=== PATIENT | male | born 1955 | race Caucasian/White ===

== ENCOUNTER 2024-06-28 04:32 | Observation (INO) | payer OTHER, SELFPAY ==
[2024-06-28] VITALS (23 sets, daily range): BP systolic 123–167; BP diastolic 67–91; PULSE 65–100; RESP 14–26; TEMP 36.6–37; O2SAT 94–99; BMI 34.0
--- NOTE | 2024-06-28 | ECHO_ITS ---
Patient Info Name: Aristides Pichardo Age: 68 years : 1955 Gender: Male Ht: 73 in Wt: 253 lbs BSA: 2.47 m2 HR: 84 bpm BP: 154 / 84 mmHg Heart Rhythm: Sinus Rhythm Technical Quality: Fair Exam Date: 06/28/2024 12:31 PM Exam Location: Echo Lab Patient Status: Inpatient Admit Date: 06/28/2024 Staff Ordering Physician: Brunilda Godinez MD Cement Rubber: Patti Carlos RDCS Attending Provider: Sixto Donnelly MD Referring Physician: Gretchen VIZCARRA; Exam Type: CA echo doppler color flow Study Info Indications - Heart Score 4 Complete two-dimensional, color flow and Doppler transthoracic echocardiogram is performed with contrast to opacify the left ventricle and to improve the deliniation of the left ventricle endocardial borders. Contrast/Agitated Saline Contrast/Ag. Saline: Definity Amount: 2.00 ml Administered By: Patti Carlos RDCS Existing IV Access: Yes IV Access Condition: patent with no signs of infiltration Summary 1. Concentric LVH with normal systolic function and grade 1 diastolic noncompliance. 2. Abnormal septal motion consistent with IVCD/bundle branch block. 3. Dilated left atrium. 4. Trivial MR. Left Ventricle Left ventricular chamber dimension is normal. Left ventricular systolic function is normal, estimated at 55-60%. There is mild concentric increased left ventricular wall thickness. Left ventricular septal wall motion is abnormal with septal motion related to bundle branch block. The left ventricular diastolic function is grade I diastolic dysfunction. Right Ventricle Right ventricular chamber dimension is normal. Left Atria Left atrial chamber dimension is moderately enlarged. Right Atria Right atrial chamber dimension is normal. Aortic Valve The aortic valve is normal. Pulmonic Valve The pulmonic valve is normal. Mitral Valve The mitral valve has normal leaflets. There is trace mitral valve regurgitation. Tricuspid Valve The tricuspid valve leaflets are normal. Pericardium/Pleural The pericardium appears normal. Aorta The aortic root size at the sinus of Valsalva is normal. Left Ventricular Outflow Tract Name Value Normal LVOT 2D LVOT Diameter 2.4 cm LVOT Doppler LVOT Peak Gradient 3 mmHg LVOT Mean Gradient 1 mmHg LVOT VTI 16 cm LVOT VTI/AV VTI Ratio 0.7 LVOT Stroke Volume 70 ml LVOT CO 5.3 l/min LVOT CI 2.2 l/min/m2 Pulmonic Valve Name Value Normal RVOT Doppler RVOT Peak Gradient 2 mmHg PV Doppler PV Peak Gradient 4 mmHg Mitral Valve Name Value Normal MV Doppler MV Decel Hale 398 cm/s2 MV PHT 45 ms MV Area (PHT) 4.9 cm2 4.0-5.0 MV Diastolic Function MV E Peak Velocity 62 cm/s MV A Peak Velocity 79 cm/s MV E/A 0.8 MV Decel Time 156 ms MV Annular TDI MV E/e' (Septal) 9.0 <=8.0 MV E/e' (Lateral) 7.1 <=8.0 MV E/e' (Average) 8.1 Tricuspid Valve Name Value Normal TV Regurgitation Doppler TR Peak Velocity 243 cm/s TR Peak Gradient 24 mmHg Estimated PAP/RSVP RA Pressure 10 mmHg <=5 PA Systolic Pressure 34 mmHg <36 RV Systolic Pressure 34 mmHg <36 Aorta Name Value Normal Ascending Aorta Ao Root Diameter (MM) 3.5 cm Ao Root Diam Index (MM) 1.4 cm/m2 Aortic Valve Name Value Normal AV Doppler AV Peak Velocity 133 cm/s AV Peak Gradient 7 mmHg AV Mean Gradient 3 mmHg AV VTI 23 cm AV Area (Cont Eq VTI) 3.1 cm2 >=3.0 AV Area (Cont Eq Bishop) 2.9 cm2 AV Regurgitation 2D LVOT Area 4.5 cm2 Ventricles Name Value Normal LV Dimensions 2D/MM IVS Diastolic Thickness (2D) 1.1 cm 0.6-1.0 LVID Diastole (2D) 5.1 cm 4.2-5.8 LVIW Diastolic Thickness (2D) 1.0 cm 0.6-1.0 LVID Systole (2D) 2.7 cm 2.5-4.0 LVOT Diameter 2.4 cm LV Mass (2D Cubed) 203.01 g 88.00-224.00 LV Mass Index (2D Cubed) 82 g/m2 49-115 Relative Wall Thickness (2D) 0.41 LV Fractional Shortening/Ejection Fraction 2D/MM LV Fractional Shortening (2D) 47 % 25-43 LV EF (2D Teicholz) 78 % 52-72 LV Diastolic Volume (4C MOD) 108 ml LV EF (4C MOD) 63 % LV Diastolic Volume (2C MOD) 129 ml LV EF (2C MOD) 65 % LV Diastolic Volume (BP MOD) 119 ml 62-150 LV Diastolic Volume Index (BP MOD) 48 ml/m2 34-74 LV Systolic Volume (BP MOD) 44 ml 21-61 LV Systolic Volume Index (BP MOD) 18 ml/m2 11-31 LV EF (BP MOD) 63 % 52-72 LV Diastolic Length (4C) 9.3 cm LV Systolic Length (4C) 8.4 cm LV Stroke Volume (4C MOD) 68 ml Atria Name Value Normal LA Dimensions LA Dimension (MM) 5.5 cm 3.0-4.1 LA Volume (4C A-L) 63 ml LA Volume (BP A-L) 74 ml RA Dimensions RA Area (4C) 18.4 cm2 <=18.0 Report Signatures
--- NOTE | ~2024-06-28 | XR_ITS ---
Clinical Indication: Chest pain PA and lateral views of the chest: Comparison: 06/07/2018 Findings: The lungs are clear, without evidence of focal consolidation or pleural effusion. Cardiome diastinal silhouette is within normal limits. Bones and soft tissues are unremarkable. Impression: Normal chest. Reviewed, dictated and finalized at location . Impression: Normal chest.
--- NOTE | ~2024-06-28 | US_ITS ---
EXAM: RENAL ULTRASOUND HISTORY: Acute renal failure COMPARISON: Reference is made to a CTA examination of the chest dated 06/28/2024 at 7:25 AM. Reference is also made to a CT examination of the abdomen and pelvis dated 04/07/2019 FINDINGS: RIGHT KIDNEY: 10.1 x 4.9 x 4.1 cm. The parenchyma of the right kidney is increased in echogenicity. No hydronephrosis or bulky renal calculi. LEFT KIDNEY: 12.1 x 6.0 x 4 point cm No hydronephrosis or renal calculi. The parenchyma of the left kidney is increased in echogenicity. BLADDER: Only minimally distended. Despite prolonged interrogation, neither ureteral jet was visualized IMPRESSION: No hydronephrosis or renal calculi. Findings suggesting medical renal disease. Reviewed, dictated and finalized at location A.
--- NOTE | ~2024-06-28 | NM_ITS ---
EXAMINATION: NM regine stress w perfusion DATE: 06/29/2024 13:00 INDICATION: Chest pain TECHNIQUE: Rest images were obtained following intravenous administration of 10 mCi Tc99m tetrofosmin (Myoview). The patient was infused intravenously with Lexiscan (Regadenoson). Then, 32.4 mCi Tc99m t etrofosmin (Myoview) was administered intravenously, and stress images were obtained. Data was recons tructed into short axis and horizontal and vertical long axis SPECT images. Gated SPECT images were a lso obtained. COMPARISON: None. FINDINGS: There is no definite reversible or fixed perfusion abnormality to suggest ischemia or infar ction. There is normal left ventricular chamber size, wall motion and ejection fraction. Left ventr icular ejection fraction measures 55%. IMPRESSION: 1. Normal myocardial perfusion at rest and during stress. 2. Left ventricular ejection fraction measuring 55%. Reviewed, dictated and finalized at location A.
--- NOTE | ~2024-06-28 | CT_ITS ---
Clinical Indication: Chest pain CT Scan of the Chest with Contrast: Technique: Contiguous sections were acquired throughout the chest after intravenous administration of 100 cc of Omnipaque 350. Dose reduction technique was used on this scan by utilizing automated expos ure control and iterative reconstruction technique. The dose-length product (DLP) was 679.84 mGy-cm. COMPARISON: 06/07/2018 Findings: There is no evidence of any significant mediastinal, hilar or axillary lymphadenopathy. There is no f illing defect in the pulmonary arterial tree to suggest pulmonary embolus. There is no evidence of ao rtic dissection or aneurysm. There is no evidence of pleural or pericardial effusion. The lungs are clear, aside from stable areas of minimal scarring at the lingula. Images through the upper abdomen reveal no abnormalities. Small sclerotic lesion in the sternal manub rium is stable since 2019. Impression: No evidence of pulmonary embolus, aortic dissection, or aortic aneurysm. No acute pulmonary abnormality. Reviewed, dictated and finalized at [facility]. Impression: No evidence of pulmonary embolus, aortic dissection, or aortic aneurysm. No acute pulmonary abnormality.
--- NOTE | 2024-06-28 04:34 | ECG_ITS ---
Test Date: 2024-06-28 04:41:13 Measurements Intervals [place] Rate: 97 P: 3 WA: 206 QRS: -45 QRSD: 97 T: 84 QT: 333 QTc: 424 Interpretive Statements SINUS RHYTHM POSSIBLE LEFT ATRIAL ENLARGEMENT [-0.1mV P WAVE IN V1/V2] MARKED LEFT AXIS DEVIATION [QRS AXIS < -30] S1-S2-S3 PATTERN, CONSISTENT WITH PULMONARY DISEASE, RVH, OR NORMAL VARIANT LEFT VENTRICULAR HYPERTROPHY AND ST-T CHANGE [VOLTAGE CRITERIA PLUS ST/T ABNORMALITY] POOR R WAVE PROGRESSION No previous ECG available for comparison Electronically Signed On 06-28-2024 16:51:57 CDT by Ancelmo Avila M.D.
--- OUTSIDE RECORDS SUMMARY | 2024-06-28 04:35 | XMS_ITS | Encounter Summary ---
Author Organization [facility] Healthcare Address [address] [place] [address] Care Team Providers Care Plate Driller Name Role Phone Rosa Russell GAS COLLECTION SYSTEM OPERATOR Unavailable [phone] Franky Sylvester MD Primary Care Provider [phone] Montrell Wolfe MD PhD Unavailable [phone] Pablo Mcmillan MD Unavailable Encounter Details Date Type Department Care Team (Late st Contact Info) Description 06/14/2024 Orders Only [facility] [place] [address] [place] [address] [address] [place] [address] Franky Sylvester MD [address] [address] Social History Tobacco Use Types Packs/Day Years Used Date Smoking Tobacco: Former Cigarettes 0.3 15 1 975 - 1989 Smokeless Tobacco: Never Alcohol Use Standard Drinks/Week Comments No 0 (1 standard drink = 0.6 oz pur e alcohol) [facility] Utilities Answer Date Recorded In the past 12 months has [employer] electric, gas, oil, or water company threatened to shut off services in your home? No 06/26/2023 Social Connection and Isolat ion Panel [NHANES] Answer Date Recorded In a typical week, how many times do you talk on the phone with family, friends, or neighbors? More than three times a week 06/26/2023 How often do you get togethe r with friends or relatives? More than three times a week 06/26/2023 How often do you attend chur ch or episcopal services? Never 06/26/2023 Do you belong to any clubs o r organizations such as methodist groups, unions, fraternal or athletic groups, or school groups? No 06/26/2023 How often do you attend meet ings of the clubs or organizations you belong to? Never 06/26/2023 Are you , , di vorced, , never , or living with a partner? 06/26/2023 AUDIT-C Answer Date Recorded Q1: How often do you have a drink containing alc ohol? 2-3 times a week 05/19/2024 Q2: How many drinks containi ng alcohol do you have on a typical day when you are drinking? 1 or 2 05/19/2024 Q3: How often do you have si x or more drinks on one occasion? Monthly 05/19/2024 Overall Financial Resource Strain (CARDIA) Answe r Date Recorded How hard is it for you to pa y for the very basics like food, housing, medical care, and heating? Not hard at all 06/26/2023 PHQ-2 Answer Date Recorded PHQ-2 Total Score (If total score is 3 or more points, staff should administer the PHQ-9) 3 02/14/2024 Hunger Vital Sign Answer Date Recorded Within the past 12 months, y ou worried that your food would run out before you got the money to buy more. Never true 06/26/19 24 Within the past 12 months, t he food you bought just didn't last and you didn't have money to get more. Never true 06/26/2023 PRAPARE - Transportation Answer Date Re corded In the past 12 months, has l ack of transportation kept you from medical appointments or from getting medications? No 06/11 In the past 12 months, has l ack of transportation kept you from meetings, work, or from getting things needed for daily living? No 06/26/2023 Housing Stability Vital Sign Answer Abhijit e Recorded In the last 12 months, was t here a time when you were not able to pay the mortgage or rent on time? No 06/26/2023 In the last 12 months, how many places have you lived? 1 06/26/2023 In the last 12 months, was t here a time when you did not have a steady place to sleep or slept in a longterm (including now)? No 06/26/2023 PHQ-9 Answer Date Recorded PHQ-9 Total Score 10 02/14/2024 Personal Safety Answer Date Recorded Have you ever been in or are you currently in a harmful physical or emotional relationship or is someone making you feel afraid or unsafe? Denies 05/19/2024 Sex and Gender Information Value Date Recorded Sex Assigned at Not on file Legal Sex Male 10:07 AM HEATING ENGINEER Gender Identity Not on file Sexual Orientation Not on file documented as of this encounter Plan of Treatment Not on file documented as of this encounter Goals Goal Patient Goal Type Associated Problems Recent Progress Patient-Stated? Author CCM Chronic Pain Care Plan Chronic Care Management No change(06/04 7:38 AM HEATING ENGINEER) No Seema Dutton, RN Note: Problem: Chronic Pain Goals: 1. Minimize further functional decline 2. Maximize quality of life 3. Control pain Strategies: - Activity/exercise program recommendation - Conservative stepwise pain medicine strategy with multi-disciplinary approach - Recommend healthy lifestyle strategies and compensatory methods as needed documented as of this encounter Visit Diagnoses Not on filedocumented in this encounter Care Teams Plate Driller Relationship Specialty Start Date End Date Franky Sylvester MD PCP - General Family Medicine 12/03/21 Rosa Russell NP Nurse Practitioner Medical Oncology 06/13/20 Montrell Wolfe MD PhD Medical Oncologist/Executive Officer Special Warfare Team Medical Oncology 12/03/21 Pablo Mcmillan MD [address] [place] [address] Worldwide Chief Creative Officer Nephrology 03/21/24 documented as of this encounter
--- OUTSIDE RECORDS SUMMARY | 2024-06-28 04:36 | XMS_ITS | Encounter Summary ---
Author Organization [facility] Healthcare Address [address] [place] [address] Care Team Providers Care Supply Chain Tech Name Role Phone Emily Tovar MD Primary Care Provider Rosa Russell OPERATOR TECHNICIAN Unavailable [phone] Franky Sylvester MD Primary Care Provider [phone] Montrell Wolfe MD PhD Unavailable [phone] Luba Corona RN Unavailable [phone] Pablo Mcmillan MD Unavailable [phone] Reason for Visit * Reason Onset Date Comments Med Refill 08/17/2020 Encounter Details Date Type Department Care Team (Late st Contact Info) Description 08/17/2020 Telephone [facility] [place] [facility] [address] [facility] [address] [place], [place] [id number] Heriberto Salgado MD [address] [facility] [address] [place], [place] [id number] Med Refill Social History Tobacco Use Types Packs/Day Years Used Date Smoking Tobacco: Former Cigarettes 0.3 10 1 - 1989 Smokeless Tobacco: Never Alcohol Use Standard Drinks/Week Comments No 0 (1 standard drink = 0.6 oz pur e alcohol) AUDIT-C Answer Date Recorded Q1: How often do you have a drink containing alc ohol? Monthly or less 07/02/2020 Q2: How many drinks containi ng alcohol do you have on a typical day when you are drinking? 1 or 2 07/02/2020 Q3: How often do you have si x or more drinks on one occasion? Never 07/02/2020 PHQ-2 Answer Date Recorded PHQ-2 Total Score (If total score is 3 or more points, staff should administer the PHQ-9) 0 09/09/2019 Sex and Gender Information Value Date Recorded Sex Assigned at Not on file Legal Sex Male 10:07 AM ROTARY SHEAR OPERATOR Gender Identity Not on file Sexual Orientation Not on file documented as of this encounter Plan of Treatment Not on file documented as of this encounter Goals Goal Patient Goal Type Associated Problems Recent Progress Patient-Stated? Author CCM Chronic Pain Care Plan Chronic Care Management No change(06/04 7:38 AM ROTARY SHEAR OPERATOR) No Seema Dutton, PANCHO Note: Problem: Chronic Pain Goals: 1. Minimize further functional decline 2. Maximize quality of life 3. Control pain Strategies: - Activity/exercise program recommendation - Conservative stepwise pain medicine strategy with multi-disciplinary approach - Recommend healthy lifestyle strategies and compensatory methods as needed documented as of this encounter Visit Diagnoses Not on filedocumented in this encounter Additional Health Concerns Infection Onset Date Last Indicated Resolved Time C. difficile Comment:Backloaded January 30, 2011 03/05/2008 03/05/200810/11 8:23 AM CDT VRE Comment:Backloaded January 30, 2011 04/25/11 & 06/24/12 rectal VRE= negative 12/25/2010 12/25/2010 10/24/2020 8:23 AM C DT COVID: Suspected 02/03/2021 02/03/2021 02/03/2021 4:21 PM CDT COVID: Suspected 02/11/2021 02/11/2021 02/11/2021 12:31 PM CDT COVID: Suspected 09/10/2021 09/10/2021 09/10/2021 4:50 PM CDT COVID: Suspected 09/25/2021 09/30/2021 09/26/2021 3:05 AM CDT COVID: Suspected 09/26/2021 09/26/2021 09/26/2021 2:32 PM CDT Parainfluenza, droplet 09/26/2021 09/26/202110/03 3:05 AM CDT COVID: Suspected 07/05/2022 07/05/2022 07/05/2022 8:00 PM CDT COVID: Suspected 01/09/2023 01/09/2023 01/09/2023 7:52 PM CDT COVID: Suspected 02/04/2023 02/04/2023 02/04/2023 10:27 AM CDT COVID: Suspected 09/16/2023 09/16/2023 09/16/2023 8:19 AM CDT COVID: Suspected 11/24/2023 11/24/2023 11/24/2023 5:44 PM CDT COVID19 11/24/2023 11/24/2023 12/04/2023 3:07 AM CDT COVID: Recovered Comment:Added based on recent COVID infection. 12/04/2023 12/15/2023 03/03/2024 3:[address] documented as of this encounter Care Teams Supply Chain Tech Relationship Specialty Start Date End Date Emily Tovar MD PCP - General Internal Medicine 09/22/16 10/09/21 Franky Sylvester MD PCP - General Family Medicine 12/03/21 Rosa Russell NP Nurse Practitioner Medical Oncology 06/13/20 Montrell Wolfe MD PhD Medical Oncologist/Take Up Operator Medical Oncology 12/03/21 Luba Corona, PANCHO [address] [place] [address] [place] [address] Stiff Leg Operator 05/19/23 02/07/24 Pablo Mcmillan MD [address] [facility] [address] [place] [address] Electrocardiograph Technician Nephrology 03/21/24 documented as of this encounter
--- OUTSIDE RECORDS SUMMARY | 2024-06-28 04:36 | XMS_ITS | Encounter Summary ---
Author Organization [facility] Address [address] [place] [address] Phone Care Team Providers Care Computer Programmer Analyst Name Role Phone Rosa Russell Placido LATHE OPERATOR Unavailable [phone] Franky Sylvester MD Primary Care Provider [phone] Montrell Wolfe MD PhD Unavailable [phone] Luba Corona RN Unavailable [phone] Pablo Mcmillan MD Unavailable [phone] Encounter Details Date Type Department Care Team (Late st Contact Info) Description 12/03/2021 Telephone [facility] 7th Floor, [place] [address] Lisette Rucker V. Social History Tobacco Use Types Packs/Day Years Used Date Smoking Tobacco: Former Cigarettes 0.3 15 1 975 - 1989 Smokeless Tobacco: Never Alcohol Use Standard Drinks/Week Comments No 0 (1 standard drink = 0.6 oz pur e alcohol) AUDIT-C Answer Date Recorded Q1: How often do you have a drink containing alc ohol? 2-4 times a month 06/04/2021 Average Number of Drinks Not on file 022 Frequency of Binge Drinking Not on file 05/15 PHQ-2 Answer Date Recorded PHQ-2 Total Score (If total score is 3 or more points, staff should administer the PHQ-9) 0 10/10/2021 Sex and Gender Information Value Date Recorded Sex Assigned at Not on file Legal Sex Male 10:07 AM LEGAL RECOVERY SPECIALIST Gender Identity Not on file Sexual Orientation Not on file documented as of this encounter Plan of Treatment Not on file documented as of this encounter Goals Goal Patient Goal Type Associated Problems Recent Progress Patient-Stated? Author CCM Chronic Pain Care Plan Chronic Care Management No change(06/04 7:38 AM LEGAL RECOVERY SPECIALIST) No Seema Dutton RN Note: Problem: Chronic Pain Goals: 1. [...] Infection Onset Date Last Indicated Resolved Time COVID: Suspected 07/05/2022 07/05/2022 07/05/2022 8:00 PM [...] documented as of this encounter Care Teams Computer Programmer Analyst Relationship Specialty Start Date End Date Franky Sylvester MD PCP - General Family Medicine 12/03/21 Rosa Russell NP Nurse Practitioner Medical Oncology 06/13/20 Montrell Wolfe MD PhD Medical Oncologist/Specialty Sales Representative Medical Oncology 12/03/21 Luba Corona RN [address] [place] [address] [address] [place] [address] Spinning Machine Operator 05/19/23 02/07/24 [place] [address] [place] [address] [address] [place] [address] Rheostat Assembler Nephrology 03/21/24 documented as of this encounter
--- OUTSIDE RECORDS SUMMARY | 2024-06-28 04:36 | XMS_ITS | Clinical Summary ---
Author Organization [facility] Address [address] [place] [address] Care Team Providers Care Plant Wire Chief Name Role Phone Rosa Russell BI SOLUTIONS ARCHITECT Unavailable [phone] Franky Sylvester MD Primary Care Provider [phone] Montrell Wolfe MD PhD Unavailable [phone] Pablo Mcmillan MD Unavailable [phone] Allergies Active Allergy Reactions Criticality Noted Date Comments Gabapentin Other (See comments) Low Reaction: Other Lisinopril Cough Low 11/13/2021 Vancomycin Itching Low Medications prochlorperazin e (COMPAZINE) 10 mg tabletIndicatio ns:Acute myeloid leukemia in remission (HCC) Take 1 tablet (10 mg total) by mouth every 6 (six) hours as needed for nausea 120 tablet 5 04/12/20 19 Active pravastatin (PRAVACHOL) 10 mg tablet TAKE 1 TABLET BY MOUTH EVERY DAY 90 tablet 3 12/08/19 24 Active dilTIAZem XR 240 mg 24 hr capsuleIndicati ons:Atrial fibrillation, unspecified type (HCC) Take 1 capsule (240 mg total) by mouth daily 90 capsule 2 12/08/19 24 Active magnesium gluconate 200 mg tabletIndicatio ns:hypomagnesem ia Take 2 tablets (400 mg total) by mouth 2 (two) times a day Active needle, disp, 18 G (BD Regular [place]) 18 gauge x 1 needle To draw up injection 12 each 11 04/01/20 24 Active syringe, disposable, (BD Luer-Emilia Syringe) 1 mL syringe To use for injection 12 each 11 04/01/20 24 Active needle, disp, 23 gauge (BD Regular [place]) 23 gauge x 3/4 needle To use to inject 12 each 04/01/20 24 Active apixaban (ELIQUIS) 5 mg tablet Take 1 tablet (5 mg total) by mouth 2 (two) times a day 180 tablet 1 04/14/19 25 Active empagliflozin (JARDIANCE) 10 mg tablet Take 1 tablet (10 mg total) by mouth daily 90 tablet 3 04/19/19 25 Active tirzepatide (Mounjaro) 10 mg/0.5 mL pen injector injection Inject 0.5 mL (10 mg total) under the skin once a week 0.5 mL 5 06/16/19 25 Active Jakafi 10 mg tabletIndicatio ns: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 TAKE WITH OR WITHOUT FOOD. 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 Take with or without food. 60 tablet 3 02/22/20 24 025 Discontinued testosterone cypionate (DEPO-TESTOTERO NE) 200 mg/mL injection Inject 0.5 mL (100 mg total) into the muscle as instructed every 7 days 2 mL 3 04/01/20 24 025 Discontinued(R eorder) tirzepatide (Mounjaro) 7.5 mg/0.5 mL pen injector 7.5 weekly subq 2 mL 3 04/19/19 25 03/05/2 025 Discontinued(A lternate therapy) benzonatate (TESSALON) 200 mg capsuleIndicati ons:Acute non-recurrent pansinusitis Take 1 capsule (200 mg total) by mouth 3 (three) times a day as needed for cough 30 capsule 05/10/19 25 025 Discontinued(T herapy completed) testosterone cypionate (DEPO-TESTOTERO NE) 200 mg/mL injectionIndica tions:Hypogonad ism in male Inject 0.5 mL (100 mg total) into the muscle as instructed every 7 days 2 mL 06/09/19 25 025 Discontinued(R eorder) Active Problems Problem Noted Date Diagnosed Date Controlled type 2 diabetes m cherelle with stage 3 chronic kidney disease, without long-term current use of insulin 06/15/2024 History of colon polyps 03/23/2024 Medicare annual wellness visit, subsequent 02/14 Assessment & Plan (02/15/2024 10:43 AM ADVERTISING DESIGNER): Discussed with patient current recommendations for routine screenings. Recommend colon cancer screening with colonoscopy or DNA stool testing such as Cologuard starting at age 45. Prostate cancer screening is recommended from 55 to 69yo. Discussed diet, exercise, and importance of maintaining a healthy weight. For smokers or previous smokers that have quit in the past 15 years, annual lung cancer screening is recommended via a low dose CT scan. This is recommended from 50-80yo. For men age 65 to 75 who have ever smoked it is recommended to undergo abdominal aortic aneurysm screening via ultrasound once. 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 EKG in [facility] 07/05 showed narrow complex tachycardia with HR >150. Given adenosine x2 (6 mg, 12 mg) in [facility]. EKG strip after adenosine noted flutter waves. Given Amio bolus 150 mg, IV metop x2 5 mg after adenosine with poor clinical response. -S/p IV dilt 10 mg x3 07/06/22. Better rate control was noted with IV dilt compared to metop/amio. -Cards consulted.He sees Dr Elizondo as outpatient,-PO metop & amio stopped per cards recs S/p LUISA and successful cardioversion 07/07/22 with mormon of sinus rhythm. PO diltiazem 60 mg q 6 hrs consolidated to Cardizem CD 240mg qday this morning -lovenox for AC being switched to NOAC at discharge:eliquis, dosing appropriate for creatinine clearance -Formal TTE :Normal LV size with basal septal hypertrophy, low normal LV systolic function, mildly impaired LV strain, and normal diastolic function with normal est. LV filling pressure. Normal RV size and systolic function. Normal LA, RA, aorta, and IVC. Mild MR. Trace TR. Unable to assess PA pressure. No pericardial effusion. Compared with TTE 12/20/21, no significant change.. TSH normal. Infectious work-up: blood cultures 07/05 NGTD, UA bland, CXR clear -Cardiology is planning follow up in clinic in 2 to 4 weeks Primary osteoarthritis involving multiple joints 01/02/2022 Morbid (severe) obesity due to excess calories 0 01/02/2022 Obstructive sleep apnea with dependence on continuous positive airway pressure (CPAP) 01/02/2022 Assessment & Plan (03/01/2024 9:39 AM ADVERTISING DESIGNER): Stable Uses CPAP with relief of symptoms Encourage to bring in compliance report Essential hypertension 10/10/2021 Assessment & Plan (07/08/2022 1:20 PM CDT): Held arb at admit with JUANITO on CKD. Now on cardizem CD240 mg po qday Daytime somnolence 02/12/2021 History of antineoplastic chemotherapy Polycythemia, secondary 02/06/2020 Assessment & Plan (07/05/2022 6:58 PM CDT): Treated with phlebotomy every 3 months. Baseline hgb ~15-16 post transplant Hx of peripheral stem cell transplant 02/06/2020 Personal history of nicotine dependence 09/20/19 20 Hypogonadism in male 05/17/2019 Long-term current use of testosterone replacemen t therapy 05/17/2019 Stem cells transplant status 07/09/2017 Chemotherapy-induced neuropathy (CMS/HCC) 2017 Assessment & Plan (02/15/2024 10:42 AM ADVERTISING DESIGNER): Stable Declines pain management Reports magnesium has helped with pain Assessment & Plan (07/08/2022 1:19 PM CDT): Continue nortriptyline , home dose 100 mg po q bedtime Family history of AML in remission 07/24/2016 Overview (09/05/2016): Acute myeloid leukemia in remission Dystrophia unguium 04/03/2015 Vitamin D deficiency disease 03/23/2012 Impotence of organic origin 10/05/2008 Acute myeloid leukemia in remission Assessment & Plan (07/08/2022 1:11 PM CDT): S/p 7+3 induction, autoSCT 2007, haploSCT 2010. Currently in remission. Off immunosuppression. Will follow up in clinic Resolved Problems Problem Noted Date Diagnosed Date Resolved Date Chronic diastolic heart failure 09/22/2023 12/16/2023 Diaphoresis 07/05/2022 10/16/2022 Tachycardia 01/02/2022 10/16/2022 Reactive airway disease 10/10/2021 07/0 09/2022 Wheezing 10/10/2021 10/16/2022 Abnormal echocardiogram 02/12/2021 07/0 09/2022 Epigastric pain 10/09/2020 10/10/2021 Overview (10/09/2020): Added automatically from request for surgery [id number] Other osteoporosis without c urrent pathological fracture 05/17/2019 10/16/2022 Prediabetes 05/17/2019 10/16/2022 Acute on chronic renal insufficiency 10/26/2018 10/16/2022 Assessment & Plan (07/08/2022 1:13 PM CDT): Cr 2.32 on admission (BL around 2 ). S/p 1L IVF bolus in [facility] 07/05 -Patient does endorse occasional NSAID use at home. Counseled to avoid -urine bland , renally dosde meds -he is followed in renal clinic and has already a scheduled follow up Shortness of breath 08/29/2015 10/11/19 22 Cough 04/04/2015 12/16/2023 Skin neoplasm 04/03/2015 10/16/2022 Notalgia 05/09/2014 10/16/2022 Arthralgia of hip 05/08/2014 06/15/2024 Recurrent major depressive disorder 10/29/2012 10/16/2022 Fatigue 09/07/2012 10/10/2021 Asteatosis cutis 04/26/2012 10/10/2021 Tinea cruris 04/26/2012 10/10/2021 Complications of bone marrow transplant 01/21/2012 10/16/2022 Sinusitis 05/19/2011 10/10/2021 Peripheral nerve disease 08/12/201009/2022 Pain of foot 01/09/2010 10/10/2021 Encounters Date Type Department Care Team Description 06/23/2024 ACO Medication Access [facility] Accountable Care Organization [address] [place] [id number] Giana Thomas CPhT 06/15/2024 9:15 AM ADVERTISING DESIGNER Office Visit [facility] Family Medicine at [address] [place] [address] Franky Sylvester MD Stage 3b chronic kidney disease (HCC) (Primary Dx); Essential hypertension; Paroxysmal atrial flutter (HCC); Hypogonadism in male; Acute myeloid leukemia in remission (HCC); 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 disease, without long-term current use of insulin (HCC) 06/14/2024 Orders Only [facility] Family Medicine at [address] [address] Franky Sylvester MD 06/13/2024 9:15 AM ADVERTISING DESIGNER Office Visit [facility] Bone Marrow Transplant [address] [place] [phone] Montrell Wolfe MD PhD Acute myeloid leukemia in remission (HCC) 06/13/2024 8:00 AM ADVERTISING DESIGNER Lab [facility] [address] [place] [address] Acute myeloid leukemia in remission (HCC); 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 disease, without long-term current use of insulin (HCC); Low testosterone in male 06/13/2024 Results Follow-Up [facility] Family Medicine at [address] [address] Lisandra Romero PA 06/06/2024 Telephone [facility] Family Medicine at [address] [address] Franky Sylvester MD Referral Request 05/19/2024 1:04 PM ADVERTISING DESIGNER Anesthesia Event [facility] [address] [address] Bautista Huertas MD 05/19/2024 1:00 PM ADVERTISING DESIGNER - 05/19/2024 1:45 PM ADVERTISING DESIGNER Surgery [facility] [address] [address] Natalie Gonzalez MD COLON REMOVAL SNARE 05/19/2024 11:46 AM ADVERTISING DESIGNER - 05/19/2024 2:23 PM ADVERTISING DESIGNER Hospital Encounter [facility] [address] [address] Natalie Gonzalez MD History of colon polyps Discharge Disposition: Discharge to home or self care 05/12/2024 Telephone [facility] Specialty Services [address] [place] [address] Maria Guadalupe Marques, RN GI Preprocedure 05/10/2024 9:00 AM ADVERTISING DESIGNER Office Visit [facility] at [address] [address] Afsaneh Tao NP Acute non-recurrent pansinusitis (Primary Dx) 05/09/2024 Telephone [facility] Family Medicine at [address] [place] [address] Franky Sylvester MD Referral Request 04/20/2024 Telephone [facility] Cardiology [facility] 8th [place] [address] [place] [phone] Guzman Elizondo MD 04/19/2024 8:30 AM ADVERTISING DESIGNER Telemedicine [facility] Cardiology [address] [facility] Floor 1, [address] [place] [phone] Guzman Elizondo MD Paroxysmal atrial flutter (HCC) (Primary Dx); Chronic diastolic heart failure (HCC); Pure hypercholesterolemia 04/18/2024 Telephone [facility] Family Medicine at [address] [place] [address] Franky Sylvester MD Referral Request 04/01/2024 8:00 AM ADVERTISING DESIGNER Office Visit [facility] Endocrinology Metabolism and Lipid [address] [place] [address] 13th [place] [address] [place] [address] Breanne Hunt MD PhD Low testosterone in male from Last 3 Months Immunizations Immunization Administration Dates Next Due Flucelvax Influenza Quad 01/08/2019,02/07/2017 Influenza, Quadrivalent, Yue l Culture-based MDCK, Preservative Free, Antibiotic Free, Intramuscular 02/06/2020,01/08/2019,02/07/2017 Influenza, Quadrivalent, Hig h Dose, Preservative Free, Intrr 01/14/2023,01/14/2022 Influenza, Quadrivalent, Spl it, Preservative Free, Intramuscular 11/25/2020,12/20/2019,01/25/2018,01/08 Influenza, Trivalent, High D ose, Split, Preservative Free, Intramuscular 02/15/2024 Influenza, Trivalent, Preser vative Free, Intramuscular 02/19/2015,02/06/2014 Influenza, Unspecified 01/14/2017 Pfizer SARS-CoV-2 Monovalent Vaccination (12+ Yrs) HERNANDEZ-READY TO USE 11/27/2021 Pfizer SARS-CoV-2 Monovalent Vaccination (12+ Yrs) PURPLE 07/05/2020,06/07/2020 Pneumococcal Conjugate PCV 13 08/29/2015, 016,04/04/2015 Pneumococcal Polysaccharide PPV23 11/12/2015, RSV Vaccine, Pref, Recombina nt, Subunit, Adjuvanted, PF, IM (Arexvy) 03/25/2023 Tdap 11/25/2020,09/09/2019 Surgical History Surgery Date Site/Laterality Comments CATARACT EXTRACTION LUMBAR PUNCTURE WO INJECTION, DIAGNOSTIC 09/14/2012 N/A REPLACEMENT TOTAL KNEE Bilateral COLONOSCOPY Medical History Medical History Date Comments DVT (deep venous thrombosis) (HCC) 2007 s/p IVC filter AML (acute myeloblastic leukemia) (HCC) 2007 s/p chemoradiation. 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 congestion/ uses Albuterol Atrial flutter (HCC) Type 2 diabetes mellitus (HCC) Chronic kidney disease History of transfusion Cataract Family History Medical History Relation Name Comments Alzheimer's disease Father Alzheime r's disease; Stroke Father Stroke; Heart failure Mother heart failure; Other Mother Gall Bladder; Hypertension Sister Hypertension; Relation Name Status Comments Father Mother Sister Social History Tobacco Use Types Packs/Day Years Used Date Smoking Tobacco: Former Cigarettes 0.3 15 1 5 - 1989 Smokeless Tobacco: Never Tobacco Cessation:Counseling Given: Not Answered Alcohol Use Standard Drinks/Week Comments No 0 (1 standard drink = 0.6 oz pur e alcohol) [facility] Utilities Answer Date Recorded In the past 12 months has [employer] gas, oil, or water [employer] threatened to shut off services in your [...] often do you attend chur ch or mandaeism services? Never 06/26/2023 Do you belong to any clubs o r organizations such as yazdanism groups, unions, fraternal or athletic groups, or [...] place to sleep or slept in a fpc (including now)? No 06/26/2023 PHQ-9 Answer Date Recorded PHQ-9 Total Score 10 02/14/2024 Personal Safety Answer Date Recorded Have you ever been in or are you currently in a harmful physical or emotional relationship or is someone making you feel afraid or unsafe? Denies 05/19/2024 Sex and Gender Information Value Date Recorded Sex Assigned at Not on file Legal Sex Male 10:07 AM ADVERTISING DESIGNER Gender Identity Not on file Sexual Orientation Not on file Obstetrics History Last Filed Vital Signs Vital Sign Reading Time Taken Comments Blood Pressure 132/74 06/15/2024 8:47 AM ADVERTISING DESIGNER Pulse 69 06/15/2024 8:47 AM ADVERTISING DESIGNER Temperature 36.5 C (97.7 F) 06/15/2024 8:47 AM ADVERTISING DESIGNER Respiratory Rate 18 06/13/2024 8:48 AM ADVERTISING DESIGNER Oxygen Saturation 95% 06/15/2024 8:47 AM ADVERTISING DESIGNER Inhaled Oxygen Concentration - - Weight 119.5 kg (263 lb 8 oz) 06/15/2024 8:47 AM ADVERTISING DESIGNER Height 185.4 cm (6' 1 ) 06/15/2024 8:47 AM ADVERTISING DESIGNER Body Mass Index 34.76 06/15/2024 8:47 AM ADVERTISING DESIGNER Plan of Treatment Health Maintenance Due Date Last Done Comments Hepatitis B Screening 12/20/1973 Zoster Vaccine (1 of 2) 12/20/1974 Pneumococcal vaccine 65+ (4 of 4 - PCV20 or PCV21) 11/11/2020 11/12/2015, 10/01/2015, 08/29/2015, Additional history exists Abdominal Aortic Aneurysm (A AA) Screen 12/20/2020 Foot Exam 10/17/2023 10/16/2022, 08/12, 10/26/2018, Additional history exists Covid-19 Vaccine (2023-05 5 season) 2023 03/25/2023, 05/19/2022, 11/27/2021, Additional history exists Dilated Eye Exam 02/27/2024 02/26/2023 Albumin Creatinine Ratio, Urine 07/08/2024 4, 08/07/2021 Lipid Panel 09/03/2024 09/04/2023, 01/11, 11/27/2021, Additional history exists Hemoglobin A1C 12/14/2024 06/13/2024, 10/11, 01/21/2023, Additional history exists Depression Screening 02/14/2025 02/15/2024, 02/15/2024, 12/16/2023, Additional history exists Well Visit 65+ 02/14/2025 02/15/2024, 07/2022, 10/16/2022, Additional history exists Colon Cancer Screening-Colonoscopy 05/19/2025 05/19/2024, 04/22/2023, 01/25/2013, Additional history exists Fall Risk Assessment 05/19/2025 05/19/2024, 02/15/2024, 12/16/2023, Additional history exists eGFR 06/13/2025 06/13/2024, 02/12, 2023, Additional history exists Prostate Cancer Screening-PSA 10/26/2025, 07/23/2022, 06/24/2021, Additional history exists DTaP/Tdap/Td Vaccine (3 - Td or Tdap) 11/25/2030 11/25/2020, 09/09/2019 Hepatitis C Screening Completed 08/07/2021, 008 Influenza Vaccine Completed 02/15/2024, , 01/14/2022, Additional history exists Colon Cancer Screening-CT Colonography Discontinued 05/19/2024, 04/22/2023, 01/25/2013, Additional history exists Colon Cancer Screening-DNA Stool Discontinued 05/19/2024, 04/22/2023, 01/25/2013, Additional history exists Colon Cancer Screening-FIT Discontinued 05/19, 04/22/2023, 01/25/2013, Additional history exists Colon Cancer Screening-Sigmoidoscopy Discontinued 05/19/2024, 04/22/2023, 01/25/2013, Additional history exists Goals Goal Patient Goal Type Associated Problems Recent Progress Patient-Stated? Author CCM Chronic Pain Care Plan Chronic Care Management No change(06/04 7:38 AM ADVERTISING DESIGNER) No Seema Dutton RN Note: Problem: Chronic Pain Goals: 1. Minimize further functional decline 2. Maximize quality of life 3. Control pain Strategies: - Activity/exercise program recommendation - Conservative stepwise pain medicine strategy with multi-disciplinary approach - Recommend healthy lifestyle strategies and compensatory methods as needed Medical Devices Implanted Type Area Hide Examiner Device Identifier Shelf Expiration Date Model / Serial / Lot Ivc Filter IVC Filter Vena Cava Procedures Procedure Name Priority Date/Time Associated Diagnosis Comments EGFR Routine 06/13/2024 7:24 AM ADVERTISING DESIGNER Acute myeloid leukemia in remission (HCC) DIFFERENTIAL AUTO Routine 06/13/2024 7:2 4 AM ADVERTISING DESIGNER Acute myeloid leukemia in remission (HCC) TESTOSTERONE, TOTAL AND FREE, SERUM Routine 06/13/2024 7:24 AM ADVERTISING DESIGNER Low testosterone in male HEMOGLOBIN A1C Routine 06/13/2024 7:24 AM ADVERTISING DESIGNER 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 disease, without long-term current use of insulin (HCC) CBC WITH AUTO DIFFERENTIAL Routine 06/13/2024 7:24 AM ADVERTISING DESIGNER Acute myeloid leukemia in remission (HCC) COMPREHENSIVE METABOLIC PANEL Routine 06/13/2024 7:24 AM ADVERTISING DESIGNER Acute myeloid leukemia in remission (HCC) LACTATE DEHYDROGENASE Routine 06/13/2024 7:24 AM ADVERTISING DESIGNER Acute myeloid leukemia in remission (HCC) SURGICAL PATHOLOGY Routine 05/19/2024 1: 23 PM ADVERTISING DESIGNER History of colon polyps ENDO ADD ON COLON BIOPSY 05/19/2024 1:04 PM ADVERTISING DESIGNER History of colon polyps COLON REMOVAL SNARE 05/19/2024 1 :04 PM ADVERTISING DESIGNER History of colon polyps COLONOSCOPY 05/19/2024 12:30 PM ADVERTISING DESIGNER PSA SCREEN Routine 10/27/2023 10:05 AM CDT Screening for prostate cancer LIPID PANEL Routine 09/04/2023 10:34 AM CDT Atrial flutter with rapid ventricular response (HCC) Essential hypertension Paroxysmal atrial flutter (HCC) Pure hypercholesterolemia Acute myeloid leukemia in remission (HCC) NOVAK (dyspnea on exertion) ALBUMIN CREATININE RATIO, URINE Routine 07/09/2023 9:09 AM CDT Type 2 diabetes mellitus without complication, without long-term current use of insulin (HCC) HM DIABETES EYE EXAM Routine 02/26/2023 11:15 AM ADVERTISING DESIGNER HEPATITIS C ANTIBODY Routine 08/07/2021 2:55 PM CDT Creatinine elevation from Last 3 Months or Most Recently Relevant to Health Maintenance Results * (ABNORMAL) eGFR (06/13/2024 7:24 AM ADVERTISING DESIGNER) eGFR 37(L) >=60 mL/min/1. 73 m2 Comment: Interpretive Data Reference Interval Normal >/= 90 mL/min/1.73m2 Mildly decreased* 60 - 89 mL/min/1.73m2 Mildly to moderately decreased 45 - 59 mL/min/1.73m2 Moderately to severely decreased 30 - 44 mL/min/1.73m2 Severely decreased 15 - 29 mL/min/1.73m2 Kidney Failure < 15 mL/min/1.73m2 *Relative to young adult level Estimated glomerular filtration rate is determined by the 2020 CKD-EPI equation recommended by the National Kidney Foundation (A Unifying Approach to GFR Estimation: Recommendations of the NKF-ASK Task Force on Reassessing the Inclusion of Race in Diagnosing Kidney Disease, JASN 202). The CKD-EPI equation should not be used for patients with unstable renal function and has not been validated in children and those over 70. Current interpretive data was last reviewed 2021. Blood 06/13/2024 7:24 AM ADVERTISING DESIGNER 06/13/2024 7:41 AM ADVERTISING DESIGNER us Montrell Wolfe MD PhD LAB BLOOD ORDERABLES Fin al Result KANA [facility] Department [place] [address] * (ABNORMAL) Differential, auto (06/13/2024 7:24 AM ADVERTISING DESIGNER) Neutrophil abs 3.3 1.5 - 6.5 K/cumm Comment:Testing performed by : [facility], [address] [place] [phone] Lymphocyte abs 4.1(H) 0.8 - 3.3 K/cumm CERNER BJ Comment:Testing performed by : [facility], [address] [place], [place] [phone] Monocyte abs 1.1(H) 0.2 - 0.8 K/cumm CERNER BJ Comment:Testing performed by : [facility], [address] [place], [place] [phone] Eosinophil abs 0.0 0.0 - 0.5 K/cumm CERNER BJ Comment:Testing performed by : [facility], [address] [place] [phone] Basophil abs 0.0 0.0 - 0.1 K/cumm CERNER BJ Comment:Testing performed by : [facility], [address] [place] [phone] Neutrophil pct 38.6 % CERNER BJ Comment: Interpretive Data Percent cell count reference ranges are not reported, since discordance with absolute values may lead to misinterpretation of CBC data. Current Interpretive Data was last revised on 2017. Testing performed by: [facility], [address] [place] [phone] Lymphocyte pct 48.1 % CERNER BJ Comment: Interpretive Data Percent cell count reference ranges are not reported, since discordance with absolute values may lead to misinterpretation of CBC data. Current Interpretive Data was last revised on 2017. Testing performed by: [facility], [address] [place], [place] [phone] Monocyte pct 12.7 % KANA LEE Comment: Interpretive Data Percent cell count reference ranges are not reported, since discordance with absolute values may lead to misinterpretation of CBC data. Current Interpretive Data was last revised on 2017. Testing performed by: [facility], [address] [place] [phone] Eosinophil pct 0.5 % KANA LEE Comment: Interpretive Data Percent cell count reference ranges are not reported, since discordance with absolute values may lead to misinterpretation of CBC data. Current Interpretive Data was last revised on 2017. Testing performed by: [facility], [address] [place], [place] [id number] Basophil pct 0.1 % KANA LEE Comment: Interpretive Data Percent cell count reference ranges are not reported, since discordance with absolute values may lead to misinterpretation of CBC data. Current Interpretive Data was last revised on 2017. Testing performed by: [facility], [address] [place] [phone] Blood 06/13/2024 7:24 AM ADVERTISING DESIGNER 06/13/2024 7:42 AM ADVERTISING DESIGNER Montrell Wolfe MD PhD LAB BLOOD ORDERABLES Fin al Result [facility] Department [place] [address] * (ABNORMAL) CBC with auto differential (06/13/2024 7:24 AM ADVERTISING DESIGNER) WBC 8.5 3.8 - 9.9 K/cumm Comment:Testing performed by : [facility], [address] [place] [phone] Hgb 14.2 13.0 - 17.5 g/dL KANA LEE Comment:Testing performed by : [facility], [address] [place] [phone] Hct 42.6 38.9 - 50.3 % KANA LEE Comment:Testing performed by : [facility], [address] [place], [place] [phone] Plt 417(H) 150 - 400 K/cumm [facility] Comment:Testing performed by : [facility], [address] [place] [address] MPV 7.6 6.8 - 10.4 fL [facility] Comment:Testing performed by : [facility], [address] [place], [place] [phone] RBC 4.47 4.30 - 5.80 M/cumm [facility] Comment:Testing performed by : [facility], [address] [place], [place] [phone] MCV 95.3 81.3 - 96.4 fL [facility] Comment:Testing performed by : [facility], [address] [place], [place] [phone] MCH 31.8 27.1 - 33.3 pg [facility] Comment:Testing performed by : [facility], [address] [place] [address] MCHC 33.4 32.3 - 35.7 g/dL [facility] Comment:Testing performed by : [facility], [address] [place] [address] RDW CV 14.8 11.1 - 14.9 % [facility] Comment:Testing performed by : [facility], [address] [place] [address] NRBC abs 0.00 0.00 - 0.01 K/cumm [facility] Comment:Testing performed by : [facility], [address] [place] [address] Blood 06/13/2024 7:24 AM ADVERTISING DESIGNER 06/13/2024 7:42 AM ADVERTISING DESIGNER us Montrell Wolfe MD PhD LAB BLOOD ORDERABLES Fin al Result [facility] Department [place] [address] * (ABNORMAL) Testosterone, Total and Free, Serum (06/13/2024 7:24 AM ADVERTISING DESIGNER) Testosterone 1260(H) 240 - 950 ng/dL [facility] Comment: ADDITIONAL INFORMATION Testing performed by Liquid Chromatography-Tandem Mass Spectrometry (LC-MS/MS). This test was developed and its performance characteristics determined by [facility] in a manner consistent with CLIA requirements. This test has not been cleared or approved by the U.S. Food and Drug Administration. Test Performed by: [facility] [address] [place] [address] Dbas: Dawn Rosa Ph.D.; CLIA# [id number] Testosterone, free 44.5(H) 3.47 - 13.0 ng/dL KANA LEE Comment: ADDITIONAL INFORMATION This test was developed and its performance characteristics determined by [facility] in a manner consistent with CLIA requirements. This test has not been cleared or approved by the U.S. Food and Drug Administration. Blood 06/13/2024 7:24 AM ADVERTISING DESIGNER 06/13/2024 10:33 AM ADVERTISING DESIGNER Breanne Rivera MD PhD LAB BLOOD ORDERABLES Final Result KANA [facility] Department [place] [address] [facility] ref [facility] * Lactate dehydrogenase (LD) (06/13/2024 7:24 AM ADVERTISING DESIGNER) Lactate dehydrogenase (LDH) 198 100 - 250 Units/L Blood 06/13/2024 7:24 AM ADVERTISING DESIGNER 06/13/2024 7:41 AM ADVERTISING DESIGNER us Montrell Wolfe MD PhD LAB BLOOD ORDERABLES Fin al Result Performing Organization Address [facility] Co de Phone Number [facility] Department [place] [address] * Hemoglobin A1c (06/13/2024 7:24 AM ADVERTISING DESIGNER) [facility] Hgb A1C 5.6 4.0 - 5.6 % Estimated Average Glucose 114 mg/dL [facility] Comment: The ADA recommends reporting an estimated Average Glucose (eAG) with all Hemoglobin A1c results using the equation derived from a study of 507 normal and diabetic adults. Minority populations were underrepresented and children were not included. (Diabetes Care 2020; 43(S1): S66-S76). The eAG is not equivalent to a fasting glucose. Blood 06/13/2024 7:24 AM ADVERTISING DESIGNER 06/13/2024 7:40 AM ADVERTISING DESIGNER Franky Sylvester MD LAB BLOOD ORDERABLES Final Re sult Performing Organization Address [facility] Co de Phone Number [facility] Department [place] [address] * (ABNORMAL) Comprehensive metabolic panel (06/13/2024 7:24 AM ADVERTISING DESIGNER) [facility] Sodium 143 135 - 145 mmol/L Potassium, pl 4.1 3.3 - 4.9 mmol/L [facility] Chloride 105 97 - 110 mmol/L [facility] CO2 30 22 - 32 mmol/L [facility] Anion gap 8 2 - 15 mmol/L [facility] BUN 35(H) 6 - 25 mg/dL [facility] Creatinine 1.93(H) 0.80 - 1.30 mg/dL [facility] Glucose 105 70 - 199 mg/dL [facility] Comment: Interpretive Data Fasting glucose >/= 126 mg/dl is diagnostic for diabetes. Fasting is defined as no caloric intake for at least 8 hours. Fasting glucose between 100 mg/dl to 125 mg/dl is diagnostic of prediabetes. In a patient with classic symptoms of hyperglycemia or hyperglycemic crisis, a random glucose >/= 200 mg/dl is diagnostic for diabetes. In the absence of unequivocal hyperglycemia, results should be confirmed by repeat testing. The classification and Diagnosis of Diabetes Diabetes Care 2021; 46: S19-S40. Current interpretive data was last revised 2022. Calcium 9.9 8.5 - 10.3 mg/dL [facility] Bilirubin, total 0.5 0.1 - 1.2 mg/dL [facility] Protein, pl 7.5 6.5 - 8.5 g/dL [facility] Albumin 4.2 3.5 - 5.0 g/dL [facility] Alk phos 46 40 - 130 Units/L [facility] ALT 31 7 - 55 Units/L [facility] AST 39 10 - 50 Units/L [facility] Blood 06/13/2024 7:24 AM ADVERTISING DESIGNER 06/13/2024 7:41 AM ADVERTISING DESIGNER Montrell Wolfe MD PhD LAB BLOOD ORDERABLES Fin al Result [facility] Department [place] [address] * Surgical pathology (05/19/2024 1:23 PM ADVERTISING DESIGNER) Tissue (Polyp(s), colon/colorectal, esophageal, gastric) 05/19/2024 1:23 PM ADVERTISING DESIGNER Tissue (Polyp(s), colon/colorectal, esophageal, gastric) 05/19/2024 1:32 PM ADVERTISING DESIGNER Narrative PATHOLOGY [facility] - 05/20/2024 9:52 AM ADVERTISING DESIGNER EPIC results best viewed via link to PDF [facility] [place] [address] Note to Patients: This report may contain a detailed description of human tissue sent by a health care provider to the laboratory for pathologic evaluation. The content of this report is essential for diagnosis and may provide important critical findings. This information may be unfamiliar to patients to review without a medical professional present. It is advised that the patient review this report in the presence of a health care provider who can answer questions and explain the details. SURGICAL PATHOLOGY REPORT FINAL Patient Name: BK PICHARDO Gender: Kassi : 1955 (Age: 68) Address: [address] [place] [address] Hospital #: [id number] Taken:05/19/2024 Received:05/19/2024 Reported: 05/20/2024 Patient Type: [facility] Service: Gastro Location: Physician(s): Tee Gamez M.D. Diagnosis: A. Large bowel, ascending colon, polyp(s), polypectomy/biopsy - Fragments of tubular adenoma(s) B. Large bowel, rectosigmoid colon, polyp(s), polypectomy/biopsy - Inflammatory polyps - Mucosal prolapse polyp kxb/05/20/2024 09:52 By this signature, I attest that the above diagnosis is based upon my personal examination of the slides(and/or other material indicated in the diagnosis). Saniya Davis MD Report Electronically Reviewed and Signed Out By Saniya Davis MD 05/20/2024 09:52:07 David Robles M.D. History: The patient is a 68-year-old man presenting for history of colon polyps. Operative procedure: Colon removal snare endo add on colon biopsy. Specimen(s) Received: A: Ascending colon polyp x 2 cold forceps B: Rectosigmoid colon polyp 3 (1 cold snare and cold forceps, 2 cold forceps) Gross Description: Received in two formalin jars labeled with the patient's identifiers. A. Labeled ascending colon polyp x2 cold forceps and consists of multiple navas- pink fragment(s) of soft tissue an aggregate measurement of 0.6 x 0.6 x 0.1 cm. Labeled A1. Jar 0. B. Labeled rectosigmoid colon polyp x3 (one cold snare and cold forceps, two cold forceps) and consists of multiple navas-pink fragment(s) of soft tissue with an aggregate measurement of 1.2 x 0.5 x 0.1 cm. Labeled B1. Jar 0. elsw/05/19/2024 18:12 PA(s): Luba Bruce By this signature, I attest that the above diagnosis is based upon my personal examination of the slides(and/or other material). Addenda/Procedures The performance characteristics of some immunohistochemical stains, fluorescence in-situ hybridization tests and immunophenotyping by flow cytometry cited in this report (if any) were determined by the Surgical Pathology and Flow Cytometry Departments at [facility] as part of an ongoing software quality manager program and in compliance with federally mandated regulations drawn from the Clinical Laboratory Improvement Act of 1988 (CLIA '88). Some of these tests rely on the use of analyte specific reagents and are subject to specific labeling requirements by the US Food and Drug Administration. Such diagnostic tests may only be performed in a facility that is certified by the Department of Health and Human Services as a high complexity laboratory under CLIA '88. The FDA has determined that such clearance or approval is not necessary. This test is used for clinical purposes. It should not be regarded as investigational or for research. Nevertheless, federal rules concerning the medical use of analyte specific reagents require that the following disclaimer be attached to the report: This test was developed and its performance characteristics determined by the Surgical Pathology and Flow Cytometry Departments of [facility]. It has not been cleared or approved by the U. S. Food and Drug Administration. IMAGES AND SCANNED DOCUMENTS, IF INCLUDED, ONLY VIEWABLE IN PDF VERSION OF REPORT us Natalie Gonzalez MD LAB PATHOLOGY ORDERABLES Final Result PATHOLOGY [facility] 3rd Floor [place], [place] [phone] * Colonoscopy (05/19/2024 12:30 PM ADVERTISING DESIGNER) Anatomical Region Laterality Modality Other Narrative Procedure Note Natalie Gonzalez MD - 05/19/2024 12:30 PM CST [facility] END[facility] Patient Name: Bk Pichardo Procedure Date: 05/19/2024 12:30 PM Date of : 1955 Admit Type: Outpatient Age: 68 Gender: Male Attending MD: Natalie Gonzalez M.D. Room: [facility] ENDOSCOPY ROOM 4 Note Status: Finalized Procedure: Colonoscopy Indications: High risk colon cancer surveillance: Personalhistory of colonic polyps, Last colonoscopy: 2023, multiple TAs were removed Referring MD: Franky Sylvester M.D. Providers: Natalie Gonzalez M.D. Medicines: Monitored Anesthesia Care Complications: No immediate complications. Estimated Blood Loss: Estimated blood loss was minimal. Procedure: Pre-Anesthesia Assessment: - Immediately prior to administration ofmedications, the patient was re-assessed for adequacy to receive sedatives. - The risks and benefits of the procedure and the sedation options and risks were discussed with the patient. All questions were answered and informed consent was obtained. The benefits, risks and alternatives of theprocedure and sedation were discussed and informed consentwas obtained. All questions were answered. Please referto the signed informed consent document in the medical record. The scope was passed under direct vision.The [id number] endoscope was introduced through the anus and advanced to the cecum, identified by appendiceal orifice and ileocecal valve. The colonoscopy was performed without difficulty. The patient tolerated the procedure well. The qualityof the bowel preparation was inadequate. The bowel preparation used was GoLYTELY via split dose instruction. Bowel prep was administered using asplit dose. Findings: Skin tags were found on perianal exam. Two sessile polyps were found in the ascending colon. The polyps were2 to 3 mm in size. These polyps were removed with a jumbo cold forceps. Resection and retrieval were complete. Two sessile polyps were found in the recto-sigmoid colon. The polyps were 3 to 5 mm in size. These polyps were removed with a cold snare. Resection and retrieval were complete. A 2 to 3 mm polyp was found in the recto-sigmoid colon. The polyp was sessile. The polyp was removed with a jumbo cold forceps. Resectionand retrieval were complete. The retroflexed view of the distal rectum and anal verge was normaland showed no anal or rectal abnormalities. Impression: - Preparation of the colon was inadequate. - Perianal skin tags found on perianal exam. - Two 2 to 3 mm polyps in the ascending colon,removed with a jumbo cold forceps. Resected andretrieved. - Two 3 to 5 mm polyps at the recto-sigmoid colon, removed with a cold snare. Resected andretrieved. - One 2 to 3 mm polyp at the recto-sigmoid colon, removed with a jumbo cold forceps. Resected and retrieved. - The distal rectum and anal verge are normal on retroflexion view. Recommendation: - Discharge patient to home (with escort). - Await pathology results. - Repeat colonoscopy in 1 year because the bowel preparation was suboptimal. Recommned 2 day prepfor next procedure, with low residue diet a week priorthe procedure - Return to referring physician. - please call [phone], 8 am -5 pm if any post procedural concerns/issues, after hours/weekends please call [phone] and ask for GI fellow oncall Attending Participation: I personally performed the entire procedure. Electronically signed by Natalie Gonzalez MD Natalie Gonzalez M.D. 05/19/2024 1:48:18 PM . Number of Addenda: 0 Note Initiated On: 05/19/2024 12:30 PM us Natalie Gonzalez MD ENDOSCOPY PROCEDURES Final Res ult * PSA screen (10/27/2023 10:05 AM CDT) PSA-Total 0.42 <=5.40 ng/mL Comment: Interpretive Data AGE SEX REFERENCE INTERVAL 0 minutes-150 years Female None 0 minutes-49 years Male None 50-59 years Male 0-3.90 60-69 years Male 0-5.40 70-79 years Male 0-6.20 80-150 years Male 0-6.20 The Georgina PSA Total assay procedure was used. Results from different manufacturers or methods may not be comparable. Serial testing should be performed using the same method. Current interpretive data last revised 21. Blood 10/27/2023 10:0 5 AM CDT 10/27/2023 2:49 PM CDT us Franky Sylvester MD LAB BLOOD ORDERABLES Final Re sult [facility] [id number] [address] Department [place] [address] * (ABNORMAL) Lipid panel (09/04/2023 10:34 AM CDT) Cholesterol 193 30 - 199 mg/dL Comment: Interpretive Data Ages < or = 19 years Acceptable: <170 mg/dL Borderline high: 170-199 mg/dL High: >or= 200 mg/dL Ages > or = 20 years Desirable: <200 mg/dL Borderline high: 200-239 mg/dL High: >or= 240 mg/dL Literature References: 1. Expert Panel on Integrated Guidelines for Cardiovascular Health and Risk Reduction in Children and Adolescents. Pediatrics 2011;128:S213 2. NCEP Expert Panel. Circulation 2004;110:227 Current Interpretive Data was last revised on 2017. Triglycerides 245(H) <=149 mg/dL KANA LEE Comment: Interpretive Data Ages < or = 9 years Acceptable: <75 mg/dL Borderline high: 75-99 mg/dL High: >or= 100 mg/dL Ages 10 to 20 years Acceptable: <90 mg/dL Borderline high: 90-129 mg/dL High: >or= 130 mg/dL Ages > or = 20 years Desirable: <150 mg/dL Borderline high: 150-199 mg/dL High: 200-499 mg/dL Very high: >or= 499 mg/dL Literature References: 1. Expert Panel on Integrated Guidelines for Cardiovascular Health and Risk Reduction in Children and Adolescents. Pediatrics 2011;128:S213 2. NCEP Expert Panel. Circulation 2004;110:227 Current Interpretive Data was last revised on 2017. HDL 40 >=40 mg/dL [facility] Comment: Interpretive Data Ages < or = 19 years Acceptable: >45 mg/dL Borderline low: 40-45 mg/dL Low: <40 mg/dL Ages > or = 20 years Desirable: >or= 60 mg/dL Low: <40 mg/dL Literature References: 1. Expert Panel on Integrated Guidelines for Cardiovascular Health and Risk Reduction in Children and Adolescents. Pediatrics 2011;128:S213 2. NCEP Expert Panel. Circulation 2004;110:227 Current Interpretive Data was last revised on 2017. LDL, calculated 104 <=129 mg/dL [facility] Comment: Interpretive Data Ages < or = 19 years Acceptable: <110 mg/dL Borderline high: 110-129 mg/dL High: >or= 130 mg/dL Ages > or = 20 years Optimal: <100 mg/dL Near optimal: 100-129 mg/dL Borderline high: 130-159 mg/dL High: >160 mg/dL Literature References: 1. Expert Panel on Integrated Guidelines for Cardiovascular Health and Risk Reduction in Children and Adolescents. Pediatrics 2011;128:S213 2. NCEP Expert Panel. Circulation 2004;110:227 Current Interpretive Data was last revised on 2017. Non-HDL Cholesterol 153 mg/dL [facility] Comment: Interpretive Data Ages < or = 19 years Acceptable: <120 mg/dL Borderline high: 120-144 mg/dL High: >145 mg/dL Ages > or = 20 years When triglycerides are >200 mg/dL, Non-HDL cholesterol is a secondary target of therapy with treatment goals that are 30 mg/dL greater than the LDL cholesterol target. Literature References: 1. Expert Panel on Integrated Guidelines for Cardiovascular Health and Risk Reduction in Children and Adolescents. Pediatrics 2011;128:S213 2. NCEP Expert Panel. Circulation 2004;110:227 Current Interpretive Data was last revised on 2017. Chol/HDL ratio 5 [facility] Blood 09/04/2023 10:3 4 AM CDT 09/04/2023 11:01 AM CDT oCrina Norris NP LAB BLOOD ORDERABLES Final Resul t Performing Organization Address [facility] Co de Phone Number [facility] Department [place] [address] * (ABNORMAL) Albumin Creatinine Ratio, Urine (07/09/2023 9:09 AM CDT) Albumin Ur 65.7 mg/L Comment: Interpretive Data No reference range established. Current interpretive data was last revised 2018. Creatinine Ur 186.3 mg/dL [facility] Comment: Interpretive Data No reference range established. Current interpretive data was last revised 2018. Albumin Creatinine Ratio, Ur 35(H) 1 - 29 mg/g [facility] Urine 07/09/2023 9:09 AM CDT 07/09/2023 2:01 PM CDT Franky Sylvester MD LAB URINE ORDERABLES Final Re sult Performing Organization Address [facility] de Phone Number [facility] [address] [address] Department [place] [address] * (ABNORMAL) DIABETES EYE EXAM (02/26/2023 11:15 AM ADVERTISING DESIGNER) Historical Provider HEALTH MAINTENANCE Final Result * Hepatitis C antibody (08/07/2021 2:55 PM CDT) Hep C Ab Nonreactive Nonreactive [facility] Comment:Antibodies to HCV no t detected. Does NOT exclude the possibility of recent exposure to HCV. Blood 08/07/2021 2:55 PM CDT 08/07/2021 3:30 PM CDT Pablo Mcmillan MD LAB MICROBIOLOGY - GENE RAL ORDERABLES Edited Result - Final [facility] Department [place] [address] from Last 3 Months or Most Recently Relevant to Health Maintenance Insurance [facility] Advance Directives For more information, please contact: [phone] * Full Code (Latest Code Status on File) Date Activated Date Inactivated Comments 05/19/2024 12:20 PM 05/19/2024 6:43 PM * Full Code Date Activated Date Inactivated Comments 04/22/2023 8:39 AM 04/22/2023 2:54 PM * Full Code Date Activated Date Inactivated Comments 07/05/2022 6:35 PM 07/08/2022 7:06 PM * Full Code Date Activated Date Inactivated Comments 10/24/2020 6:59 AM 10/24/2020 1:29 PM Care Teams Plant Wire Chief Relationship Specialty Start Date End Date Franky Sylvester MD PCP - General Family Medicine 12/03/21 Rosa Russell NP Nurse Practitioner Medical Oncology 06/13/20 Montrell Wolfe MD PhD Medical Oncologist/Building Trades Teacher Medical Oncology 12/03/21 Pablo Mcmillan MD [id number] [address] Part Time Nephrology 03/21/24
--- OUTSIDE RECORDS SUMMARY | 2024-06-28 04:36 | XMS_ITS ---
Author Organization [facility] Address [address] [place] [address] Care Team Providers Care Cloth Finishing Range Back Tender Name Role Phone Rosa Russell PRESS ASSISTANT Unavailable Franky Sylvester MD Primary Care Provider [phone] Montrell Wolfe MD PhD Unavailable [phone] Pablo Mcmillan MD Unavailable [phone] Active Problems Problem Noted Date Diagnosed Date Controlled type 2 diabetes koby villarreal with stage 3 chronic kidney disease, without long-term current use of insulin 06/15/2024 History of colon polyps 03/23/2024 Medicare annual wellness visit, subsequent 02/14 Assessment & Plan (02/15/2024 10:43 AM CONCRETE TRUCK DRIVER): Discussed with patient current recommendations for routine [...] 02/12/2024 Assessment & Plan (02/15/2024 10:42 AM CONCRETE TRUCK DRIVER): Stable limit nephrotoxins Continue Lasix 20mg BP and glucose control GFR 42 Lab Results Component Value Date CREATININE 1.75 (H) 2023 BUNSER 26 (H) 2023 SODIUM 140 2023 POTASSIUM 4.5 2023 CO2 27 2023 Simple chronic bronchitis 02/12/2024 Assessment & Plan (02/15/2024 10:40 AM CONCRETE TRUCK DRIVER): Stable Continue Jakafi Reports has substantially helped sx 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 EKG in [facility] 07/05 showed narrow complex tachycardia with HR >150. Given adenosine x2 (6 mg, 12 mg) in [facility]. EKG strip after adenosine noted flutter waves. Given Amio bolus 150 mg, IV metop x2 5 mg after adenosine with poor clinical response. -S/p IV dilt 10 mg x3 07/06/22. Better rate control was noted with IV dilt compared to metop/amio. -Cards consulted.He sees Dr Elizondo as outpatient,-PO metop & amio stopped per cards recs S/p LUISA and successful cardioversion 07/07/22 with jain of sinus rhythm. PO diltiazem 60 mg [...] 01/02/2022 Assessment & Plan (03/01/2024 9:39 AM CONCRETE TRUCK DRIVER): Stable Uses CPAP with relief of symptoms [...] 02/06/2020 Personal history of nicotine dependence 09/20/19 Hypogonadism in male 05/17/2019 Long-term current use of testosterone replacemen t therapy 05/17/2019 Stem cells transplant status 07/09/2017 Chemotherapy-induced neuropathy (CMS/HCC) 2017 Assessment & Plan (02/15/2024 10:42 AM CONCRETE TRUCK DRIVER): Stable Declines pain management Reports magnesium has [...] Off immunosuppression. 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 Past Treatment and Therapy Plans No past plan information found. Lifetime Dose Tracking * Chemical Lifetime Dose Automatic Entry Manual Entr y DLP 997 mGycm 997 mGycm 0 mGycm Resolved Problems Problem Noted Date Diagnosed Date Resolved Date Chronic diastolic heart failure 09/22/2023 12/16/2023 Diaphoresis 07/05/2022 10/16/2022 Tachycardia 01/02/2022 10/16/2022 Reactive airway disease 10/10/2021 07/0 09/2022 Wheezing 10/10/2021 10/16/2022 Abnormal echocardiogram 02/12/2021 07/0 09/2022 Epigastric pain 10/09/2020 10/10/2021 Overview (10/09/2020): Added automatically from request for surgery [id number] Other osteoporosis without c urrent pathological fracture 05/17/2019 10/16/2022 Prediabetes 05/17/2019 10/16/2022 Acute on chronic renal insufficiency 10/26/2018 10/16/2022 Assessment & Plan (07/08/2022 1:13 PM CDT): Cr 2.32 on admission (BL around 2 ). S/p 1L IVF bolus in [facility] 07/05 -Patient does endorse occasional NSAID use [...]
--- OUTSIDE RECORDS SUMMARY | 2024-06-28 04:36 | XMS_ITS | Encounter Summary ---
Author Organization [facility] Address [address] [place] [address] Care Team Providers Care Campground Attendant Name Role Phone Rosa Russell EXPERT WITNESS Unavailable [phone] Franky Sylvester MD Primary Care Provider [phone] Montrell Wolfe MD PhD Unavailable [phone] Pablo Mcmillan MD Unavailable [phone] Encounter Details Date Type Department Care Team (Late st Contact Info) Description 06/13/2024 Results Follow-Up [facility] Family Medicine at [address] [place] [address] Lisandra Romero, [id number] [address] [address] Social History Tobacco Use Types Packs/Day Years Used Date Smoking Tobacco: Former Cigarettes 0.3 15 1 975 - 1989 Smokeless Tobacco: Never Alcohol Use Standard Drinks/Week Comments No 0 (1 standard drink = 0.6 oz pur e alcohol) [facility] Utilities Answer Date Recorded In the past 12 months has [employer] electric, gas, oil, or water company threatened [...] often do you attend chur ch or moravian services? Never 06/26/2023 Do you belong to any clubs o r organizations such as scientologist groups, unions, fraternal or athletic groups, or [...] place to sleep or slept in a prison (including now)? No 06/26/2023 PHQ-9 Answer Date Recorded PHQ-9 Total Score 10 02/14/2024 Personal Safety Answer Date Recorded Have you ever been in or are you currently in a harmful physical or emotional relationship or is someone making you feel afraid or unsafe? 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 Minimize further functional decline 2. Maximize quality of life 3. Control pain Strategies: - Activity/exercise program recommendation - Conservative stepwise pain medicine strategy with multi-disciplinary approach - Recommend healthy lifestyle strategies and compensatory methods as needed documented as of this encounter Visit Diagnoses Not on filedocumented in this encounter Care Teams Campground Attendant Relationship Specialty Start Date End Date Franky Sylvester MD PCP - General Family Medicine 12/03/21 Rosa Russell NP Nurse Practitioner Medical Oncology 06/13/20 Montrell Wolfe MD PhD Medical Oncologist/Mastic Sprayer Medical Oncology 12/03/21 Pablo Mcmillan MD [id number] [place] [address] Manager Instrumentation Nephrology 03/21/24 documented as of this encounter
--- OUTSIDE RECORDS SUMMARY | 2024-06-28 04:36 | XMS_ITS | Referral Summary ---
Author Organization [facility] Address [address] [place] [address] Care Team Providers Care Food Editor Name Role Phone RussellYvesmelanie Cummins SENIOR OPERATOR Unavailable Franky Sylvester MD Primary Care Provider [phone] Montrell Wolfe MD PhD Unavailable [phone] Pablo Mcmillan MD Unavailable [phone] Encounters Date Type Department Care Team Description 06/23/2024 ACO Medication Access [facility] Accountable Care Organization [address] [place] [id number] Giana Thomas CPhT 06/15/2024 9:15 AM DIRECTOR MUSIC Office Visit [facility] Medical Group Family Medicine at [address] [phone] Franky Sylvester MD Stage 3b chronic kidney disease (HCC) (Primary Dx); Essential hypertension; Paroxysmal atrial flutter (HCC); Hypogonadism in male; Acute myeloid leukemia in remission (HCC); 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 disease, without long-term current use of insulin (HCC) 06/14/2024 Orders Only [facility] Medical Group Family Medicine at [address] [place] [address] Franky Sylvester MD 06/13/2024 Results Follow-Up [facility] Medical [facility] Family Medicine at [address] [place] [address] Lisandra Romero PA 06/13/2024 9:15 AM DIRECTOR MUSIC Office Visit [facility] Bone Marrow Transplant [address] [address] Montrell Wolef MD PhD Acute myeloid leukemia in remission (HCC) 06/13/2024 8:00 AM DIRECTOR MUSIC Lab [facility] - Lab Collection [address] [facility] [address] [place] [address] Acute myeloid leukemia in remission (HCC); 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 disease, without long-term current use of insulin (HCC); Low testosterone in male 06/06/2024 Telephone [facility] Medicine at [address] [place] [address] Franky Sylvester MD Referral Request 05/19/2024 1:00 PM DIRECTOR MUSIC - 05/19/2024 1:45 PM DIRECTOR MUSIC Surgery [facility] Digestive Disease [address] [address] Natalie Gonzalez MD COLON REMOVAL SNARE 05/19/2024 1:04 PM DIRECTOR MUSIC Anesthesia Event [facility] [address] [address] Bautista Huertas MD 05/19/2024 11:46 AM DIRECTOR MUSIC - 05/19/2024 2:23 PM DIRECTOR MUSIC Hospital Encounter [facility] Disease [address] [address] Natalie Gonzalez MD History of colon polyps Discharge Disposition: Discharge to home or self care 05/12/2024 Telephone [facility] Specialty Services [facility] [place] [address] Maria Guadalupe Marques RN GI Preprocedure 05/10/2024 9:00 AM DIRECTOR MUSIC Office Visit [facility] Medical [facility] at [address] [address] Afsaneh Tao NP Acute non-recurrent pansinusitis (Primary Dx) 05/09/2024 Telephone [facility] Medical [facility] Family Medicine at [address] [place] [address] Franky Sylvester MD Referral Request 04/20/2024 Telephone [facility] Cardiology [address] [facility] 8th [place] [address] [place] [address] Guzman Elizondo MD 04/19/2024 8:30 AM DIRECTOR MUSIC Telemedicine [facility] Cardiology [address] [facility] Floor 1, [address] [place] [address] Guzman Elizondo MD Paroxysmal atrial flutter (HCC) (Primary Dx); Chronic diastolic heart failure (HCC); Pure hypercholesterolemia 04/18/2024 Telephone [facility] Family Medicine at [address] [place] [address] Franky Sylvester MD Referral Request 04/01/2024 8:00 AM DIRECTOR MUSIC Office Visit [facility] Endocrinology Metabolism and Lipid [address] [facility] 13th [place] [address] [place] [address] Breanne Hunt MD PhD Low testosterone in male from Last 3 Months Allergies Active Allergy Reactions Criticality Noted Date [...] needle, disp, 18 G (BD Regular Bevel [place]) 18 gauge x 1 needle To draw up injection 12 each 04/01/20 24 Active syringe, disposable, (BD Luer-Emilia Syringe) 1 mL syringe To use for injection 12 each 04/01/20 24 Active needle, disp, 23 gauge (BD Regular Bevel [place]) 23 gauge x 3/4 needle To use [...] weekly subq 2 mL 3 04/19/19 25 025 Discontinued(A lternate therapy) benzonatate (TESSALON) 200 [...] instructed every 7 days 2 mL 06/09/19 025 Discontinued(R eorder) Active Problems Problem Noted Date Diagnosed Date Controlled type 2 diabetes koby villarreal with stage 3 chronic kidney disease, without long-term current use of insulin 06/15/2024 History of colon polyps 03/23/2024 Medicare annual wellness visit, subsequent 02/14 Assessment & Plan (02/15/2024 10:43 AM DIRECTOR MUSIC): Discussed with patient current recommendations for routine [...] 02/12/2024 Assessment & Plan (02/15/2024 10:42 AM DIRECTOR MUSIC): Stable limit nephrotoxins Continue Lasix 20mg BP and glucose control GFR 42 Lab Results Component Value Date CREATININE 1.75 (H) 2023 BUNSER 26 (H) 2023 SODIUM 140 2023 POTASSIUM 4.5 2023 CO2 27 2023 Simple chronic bronchitis 02/12/2024 Assessment & Plan (02/15/2024 10:40 AM DIRECTOR MUSIC): Stable Davon Lashaun Reports has substantially helped sx 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 EKG in [facility] 07/05 showed narrow complex tachycardia with HR >150. Given adenosine x2 (6 mg, 12 mg) in [facility]. EKG strip after adenosine noted flutter waves. Given Amio bolus 150 mg, IV metop x2 5 mg after adenosine with poor clinical response. -S/p IV dilt 10 mg x3 07/06/22. Better rate control was noted with IV dilt compared to metop/amio. -Cards consulted.He sees Dr Elizondo as outpatient,-PO metop & amio stopped per cards recs S/p LUISA and successful cardioversion 07/07/22 with mandaeism of sinus rhythm. PO diltiazem 60 mg [...] 01/02/2022 Assessment & Plan (03/01/2024 9:39 AM DIRECTOR MUSIC): Stable Uses CPAP with relief of symptoms [...] 2017 Assessment & Plan (02/15/2024 10:42 AM DIRECTOR MUSIC): Stable Declines pain management Reports magnesium has [...] 10/16/2022 Tachycardia 01/02/2022 10/16/2022 Reactive airway disease 10/10/[address] 09/2022 Wheezing 10/10/2021 10/16/2022 Abnormal echocardiogram 02/12/2021 07/0 09/2022 Epigastric pain 10/09/2020 10/10/2021 Overview (10/09/2020): Added automatically from request for surgery [id number] Other osteoporosis without c urrent pathological fracture 05/17/2019 10/16/2022 Prediabetes 05/17/2019 10/16/2022 Acute on chronic renal insufficiency 10/26/2018 10/16/2022 Assessment & Plan (07/08/2022 1:13 PM CDT): Cr 2.32 on admission (BL around 2 ). S/p 1L IVF bolus in [facility] 07/05 -Patient does endorse occasional NSAID use [...] disease 08/12/201009/2022 Pain of foot 01/09/2010 10/10/2021 Immunizations Immunization Administration Dates Next Due Flucelvax [...] Adjuvanted, PF, IM (Arexvy) 03/25/2023 Tdap 11/25/2020,09/09/2019 Social History Tobacco Use Types Packs/Day Years Used Date Smoking Tobacco: Former Cigarettes 0.3 15 1 975 - 1990 Smokeless Tobacco: Never Tobacco Cessation:Counseling Given: Not Answered Alcohol Use Standard Drinks/Week Comments No 0 (1 standard drink = 0.6 oz pur e alcohol) [facility] [employer] Answer Date Recorded In the past 12 months has e [employer], gas, oil, or water [employer] threatened to shut off services in your [...] often do you attend chur ch or sikh services? Never 06/26/2023 Do you belong to any clubs o r organizations such as samaritan groups, unions, fraternal or athletic groups, or [...] No 06/26/2023 Housing Stability Vital Sign Answer Abhiijt e Recorded In the last 12 months, [...] place to sleep or slept in a care home (including now)? No 06/26/2023 PHQ-9 Answer Date Recorded PHQ-9 Total Score 10 02/14/2024 Personal Safety Answer Date Recorded Have you ever been in or are you currently in a harmful physical or emotional relationship or is someone making you feel afraid or unsafe? Denies 05/19/2024 Sex and Gender Information Value Date Recorded Sex Assigned at Not on file Legal Sex Male 10:07 AM DIRECTOR MUSIC Gender Identity Not on file Sexual Orientation Not on file Last Filed Vital Signs Vital Sign Reading Time Taken Comments Blood Pressure 132/74 06/15/2024 8:47 AM DIRECTOR MUSIC Pulse 69 06/15/2024 8:47 AM DIRECTOR MUSIC Temperature 36.5 C (97.7 F) 06/15/2024 8:47 AM DIRECTOR MUSIC Respiratory Rate 18 06/13/2024 8:48 AM DIRECTOR MUSIC Oxygen Saturation 95% 06/15/2024 8:47 AM DIRECTOR MUSIC Inhaled Oxygen Concentration - - Weight 119.5 kg (263 lb 8 oz) 06/15/2024 8:47 AM DIRECTOR MUSIC Height 185.4 cm (6' 1 ) 06/15/2024 8:47 AM DIRECTOR MUSIC Body Mass Index 34.76 06/15/2024 8:47 AM DIRECTOR MUSIC Plan of Treatment Not on file Goals Goal Patient Goal Type Associated Problems Recent Progress Patient-Stated? Author CCM Chronic Pain Care Plan Chronic Care Management No change(06/04 7:38 AM DIRECTOR MUSIC) No Seema Dutton, PANCHO Note: Problem: Chronic Pain Goals: 1. Minimize further functional decline 2. Maximize quality of life 3. Control pain Strategies: - Activity/exercise program recommendation - Conservative stepwise pain medicine strategy with multi-disciplinary approach - Recommend healthy lifestyle strategies and compensatory methods as needed Medical Devices Implanted Type Area Photogrammetric Engineer Device Identifier Shelf Expiration Date Model / Serial / Lot Ivc Filter IVC Filter Vena Cava Procedures Procedure Name Priority Date/Time Associated Diagnosis Comments EGFR Routine 06/13/2024 7:24 AM DIRECTOR MUSIC Acute myeloid leukemia in remission (HCC) DIFFERENTIAL AUTO Routine 06/13/2024 7:2 4 AM DIRECTOR MUSIC Acute myeloid leukemia in remission (HCC) TESTOSTERONE, TOTAL AND FREE, SERUM Routine 06/13/2024 7:24 AM DIRECTOR MUSIC Low testosterone in male HEMOGLOBIN A1C Routine 06/13/2024 7:24 AM DIRECTOR MUSIC 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 disease, without long-term current use of insulin (HCC) CBC WITH AUTO DIFFERENTIAL Routine 06/13/2024 7:24 AM DIRECTOR MUSIC Acute myeloid leukemia in remission (HCC) COMPREHENSIVE METABOLIC PANEL Routine 06/13/2024 7:24 AM DIRECTOR MUSIC Acute myeloid leukemia in remission (HCC) LACTATE DEHYDROGENASE Routine 06/13/2024 7:24 AM DIRECTOR MUSIC Acute myeloid leukemia in remission (HCC) SURGICAL PATHOLOGY Routine 05/19/2024 1: 23 PM DIRECTOR MUSIC History of colon polyps ENDO ADD ON COLON BIOPSY 05/19/2024 1:04 PM DIRECTOR MUSIC History of colon polyps COLON REMOVAL SNARE 05/19/2024 1 :04 PM DIRECTOR MUSIC History of colon polyps COLONOSCOPY 05/19/2024 12:30 PM DIRECTOR MUSIC PSA SCREEN Routine 10/27/2023 10:05 AM CDT [...] DIABETES EYE EXAM Routine 02/26/2023 11:15 AM DIRECTOR MUSIC HEPATITIS C ANTIBODY Routine 08/07/2021 2:55 PM CDT Creatinine elevation from Last 3 Months or Most Recently Relevant to Health Maintenance Results * (ABNORMAL) eGFR (06/13/2024 7:24 AM DIRECTOR MUSIC) eGFR 37(L) >=60 mL/min/1. 73 m2 Comment: [...] of Race in Diagnosing Kidney Disease, JASN 2020). The CKD-EPI equation should not be used for patients with unstable renal function and has not been validated in children and those over 70. Current interpretive data was last reviewed 2021. Blood 06/13/2024 7:24 AM DIRECTOR MUSIC 06/13/2024 7:41 AM DIRECTOR MUSIC us Montrell Wlofe MD PhD LAB BLOOD ORDERABLES Fin al Result [facility] Department of Laboratories [place] [id number] * (ABNORMAL) Differential, auto (06/13/2024 7:24 AM DIRECTOR MUSIC) Neutrophil abs 3.3 1.5 - 6.5 K/cumm Comment:Testing performed by : [facility], [address] [place] [phone] Lymphocyte abs 4.1(H) 0.8 - 3.3 K/cumm CERNER [facility] Comment:Testing performed by : [facility], [address] [place] [phone] Monocyte abs 1.1(H) 0.2 - 0.8 K/cumm CERNER BJ Comment:Testing performed by : [facility], [address] [place] [phone] Eosinophil abs 0.0 0.0 - 0.5 K/cumm CERNER BJ Comment:Testing performed by : [facility], [address] [place] [phone] Basophil abs 0.0 0.0 - 0.1 K/cumm CERIRASEMA [facility] Comment:Testing performed by : [facility], [address] [place] [phone] Neutrophil pct 38.6 % CERNER BJ Comment: Interpretive Data Percent cell count reference ranges are not reported, since discordance with absolute values may lead to misinterpretation of CBC data. Current Interpretive Data was last revised on 2017. Testing performed by: [facility], [address] [place] [phone] Lymphocyte pct 48.1 % CERNER BJ Comment: Interpretive Data Percent cell count reference ranges are not reported, since discordance with absolute values may lead to misinterpretation of CBC data. Current Interpretive Data was last revised on 2017. Testing performed by: [facility], [address] [place] [phone] Monocyte pct 12.7 % CERNER BJ Comment: Interpretive Data Percent cell count reference ranges are not reported, since discordance with absolute values may lead to misinterpretation of CBC data. Current Interpretive Data was last revised on 2017. Testing performed by: [facility], [address] [place] [phone] Eosinophil pct 0.5 % CERNER BJ Comment: Interpretive Data Percent cell count reference ranges are not reported, since discordance with absolute values may lead to misinterpretation of CBC data. Current Interpretive Data was last revised on 2017. Testing performed by: [facility], [address] [place] [phone] Basophil pct 0.1 % CERNER BJ Comment: Interpretive Data Percent cell count reference ranges are not reported, since discordance with absolute values may lead to misinterpretation of CBC data. Current Interpretive Data was last revised on 2017. Testing performed by: [facility], [address] [place] [phone] Blood 06/13/2024 7:24 AM DIRECTOR MUSIC 06/13/2024 7:42 AM DIRECTOR MUSIC us Montrell Wolfe MD PhD LAB BLOOD ORDERABLES Fin al Result [facility] Department [place] [address] * (ABNORMAL) CBC with auto differential (06/13/2024 7:24 AM DIRECTOR MUSIC) WBC 8.5 3.8 - 9.9 K/cumm Comment:Testing performed by : [facility], [address] [place] [address] Hgb 14.2 13.0 - 17.5 g/dL CERNER BJ Comment:Testing performed by : [facility], [address] [place] [address] Hct 42.6 38.9 - 50.3 % CERNER BJ Comment:Testing performed by : [facility], [address] [place] [address] Plt 417(H) 150 - 400 K/cumm CERNER BJ Comment:Testing performed by : [facility], [address] [place] [address] MPV 7.6 6.8 - 10.4 fL CERNER BJ Comment:Testing performed by : [facility], [address] [place] [address] RBC 4.47 4.30 - 5.80 M/cumm CERNER BJ Comment:Testing performed by : [facility], [address] [place] [address] MCV 95.3 81.3 - 96.4 fL CERNER BJ Comment:Testing performed by : [facility], [address] [place] [address] MCH 31.8 27.1 - 33.3 pg CERNER BJ Comment:Testing performed by : [facility], [address] [place] [address] MCHC 33.4 32.3 - 35.7 g/dL CERNER BJ Comment:Testing performed by : [facility], [address] [place] [address] RDW CV 14.8 11.1 - 14.9 % CERNER BJ Comment:Testing performed by : [facility], [address] [place] [phone] NRBC abs 0.00 0.00 - 0.01 K/cumm KANA [facility] Comment:Testing performed by : [facility], [address] [place] [phone] Blood 06/13/2024 7:24 AM DIRECTOR MUSIC 06/13/2024 7:42 AM DIRECTOR MUSIC Montrell Wolfe MD PhD LAB BLOOD ORDERABLES Fin al Result KANA [facility] Department [place] [address] * (ABNORMAL) Testosterone, Total and Free, Serum (06/13/2024 7:24 AM DIRECTOR MUSIC) Testosterone 1260(H) 240 - 950 ng/dL [facility] Comment: ADDITIONAL INFORMATION Testing performed by Liquid Chromatography-Tandem Mass Spectrometry (LC-MS/MS). This test was developed and its performance characteristics determined by [facility] in a manner consistent with CLIA requirements. This test has not been cleared or approved by the U.S. Food and Drug Administration. Test Performed by: [facility] [place] [address] Director Of Search Engine Marketing: Dawn Rosa Ph.D.; CLIA# [id number] Testosterone, free 44.5(H) 3.47 - 13.0 ng/dL [facility] Comment: ADDITIONAL INFORMATION This test was developed and its performance characteristics determined by [facility] in a manner consistent with CLIA requirements. This test has not been cleared or approved by the U.S. Food and Drug Administration. Blood 06/13/2024 7:24 AM DIRECTOR MUSIC 06/13/2024 10:33 AM DIRECTOR MUSIC Breanne Rivera MD PhD LAB BLOOD ORDERABLES Final Result Performing Organization Address City/[facility] Co de Phone Number [facility] Department [place] [address] Torres ref Lab * Lactate dehydrogenase (LD) (06/13/2024 7:24 AM DIRECTOR MUSIC) Pathologist [facility] Lactate dehydrogenase (LDH) 198 100 - 250 Units/L Blood 06/13/2024 7:24 AM DIRECTOR MUSIC 06/13/2024 7:41 AM DIRECTOR MUSIC Montrell Wolfe MD PhD LAB BLOOD ORDERABLES Fin al Result Performing Organization Address [facility] [place] [address] * Hemoglobin A1c (06/13/2024 7:24 AM DIRECTOR MUSIC) [facility] Hgb A1C 5.6 4.0 - 5.6 % Estimated Average Glucose 114 mg/dL [facility] Comment: The ADA recommends reporting an estimated Average Glucose (eAG) with all Hemoglobin A1c results using the equation derived from a study of 507 normal and diabetic adults. Minority populations were underrepresented and children were not included. (Diabetes Care 2020; 43(S1): S66-S76). The eAG is not equivalent to a fasting glucose. Blood 06/13/2024 7:24 AM DIRECTOR MUSIC 06/13/2024 7:40 AM DIRECTOR MUSIC Franky Sylvester MD LAB BLOOD ORDERABLES Final Re sult Performing Organization Address [facility]/ZIP Co de Phone Number [facility] [place] [address] * (ABNORMAL) Comprehensive metabolic panel (06/13/2024 7:24 AM DIRECTOR MUSIC) Pathologist [facility] Sodium 143 135 - 145 mmol/L Potassium, pl 4.1 3.3 - 4.9 mmol/L [facility] Chloride 105 97 - 110 mmol/L [facility] CO2 30 22 - 32 mmol/L [facility] Anion gap 8 2 - 15 mmol/L [facility] BUN 35(H) 6 - 25 mg/dL [facility] Creatinine 1.93(H) 0.80 - 1.30 mg/dL [facility] Glucose 105 70 - 199 mg/dL [facility] Comment: Interpretive Data Fasting glucose >/= 126 [...] classification and Diagnosis of Diabetes Diabetes Care 202; 46: S19-S40. Current interpretive data was last revised 2022. Calcium 9.9 8.5 - 10.3 mg/dL [facility] Bilirubin, total 0.5 0.1 - 1.2 mg/dL [facility] Protein, pl 7.5 6.5 - 8.5 g/dL [facility] Albumin 4.2 3.5 - 5.0 g/dL [facility] Alk phos 46 40 - 130 Units/L [facility] ALT 31 7 - 55 Units/L [facility] AST 39 10 - 50 Units/L [facility] Blood 06/13/2024 7:24 AM DIRECTOR MUSIC 06/13/2024 7:41 AM DIRECTOR MUSIC us Montrell Wolfe MD PhD LAB BLOOD ORDERABLES Fin al Result [facility] Department of Laboratories [place], [place] [id number] * Surgical pathology (05/19/2024 1:23 PM DIRECTOR MUSIC) Tissue (Polyp(s), colon/colorectal, esophageal, gastric) 05/19/2024 1:23 PM DIRECTOR MUSIC Tissue (Polyp(s), colon/colorectal, esophageal, gastric) 05/19/2024 1:32 PM DIRECTOR MUSIC Narrative PATHOLOGY [facility] - 05/20/2024 9:52 AM DIRECTOR MUSIC EPIC results best viewed via link to PDF [facility] Misty [facility] [place] [address] Note to Patients: This report may contain [...] REPORT FINAL Patient Name: BK PICHARDO Gender: M : 1955 (Age: 68) Address: [address] [place] [address] [facility] #: [id number] Taken:05/19/2024 Received:05/19/2024 Reported: 05/20/2024 Patient Type: [facility] Service: Gastro Location: Physician(s): Tee Gamez M.D. [...] x 0.1 cm. Labeled B1. Jar 0. els/05/19/2024 18:12 PA(s): Luba Bruce By this signature, I attest that the above diagnosis is based upon my personal examination of the slides(and/or other material). Addenda/Procedures The performance characteristics of some immunohistochemical stains, fluorescence in-situ hybridization tests and immunophenotyping by flow cytometry cited in this report (if any) were determined by the Surgical Pathology and Flow Cytometry Departments at [facility] as part of an ongoing quality control lab tech program and in compliance with federally mandated [...] Surgical Pathology and Flow Cytometry Departments of [facility]. It has not been cleared or approved by the U. S. Food and Drug Administration. IMAGES AND SCANNED DOCUMENTS, IF INCLUDED, ONLY VIEWABLE IN PDF VERSION OF REPORT Natalie Gonzalez MD LAB PATHOLOGY ORDERABLES Final Result PATHOLOGY [facility] 3rd Floor [place], [place] [phone] * Colonoscopy (05/19/2024 12:30 PM DIRECTOR MUSIC) Anatomical Region Laterality Modality Other Narrative Procedure Note Natalie Gonzalez MD - 05/19/2024 12:30 PM CST [facility] ENDOS[facility] Patient Name: Bk Pichardo Procedure Date: 05/19/2024 12:30 PM Date of : 1955 Admit Type: Outpatient Age: 68 Gender: Male Attending MD: Natalie Gonzalez M.D. Room: [facility] ENDOSCOPY ROOM 4 Note Status: Finalized Procedure: [...] The scope was passed under direct vision.The CF [id number] endoscope was introduced through the anus [...] Return to referring physician. - please call [phone], 8 am -5 pm if any post procedural concerns/issues, after hours/weekends please call [phone] and ask for GI fellow oncall Attending [...] LAB BLOOD ORDERABLES Final Re sult KANA [address] Gita Russo Department [place] [address] * (ABNORMAL) Lipid panel (09/04/2023 10:34 AM [...] revised on 2017. Triglycerides 245(H) <=149 mg/dL [facility] Comment: Interpretive Data Ages < or = [...] revised on 2017. HDL 40 >=40 mg/dL [facility] Comment: Interpretive Data Ages < or = [...] on 2017. LDL, calculated 104 <=129 mg/dL [facility] Comment: Interpretive Data Ages < or = [...] revised on 2017. Non-HDL Cholesterol 153 mg/dL [facility] Comment: Interpretive Data Ages < or = [...] last revised on 2017. Chol/HDL ratio 5 [facility] Blood 09/04/2023 10:3 4 AM CDT 09/04/2023 11:01 AM CDT us Corina Norris NP LAB BLOOD ORDERABLES Final Resul t Performing Organization Address City/[facility]/ZIP Co de Phone Number [facility] Department [place] [address] * (ABNORMAL) Albumin Creatinine Ratio, Urine (07/09/2023 9:09 AM CDT) Albumin Ur 65.7 mg/L Comment: Interpretive Data No reference range established. Current interpretive data was last revised 2018. Creatinine Ur 186.3 mg/dL [facility] Comment: Interpretive Data No reference range established. Current interpretive data was last revised 2018. Albumin Creatinine Ratio, Ur 35(H) 1 - 29 mg/g [facility] Urine 07/09/2023 9:09 AM CDT 07/09/2023 2:01 PM CDT us Franky Sylvester MD LAB URINE ORDERABLES Final Re sult [facility] [address] [address] Department [place] [address] * (ABNORMAL) DIABETES EYE EXAM (02/26/2023 11:15 AM DIRECTOR MUSIC) us Historical Provider HEALTH MAINTENANCE Final Result * Hepatitis C antibody (08/07/2021 2:55 PM CDT) Hep C Ab Nonreactive Nonreactive KANA LEE Comment:Antibodies to HCV no t detected. Does NOT exclude the possibility of recent exposure to HCV. Blood 08/07/2021 2:55 PM CDT 08/07/2021 3:30 PM CDT Pablo Mcmillan MD LAB MICROBIOLOGY - GENE RAL ORDERABLES Edited Result - Final [facility] Department [place] [address] from Last 3 Months or Most Recently Relevant to Health Maintenance Insurance [facility] Advance Directives For more information, please contact: [phone] * Full Code (Latest Code Status on File) Date Activated Date Inactivated Comments 05/19/2024 12:20 PM 05/19/2024 6:43 PM * Full Code Date Activated Date Inactivated Comments 04/22/2023 8:39 AM 04/22/2023 2:54 PM * Full Code Date Activated Date Inactivated Comments 07/05/2022 6:35 PM 07/08/2022 7:06 PM * Full Code Date Activated Date Inactivated Comments 10/24/2020 6:59 AM 10/24/2020 1:29 PM Care Teams Food Editor Relationship Specialty Start Date End Date Franky Sylvester MD PCP - General Family Medicine 12/03/21 Rosa Russell NP Nurse Practitioner Medical Oncology 06/13/20 Montrell Wolfe MD PhD Medical Oncologist/Vice President Of Contracts Medical Oncology 12/03/21 Pablo Mcmillan MD [address] [place] [address] Sap Pi Architect Nephrology 03/21/24
--- OUTSIDE RECORDS SUMMARY | 2024-06-28 04:36 | XMS_ITS | Encounter Summary ---
Author Organization [facility] Healthcare Address [address] [place] [address] Care Team Providers Care Teletype Or Varitype Keyboard Operator Name Role Phone RussellRosa Placido HOME ECONOMICS EXPERT Unavailable [phone] Franky Sylvester MD Primary Care Provider [phone] Montrell Wolfe MD PhD Unavailable [phone] Pablo Mcmillan MD Unavailable [phone] Reason for Visit * Reason Onset Date Comments Referral Request 06/06/2024 Encounter Details Date Type Department Care Team (Late st Contact Info) Description 06/06/2024 Telephone [facility] Family Medicine at [place] [address] [place] [address] Franky Sylvester MD [address] [facility] [address] [address] Referral Request Social History Tobacco Use Types Packs/Day Years Used Date Smoking Tobacco: Former Cigarettes 0.3 15 1 975 - 1989 Smokeless Tobacco: Never Alcohol Use Standard Drinks/Week Comments No 0 (1 standard drink = 0.6 oz pur e alcohol) [facility] Utilities Answer Date Recorded In the past 12 months has [employer], gas, oil, or water [employer] threatened to shut off services in your [...] often do you attend chur ch or faith services? Never 06/26/2023 Do you belong to any clubs o r organizations such as yarsanism groups, unions, fraternal or athletic groups, or [...] place to sleep or slept in a nursing home (including now)? No 06/26/2023 PHQ-9 Answer [...] on file Legal Sex Male 10:07 AM OTHER SPATIAL SCIENTIST Gender Identity Not on file Sexual Orientation Not on file documented as of this encounter Miscellaneous Notes * Telephone Encounter - Babita Lauren - 06/07/2024 11:06 AM CST [facility] insurance referral in [facility] for Dr. Montrell Wolfe, mailed copy to patient for his records. R SPATIAL SCIENTIST * Telephone Encounter - Yuliana Ahn - 06/06/2024 8:52 AM CST Referral Provider Name: Dr Montrell Wolfe Specialty: Oncology Address: [address] [place] [address], Zip: [place] [address] Diagnosis Code/Symptom/Reason Patient is being seen: C92.01 Date of Appointment: 06/13/24 NPI#: [id number] Tax ID#: [id number] Is insurance in chart up to date? Yes - [employer] Additional Comments: none Does message need to be routed? Yes-Action Needed R SPATIAL SCIENTIST documented in this encounter Plan of Treatment Not on file documented as of this encounter Goals Goal Patient Goal Type Associated Problems Recent Progress Patient-Stated? Author CCM Chronic Pain Care Plan Chronic Care Management No change(06/04 7:38 AM OTHER SPATIAL SCIENTIST) No Seema Dutton RN Note: Problem: Chronic Pain Goals: 1. Minimize further functional decline 2. Maximize quality of life 3. Control pain Strategies: - Activity/exercise program recommendation - Conservative stepwise pain medicine strategy with multi-disciplinary approach - Recommend healthy lifestyle strategies and compensatory methods as needed documented as of this encounter Visit Diagnoses Not on filedocumented in this encounter Care Teams Teletype Or Varitype Keyboard Operator Relationship Specialty Start Date End Date Franky Sylvester MD PCP - General Family Medicine 12/03/21 Rosa Russell NP Nurse Practitioner Medical Oncology 06/13/20 Montrell Wolfe MD PhD Medical Oncologist/Conductor/Engineer Medical Oncology 12/03/21 Pablo Mcmillan MD [address] [address] Supervisor Joiners Nephrology 03/21/24 documented as of this encounter
[2024-06-28 04:58] LABS: Basophils Percent Auto 0.1 % (0.2-1.2); Eosinophils Percent Auto 0.2 % (0-4.4); Hematocrit 44.7 % (42.0-52.0); Hemoglobin 14.8 g/dL (14.0-18.0); Immature Granulocyte Absolute 0.03 K/mm3 (0.00-0.031); Immature Granulocyte Percent A 0.3 % (0-0.5); Lymphocytes Percent Auto 33.8 % (18.3-44.2); Mean Corpuscular HGB Conc 33.1 g/dl (32-36); Mean Corpuscular Hemoglobin 32.5 pg (26-34); Mean Platelet Volume 9.2 fl (7.4-10.4); Monocytes Absolute Auto 0.9 K/mm3 (0.1-0.6); Monocytes Percent Auto 9.4 % (2.6-8.5); Neutrophils Absolute Auto 5.3 K/mm3 (1.3-6.7); Neutrophils Percent Auto 56.2 % (45.5-73.1); Platelet Count Result 397 k/mm3 (150-375); Red Blood Count 4.56 M/mm3 (4.6-6.20); Red Cell Distribution Width 14.5 % (11.5-14.5); White Blood Count 9.5 K/mm3 (4.5-10.0)
[2024-06-28 05:10] LABS: Alanine Aminotransferase 35 U/L (6-50); Albumin Level 4.6 g/dL (3.5-5.1); Alkaline Phosphatase 50 U/L (38-126); Anion Gap 14 mmol/L (4-12); Aspartate Amino Transferase 38 U/L (17-59); Bilirubin,Total 0.5 mg/dL (0.2-1.3); Blood Urea Nitrogen 23 mg/dL (9-20); Calcium 9.2 mg/dL (8.4-10.2); Carbon Dioxide 25 mmol/L (22-30); Chloride 102 mmol/L (98-107); Estimated CRCL calculation 43 ml/min; Estimated Glomerular Filt Rate 34; Glucose 119 mg/dL (65-110); Lipase 65 U/L (23-300); Potassium 3.6 mmol/L (3.4-5.0); Sodium 141 mmol/L (137-145)
[2024-06-28 05:21] LABS: Troponin I 0.014 ng/mL (0.000-0.034)
[2024-06-28 05:32] LABS: INR 1.3; Prothrombin Time 16.7 Seconds (11.1-14.7)
[2024-06-28 05:33] LABS: Partial Thromboplastin Time 34.8 Seconds (22.3-36.8)
--- NOTE | 2024-06-28 07:06 | ED.CHESTPAIN ---
HPI - Chest Pain General Chief Complaint: Chest Pain Stated Complaint: R sided chest pain, SOB Time Seen by Provider: 06/28/24 07:00 Source: patient Mode of arrival: ambulatory Limitations: no limitations History of Present Illness HPI narrative: Patient presents with chest pain and shortness of breath. He notes that he was having some symptoms yesterday although they were mild and chest pain at that time was suprasternal and appeared to get better. Approximately 4:00 a.m. however he woke up with a sharp pain on the right side of his chest and radiating into his right neck. The pain is dull now. During obtaining the EKG had noted some right back pain. 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 He is on Eliquis which he takes regularly without missing doses, 5 mg b.i.d. although he has not yet taken this morning's dose. This is for diagnosis of paroxysmal atrial flutter. His clinical technologist is Dr. Chao Nunez. His it applications analyst is Guzman Elizondo. He had blood work done in the past 2 weeks which showed hemoglobin A1c of 5.6%. He denies any lower extremity edema. He describes the pain is pleuritic. He states he can not lay flat. He has felt nauseated but no vomiting. No cough or fevers but he has been feeling chilled. No headaches or myalgias. No edema. Cardiac risk factors: No diagnosis of hypertension. He states he kind of but not really has hyperlipidemia but he does endorse being on pravastatin. No diagnosis of diabetes. Nonsmoker. No prior history of myocardial infarction, TIA, or CVA. No family history of myocardial infarction before the age of 65 in a first-degree relative although his father's family had arrhythmia as and his mother young while on the operating room table for noncardiac issue.. Related Data Allergies Allergy/AdvReac Type Severity Reaction Status Date / Time vancomycin Allergy Mild Redness of Verified 06/28/24 07:58 Skin gabapentin AdvReac Severe Unknown Verified 06/28/24 07:58 [facility] Past Medical History Medical History (Updated 06/28/24 @ 08:07 by Brunilda Godinez MD) AML (acute myeloblastic leukemia) in remission Pericarditis Depression Leukemia Pneumonia Pulmonary embolism DVT (deep venous thrombosis) Hypertension GERD (gastroesophageal reflux disease) Diabetes type 2, controlled Surgical History Surgical History (Updated 04/07/19 @ 06:25 by David Schmitt MD) 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 Social History Social History (Updated 04/07/19 @ 06:25 by David Schmitt MD) Smoking status: Never smoker Exam Narrative: GENERAL: Well-appearing, well-nourished, and in no acute distress. HEAD: Normocephalic, atraumatic. EYES: Non injected, non icteric ENT: Nares clear, no rhinorrhea or epistaxis. NECK: Supple. CHEST: Speaking in full sentences. No respiratory distress. Lungs clear to auscultation bilaterally without appreciable wheezes or crackles. HEART: Regular rate and rhythm. . ABDOMEN: Soft, nondistended. EXTREMITIES: Normal range of motion. No lower extremity edema. SKIN: Warm, dry, no rash. NEURO: No focal deficits. Alert and oriented x3. PSYCH: Normal mood and affect. Course Vital Signs Vital signs: Vital Signs Temperature 97.9 F 06/28/24 04:54 Pulse Rate 100 06/28/24 04:54 Respiratory Rate 18 06/28/24 04:54 Blood Pressure 167/78 H 06/28/24 04:54 Pulse Oximetry 98 06/28/24 04:54 Oxygen Delivery Room Air 06/28/24 04:54 Temperature 97.9 F 06/28/24 04:54 Pulse Rate 96 06/28/24 08:06 Respiratory Rate 18 06/28/24 08:06 Blood Pressure 123/86 06/28/24 08:06 Pulse Oximetry 98 06/28/24 08:06 Oxygen Delivery Room Air 06/28/24 08:01 MDM - Chest Pain MDM Narrative Medical decision making narrative: Patient presents with chest pain and shortness of breath. He had some slight symptoms of this yesterday but acute symptoms of this starting at 4:00 a.m.. In the emergency department he is afebrile vital signs notable for hypertension. Patient states he is on Eliquis for diagnosis of atrial flutter and has been compliant although has not yet taken this morning's dose because of the time. However per review of EMR adult does appear that he also has a history of DVT and PE and has a prior history of malignancy. HEART SCORE History 2 highly suspicious 1 moderately suspicious 0 slightly suspicious History score [address] depression/elevation not due to LBBB, LVH, or digoxin [address] depression but LBBB, LVH, nonspecific repolarization changes 0 normal ECG score 1 - LVH Age 2 >/= 65 1 45-64 0 <45 Age score 2 Risk factors (HTN, hypercholesterolemia, DM, obesity with BMI >30, current smoker or cessation </=3mo), positive fam hx with parent or sibling with CVD before age 65, atherosclerotic disease (prior PR, PCI/CABG, CVA/TIA, or peripheral arterial disease) 2 >/= 3 risk factors or history of atherosclerotic dz 1 - 1-2 risk factors 0 no known risk factors Risk factor score 1 (HLD, obesity) Initial Troponin 2 >3 times normal limit 1 1-3 times normal limit 0 less than or equal to normal limit Troponin score 0 Total HEART Score 4. Mild thrombocytosis. Nonspecific and possible acute phase reactant. Patient's creatinine is 1.99. Her baseline appears to be in the range of 1.4-2.1 thus this does appear to be chronic and represent a degree of chronic kidney disease. BNP mildly elevated but not to a degree to suggest acute heart failure especially given reference range of the assay for patient's age. Repeat troponin normal. Viral swab negative. Patient has a heart score of 4 and demonstrated pain relief with the administration of nitroglycerin. He states he had a stress test (chemical) about a year ago but has never had cardiac catheterization. Given his risk factors, recommend observation admission for further workup. Discussed with on-call hospitalist Dr. Donnelly who accepts admission. Given hospital protocol, this will be an IMU admission given the heart score. Will hold off on scheduling ordering his Eliquis given potential for cardiac catheterization during this admission. Will defer that to Cardiology who was consulted (though did not speak with them, Andrzej requests order placed). Otherwise stable. He did confirm full code status. Differential Diagnosis Differential diagnosis: Likely stable angina, unstable angina pectoris, atypical chest pain, st elevation myocardial infarction, biliary colic and other (Pulmonary embolism despite anticoagulation, pericarditis; acute viral syndrome) Lab Data Attestation: I reviewed the patient's lab results. 06/28/24 04:49 06/28/24 04:49 Labs: Lab Results 06/28/24 06/28/24 Range/Units 04:49 07:45 WBC 9.5 (4.5-10.0) K/mm3 RBC 4.56 L (4.6-6.20) M/mm3 Hgb 14.8 (14.0-18.0) g/dL Hct 44.7 (42.0-52.0) % MCV 98.0 (80-100) fl MCH 32.5 (26-34) pg MCHC 33.1 (32-36) g/dl RDW 14.5 (11.5-14.5) % Plt Count 397 H D (150-375) k/mm3 MPV 9.2 (7.4-10.4) fl Immature Gran % (Auto) 0.3 (0-0.5) % Neut % (Auto) 56.2 (45.5-73.1) % Lymph % (Auto) 33.8 (18.3-44.2) % [place] % (Auto) 9.4 H (2.6-8.5) % Eos % (Auto) 0.2 (0-4.4) % Baso % (Auto) 0.1 L (0.2-1.2) % Lymph # (Auto) 3.20 (0.9-3.2) K/mm3 [place] # (Auto) 0.9 H (0.1-0.6) K/mm3 Eos # (Auto) 0.0 (0-0.3) K/mm3 Baso # (Auto) 0.0 (0.0-0.1) K/mm3 Abs Immat Gran (auto) 0.03 (0.00-0.031) K/mm3 Absolute Neuts (auto) 5.3 (1.3-6.7) K/mm3 Absolute Nucleated RBC 0.000 (0.0-0.012) K/mm3 Nucleated RBC % 0.0 (0.0-0.2) % PT 16.7 H (11.1-14.7) Seconds INR 1.3 APTT 34.8 (22.3-36.8) Seconds Sodium 141 (137-145) mmol/L Potassium 3.6 (3.4-5.0) mmol/L Chloride 102 (98-107) mmol/L Carbon Dioxide 25 (22-30) mmol/L Anion Gap 14 H (4-12) mmol/L BUN 23 H (9-20) mg/dL Creatinine 1.99 H (0.7-1.3) mg/dL Estim Creat Clear Calc 43 ml/min Estimated GFR 34 L (59 - ) Glucose 119 H (65-110) mg/dL Calcium 9.2 (8.4-10.2) mg/dL Total Bilirubin 0.5 (0.2-1.3) mg/dL AST 38 (17-59) U/L ALT 35 (6-50) U/L Alkaline Phosphatase 50 (38-126) U/L Troponin I 0.014 < 0.012 (0.000-0.034) ng/mL NT-Pro-B Natriuret Pep 176 H (19.9-100) pg/mL Total Protein 8.0 (6.3-8.2) g/dL Albumin 4.6 (3.5-5.1) g/dL Lipase 65 (23-300) U/L Influenza A (RT-PCR) Negative (Negative) Influenza B (RT-PCR) Negative (Negative) RSV (RT-PCR) Negative (Negative) SARS-CoV-2 RNA (RT-PCR) Negative (Negative) Imaging Data Radiologist's impression: Impressions Chest X-Ray 06/28/24 06:17 Impression: Normal chest. Chest CTA 06/28/24 07:39 Impression: No evidence of pulmonary embolus, aortic dissection, or aortic aneurysm. No acute pulmonary abnormality. ECG Data EKG #1: Attestation: I personally reviewed and interpreted this ECG as follows: ECG completion date: 06/28/24 ECG completion time: 04:41 Interpretation: Normal sinus rhythm at a rate of 97 beats per minute. HI interval prolonged at 206 milliseconds consistent with first-degree AV block. QRS 97. QT/QTC 333/424. No T-wave inversions. Left axis deviation (QRS is positive with dominant R wave in Lead I; QRS is negative with dominant S wave in leads II, III, and aVF). Pre populated algorithm suggests left ventricular hypertrophy ; S wave depth in V1 + tallest R wave height in V5-6 is <35mm but R wave in lead I + S wave in lead III is =/> 25mm. EKG #2: Attestation: I personally reviewed and interpreted this ECG as follows: ECG completion date: 06/28/24 ECG completion time: 07:59 Interpretation: Normal sinus rhythm at a rate of 85 beats per minute. HI interval 200 milliseconds. QRS 114. QT/QTC 360/402. Left axis deviation (QRS is positive with dominant R wave in Lead I; QRS is negative with dominant S wave in leads II, III, and aVF). No T-wave inversions. Discharge Plan Discharge Clinical Impression: Thrombocytosis, Chest pain, Shortness of breath, CKD (chronic kidney disease) Patient Disposition: Still a Patient Condition: Stable Patient Language: Uzbek Follow-up/Referrals: UNKNOWN,DOCTOR [Primary Care Provider] -
--- OUTSIDE RECORDS SUMMARY | 2024-06-28 07:24 | XMS_ITS ---
Author Organization [facility] Address [address] [place] [address] Care Team Providers Care Roller Printer Name Role Phone Rosa Russell STAFF SONOGRAPHER Unavailable Franky Sylvester MD Primary Care Provider [phone] Montrell Wolfe MD PhD Unavailable [phone] Pablo Mcmillan MD Unavailable [phone] Active Problems Problem Noted Date Diagnosed Date Controlled type 2 diabetes koby villarreal with stage 3 chronic kidney disease, without long-term current use of insulin 06/15/2024 History of colon polyps 03/23/2024 Medicare annual wellness visit, subsequent 02/14 Assessment & Plan (02/15/2024 10:43 AM STITCHER FEEDER): Discussed with patient current recommendations for routine [...] 02/12/2024 Assessment & Plan (02/15/2024 10:42 AM STITCHER FEEDER): Stable limit nephrotoxins Continue Lasix 20mg BP and glucose control GFR 42 Lab Results Component Value Date CREATININE 1.75 (H) 2023 BUNSER 26 (H) 2023 SODIUM 140 2023 POTASSIUM 4.5 2023 CO2 27 2023 Simple chronic bronchitis 02/12/2024 Assessment & Plan (02/15/2024 10:40 AM STITCHER FEEDER): Stable Continue Jakafi Reports has substantially helped sx 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 EKG in [facility] 07/05 showed narrow complex tachycardia with HR >150. Given adenosine x2 (6 mg, 12 mg) in [facility]. EKG strip after adenosine noted flutter waves. Given Amio bolus 150 mg, IV metop x2 5 mg after adenosine with poor clinical response. -S/p IV dilt 10 mg x3 07/06/22. Better rate control was noted with IV dilt compared to metop/amio. -Cards consulted.He sees Dr Elizondo as outpatient,-PO metop & amio stopped per cards recs S/p LUISA and successful cardioversion 07/07/22 with mandaen of sinus rhythm. PO diltiazem 60 mg [...] 01/02/2022 Assessment & Plan (03/01/2024 9:39 AM STITCHER FEEDER): Stable Uses CPAP with relief of symptoms [...] 2017 Assessment & Plan (02/15/2024 10:42 AM STITCHER FEEDER): Stable Declines pain management Reports magnesium has [...] (10/09/2020): Added automatically from request for surgery [id number] Other osteoporosis without c urrent pathological fracture 05/17/2019 10/16/2022 Prediabetes 05/17/2019 10/16/2022 Acute on chronic renal insufficiency 10/26/2018 10/16/2022 Assessment & Plan (07/08/2022 1:13 PM CDT): Cr 2.32 on admission (BL around 2 ). S/p 1L IVF bolus in [facility] 07/05 -Patient does endorse occasional NSAID use [...]
--- OUTSIDE RECORDS SUMMARY | 2024-06-28 07:24 | XMS_ITS | CONTINUITY OF CARE DOCUMENT ---
Author Name kori sheikh Address Unknown Organization [facility] Address [address] [place] [address] Phone [phone] Care Team Providers Care Substation Operator Conversion Name Role Phone kori sheikh Unavailable Unavailable
--- OUTSIDE RECORDS SUMMARY | 2024-06-28 07:24 | XMS_ITS | Encounter Summary ---
Author Organization [facility] Healthcare Address [address] [place] [address] Care Team Providers Care Pulmonary Function Technician Name Role Phone Rosa Russell WALL MIRROR DEPARTMENT SUPERVISOR Unavailable [phone] Franky Sylvester MD Primary Care Provider [phone] Montrell Wolfe MD PhD Unavailable [phone] Pablo Mcmillan MD Unavailable [phone] Encounter Details Date Type Department Care Team (Late st Contact Info) Description 06/14/2024 Orders Only [facility] Medical Group Family Medicine [place] [address] [place] [address] [address] [place] [address] Franky Sylvester MD [address] [address] Social History Tobacco Use Types Packs/Day Years Used Date Smoking Tobacco: Former Cigarettes 0.3 15 1 975 - 1989 Smokeless Tobacco: Never Alcohol Use Standard Drinks/Week Comments No 0 (1 standard drink = 0.6 oz pur e alcohol) [facility] Utilities Answer Date Recorded In the past 12 months has [employer], gas, oil, or water company threatened [...] often do you attend chur ch or yarsani services? Never 06/26/2023 Do you belong to any clubs o r organizations such as anabaptism groups, unions, fraternal or athletic groups, or [...] on file Legal Sex Male 10:07 AM MANAGER UTILITIES Gender Identity Not on file Sexual Orientation Not on file documented as of this encounter Plan of Treatment Not on file documented as of this encounter Goals Goal Patient Goal Type Associated Problems Recent Progress Patient-Stated? Author CCM Chronic Pain Care Plan Chronic Care Management No change(06/04 7:38 AM MANAGER UTILITIES) No Seema Dutton, RN Note: Problem: Chronic Pain Goals: 1. Minimize further functional decline 2. Maximize quality of life 3. Control pain Strategies: - Activity/exercise program recommendation - Conservative stepwise pain medicine strategy with multi-disciplinary approach - Recommend healthy lifestyle strategies and compensatory methods as needed documented as of this encounter Visit Diagnoses Not on filedocumented in this encounter Care Teams Pulmonary Function Technician Relationship Specialty Start Date End Date Franky Sylvester MD PCP - General Family Medicine 12/03/21 Rosa Russell NP Nurse Practitioner Medical Oncology 06/13/20 Montrell Wolfe MD PhD Medical Oncologist/Biosecurity Officer Medical Oncology 12/03/21 Pablo Mcmillan MD [address] [place] [address] Fish Trapper Nephrology 03/21/24 documented as of this encounter
--- OUTSIDE RECORDS SUMMARY | 2024-06-28 07:24 | XMS_ITS | Clinical Summary ---
Author Organization [facility] Address [address] [place] [address] Care Team Providers Care Cmm Technician Name Role Phone Rosa Russell AVIATION PROGRAM MANAGER Unavailable [phone] Franky Sylvester MD Primary Care Provider [phone] Montrell Wolfe MD PhD Unavailable Pablo Mcmillan MD Unavailable [phone] Allergies Active Allergy Reactions Criticality Noted Date [...] needle, disp, 18 G (BD Regular Bevel Hudson) 18 gauge x 1 needle To draw up injection 12 each 11 04/01/20 24 Active syringe, disposable, (BD Luer-Emilia Syringe) 1 mL syringe To use for injection 12 each 11 04/01/20 24 Active needle, disp, 23 gauge (BD Regular Bevel Hudson) 23 gauge x 3/4 needle To use [...] 02/14 Assessment & Plan (02/15/2024 10:43 AM ICE RESURFACING MACHINE OPERATORS): Discussed with patient current recommendations for routine [...] 02/12/2024 Assessment & Plan (02/15/2024 10:42 AM ICE RESURFACING MACHINE OPERATORS): Stable limit nephrotoxins Continue Lasix 20mg BP and glucose control GFR 42 Lab Results Component Value Date CREATININE 1.75 (H) 2023 BUNSER 26 (H) 2023 SODIUM 140 2023 POTASSIUM 4.5 2023 CO2 27 2023 Simple chronic bronchitis 02/12/2024 Assessment & Plan (02/15/2024 10:40 AM ICE RESURFACING MACHINE OPERATORS): Stable Continue Lashaun Reports has substantially helped [...] S/p LUISA and successful cardioversion 07/07/22 with adventist of sinus rhythm. PO diltiazem 60 mg [...] 01/02/2022 Assessment & Plan (03/01/2024 9:39 AM ICE RESURFACING MACHINE OPERATORS): Stable Uses CPAP with relief of symptoms [...] 2017 Assessment & Plan (02/15/2024 10:42 AM ICE RESURFACING MACHINE OPERATORS): Stable Declines pain management Reports magnesium has [...] (10/09/2020): Added automatically from request for surgery [id number] Other osteoporosis without c urrent pathological fracture [...] Care Team Description 06/23/2024 ACO Medication Access [facility] Accountable Care Organization [address] [place] [address] Giana Thomas CPhT 06/15/2024 9:15 AM [employer]ACH[employer]PERAT[employer] Office Visit [facility] Medical Group Family Medicine at [address] [place] [address] Franky Sylvester MD Stage 3b chronic kidney disease (HCC) (Primary Dx); Essential hypertension; Paroxysmal atrial flutter (HCC); Hypogonadism in male; Acute myeloid leukemia in remission (HCC); 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 disease, without long-term current use of insulin (HCC) 06/14/2024 Orders Only [facility] Family Medicine at [address] [address] Franky Sylvester MD 06/13/2024 9:15 AM [employer]PERAT[employer] Office Visit [facility] Bone Marrow Transplant [address] [place] [phone] Montrell Wolfe MD PhD Acute myeloid leukemia in remission (HCC) 06/13/2024 8:00 AM [employer]PERAT[employer] Lab [facility] - Lab Collection [address] [place] [address] Acute myeloid leukemia in remission (HCC); 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 disease, without long-term current use of insulin (HCC); Low testosterone in male 06/13/2024 Results Follow-Up [facility] Family Medicine at [address] [address] Lisandra Romero PA 06/06/2024 Telephone [facility] Family Medicine at [address] [address] Franky Sylvester MD Referral Request 05/19/2024 1:04 PM [employer]PER[employer] Anesthesia Event [facility] [address] [address] Bautista Huertas MD 05/19/2024 1:00 PM [employer] - 05/19/2024 1:45 PM [employer] Surgery [facility] [address] [address] Natalie Gonzalez MD COLON REMOVAL SNARE 05/19/2024 11:46 AM [employer] - 05/19/2024 2:23 PM [employer] Hospital Encounter [facility] [address] [address] Natalie Gonzalez MD History of colon polyps Discharge Disposition: Discharge to home or self care 05/12/2024 Telephone [facility] Specialty Services [address] [place] [address] MariaG uadalupe Marques, RN GI Preprocedure 05/10/2024 9:00 AM [employer] Office Visit [place] at [address] [address] Afsaneh Tao NP Acute non-recurrent pansinusitis (Primary Dx) 05/09/2024 Telephone [facility] Family Medicine at [address] [place] [address] Franky Sylvester MD Referral Request 04/20/2024 Telephone [facility] Cardiology [facility] 8th [place] [address] [place] [address] Guzman Elizondo MD 04/19/2024 8:30 AM [employer]PER[employer] Telemedicine [facility] Cardiology [address] [facility] Floor 1, [address] [place] [phone] Guzman Elizondo MD Paroxysmal atrial flutter (HCC) (Primary Dx); Chronic diastolic heart failure (HCC); Pure hypercholesterolemia 04/18/2024 Telephone [facility] Family Medicine at [address] [place] [address] Franky Sylvester MD Referral Request 04/01/2024 8:00 AM [employer]PERAT[employer] Office Visit [facility] Endocrinology Metabolism and Lipid [address] [place] [address] 13th [place] [address] [place] [address] Breanne Hunt MD PhD Low testosterone in [...] drink = 0.6 oz pur e alcohol) [facility] Utilities Answer Date Recorded In the past 12 months has [employer] gas, oil, or water [employer] threatened to shut off services in your [...] often do you attend chur ch or mormonism services? Never 06/26/2023 Do you belong to any clubs o r organizations such as christianity groups, unions, fraternal or athletic groups, or [...] place to sleep or slept in a half-way (including now)? No 06/26/2023 PHQ-9 Answer Date Recorded PHQ-9 Total Score 10 02/14/2024 Personal Safety Answer Date Recorded Have you ever been in or are you currently in a harmful physical or emotional relationship or is someone making you feel afraid or unsafe? Denies 05/19/2024 Sex and Gender Information Value Date Recorded Sex Assigned at Not on file Legal Sex Male 10:07 AM [employer] Gender Identity Not on file Sexual Orientation Not on file Obstetrics History Last Filed Vital Signs Vital Sign Reading Time Taken Comments Blood Pressure 132/74 06/15/2024 8:47 AM [employer]PER[employer] Pulse 69 06/15/2024 8:47 AM [employer] Temperature 36.5 C (97.7 F) 06/15/2024 8:47 AM [employer]PER[employer] Respiratory Rate 18 06/13/2024 8:48 AM [employer] MACH[employer]PERATORS Oxygen Saturation 95% 06/15/2024 8:47 AM [employer]PERAT[employer] Inhaled Oxygen Concentration - - Weight 119.5 kg (263 lb 8 oz) 06/15/2024 8:47 AM [employer]AT[employer] Height 185.4 cm (6' 1 ) 06/15/2024 8:47 AM [employer]PERAT[employer] Body Mass Index 34.76 06/15/2024 8:47 AM [employer]PERAT[employer] Plan of Treatment Health Maintenance Due Date [...] Chronic Care Management No change(06/04 7:38 AM [employer] MACH[employer]PERATORS) No Seema Dutton RN Note: Problem: Chronic Pain Goals: 1. Minimize further functional decline 2. Maximize quality of life 3. Control pain Strategies: - Activity/exercise program recommendation - Conservative stepwise pain medicine strategy with multi-disciplinary approach - Recommend healthy lifestyle strategies and compensatory methods as needed Medical Devices Implanted Type Area Surgery Manager Device Identifier Shelf Expiration Date Model / Serial / Lot Ivc Filter IVC Filter Vena Cava Procedures Procedure Name Priority Date/Time Associated Diagnosis Comments EGFR Routine 06/13/2024 7:24 AM [employer]PERAT[employer] Acute myeloid leukemia in remission (HCC) DIFFERENTIAL AUTO Routine 06/13/2024 7:2 4 AM [employer] Acute myeloid leukemia in remission (HCC) TESTOSTERONE, TOTAL AND FREE, SERUM Routine 06/13/2024 7:24 AM [employer] Low testosterone in male HEMOGLOBIN A1C Routine 06/13/2024 7:24 AM [employer]PERAT[employer] 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 disease, without long-term current use of insulin (HCC) CBC WITH AUTO DIFFERENTIAL Routine 06/13/2024 7:24 AM [employer]PERAT[employer] Acute myeloid leukemia in remission (HCC) COMPREHENSIVE METABOLIC PANEL Routine 06/13/2024 7:24 AM [employer]PERAT[employer] Acute myeloid leukemia in remission (HCC) LACTATE DEHYDROGENASE Routine 06/13/2024 7:24 AM [employer]PERAT[employer] Acute myeloid leukemia in remission (HCC) SURGICAL PATHOLOGY Routine 05/19/2024 1: 23 PM [employer] History of colon polyps ENDO ADD ON COLON BIOPSY 05/19/2024 1:04 PM [employer]ACH[employer]PERAT[employer] History of colon polyps COLON REMOVAL SNARE 05/19/2024 1 :04 PM [employer] M[employer]PERATORS History of colon polyps COLONOSCOPY 05/19/2024 12:30 PM [employer]PERAT[employer] PSA SCREEN Routine 10/27/2023 10:05 AM CDT [...] DIABETES EYE EXAM Routine 02/26/2023 11:15 AM [employer] MACH[employer]PERATORS HEPATITIS C ANTIBODY Routine 08/07/2021 2:55 PM CDT Creatinine elevation from Last 3 Months or Most Recently Relevant to Health Maintenance Results * (ABNORMAL) eGFR (06/13/2024 7:24 AM ICE RESURFACING MACHINE OPERATORS) eGFR 37(L) >=60 mL/min/1. 73 m2 Comment: [...] last reviewed 2021. Blood 06/13/2024 7:24 AM [employer]AC[employer] MACHINE OPERATORS 06/13/2024 7:41 AM ICE RES[employer]FACING MACHINE OPERATORS us Montrell Wolfe MD PhD LAB BLOOD ORDERABLES Fin al Result KANA [facility] Department [place] [address] * (ABNORMAL) Differential, auto (06/13/2024 7:24 AM ICE RESURFACING MACHINE OPERATORS) Neutrophil abs 3.3 1.5 - 6.5 K/cumm Comment:Testing performed by : [facility], [address] [place] [phone] Lymphocyte abs 4.1(H) 0.8 - 3.3 K/cumm CERNER BJ Comment:Testing performed by : [facility], [address] [place], [place] [phone] Monocyte abs 1.1(H) 0.2 - 0.8 K/cumm CERNER BJ Comment:Testing performed by : [facility], [address] [place], [place] [phone] Eosinophil abs 0.0 0.0 - 0.5 K/cumm CERNER BJ Comment:Testing performed by : [facility], [address] [place] [phone] Basophil abs 0.0 0.0 - 0.1 K/cumm CERNER BJ Comment:Testing performed by : [facility], [address] [place] [phone] Neutrophil pct 38.6 % CERNER BJ Comment: Interpretive Data Percent cell count reference ranges are not reported, since discordance with absolute values may lead to misinterpretation of CBC data. Current Interpretive Data was last revised on 2017. Testing performed by: [facility], [address] [place] [phone] Lymphocyte pct 48.1 % CERNER BJ Comment: Interpretive Data Percent cell count reference ranges are not reported, since discordance with absolute values may lead to misinterpretation of CBC data. Current Interpretive Data was last revised on 2017. Testing performed by: [facility], [address] [place], [place] [phone] Monocyte pct 12.7 % KANA LEE Comment: Interpretive Data Percent cell count reference ranges are not reported, since discordance with absolute values may lead to misinterpretation of CBC data. Current Interpretive Data was last revised on 2017. Testing performed by: [facility], [address] [place] [phone] Eosinophil pct 0.5 % KANA LEE Comment: Interpretive Data Percent cell count reference ranges are not reported, since discordance with absolute values may lead to misinterpretation of CBC data. Current Interpretive Data was last revised on 2017. Testing performed by: [facility], [address] [place], [place] [phone] Basophil pct 0.1 % KANA LEE Comment: Interpretive Data Percent cell count reference ranges are not reported, since discordance with absolute values may lead to misinterpretation of CBC data. Current Interpretive Data was last revised on 2017. Testing performed by: [facility], [address] [place] [phone] Blood 06/13/2024 7:24 AM [employer]ACING MACHINE OPERATORS 06/13/2024 7:42 AM [employer] OPERATORS Montrell Wolfe MD PhD LAB BLOOD ORDERABLES Fin al Result [facility] Department [place] [address] * (ABNORMAL) CBC with auto differential (06/13/2024 7:24 AM [employer]UR[employer]AC[employer] MACHINE OPERATORS) WBC 8.5 3.8 - 9.9 K/cumm Comment:Testing performed by : [facility], [address] [place] [phone] Hgb 14.2 13.0 - 17.5 g/dL KANA LEE Comment:Testing performed by : [facility], [address] [place] [phone] Hct 42.6 38.9 - 50.3 % KANA LEE Comment:Testing performed by : [facility], [address] [place], [place] [phone] Plt 417(H) 150 - 400 K/cumm [facility]ERIRASEMA [facility] Comment:Testing performed by : [facility], [address] [place] [address] MPV 7.6 6.8 - 10.4 fL [facility] Comment:Testing performed by : [facility], [address] [place], [place] [phone] RBC 4.47 4.30 - 5.80 M/cumm CERIRASEMA BJ Comment:Testing performed by : [facility], [address] [place], [place] [phone] MCV 95.3 81.3 - 96.4 fL CERIRASEMA BJ Comment:Testing performed by : [facility], [address] [place], [place] [phone] MCH 31.8 27.1 - 33.3 pg [facility] Comment:Testing performed by : [facility], [address] [place] [address] MCHC 33.4 32.3 - 35.7 g/dL [facility] Comment:Testing performed by : [facility], [address] [place] [address] RDW CV 14.8 11.1 - 14.9 % [facility] Comment:Testing performed by : [facility], [address] [place] [address] NRBC abs 0.00 0.00 - 0.01 K/cumm [facility] Comment:Testing performed by : [facility], [address] [place] [address] Blood 06/13/2024 7:24 AM ICE RESUR[employer]ACING MACHINE OPERATORS 06/13/2024 7:42 AM ICE [employer]AC[employer] MACHINE OPERATORS us Montrell Wolfe MD PhD LAB BLOOD ORDERABLES Fin al Result [facility] Department [place] [address] * (ABNORMAL) Testosterone, Total and Free, Serum (06/13/2024 7:24 AM ICE [employer]URFACING MACHINE OPERATORS) Testosterone 1260(H) 240 - 950 ng/dL [facility] ref [facility] Comment: ADDITIONAL INFORMATION Testing performed by Liquid Chromatography-Tandem Mass Spectrometry (LC-MS/MS). This test was developed and its performance characteristics determined by [facility] in a manner consistent with CLIA requirements. This test has not been cleared or approved by the U.S. Food and Drug Administration. Test Performed by: [facility] [address] [place] [address] Rib Puller: Dawn Rosa Ph.D.; CLIA# [id number] Testosterone, free 44.5(H) 3.47 - 13.0 ng/dL KANA LEE Comment: ADDITIONAL INFORMATION This test was developed and its performance characteristics determined by [facility] in a manner consistent with CLIA requirements. This test has not been cleared or approved by the U.S. Food and Drug Administration. Blood 06/13/2024 7:24 AM [employer]AC[employer] MACH[employer] OPERATORS 06/13/2024 10:33 AM [employer]ACH[employer]PERATORS Breanne Rivera MD PhD LAB BLOOD ORDERABLES Final Result KANA [facility] [place] [address] [facility] ref [facility] * Lactate dehydrogenase (LD) (06/13/2024 7:24 AM [employer]UR[employer]AC[employer] MACHINE OPERATORS) Lactate dehydrogenase (LDH) 198 100 - 250 Units/L Blood 06/13/2024 7:24 AM [employer]AC[employer]ACH[employer] OPERATORS 06/13/2024 7:41 AM [employer]AC[employer] MACH[employer] OPERATORS us Montrell Wolfe MD PhD LAB BLOOD ORDERABLES Fin al Result Performing Organization Address [facility] Co de Phone Number [facility] Department [place] [address] * Hemoglobin A1c (06/13/2024 7:24 AM ICE [employer]URFACING MACHINE OPERATORS) [facility] Hgb A1C 5.6 4.0 - 5.6 % Estimated Average Glucose 114 mg/dL [facility] Comment: The ADA recommends reporting an estimated Average Glucose (eAG) with all Hemoglobin A1c results using the equation derived from a study of 507 normal and diabetic adults. Minority populations were underrepresented and children were not included. (Diabetes Care 2020; 43(S1): S66-S76). The eAG is not equivalent to a fasting glucose. Blood 06/13/2024 7:24 AM [employer]ACING MACHINE OPERATORS 06/13/2024 7:40 AM [employer]ACH[employer] OPERATORS Franky Sylvester MD LAB BLOOD ORDERABLES Final Re sult Performing Organization Address [facility] Co de Phone Number [facility] Department [place] [address] * (ABNORMAL) Comprehensive metabolic panel (06/13/2024 7:24 AM ICE RESURFACING MACHINE OPERATORS) [facility] Sodium 143 135 - 145 mmol/L Potassium, pl 4.1 3.3 - 4.9 mmol/L [facility] Chloride 105 97 - 110 mmol/L [facility] CO2 30 22 - 32 mmol/L [facility] Anion gap 8 2 - 15 mmol/L [facility] BUN 35(H) 6 - 25 mg/dL [facility] Creatinine 1.93(H) 0.80 - 1.30 mg/dL [facility] Glucose 105 70 - 199 mg/dL [facility] Comment: Interpretive Data Fasting glucose >/= 126 [...] 2022. Calcium 9.9 8.5 - 10.3 mg/dL [facility] Bilirubin, total 0.5 0.1 - 1.2 mg/dL [facility] Protein, pl 7.5 6.5 - 8.5 g/dL CERNER [facility] Albumin 4.2 3.5 - 5.0 g/dL CERNER [facility] Alk phos 46 40 - 130 Units/L CERNER [facility] ALT 31 7 - 55 Units/L CERNER [facility] AST 39 10 - 50 Units/L [facility] Blood 06/13/2024 7:24 AM [employer] MACH[employer] OPERATORS 06/13/2024 7:41 AM [employer] M[employer] OPERATORS Montrell Wolfe MD PhD LAB BLOOD ORDERABLES Fin al Result [facility] Department [place] [address] * Surgical pathology (05/19/2024 1:23 PM [employer]FACING MACHINE OPERATORS) Tissue (Polyp(s), colon/colorectal, esophageal, gastric) 05/19/2024 1:23 PM [employer]AC[employer] MACHINE OPERATORS Tissue (Polyp(s), colon/colorectal, esophageal, gastric) 05/19/2024 1:32 PM ICE RESURFACING MACHINE OPERATORS Narrative PATHOLOGY [facility] - 05/20/2024 9:52 AM [employer]UR[employer]ACING MACHINE OPERATORS EPIC results best viewed via link to PDF [facility] Misty Michel [facility] [place] [address] Note to Patients: This report may contain [...] Gender: Kassi : 1955 (Age: 68) Address: [address] [place] [address] Hospital #: [id number] Taken:05/19/2024 Received:05/19/2024 Reported: 05/20/2024 Patient Type: [facility] Service: Gastro Location: Physician(s): Tee Gamez [...] Surgical Pathology and Flow Cytometry Departments at [facility] as part of an ongoing quality control microbiology supervisor program and in compliance with federally mandated [...] Surgical Pathology and Flow Cytometry Departments of [facility]. It has not been cleared or approved by the U. S. Food and Drug Administration. IMAGES AND SCANNED DOCUMENTS, IF INCLUDED, ONLY VIEWABLE IN PDF VERSION OF REPORT us Natalie Gonzalez MD LAB PATHOLOGY ORDERABLES Final Result PATHOLOGY [facility] 3rd Floor [place], [place] [phone] * Colonoscopy (05/19/2024 12:30 PM [employer]UR[employer]ACING MACHINE OPERATORS) Anatomical Region Laterality Modality Other Narrative Procedure Note Natalie Gonzalez MD - 05/19/2024 12:30 PM [facility] Patient Name: Bk Pichardo Procedure Date: 05/19/2024 12:30 PM Date of : 1955 Admit Type: Outpatient Age: 68 Gender: Male Attending MD: Natalie Gonzalez M.D. Room: [facility] ENDOSCOPY ROOM 4 Note Status: Finalized [...] The scope was passed under direct vision.The [id number] endoscope was introduced through the anus [...] Return to referring physician. - please call [phone], 8 am -5 pm if any post procedural concerns/issues, after hours/weekends please call [phone] and ask for GI fellow oncall Attending [...] LAB BLOOD ORDERABLES Final Re sult [facility] [address] [address] Department [place] [address] * (ABNORMAL) Lipid panel (09/04/2023 10:34 AM [...] revised on 2017. HDL 40 >=40 mg/dL [facility] Comment: Interpretive Data Ages < or = [...] on 2017. LDL, calculated 104 <=129 mg/dL [facility] Comment: Interpretive Data Ages < or = [...] revised on 2017. Non-HDL Cholesterol 153 mg/dL [facility] Comment: Interpretive Data Ages < or = [...] last revised on 2017. Chol/HDL ratio 5 [facility] Blood 09/04/2023 10:3 4 AM CDT 09/04/2023 11:01 AM CDT Corina Norris NP LAB BLOOD ORDERABLES Final Resul t Performing Organization Address [facility] Co de Phone Number [facility] Department [place] [address] * (ABNORMAL) Albumin Creatinine Ratio, Urine (07/09/2023 9:09 AM CDT) Albumin Ur 65.7 mg/L Comment: Interpretive Data No reference range established. Current interpretive data was last revised 2018. Creatinine Ur 186.3 mg/dL [facility] Comment: Interpretive Data No reference range established. Current interpretive data was last revised 2018. Albumin Creatinine Ratio, Ur 35(H) 1 - 29 mg/g [facility] Urine 07/09/2023 9:09 AM CDT 07/09/2023 2:01 PM CDT Franky Sylvester MD LAB URINE ORDERABLES Final Re sult Performing Organization Address [facility] de Phone Number [facility] [address] [address] Department [place] [address] * (ABNORMAL) DIABETES EYE EXAM (02/26/2023 11:15 AM [employer]PERATORS) Historical Provider HEALTH MAINTENANCE Final Result * Hepatitis C antibody (08/07/2021 2:55 PM CDT) Hep C Ab Nonreactive Nonreactive [facility] Comment:Antibodies to HCV no t detected. Does NOT exclude the possibility of recent exposure to HCV. Blood 08/07/2021 2:55 PM CDT 08/07/2021 3:30 PM CDT Pablo Mcmillan MD LAB MICROBIOLOGY - GENE RAL ORDERABLES Edited Result - Final [facility] [place] [address] from Last 3 Months or Most Recently Relevant to Health Maintenance Insurance [facility] Advance Directives For more information, please contact: [phone] * Full Code (Latest Code Status on File) Date Activated Date Inactivated Comments 05/19/2024 12:20 PM 05/19/2024 6:43 PM * Full Code Date Activated Date Inactivated Comments 04/22/2023 8:39 AM 04/22/2023 2:54 PM * Full Code Date Activated Date Inactivated Comments 07/05/2022 6:35 PM 07/08/2022 7:06 PM * Full Code Date Activated Date Inactivated Comments 10/24/2020 6:59 AM 10/24/2020 1:29 PM Care Teams Cmm Technician Relationship Specialty Start Date End Date Franky Sylvester MD PCP - General Family Medicine 12/03/21 Rosa Russell NP Nurse Practitioner Medical Oncology 06/13/20 Montrell Wolfe MD PhD Medical Oncologist/[employer] Medical Oncology 12/03/21 Pablo Mcmillan MD [id number] [id number] [employer] Field Technician Nephrology 03/21/24
--- OUTSIDE RECORDS SUMMARY | 2024-06-28 07:25 | XMS_ITS | Referral Summary ---
Author Organization [facility] Address [address] [place] [address] Care Team Providers Care Driftman Name Role Phone RussellYvesmelanie Cummins SENIOR LEAD DEVELOPER Unavailable Franky Sylvester MD Primary Care Provider [phone] Montrell Wolfe MD PhD Unavailable [phone] Pablo Mcmillan MD Unavailable [phone] Encounters Date Type Department Care Team Description 06/23/2024 ACO Medication Access [facility] Accountable Care Organization [address] [place] [id number] Giana Thomas CPhT 06/15/2024 9:15 AM SENIOR LINUX ADMINISTRATOR Office Visit [facility] Medical Group Family Medicine at [address] [phone] Franky Sylvester MD Stage 3b chronic kidney disease (HCC) (Primary Dx); Essential hypertension; Paroxysmal atrial flutter (HCC); Hypogonadism in male; Acute myeloid leukemia in remission (HCC); 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 disease, without long-term current use of insulin (HCC) 06/14/2024 Orders Only [facility] Medical Group Family Medicine at [address] [place] [address] Franky Sylvester MD 06/13/2024 Results Follow-Up [facility] Medical [facility] Family Medicine at [address] [place] [address] Lisandra Romero PA 06/13/2024 9:15 AM SENIOR LINUX ADMINISTRATOR Office Visit [facility] Bone Marrow Transplant [address] [address] Montrell Wolfe MD PhD Acute myeloid leukemia in remission (HCC) 06/13/2024 8:00 AM SENIOR LINUX ADMINISTRATOR Lab [facility] - Lab Collection [address] [facility] [place], [place] [address] [place] [address] Acute myeloid leukemia in remission (HCC); 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 disease, without long-term current use of insulin (HCC); Low testosterone in male 06/06/2024 Telephone [facility] Medicine at [address] [place] [address] Franky Sylvester MD Referral Request 05/19/2024 1:00 PM SENIOR LINUX ADMINISTRATOR - 05/19/2024 1:45 PM SENIOR LINUX ADMINISTRATOR Surgery [facility] Digestive Disease [address] [address] Natalie Gonzalez MD COLON REMOVAL SNARE 05/19/2024 1:04 PM SENIOR LINUX ADMINISTRATOR Anesthesia Event [facility] [address] [address] Bautista Huertas MD 05/19/2024 11:46 AM SENIOR LINUX ADMINISTRATOR - 05/19/2024 2:23 PM SENIOR LINUX ADMINISTRATOR Hospital Encounter [facility] Disease [address] [address] Natalie Gonzalez MD History of colon polyps Discharge Disposition: Discharge to home or self care 05/12/2024 Telephone [facility] Specialty Services [facility] [place] [address] Maria Guadalupe Marques RN GI Preprocedure 05/10/2024 9:00 AM SENIOR LINUX ADMINISTRATOR Office Visit [facility] Medical [facility] at [address] [address] Afsaneh Tao NP Acute non-recurrent pansinusitis (Primary Dx) 05/09/2024 Telephone [facility] Medical [facility] Family Medicine at [address] [place] [address] Franky Sylvester MD Referral Request 04/20/2024 Telephone [facility] Cardiology [address] [facility] 8th [place] [address] [place] [address] Guzman Elizondo MD 04/19/2024 8:30 AM SENIOR LINUX ADMINISTRATOR Telemedicine [facility] Cardiology [address] [facility] Floor 1, [address] [place] [address] Guzman Elizondo MD Paroxysmal atrial flutter (HCC) (Primary Dx); Chronic diastolic heart failure (HCC); Pure hypercholesterolemia 04/18/2024 Telephone [facility] Family Medicine at [address] [place] [address] Franky Sylvester MD Referral Request 04/01/2024 8:00 AM SENIOR LINUX ADMINISTRATOR Office Visit [facility] Endocrinology Metabolism and Lipid [address] [facility] 13th [place] [address] [place] [address] Breanne Hunt MD PhD Low testosterone in [...] needle, disp, 18 G (BD Regular Bevel Warren) 18 gauge x 1 needle To draw up injection 12 each 04/01/20 24 Active syringe, disposable, (BD Luer-Emilia Syringe) 1 mL syringe To use for injection 12 each 04/01/20 24 Active needle, disp, 23 gauge (BD Regular Bevel Warren) 23 gauge x 3/4 needle To use [...] 02/14 Assessment & Plan (02/15/2024 10:43 AM SENIOR LINUX ADMINISTRATOR): Discussed with patient current recommendations for routine [...] 02/12/2024 Assessment & Plan (02/15/2024 10:42 AM SENIOR LINUX ADMINISTRATOR): Stable limit nephrotoxins Continue Lasix 20mg BP and glucose control GFR 42 Lab Results Component Value Date CREATININE 1.75 (H) 2023 BUNSER 26 (H) 2023 SODIUM 140 2023 POTASSIUM 4.5 2023 CO2 27 2023 Simple chronic bronchitis 02/12/2024 Assessment & Plan (02/15/2024 10:40 AM SENIOR LINUX ADMINISTRATOR): Stable Davon Lashaun Reports has substantially helped sx 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 EKG in [facility] 07/05 showed narrow complex tachycardia with HR >150. Given adenosine x2 (6 mg, 12 mg) in [facility]. EKG strip after adenosine noted [...] S/p LUISA and successful cardioversion 07/07/22 with methodist of sinus rhythm. PO diltiazem 60 mg [...] 01/02/2022 Assessment & Plan (03/01/2024 9:39 AM SENIOR LINUX ADMINISTRATOR): Stable Uses CPAP with relief of symptoms [...] 2017 Assessment & Plan (02/15/2024 10:42 AM SENIOR LINUX ADMINISTRATOR): Stable Declines pain management Reports magnesium has [...] (10/09/2020): Added automatically from request for surgery [id number] Other osteoporosis without c urrent pathological fracture 05/17/2019 10/16/2022 Prediabetes 05/17/2019 10/16/2022 Acute on chronic renal insufficiency 10/26/2018 10/16/2022 Assessment & Plan (07/08/2022 1:13 PM CDT): Cr 2.32 on admission (BL around 2 ). S/p 1L IVF bolus in [facility] 07/05 -Patient does endorse occasional [...] drink = 0.6 oz pur e alcohol) [facility] [employer] Answer Date Recorded In the past 12 months has e Hubb[employer], gas, oil, or water nodila threatened to shut off services in your [...] often do you attend chur ch or sabianism services? Never 06/26/2023 Do you belong to any clubs o r organizations such as muslim groups, unions, fraternal or athletic groups, or [...] place to sleep or slept in a penitentiary (including now)? No 06/26/2023 PHQ-9 Answer Date Recorded PHQ-9 Total Score 10 02/14/2024 Personal Safety Answer Date Recorded Have you ever been in or are you currently in a harmful physical or emotional relationship or is someone making you feel afraid or unsafe? Denies 05/19/2024 Sex and Gender Information Value Date Recorded Sex Assigned at Not on file Legal Sex Male 10:07 AM SENIOR LINUX ADMINISTRATOR Gender Identity Not on file Sexual Orientation Not on file Last Filed Vital Signs Vital Sign Reading Time Taken Comments Blood Pressure 132/74 06/15/2024 8:47 AM SENIOR LINUX ADMINISTRATOR Pulse 69 06/15/2024 8:47 AM SENIOR LINUX ADMINISTRATOR Temperature 36.5 C (97.7 F) 06/15/2024 8:47 AM SENIOR LINUX ADMINISTRATOR Respiratory Rate 18 06/13/2024 8:48 AM SENIOR LINUX ADMINISTRATOR Oxygen Saturation 95% 06/15/2024 8:47 AM SENIOR LINUX ADMINISTRATOR Inhaled Oxygen Concentration - - Weight 119.5 kg (263 lb 8 oz) 06/15/2024 8:47 AM SENIOR LINUX ADMINISTRATOR Height 185.4 cm (6' 1 ) 06/15/2024 8:47 AM SENIOR LINUX ADMINISTRATOR Body Mass Index 34.76 06/15/2024 8:47 AM SENIOR LINUX ADMINISTRATOR Plan of Treatment Not on file Goals Goal Patient Goal Type Associated Problems Recent Progress Patient-Stated? Author CCM Chronic Pain Care Plan Chronic Care Management No change(06/04 7:38 AM SENIOR LINUX ADMINISTRATOR) No Seema Dutton, PANCHO Note: Problem: Chronic Pain Goals: 1. Minimize further functional decline 2. Maximize quality of life 3. Control pain Strategies: - Activity/exercise program recommendation - Conservative stepwise pain medicine strategy with multi-disciplinary approach - Recommend healthy lifestyle strategies and compensatory methods as needed Medical Devices Implanted Type Area District Fire Management Officer Device Identifier Shelf Expiration Date Model / Serial / Lot Ivc Filter IVC Filter Vena Cava Procedures Procedure Name Priority Date/Time Associated Diagnosis Comments EGFR Routine 06/13/2024 7:24 AM SENIOR LINUX ADMINISTRATOR Acute myeloid leukemia in remission (HCC) DIFFERENTIAL AUTO Routine 06/13/2024 7:2 4 AM SENIOR LINUX ADMINISTRATOR Acute myeloid leukemia in remission (HCC) TESTOSTERONE, TOTAL AND FREE, SERUM Routine 06/13/2024 7:24 AM SENIOR LINUX ADMINISTRATOR Low testosterone in male HEMOGLOBIN A1C Routine 06/13/2024 7:24 AM SENIOR LINUX ADMINISTRATOR 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 disease, without long-term current use of insulin (HCC) CBC WITH AUTO DIFFERENTIAL Routine 06/13/2024 7:24 AM SENIOR LINUX ADMINISTRATOR Acute myeloid leukemia in remission (HCC) COMPREHENSIVE METABOLIC PANEL Routine 06/13/2024 7:24 AM SENIOR LINUX ADMINISTRATOR Acute myeloid leukemia in remission (HCC) LACTATE DEHYDROGENASE Routine 06/13/2024 7:24 AM SENIOR LINUX ADMINISTRATOR Acute myeloid leukemia in remission (HCC) SURGICAL PATHOLOGY Routine 05/19/2024 1: 23 PM SENIOR LINUX ADMINISTRATOR History of colon polyps ENDO ADD ON COLON BIOPSY 05/19/2024 1:04 PM SENIOR LINUX ADMINISTRATOR History of colon polyps COLON REMOVAL SNARE 05/19/2024 1 :04 PM SENIOR LINUX ADMINISTRATOR History of colon polyps COLONOSCOPY 05/19/2024 12:30 PM SENIOR LINUX ADMINISTRATOR PSA SCREEN Routine 10/27/2023 10:05 AM CDT [...] DIABETES EYE EXAM Routine 02/26/2023 11:15 AM SENIOR LINUX ADMINISTRATOR HEPATITIS C ANTIBODY Routine 08/07/2021 2:55 PM CDT Creatinine elevation from Last 3 Months or Most Recently Relevant to Health Maintenance Results * (ABNORMAL) eGFR (06/13/2024 7:24 AM SENIOR LINUX ADMINISTRATOR) eGFR 37(L) >=60 mL/min/1. 73 m2 Comment: [...] last reviewed 2021. Blood 06/13/2024 7:24 AM SENIOR LINUX ADMINISTRATOR 06/13/2024 7:41 AM SENIOR LINUX ADMINISTRATOR us Montrell Wolfe MD PhD LAB BLOOD ORDERABLES Fin al Result [facility] Department of Laboratories [place] [phone] * (ABNORMAL) Differential, auto (06/13/2024 7:24 AM SENIOR LINUX ADMINISTRATOR) Neutrophil abs 3.3 1.5 - 6.5 K/cumm Comment:Testing performed by : [facility], [address] [place] [phone] Lymphocyte abs 4.1(H) 0.8 - 3.3 K/cumm CERNER [facility] Comment:Testing performed by : [facility], [address] [place] [phone] Monocyte abs 1.1(H) 0.2 - 0.8 K/cumm CERNER [facility] Comment:Testing performed by : [facility], [address] [place] [phone] Eosinophil abs 0.0 0.0 - 0.5 K/cumm [facility] Comment:Testing performed by : [facility], [address] [place] [phone] Basophil abs 0.0 0.0 - 0.1 K/cumm CERIRASEMA [facility] Comment:Testing performed by : [facility], [address] [place] [phone] Neutrophil pct 38.6 % [facility] Comment: Interpretive Data Percent cell count reference ranges are not reported, since discordance with absolute values may lead to misinterpretation of CBC data. Current Interpretive Data was last revised on 2017. Testing performed by: [facility], [address] [place] [phone] Lymphocyte pct 48.1 % [facility] Comment: Interpretive Data Percent cell count reference ranges are not reported, since discordance with absolute values may lead to misinterpretation of CBC data. Current Interpretive Data was last revised on 2017. Testing performed by: [facility], [address] [place] [phone] Monocyte pct 12.7 % [facility] Comment: Interpretive Data Percent cell count reference ranges are not reported, since discordance with absolute values may lead to misinterpretation of CBC data. Current Interpretive Data was last revised on 2017. Testing performed by: [facility], [address] [place] [phone] Eosinophil pct 0.5 % [facility] Comment: Interpretive Data Percent cell count reference ranges are not reported, since discordance with absolute values may lead to misinterpretation of CBC data. Current Interpretive Data was last revised on 2017. Testing performed by: [facility], [address] [place] [phone] Basophil pct 0.1 % [facility] Comment: Interpretive Data Percent cell count reference ranges are not reported, since discordance with absolute values may lead to misinterpretation of CBC data. Current Interpretive Data was last revised on 2017. Testing performed by: [facility], [address] [place] [phone] Blood 06/13/2024 7:24 AM SENIOR LINUX ADMINISTRATOR 06/13/2024 7:42 AM SENIOR LINUX ADMINISTRATOR us Montrell Wolfe MD PhD LAB BLOOD ORDERABLES Fin al Result [facility] Department [place] [address] * (ABNORMAL) CBC with auto differential (06/13/2024 7:24 AM SENIOR LINUX ADMINISTRATOR) WBC 8.5 3.8 - 9.9 K/cumm Comment:Testing performed by : [facility], [address] [place] [address] Hgb 14.2 13.0 - 17.5 g/dL [facility] Comment:Testing performed by : [facility], [address] [place] [address] Hct 42.6 38.9 - 50.3 % [facility] Comment:Testing performed by : [facility], [address] [place] [address] Plt 417(H) 150 - 400 K/cumm [facility] Comment:Testing performed by : [facility], [address] [place] [address] MPV 7.6 6.8 - 10.4 fL [facility] Comment:Testing performed by : [facility], [address] [place] [address] RBC 4.47 4.30 - 5.80 M/cumm [facility] Comment:Testing performed by : [facility], [address] [place] [address] MCV 95.3 81.3 - 96.4 fL [facility] Comment:Testing performed by : [facility], [address] [place] [address] MCH 31.8 27.1 - 33.3 pg [facility] Comment:Testing performed by : [facility], [address] [place] [address] MCHC 33.4 32.3 - 35.7 g/dL [facility] Comment:Testing performed by : [facility], [address] [place] [address] RDW CV 14.8 11.1 - 14.9 % [facility] Comment:Testing performed by : [facility], [address] [place] [phone] NRBC abs 0.00 0.00 - 0.01 K/cumm KANA [facility] Comment:Testing performed by : [facility], [address] [place] [phone] Blood 06/13/2024 7:24 AM SENIOR LINUX ADMINISTRATOR 06/13/2024 7:42 AM SENIOR LINUX ADMINISTRATOR Montrell Wolfe MD PhD LAB BLOOD ORDERABLES Fin al Result KANA [facility] Department [place] [address] * (ABNORMAL) Testosterone, Total and Free, Serum (06/13/2024 7:24 AM SENIOR LINUX ADMINISTRATOR) Testosterone 1260(H) 240 - 950 ng/dL [facility] Lab Comment: ADDITIONAL INFORMATION Testing performed by Liquid Chromatography-Tandem Mass Spectrometry (LC-MS/MS). This test was developed and its performance characteristics determined by [facility] in a manner consistent with CLIA requirements. This test has not been cleared or approved by the U.S. Food and Drug Administration. Test Performed by: [facility] [place] [address] Office Manager: Dawn Rosa Ph.D.; CLIA# [id number] Testosterone, free 44.5(H) 3.47 - 13.0 ng/dL [facility] Comment: ADDITIONAL INFORMATION This test was developed and its performance characteristics determined by [facility] in a manner consistent with CLIA requirements. This test has not been cleared or approved by the U.S. Food and Drug Administration. Blood 06/13/2024 7:24 AM SENIOR LINUX ADMINISTRATOR 06/13/2024 10:33 AM SENIOR LINUX ADMINISTRATOR Breanne Rivera MD PhD LAB BLOOD ORDERABLES Final Result Performing Organization Address City/[facility] Co de Phone Number [facility] Department [place] [address] [facility] ref Lab * Lactate dehydrogenase (LD) (06/13/2024 7:24 AM SENIOR LINUX ADMINISTRATOR) Pathologist [facility] Lactate dehydrogenase (LDH) 198 100 - 250 Units/L Blood 06/13/2024 7:24 AM SENIOR LINUX ADMINISTRATOR 06/13/2024 7:41 AM SENIOR LINUX ADMINISTRATOR Montrell Wolfe MD PhD LAB BLOOD ORDERABLES Fin al Result Performing Organization Address [facility] [place] [address] * Hemoglobin A1c (06/13/2024 7:24 AM SENIOR LINUX ADMINISTRATOR) [facility] Hgb A1C 5.6 4.0 - 5.6 % Estimated Average Glucose 114 mg/dL [facility] Comment: The ADA recommends reporting an estimated Average Glucose (eAG) with all Hemoglobin A1c results using the equation derived from a study of 507 normal and diabetic adults. Minority populations were underrepresented and children were not included. (Diabetes Care 2020; 43(S1): S66-S76). The eAG is not equivalent to a fasting glucose. Blood 06/13/2024 7:24 AM SENIOR LINUX ADMINISTRATOR 06/13/2024 7:40 AM SENIOR LINUX ADMINISTRATOR Franky Sylvester MD LAB BLOOD ORDERABLES Final Re sult Performing Organization Address [facility]/ZIP Co de Phone Number [facility] [place] [address] * (ABNORMAL) Comprehensive metabolic panel (06/13/2024 7:24 AM SENIOR LINUX ADMINISTRATOR) Pathologist [facility] Sodium 143 135 - 145 mmol/L Potassium, pl 4.1 3.3 - 4.9 mmol/L [facility] Chloride 105 97 - 110 mmol/L [facility] CO2 30 22 - 32 mmol/L [facility] Anion gap 8 2 - 15 mmol/L [facility] BUN 35(H) 6 - 25 mg/dL [facility] Creatinine 1.93(H) 0.80 - 1.30 mg/dL [facility] Glucose 105 70 - 199 mg/dL [facility] Comment: Interpretive Data Fasting glucose >/= 126 [...] 2022. Calcium 9.9 8.5 - 10.3 mg/dL [facility] Bilirubin, total 0.5 0.1 - 1.2 mg/dL [facility] Protein, pl 7.5 6.5 - 8.5 g/dL [facility] Albumin 4.2 3.5 - 5.0 g/dL [facility] Alk phos 46 40 - 130 Units/L [facility] ALT 31 7 - 55 Units/L [facility] AST 39 10 - 50 Units/L [facility] Blood 06/13/2024 7:24 AM SENIOR LINUX ADMINISTRATOR 06/13/2024 7:41 AM SENIOR LINUX ADMINISTRATOR us Montrell Wolfe MD PhD LAB BLOOD ORDERABLES Fin al Result [facility] Department of Laboratories [place], [place] [id number] * Surgical pathology (05/19/2024 1:23 PM SENIOR LINUX ADMINISTRATOR) Tissue (Polyp(s), colon/colorectal, esophageal, gastric) 05/19/2024 1:23 PM SENIOR LINUX ADMINISTRATOR Tissue (Polyp(s), colon/colorectal, esophageal, gastric) 05/19/2024 1:32 PM SENIOR LINUX ADMINISTRATOR Narrative PATHOLOGY [facility] - 05/20/2024 9:52 AM SENIOR LINUX ADMINISTRATOR EPIC results best viewed via link to PDF [facility] Misty Michel Laboratory of Surgical [place] [address] Note to Patients: This report may contain [...] Gender: M : 1955 (Age: 68) Address: [address] [place] [address] [facility] #: [id number] Taken:05/19/2024 Received:05/19/2024 Reported: 05/20/2024 Patient Type: [facility] Service: Gastro Location: Physician(s): Tee Gamez [...] Surgical Pathology and Flow Cytometry Departments at [facility] as part of an ongoing senior quality methods specialist program and in compliance with federally mandated [...] Surgical Pathology and Flow Cytometry Departments of [facility]. It has not been cleared or approved by the U. S. Food and Drug Administration. IMAGES AND SCANNED DOCUMENTS, IF INCLUDED, ONLY VIEWABLE IN PDF VERSION OF REPORT Natalie Gonzalez MD LAB PATHOLOGY ORDERABLES Final Result PATHOLOGY [facility] 3rd Floor [place], [place] [phone] * Colonoscopy (05/19/2024 12:30 PM SENIOR LINUX ADMINISTRATOR) Anatomical Region Laterality Modality Other Narrative Procedure Note Natalie Gonzalez MD - 05/19/2024 12:30 PM CST [facility] END[facility] Patient Name: Bk Pichardo Procedure Date: 05/19/2024 12:30 PM Date of : 1955 Admit Type: Outpatient Age: 68 Gender: Male Attending MD: Natalie Gonzalez M.D. Room: [facility] ENDOSCOPY ROOM 4 Note Status: Finalized Procedure: [...] scope was passed under direct vision.The CF [id number] endoscope was introduced through the anus [...] Return to referring physician. - please call [phone], 8 am -5 pm if any post procedural concerns/issues, after hours/weekends please call [phone] and ask for GI fellow oncall Attending [...] LAB BLOOD ORDERABLES Final Re sult [facility] [address] [address] Department [place] [address] * (ABNORMAL) Lipid panel (09/04/2023 [...] revised on 2017. Triglycerides 245(H) <=149 mg/dL [facility] Comment: Interpretive Data Ages < or = [...] revised on 2017. HDL 40 >=40 mg/dL [facility] Comment: Interpretive Data Ages < or = [...] on 2017. LDL, calculated 104 <=129 mg/dL [facility] Comment: Interpretive Data Ages < or = [...] revised on 2017. Non-HDL Cholesterol 153 mg/dL [facility] Comment: Interpretive Data Ages < or = [...] last revised on 2017. Chol/HDL ratio 5 [facility] Blood 09/04/2023 10:3 4 AM CDT 09/04/2023 11:01 AM CDT us Corina Norris NP LAB BLOOD ORDERABLES Final Resul t Performing Organization Address City/[facility]/ZIP Co de Phone Number [facility] Department [place] [address] * (ABNORMAL) Albumin Creatinine Ratio, Urine (07/09/2023 9:09 AM CDT) Albumin Ur 65.7 mg/L Comment: Interpretive Data No reference range established. Current interpretive data was last revised 2018. Creatinine Ur 186.3 mg/dL [facility] Comment: Interpretive Data No reference range established. Current interpretive data was last revised 2018. Albumin Creatinine Ratio, Ur 35(H) 1 - 29 mg/g [facility] Urine 07/09/2023 9:09 AM CDT 07/09/2023 2:01 PM CDT us Franky Sylvester MD LAB URINE ORDERABLES Final Re sult [facility] [address] [address] Department [place] [address] * (ABNORMAL) DIABETES EYE EXAM (02/26/2023 11:15 AM SENIOR LINUX ADMINISTRATOR) us Historical Provider HEALTH MAINTENANCE Final Result * Hepatitis C antibody (08/07/2021 2:55 PM CDT) Hep C Ab Nonreactive Nonreactive [facility] Comment:Antibodies to HCV no t detected. Does NOT exclude the possibility of recent exposure to HCV. Blood 08/07/2021 2:55 PM CDT 08/07/2021 3:30 PM CDT Pablo Mcmillan MD LAB MICROBIOLOGY - GENE RAL ORDERABLES Edited Result - Final KANA [facility] Department [place] [address] from Last 3 Months or Most Recently Relevant to Health Maintenance Insurance [facility] [facility] Advance Directives For more information, please contact: [phone] * Full Code (Latest Code Status on File) Date Activated Date Inactivated Comments 05/19/2024 12:20 PM 05/19/2024 6:43 PM * Full Code Date Activated Date Inactivated Comments 04/22/2023 8:39 AM 04/22/2023 2:54 PM * Full Code Date Activated Date Inactivated Comments 07/05/2022 6:35 PM 07/08/2022 7:06 PM * Full Code Date Activated Date Inactivated Comments 10/24/2020 6:59 AM 10/24/2020 1:29 PM Care Teams Dr[place] Relationship Specialty Start Date End Date Franky Sylvester MD PCP - General Family Medicine 12/03/21 Rosa Russell NP Nurse Practitioner Medical Oncology 06/13/20 Montrell Wolfe MD PhD Medical Oncologist/Emblem Maker Medical Oncology 12/03/21 Pablo Mcmillan MD [address] [place] [address] Grain Combiner Nephrology 03/21/24
--- OUTSIDE RECORDS SUMMARY | 2024-06-28 07:25 | XMS_ITS | Encounter Summary ---
Author Organization [facility] Healthcare Address [address] [place] [address] Care Team Providers Care Box Sealing Machine Feeder Name Role Phone Rosa Russell CAMPAIGN MARKETING SPECIALIST Unavailable [phone] Franky Sylvester MD Primary Care Provider [phone] Montrell Wolfe MD PhD Unavailable [phone] Pablo Mcmillan MD Unavailable Encounter Details Date Type Department Care Team (Late st Contact Info) Description 06/13/2024 Results Follow-Up [facility] Medical [facility] Family Medicine at [address] [place] [address] Lisandra Romero, [facility] [address] [address] Social History Tobacco Use Types Packs/Day Years Used Date Smoking Tobacco: Former Cigarettes 0.3 15 1 975 - 1989 Smokeless Tobacco: Never Alcohol Use Standard Drinks/Week Comments No 0 (1 standard drink = 0.6 oz pur e alcohol) [facility] Utilities Answer Date Recorded In the past 12 months has [employer], gas, oil, or water company threatened [...] often do you attend chur ch or mandaen services? Never 06/26/2023 Do you belong to any clubs o r organizations such as roman catholic groups, unions, fraternal or athletic groups, or [...] place to sleep or slept in a correction (including now)? No 06/26/2023 PHQ-9 Answer Date Recorded PHQ-9 Total Score 10 02/14/2024 Personal Safety Answer Date Recorded Have you ever been in or are you currently in a harmful physical or emotional relationship or is someone making you feel afraid or unsafe? Denies 05/19/2024 Sex and Gender Information Value Date Recorded Sex Assigned at Not on file Legal Sex Male 10:07 AM NETWORK PROGRAM MANAGER Gender Identity Not on file Sexual Orientation Not on file documented as of this encounter Plan of Treatment Not on file documented as of this encounter Goals Goal Patient Goal Type Associated Problems Recent Progress Patient-Stated? Author CCM Chronic Pain Care Plan Chronic Care Management No change(06/04 7:38 AM NETWORK PROGRAM MANAGER) No Seema Dutton, RN Note: Problem: Chronic Pain Goals: 1. Minimize further functional decline 2. Maximize quality of life 3. Control pain Strategies: - Activity/exercise program recommendation - Conservative stepwise pain medicine strategy with multi-disciplinary approach - Recommend healthy lifestyle strategies and compensatory methods as needed documented as of this encounter Visit Diagnoses Not on filedocumented in this encounter Care Teams Box Sealing Machine Feeder Relationship Specialty Start Date End Date Franky Sylvester MD PCP - General Family Medicine 12/03/21 Rosa Russell NP Nurse Practitioner Medical Oncology 06/13/20 Montrell Wolfe MD PhD Medical Oncologist/Manager Of Sustainability Medical Oncology 12/03/21 Pablo Mcmillan MD [address] [place] [address] Paper Box Maker Nephrology 03/21/24 documented as of this encounter
--- OUTSIDE RECORDS SUMMARY | 2024-06-28 07:25 | XMS_ITS | Encounter Summary ---
Author Organization [facility] Healthcare Address [address] [place] [address] Care Team Providers Care Sales Representative Health Insurance Name Role Phone Emily Tovar MD Primary Care Provider Rosa Russell SCHEDULE CLERK Unavailable [phone] Franky Sylvester MD Primary Care Provider [phone] Montrell Wolfe MD PhD Unavailable [phone] Luba Corona RN Unavailable [phone] Pablo Mcmillan MD Unavailable [phone] Reason for Visit * Reason Onset Date Comments Med Refill 08/17/2020 Encounter Details Date Type Department Care Team (Late st Contact Info) Description 08/17/2020 Telephone [facility] [address] [facility] [address] [place], [place] [id number] Heriberto Salgado MD [address] [facility] [address] [place], [place] [id number] Med Refill Social History Tobacco Use Types [...] on file Legal Sex Male 10:07 AM INDUSTRIAL THERAPIST Gender Identity Not on file Sexual Orientation Not on file documented as of this encounter Plan of Treatment Not on file documented as of this encounter Goals Goal Patient Goal Type Associated Problems Recent Progress Patient-Stated? Author CCM Chronic Pain Care Plan Chronic Care Management No change(06/04 7:38 AM INDUSTRIAL THERAPIST) No Seema Dutton, PANCHO Note: Problem: Chronic [...] documented as of this encounter Care Teams Sales Representative Health Insurance Relationship Specialty Start Date End Date Emily Tovar MD PCP - General Internal Medicine 09/22/16 10/09/21 Franky Sylvester MD PCP - General Family Medicine 12/03/21 Rosa Russell NP Nurse Practitioner Medical Oncology 06/13/20 Montrell Wolfe MD PhD Medical Oncologist/Tax Audit Manager Medical Oncology 12/03/21 Luba Corona, PANCHO [address] [place] [address] [place] [address] Energy Project Engineer 05/19/23 02/07/24 Pablo Mcmillan MD [address] [facility] [address] [place] [address] Motel Keeper Nephrology 03/21/24 documented as of this encounter
--- OUTSIDE RECORDS SUMMARY | 2024-06-28 07:25 | XMS_ITS | Encounter Summary ---
Author Organization [facility] Address [address] [place] [address] Phone Care Team Providers Care Business Relations Manager Name Role Phone Rosa Russell Placido CANE FLUME WATCHER Unavailable [phone] Franky Sylvester MD Primary Care Provider [phone] Montrell Wolfe MD PhD Unavailable [phone] Luba Corona RN Unavailable [phone] Pablo Mcmillan MD Unavailable [phone] Encounter Details Date Type Department Care Team (Late st Contact Info) Description 12/03/2021 Telephone [facility]row Trans[facility] 7th Floor, [place] [address] Lisette Rucker V. Social History [...] on file Legal Sex Male 10:07 AM UROLOGIST MD Gender Identity Not on file Sexual Orientation Not on file documented as of this encounter Plan of Treatment Not on file documented as of this encounter Goals Goal Patient Goal Type Associated Problems Recent Progress Patient-Stated? Author CCM Chronic Pain Care Plan Chronic Care Management No change(06/04 7:38 AM UROLOGIST MD) No Seema Dutton RN Note: Problem: Chronic [...] documented as of this encounter Care Teams Business Relations Manager Relationship Specialty Start Date End Date Franky Sylvester MD PCP - General Family Medicine 12/03/21 Rosa Russell NP Nurse Practitioner Medical Oncology 06/13/20 Montrell Wolfe MD PhD Medical Oncologist/Sales Store Checker Medical Oncology 12/03/21 Luba Corona RN [address] [place] [address] [address] [place] [address] Slab Lifting Supervisor 05/19/23 02/07/24 [place] [address] [place] [address] [address] [place] [address] Cigar Machine Feeder Nephrology 03/21/24 documented as of this encounter
--- OUTSIDE RECORDS SUMMARY | 2024-06-28 07:25 | XMS_ITS | Encounter Summary ---
Author Organization [facility] Healthcare Address [address] [place] [address] Care Team Providers Care Manager Hospice Name Role Phone RussellRosa Placido PROGRAM PROFESSIONAL Unavailable [phone] Franky Sylvester MD Primary Care Provider [phone] Montrell Wolfe MD PhD Unavailable [phone] Pablo Mcmillan MD Unavailable [phone] Reason for Visit * Reason Onset Date Comments Referral Request 06/06/2024 Encounter Details Date Type Department Care Team (Late st Contact Info) Description 06/06/2024 Telephone [facility] Medical Group Family Medicine at [employer] [address] [facility] [address] [place] [address] Franky Sylvester MD [address] [facility] [address] [address] Referral Request Social History Tobacco Use Types Packs/Day Years Used Date Smoking Tobacco: Former Cigarettes 0.3 15 1 975 - 1989 Smokeless Tobacco: Never Alcohol Use Standard Drinks/Week Comments No 0 (1 standard drink = 0.6 oz pur e alcohol) [facility] Utilities Answer Date Recorded In the past 12 months has [employer], gas, oil, or water [employer] threatened to shut off services in your [...] often do you attend chur ch or adventism services? Never 06/26/2023 Do you belong to any clubs o r organizations such as christian groups, unions, fraternal or athletic groups, or [...] place to sleep or slept in a residential (including now)? No 06/26/2023 PHQ-9 Answer Date Recorded PHQ-9 Total Score 10 02/14/2024 Personal Safety Answer Date Recorded Have you ever been in or are you currently in a harmful physical or emotional relationship or is someone making you feel afraid or unsafe? Denies 05/19/2024 Sex and Gender Information Value Date Recorded Sex Assigned at Not on file Legal Sex Male 10:07 AM PROFESSOR OF PSYCHOLOGY Gender Identity Not on file Sexual Orientation Not on file documented as of this encounter Miscellaneous Notes * Telephone Encounter - Babita Lauren - 06/07/2024 11:06 AM CST [facility] insurance referral in [facility] for Dr. Montrell Wolfe, mailed copy to patient for his records. ESSOR OF PSYCHOLOGY * Telephone Encounter - Yuliana Ahn - 06/06/2024 8:52 AM CST Referral Provider Name: Dr Montrell Wolfe Specialty: Oncology Address: [address] [place] [address], Zip: [place] [address] Diagnosis Code/Symptom/Reason Patient is being seen: C92.01 Date of Appointment: 06/13/24 NPI#: [id number] Tax ID#: [id number] Is insurance in chart up to date? Yes - [employer] Additional Comments: none Does message need to be routed? Yes-Action Needed ESSOR OF PSYCHOLOGY documented in this encounter Plan of Treatment Not on file documented as of this encounter Goals Goal Patient Goal Type Associated Problems Recent Progress Patient-Stated? Author CCM Chronic Pain Care Plan Chronic Care Management No change(06/04 7:38 AM PROFESSOR OF PSYCHOLOGY) No Seema Dutton RN Note: Problem: Chronic Pain Goals: 1. Minimize further functional decline 2. Maximize quality of life 3. Control pain Strategies: - Activity/exercise program recommendation - Conservative stepwise pain medicine strategy with multi-disciplinary approach - Recommend healthy lifestyle strategies and compensatory methods as needed documented as of this encounter Visit Diagnoses Not on filedocumented in this encounter Care Teams Manager Hospice Relationship Specialty Start Date End Date Franky Sylvester MD PCP - General Family Medicine 12/03/21 Rosa Russell NP Nurse Practitioner Medical Oncology 06/13/20 Montrell Wolfe MD PhD Medical Oncologist/Plastics Spreading Machine Operator Medical Oncology 12/03/21 Pablo Mcmillan MD [address] [address] Upper Stitcher Nephrology 03/21/24 documented as of this encounter
--- NOTE | 2024-06-28 07:52 | ECG_ITS ---
Test Date: 2024-06-28 07:59:30 Measurements Intervals [place] Rate: 85 P: 21 [place]: 200 QRS: -50 QRSD: 114 T: 83 QT: 360 QTc: 428 Interpretive Statements SINUS RHYTHM MARKED LEFT AXIS DEVIATION [QRS AXIS < -30] LEFT VENTRICULAR HYPERTROPHY AND ST-T CHANGE [VOLTAGE CRITERIA PLUS ST/T ABNORMALITY] POOR R WAVE PROGRESSION Compared to ECG 06/28/2024 04:41:13 NO SIGNIFICANT CHANGES Electronically Signed On 06-28-2024 16:55:28 CDT by Ancelmo Avila M.D.
[2024-06-28] MEDS: NITROGLYCERIN SL 0.4 MG TABLET SUBLINGUAL ×3 (07:58→21:29)
--- NOTE | 2024-06-28 08:12 | PC.NURSE ---
pt given first dose of nitro at 0758, pt c/o 6/10 right side chest pain and arm pt given another dose of nitro at 0804, pt c/o 6/10 right side chest pain and arm at 0809 pt said the chest pain was a 2/10, pt said his right chest and arm felt better but the pain moved to the left side of his chest
[2024-06-28 08:31] LABS: NT Pro B Type Natriuretic Pept 176 pg/mL (19.9-100); Troponin I < 0.012 ng/mL (0.000-0.034)
[2024-06-28 08:32] LABS: Influenza A QL RT-PCR Negative (Negative); Influenza B QL RT-PCR Negative (Negative); RSV RNA, RT-PCR Negative (Negative); SARS-CoV-2 RNA PCR Negative (Negative)
--- NOTE | 2024-06-28 08:48 | P.HP_ITS ---
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 Patient has been having intermittent chest pain since yesterday. Patient had episode of substernal chest pain about 4:00 p.m. yesterday, radiating to the neck. Patient also has shortness breath associated chest pain. Patient is compliant with Eliquis but did not take medication assurance senior manager insurance. Patient came to ED for evaluation treatment. Patient denies headache, focal weakness, vision change, abdomen pain, nausea vomiting diarrhea dysuria. Upon arrival to ED, patient was afebrile, blood pressure stable, no O2 desaturation on room air EKG showed sinus rhythm, T-wave inversion aVL and lead I initially CBC unremarkable, castrate showed thrombocytosis, elevated BUN creatinine ratio 23/1.99, baseline creatinine 27/1.60 on April 07, 2019. 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 Father Cerebrovascular accident Father Alzheimer dementia Social History Social History (Updated 04/07/19 @ 06:25 by David Schmitt MD) Smoking packs per day: 0.5 Smoking cigarettes per day: 10.0 Years smoked: 2 Smoking pack-years: 1.00 Smoking status: Former smoker Tobacco type: cigarettes Meds Home Medications and Allergies Home Medications ?Medication ?Instructions ?Recorded ?Confirmed ?Type apixaban 5 mg tablet (Eliquis) 5 mg PO Q12H 06/28/24 06/28/24 History diltiazem HCl 240 mg 240 mg PO DAILY 06/28/24 06/28/24 History capsule,extended release 24 hr, controlled empagliflozin 10 mg tablet 10 mg PO DAILY 06/28/24 06/28/24 History (Jardiance) magnesium 200 mg tablet 400 mg PO BID 06/28/24 06/28/24 History pravastatin 10 mg tablet 10 mg PO DAILY 06/28/24 06/28/24 History ruxolitinib 10 mg tablet (Jakafi) 10 mg PO BID 06/28/24 06/28/24 History testosterone cypionate 200 mg/mL 100 mg IM Q7D 06/28/24 06/28/24 History intramuscular oil tirzepatide 10 mg/0.5 mL 10 mg subcut WEEKLY 06/28/24 06/28/24 History subcutaneous pen injector (Lonnie) Allergies Allergy/AdvReac Type Severity Reaction Status Date / Time vancomycin Allergy Mild Redness of Verified 06/28/24 10:10 Skin gabapentin AdvReac Severe Unknown Verified 06/28/24 10:10 Vital Signs Vital Signs - 24 hr 06/28/24 04:54 06/28/24 06:44 06/28/24 06:45 Temperature 97.9 F Pulse Rate 100 88 87 Respiratory Rate 18 21 H 20 Blood Pressure 167/78 H 135/91 H 148/81 H Pulse Oximetry 98 98 97 Oxygen Delivery Room Air 06/28/24 07:15 06/28/24 07:55 06/28/24 08:00 Temperature Pulse Rate 87 87 88 Respiratory Rate 20 24 H 26 H Blood Pressure 148/84 H 143/77 H 143/81 H Pulse Oximetry 99 97 98 Oxygen Delivery 06/28/24 08:01 06/28/24 08:02 06/28/24 08:06 Temperature Pulse Rate 91 96 Respiratory Rate 18 Blood Pressure 123/86 Pulse Oximetry 98 98 Oxygen Delivery Room Air Exam Narrative: GENERAL: Pleasant, in no acute distress. Well-nourished. - EYES: EOMI. Anicteric. - HENT: Moist mucous membranes. - LUNGS: Clear to auscultation bilateral ly, no wheezing, rhonchi, or rales. - CARDIOVASCULAR: Regular rate and rhyth m. No murmur. No JVD. - ABDOMEN: Soft, non-tender and non-dist ended. No palpable masses. - EXTREMITIES: No edema. Peripheral puls es 2+. Non-tender. - NEUROLOGIC: No focal neurological defi cits. CN II-XII grossly intact. - PSYCHIATRIC: Awake, Alert and oriented x 3. Appropriate mood and affect. - SKIN: No rashes or lesions. Warm. - LYMPH: No cervical lymphadenopathy. H&P: Results Labs Labs: Short CBC 06/28/24 Range/Units 04:49 WBC 9.5 (4.5-10.0) K/mm3 Hgb 14.8 (14.0-18.0) g/dL Hct 44.7 (42.0-52.0) % Plt Count 397 H D (150-375) k/mm3 BMP 06/28/24 04:49 Sodium 141 Potassium 3.6 Chloride 102 Carbon Dioxide 25 BUN 23 H Creatinine 1.99 H Glucose 119 H Calcium 9.2 Cardiac Enzymes 06/28/24 06/28/24 Range/Units 04:49 07:45 Troponin I 0.014 < 0.012 (0.000-0.034) ng/mL Liver Function 06/28/24 Range/Units 04:49 Total Bilirubin 0.5 (0.2-1.3) mg/dL AST 38 (17-59) U/L ALT 35 (6-50) U/L Alkaline Phosphatase 50 (38-126) U/L Albumin 4.6 (3.5-5.1) g/dL Assessment and Plan Assessment and plan (1) Chest pain: Code(s): R07.9 - Chest pain, unspecified Status: Acute (2) Acute kidney injury superimposed on stage 1 chronic kidney disease: Code(s): N17.9 - Acute kidney failure, unspecified; N18.1 - Chronic kidney disease, stage 1 Status: Acute (3) Thrombocytosis: Code(s): D75.839 - Thrombocytosis, unspecified Status: Acute (4) CKD (chronic kidney disease): Code(s): N18.9 - Chronic kidney disease, unspecified Status: Acute (5) Shortness of breath: Code(s): R06.02 - Shortness of breath Status: Acute (6) History of pulmonary embolism: Code(s): Z86.711 - Personal history of pulmonary embolism Status: Acute Plan Chest pain Patient has been having intermittent chest pain since yesterday Troponin negative x2, EKG shows sinus rhythm, T-wave inversion aVL and lead I initially Suspecting unstable angina Patient received nitroglycerin sublingual Start aspirin 325 mg once a 81 mg daily p.o. Lipitor 40 mg daily p.o.,, nitroglycerin sublingual p.r.n. Pending echocardiogram security monitor Consult network technician for evaluation treatment Hypertension Uncontrolled blood pressure upon arrival Start losartan 50 mg Will resume home medication after assessed patient home medication Paroxysmal atrial flutter Chronic patient is sinus rhythm Will hold Eliquis now. Will resume Eliquis if no cardiac intervention Start metoprolol 25 mg b.i.d. p.o. JUANITO on CKD Unclear etiologies Elevated BUN creatinine above baseline Start normal saline IV 100 mL/hour Follow-up urinalysis and renal ultrasound Patient may stay more than 2 midnights in the hospital
--- NOTE | 2024-06-28 09:04 | ECG_ITS ---
Test Date: 2024-06-28 10:17:08 Measurements Intervals [place] Rate: 84 P: 20 [place]: 203 QRS: -48 QRSD: 105 T: 78 QT: 362 QTc: 428 Interpretive Statements SINUS RHYTHM POSSIBLE LEFT ATRIAL ENLARGEMENT [-0.1mV P-WAVE IN V1/V2] LEFT AXIS DEVIATION [QRS AXIS < -30] LEFT VENTRICULAR HYPERTROPHY AND ST-T CHANGE [VOLTAGE CRITERIA PLUS ST/T ABNORMALITY] POSSIBLE ANTERIOR MYOCARDIAL INFARCTION , OF INDETERMINATE AGE [30 ms Q WAVE IN V3/V4, OR R < 0.2 mV IN V4] DELAYED R-WAVE PROGRESSION ABNORMAL ECG Electronically Signed On 06-29-2024 12:03:36 CDT by Heriberto Merino M.D.
[2024-06-28 09:35] LABS: Cholesterol 152 mg/dL (0-200); HDL Direct 30 mg/dL; Triglycerides 302 mg/dL (<150)
[2024-06-28 09:46] LABS: LDL Cholesterol Direct 72 mg/dL
--- NOTE | 2024-06-28 10:01 | ADMGEN ---
This patient, Aristides Pichardo, was admitted to IMU Room 201-01 at approximately 0954. Patient/family oriented to hospital policies and general routines including ID bracelet, bed and alarms, visiting hours, pain management, procedures, bathroom and other care routines, personal items, smoking policy, room service/diet, and visiting hours. Information on how to activate the Rapid Response Team has been discussed. Patient/Family are encouraged to report perceived risks to care and to ask questions if they do not understand what they are told or what they should do.
[2024-06-28 10:47] LABS: Troponin I < 0.012 ng/mL (0.000-0.034)
--- NOTE | 2024-06-28 10:55 | PC.NURSE ---
Notified Dr Donnelly that the patient is on the floor, home medications reviewed. Will give current ordered medications, per MD. to review home medications. EKG on chart. AFter arrival to the floor the patient walked to the bathroom and complained of chest pain 6/10 but after resting in bed there was no pain.
[2024-06-28] MEDS: SODIUM CHLORIDE 0.9% IV 1,000 ML 100 ML IV CONT (11:24)
[2024-06-28] MEDS: LOSARTAN POTASSIUM 50 MG TABLET PO (11:25)
[2024-06-28] MEDS: ATORVASTATIN 40 MG TABLET PO (11:25)
[2024-06-28] MEDS: METOPROLOL TARTRATE 25 MG TABLET PO ×2 (11:25→21:03)
[2024-06-28] MEDS: ASPIRIN 81 MG ENTERIC TABLET PO (11:25)
[2024-06-28] MEDS: PERFLUTREN LIPID MICROSPHERES 1.5 ML VIAL DILUTED TO 10 ML TOTAL VOLUME IV PUSH (13:08)
[2024-06-28] MEDS: dilTIAZem HCL CD 240 MG CAP.24HR PO (13:31)
[2024-06-28] MEDS: EMPAGLIFLOZIN 10 MG TABLET PO (13:32)
[2024-06-28] MEDS: MAGNESIUM OXIDE 400 MG TABLET PO ×2 (13:32→17:14)
--- NOTE | 2024-06-28 13:38 | P.CONCA_ITS ---
Assessment and Plan Assessment and plan (1) Chest pain: Code(s): R07.9 - Chest pain, unspecified Status: Acute Assessment and Plan: He has new onset chest pain which sounds somewhat atypical but with exertional exacerbation and resolution at rest is concerning for angina. He states he has had a stress test in the past but thinks more than 10 years ago. He has been ruled out for ACS with negative serial troponins. His initial EKG showed sinus rhythm with T wave inversions in leads I and aVL, most recent EKG shows resolution of inversions in lead I but persistent in aVL. Will plan for treadmill nuclear stress test tomorrow. Echo has been ordered and is pending. (2) Acute kidney injury superimposed on stage 1 chronic kidney disease: Code(s): N17.9 - Acute kidney failure, unspecified; N18.1 - Chronic kidney disease, stage 1 Status: Acute (3) Atrial flutter: Code(s): I48.92 - Unspecified atrial flutter Status: Acute Assessment and Plan: In sinus rhythm currently. On Eliquis which has been held by the hospitalist in case of LHC. He has history of DVT and PE so will order SCD's for DVT prophylaxis History of Present Illness History of Present Illness Consult date/time: 06/28/24 13:38 Requesting physician: Brunilda Godinez MD Consult reason: chest pain Reason For Visit: CP/SOB/Poss Angina/Heart Score 4 Narrative: Aristides Pichardo is a 68 year old male with history of atrial flutter, heart failure with preserved EF, AML status post SCT x 2, hyperlipidemia, and diabetes mellitus type II. This is a patient who presents to the hospital with a chief complaint of chest pain. Patient reports onset of sharp, intense, right sided chest pain yesterday that awoke him from sleep. He had intermittent right sided chest pain throughout the day which he noted to be worse with activity. He rates the pain at an 8/10 intensity when at it's worst. The chest pain does completely resolve with a few minutes of rest. He reports nausea associated with the chest pain when the pain was most intense. He denies any palpitations, shortness of breath, syncope, pre-syncope. He is free from any chest pain at the time of my evaluation. Review of Systems 2 Review of Systems: All systems reviewed & are unremarkable except as noted in HPI and below [facility] Past Medical History Medical History AML (acute myeloblastic leukemia) in remission Pericarditis Depression Leukemia Pneumonia Pulmonary embolism DVT (deep venous thrombosis) Hypertension GERD (gastroesophageal reflux disease) Diabetes type 2, controlled Surgical History Surgical History Status post right knee 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 Father Cerebrovascular accident Father Alzheimer dementia Social History Social History Smoking packs per day: 0.5 Smoking cigarettes per day: 10.0 Years smoked: 2 Smoking pack-years: 1.00 Smoking status: Former smoker Tobacco type: cigarettes Meds Home Medications and Allergies Home Medications ?Medication ?Instructions ?Recorded ?Confirmed ?Type apixaban 5 mg tablet (Eliquis) 5 mg PO Q12H 06/28/24 06/28/24 History diltiazem HCl 240 mg 240 mg PO DAILY 06/28/24 06/28/24 History capsule,extended release 24 hr, controlled empagliflozin 10 mg tablet 10 mg PO DAILY 06/28/24 06/28/24 History (Jardiance) magnesium 200 mg tablet 400 mg PO BID 06/28/24 06/28/24 History pravastatin 10 mg tablet 10 mg PO DAILY 06/28/24 06/28/24 History ruxolitinib 10 mg tablet (Jakafi) 10 mg PO BID 06/28/24 06/28/24 History testosterone cypionate 200 mg/mL 100 mg IM Q7D 06/28/24 06/28/24 History intramuscular oil tirzepatide 10 mg/0.5 mL 10 mg subcut WEEKLY 06/28/24 06/28/24 History subcutaneous pen injector (Mounjaro) Allergies Allergy/AdvReac Type Severity Reaction Status Date / Time vancomycin Allergy Mild Redness of Verified 06/28/24 10:10 Skin gabapentin AdvReac Severe Unknown Verified 06/28/24 10:10 Vital Signs Vital Signs - 24 hr 06/28/24 04:54 06/28/24 06:44 06/28/24 06:45 Temperature 36.6 C Pulse Rate 100 88 87 Respiratory Rate 18 21 H 20 Blood Pressure 167/78 H 135/91 H 148/81 H Pulse Oximetry 98 98 97 Oxygen Delivery Room Air 06/28/24 07:15 06/28/24 07:55 06/28/24 08:00 Temperature Pulse Rate 87 87 88 Respiratory Rate 20 24 H 26 H Blood Pressure 148/84 H 143/77 H 143/81 H Pulse Oximetry 99 97 98 Oxygen Delivery 06/28/24 08:01 06/28/24 08:02 06/28/24 08:06 Temperature Pulse Rate 91 96 Respiratory Rate 18 Blood Pressure 123/86 Pulse Oximetry 98 98 Oxygen Delivery Room Air 06/28/24 09:44 06/28/24 09:53 06/28/24 10:00 Temperature 36.8 C Pulse Rate 79 84 81 Respiratory Rate 15 18 Blood Pressure 145/84 H 154/84 H Pulse Oximetry 94 98 Oxygen Delivery 06/28/24 11:25 06/28/24 11:48 06/28/24 12:00 Temperature 36.6 C Pulse Rate 81 87 Respiratory Rate 14 Blood Pressure 148/80 H Pulse Oximetry 98 Oxygen Delivery Room Air 06/28/24 12:00 06/28/24 13:00 Temperature Pulse Rate 73 Respiratory Rate Blood Pressure 137/74 Pulse Oximetry Oxygen Delivery Exam 2 Const: General: comfortable, no acute distress, alert and awake O rientation/consciousness: patient oriented x3 HENMT: Head: normal to inspection Eyes: General: appearance normal, both eyes and all related structures P upils: Equal, round and reactive pupils present Neck: Neck: normal visual inspection, supple and no JVD Carotids: normal carotid upstroke Resp: Effort & Inspection: normal respiratory effort Auscultation: clear to auscultation bilaterally Cardio: Rate: regular rate Rhythm: regular rhythm Heart sounds: S1 normal heart sound present, S2 normal heart sound present and no murmurs GI: Auscultation: normal bowel sounds Skin: General skin exam: normal color Neuro: General: patient oriented x3 Cranial nerves: Yes Equal, round and reactive pupils present Extrem: General: normal to inspection Psych: Appearance: grossly normal Mental Status: mental status grossly normal Results Labs and Meds 06/28/24 04:49 06/28/24 04:49 Lab results: Cardiac Enzymes 06/28/24 06/28/24 06/28/24 Range/Units 04:49 07:45 10:02 AST 38 (17-59) U/L Troponin I 0.014 < 0.012 < 0.012 (0.000-0.034) ng/mL Coagulation 06/28/24 Range/Units 04:49 PT 16.7 H (11.1-14.7) Seconds APTT 34.8 (22.3-36.8) Seconds Lipids 06/28/24 Range/Units 07:45 Triglycerides 302 H (<150) mg/dL Cholesterol 152 (0-200) mg/dL CBC 06/28/24 Range/Units 04:49 WBC 9.5 (4.5-10.0) K/mm3 RBC 4.56 L (4.6-6.20) M/mm3 Hgb 14.8 (14.0-18.0) g/dL Hct 44.7 (42.0-52.0) % Plt Count 397 H D (150-375) k/mm3 Lymph # (Auto) 3.20 (0.9-3.2) K/mm3 [place] # (Auto) 0.9 H (0.1-0.6) K/mm3 Eos # (Auto) 0.0 (0-0.3) K/mm3 Baso # (Auto) 0.0 (0.0-0.1) K/mm3 Comprehensive Metabolic Panel 06/28/24 Range/Units 04:49 Sodium 141 (137-145) mmol/L Potassium 3.6 (3.4-5.0) mmol/L Chloride 102 (98-107) mmol/L Carbon Dioxide 25 (22-30) mmol/L BUN 23 H (9-20) mg/dL Creatinine 1.99 H (0.7-1.3) mg/dL Glucose 119 H (65-110) mg/dL Calcium 9.2 (8.4-10.2) mg/dL AST 38 (17-59) U/L ALT 35 (6-50) U/L Alkaline Phosphatase 50 (38-126) U/L Total Protein 8.0 (6.3-8.2) g/dL Albumin 4.6 (3.5-5.1) g/dL Intake and Output 06/27/24 06/28/24 06/28/24 23:59 07:59 15:59 Intake Total 240 Balance 240 Intake: Oral 240 Patient Weight 06/28/24 23:59 Weight 116.9 kg Quality VTE Prophylaxis VTE prophylaxis: mechanical ordered
--- NOTE | 2024-06-28 16:23 | IVDEFINITY ---
Prior to administration of IV Definity the patient was educated on the risks and benefits of the imaging enhancing agent including potential adverse side effects. The patient verbalized understanding. Allergies were verified. No exclusion criteria were identified and at least one of the following inclusion criteria were met: 1) physician request, 2) patient technically difficult to image (per the [place] [employer] guidelines of two or more segments not discernable within the apical view), or 3) questionable left ventricular function. ?
--- NOTE | 2024-06-28 21:29 | ECG_ITS ---
Test Date: 2024-06-28 22:16:20 Measurements Intervals [place] Rate: 67 P: 175 [place]: 205 QRS: 217 QRSD: 102 T: 95 QT: 377 QTc: 400 Interpretive Statements SINUS RHYTHM ARM LEADS REVERSED [INVERTED P AND QRS IN I] IVCD ABNORMAL ECG Electronically Signed On 06-29-2024 12:23:42 CDT by Heriberto Merino M.D.
[2024-06-28] MEDS: MORPHINE SULFATE (*CRX) 4 MG/ML INJ IV PUSH (22:15)
[2024-06-29] VITALS (20 sets, daily range): BP systolic 125–143; BP diastolic 61–77; PULSE 66–81; RESP 14–18; TEMP 36.4–36.9; O2SAT 95–98
--- NOTE | 2024-06-29 | EST_ITS ---
Patient Info Name: Aristides Pichardo Age: 68 years : 1955 Gender: Male Ht: 73 in Wt: 257 lbs BSA: 2.49 m2 HR: 76 bpm BP: 132 / 80 mmHg Exam Date: 06/29/2024 11:39 AM Exam Location: Echo Lab Patient Status: Inpatient Admit Date: 06/28/2024 Staff Ordering Physician: Sandie Coe Attending Provider: Sixto Donnelly MD Exercise Technologist: gail Exercise Physician: Heriberto Merino MD Exam Type: CA stress test treadmill w NM Study Info A regadenoson stress test was performed. Summary 1. Please correlate with nuclear medicine images, reported separately. 2. No abnormal ST-T wave changes with lexiscan. Protocol: Lexiscan Stress ECG Details Stage: REST Duration (min): 2 min : 40 sec HR (bpm): 77 SBP (mmHg): 132 DBP (mmHg): 80 Stage: REST Duration (min): 9 min : 38 sec HR (bpm): 80 SBP (mmHg): 132 DBP (mmHg): 80 Stage: STAGE 1 Duration (min): 1 min : 0 sec HR (bpm): 83 SBP (mmHg): 128 DBP (mmHg): 82 Stage: RECOVERY Duration (min): 1 min : 0 sec HR (bpm): 90 SBP (mmHg): 128 DBP (mmHg): 82 Stage: RECOVERY Duration (min): 2 min : 0 sec HR (bpm): 89 SBP (mmHg): 128 DBP (mmHg): 82 Stage: RECOVERY Duration (min): 3 min : 0 sec HR (bpm): 88 SBP (mmHg): 132 DBP (mmHg): 77 Stage: RECOVERY Duration (min): 3 min : 18 sec HR (bpm): 87 SBP (mmHg): 132 DBP (mmHg): 77 Rest HR: 80 bpm Peak HR: 91 bpm Rest Sys BP: 132 mmHg Peak Sys BP: 132 mmHg Max Pred HR: 152 bpm % Max Pred HR: 60 % Target HR: 129 bpm Max RPP: 12,012 bpm*mmHg Target HR Summary: Hemodynamic response to exercise was normal BP Response: Normal blood pressure response Termination Reason: Completed protocol Cardiac Symptoms: None Total Time: 1 min : 0 sec Rest Raza BP: 80 mmHg Peak Raza BP: 77 mmHg Total Dose: 0.4 mg Resting ECG Normal sinus rhythm. Anteroseptal myocardial infarction. Stress ECG No abnormal ST/T wave changes with Lexiscan. Arrhythmias None. Report Signatures
[2024-06-29] MEDS: MORPHINE SULFATE (*CRX) 4 MG/ML INJ IV PUSH ×2 (00:02→05:09)
[2024-06-29] MEDS: BELLADONNA ALK/PHENOB ELIX 10 ML, MAG HYDROX/ALUMINUM HYD/SIMETH 30 ML, LIDOCAINE 2% VI... PO (00:44)
[2024-06-29] MEDS: SODIUM CHLORIDE 0.9% IV 1,000 ML 100 ML IV CONT ×2 (00:45→12:53)
[2024-06-29 01:41] LABS: Troponin I < 0.012 ng/mL (0.000-0.034)
--- NOTE | 2024-06-29 08:36 | ECG_ITS ---
Test Date: 2024-06-29 08:42:07 Measurements Intervals [place] Rate: 77 P: 12 [place]: 196 QRS: -19 QRSD: 100 T: 75 QT: 381 QTc: 433 Interpretive Statements SINUS RHYTHM INFERIOR MYOCARDIAL INFARCTION [40+ ms Q WAVE AND/OR ST/T ABNORMALITY IN II/aVF], PROBABLY OLD ABNORMAL ECG Electronically Signed On 06-29-2024 12:28:44 CDT by Heriberto Merino M.D.
[2024-06-29] MEDS: LOSARTAN POTASSIUM 50 MG TABLET PO (08:38)
[2024-06-29] MEDS: ATORVASTATIN 40 MG TABLET PO (08:38)
[2024-06-29] MEDS: ASPIRIN 81 MG ENTERIC TABLET PO (08:38)
[2024-06-29] MEDS: EMPAGLIFLOZIN 10 MG TABLET PO (08:39)
[2024-06-29] MEDS: MAGNESIUM OXIDE 400 MG TABLET PO ×2 (08:39→18:43)
--- NOTE | 2024-06-29 09:13 | P.PNIM_ITS ---
Progress Note: A&P Assessment and Plan (1) Chest pain: Code(s): R07.9 - Chest pain, unspecified Status: Acute (2) Acute kidney injury superimposed on stage 1 chronic kidney disease: Code(s): N17.9 - Acute kidney failure, unspecified; N18.1 - Chronic kidney disease, stage 1 Status: Acute (3) Thrombocytosis: Code(s): D75.839 - Thrombocytosis, unspecified Status: Acute (4) CKD (chronic kidney disease): Code(s): N18.9 - Chronic kidney disease, unspecified Status: Acute (5) Shortness of breath: Code(s): R06.02 - Shortness of breath Status: Acute (6) History of pulmonary embolism: Code(s): Z86.711 - Personal history of pulmonary embolism Status: Acute Plan Chest pain Patient has been having intermittent chest pain since yesterday Troponin negative x2, EKG shows sinus rhythm, T-wave inversion aVL and lead I initially Suspecting unstable angina Patient received nitroglycerin sublingual Start aspirin 325 mg once a 81 mg daily p.o. Lipitor 40 mg daily p.o.,, nitroglycerin sublingual p.r.n. Pending echocardiogram residential monitor Consult chief lifestyle officer for evaluation treatment Hypertension Uncontrolled blood pressure upon arrival Start losartan 50 mg, resume home medication: Cardizem 240 mg daily p.o. Paroxysmal atrial flutter Chronic patient is sinus rhythm Will hold Eliquis now. Will resume Eliquis if no cardiac intervention Start metoprolol 25 mg b.i.d. p.o. JUANITO on CKD Unclear etiologies Elevated BUN creatinine above baseline Start normal saline IV 100 mL/hour Follow-up urinalysis renal ultrasound: No hydronephrosis or renal calculi.Findings suggesting me dical renal disease. 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 Patient denies shortness breath nausea vomiting abdomen pain. Patient afebrile blood pressure stable. Labs reviewed, creatinine is trending down Exam Narrative: GENERAL: Pleasant, in no acute distress. Well-nourished. - EYES: EOMI. Anicteric. - HENT: Moist mucous membranes. - LUNGS: Clear to auscultation bilateral ly, no wheezing, rhonchi, or rales. - CARDIOVASCULAR: Regular rate and rhyth m. No murmur. No JVD. - ABDOMEN: Soft, non-tender and non-dist ended. No palpable masses. - EXTREMITIES: No edema. Peripheral puls es 2+. Non-tender. - NEUROLOGIC: No focal neurological defi cits. CN II-XII grossly intact. - PSYCHIATRIC: Awake, Alert and oriented x 3. Appropriate mood and affect. - SKIN: No rashes or lesions. Warm. - LYMPH: No cervical lymphadenopathy. Objective Data Vital Signs Vital Signs: Vital Signs - 24 hr 06/28/24 09:44 06/28/24 09:53 06/28/24 10:00 Temperature 98.2 F Pulse Rate 79 84 81 Respiratory Rate 15 18 Blood Pressure 145/84 H 154/84 H Pulse Oximetry 94 98 Oxygen Delivery 06/28/24 11:25 06/28/24 11:48 06/28/24 12:00 Temperature 98 F Pulse Rate 81 87 Respiratory Rate 14 Blood Pressure 148/80 H Pulse Oximetry 98 Oxygen Delivery Room Air 06/28/24 12:00 06/28/24 13:00 06/28/24 15:35 Temperature 98.4 F Pulse Rate 73 78 Respiratory Rate 18 Blood Pressure 137/74 140/81 Pulse Oximetry 98 Oxygen Delivery 06/28/24 16:00 06/28/24 16:00 06/28/24 18:00 Temperature Pulse Rate 81 66 Respiratory Rate Blood Pressure Pulse Oximetry Oxygen Delivery Room Air 06/28/24 20:00 06/28/24 20:00 06/28/24 20:00 Temperature 98.0 F Pulse Rate 67 66 Respiratory Rate 18 Blood Pressure 135/67 Pulse Oximetry 96 Oxygen Delivery Room Air 06/28/24 21:03 06/28/24 22:00 06/28/24 23:41 Temperature 98.6 F Pulse Rate 73 65 69 Respiratory Rate 18 Blood Pressure 126/70 Pulse Oximetry 95 Oxygen Delivery 06/29/24 00:00 06/29/24 00:00 06/29/24 02:00 Temperature Pulse Rate 71 72 Respiratory Rate Blood Pressure Pulse Oximetry Oxygen Delivery Room Air 06/29/24 04:00 06/29/24 04:00 06/29/24 04:00 Temperature 98.5 F Pulse Rate 80 71 Respiratory Rate 18 Blood Pressure 140/76 Pulse Oximetry 95 Oxygen Delivery Room Air 06/29/24 06:00 06/29/24 07:39 06/29/24 08:34 Temperature 98.4 F Pulse Rate 71 76 79 Respiratory Rate 14 Blood Pressure 125/61 142/73 H Pulse Oximetry 95 Oxygen Delivery Intake/Output Intake/Output: Intake & Output 06/26/24 06/27/24 06/28/24 06/29/24 23:59 23:59 23:59 23:59 Intake Total 480 1550 Output Total 1075 925 Balance -595 625 Meds/Results Medications: Active Medications Generic Name Dose Route Start Last Admin Trade Name Freq PRN Reason Stop Dose Admin Acetaminophen 650 mg 06/28/24 08:47 Acetaminophen 325 Mg Tablet PO Q4H PRN Mild Pain (1-3) or Fever Acetaminophen 650 mg 06/28/24 09:03 Acetaminophen 325 Mg Tablet PO Q6H PRN Mild Pain (1-3) or Fever Aspirin 81 mg 06/28/24 09:00 06/29/24 08:38 Aspirin 81 Mg Enteric Tablet PO 81 mg DAILY ALE Administration Atorvastatin Calcium 40 mg 06/28/24 09:00 06/29/24 08:38 Atorvastatin 40 Mg Tablet PO 40 mg DAILY ALE Administration Diltiazem HCl 240 mg 06/28/24 11:35 06/28/24 13:31 Diltiazem Hcl Cd 240 Mg Cap.24hr PO 240 mg DAILY ALE Administration Empagliflozin 10 mg 06/28/24 11:35 06/29/24 08:39 Empagliflozin 10 Mg Tablet PO 10 mg DAILY ALE Administration Sodium Chloride 1,000 mls @ 100 mls/hr 06/28/24 09:05 06/29/24 00:45 Normal Saline Iv IV CONT 100 mls/hr .Q10H ALE Administration Losartan Potassium 50 mg 06/28/24 09:00 06/29/24 08:38 Losartan Potassium 50 Mg Tablet PO 50 mg DAILY ALE Administration Magnesium Oxide 400 mg 06/28/24 11:35 06/29/24 08:39 Magnesium Oxide 400 Mg Tablet PO 400 mg BID ALE Administration Metoprolol Tartrate 25 mg 06/28/24 09:00 06/28/24 21:03 Metoprolol Tartrate 25 Mg Tablet PO 25 mg Q12HR ALE Administration Morphine Sulfate 4 mg 06/28/24 09:03 06/29/24 05:09 Morphine Sulfate (*Crx) 4 Mg/Ml Inj IV PUSH 4 mg Q5M PRN Administration Pain Rated 7-10 Nitroglycerin 0.4 mg 06/28/24 09:03 06/28/24 21:29 Nitroglycerin Sl 0.4 Mg Tablet SUBLINGUAL 0.4 mg Q5MIN PRN Administration Chest Pain Non-Formulary Medication 10 mg 06/28/24 17:00 Ruxolitinib [Jakafi] PO 07/28/24 16:59 BID ALE Ondansetron HCl 4 mg 06/28/24 08:47 Ondansetron Inj 4 Mg/2 Ml Vial IV PUSH Q4H PRN Nausea Radiology Results: ITS Impressions Chest X-Ray 06/28/24 06:17 Impression: Normal chest. Chest CTA 06/28/24 07:39 Impression: No evidence of pulmonary embolus, aortic dissection, or aortic aneurysm. No acute pulmonary abnormality. Renal Ultrasound 06/28/24 15:45 IMPRESSION: No hydronephrosis or renal calculi. Findings suggesting medical renal disease. Labs Labs: Laboratory Results - last 24 hr 06/28/24 06/28/24 06/29/24 07:45 10:02 00:33 Troponin I < 0.012 < 0.012 Triglycerides 302 H Cholesterol 152 LDL Cholesterol Direct 72 HDL Direct 30
--- NOTE | 2024-06-29 09:46 | PM.PNCARD ---
Progress Note: A&P Assessment and Plan (1) Chest pain: Code(s): R07.9 - Chest pain, unspecified Status: Acute Assessment and Plan: ECHO was unremarkable. Stress test pending today. Unlikely ACS however. His symptoms are clearly pleuritic. Worsened by breathing. Better with leaning forward. Cannot exclude pericarditis. Will give a dose of Toradol 15 mg IV x1. If this does help, I would recommend OTC NSAIDs upon discharge assuming his stress test is unremarkable (2) Acute kidney injury superimposed on stage 1 chronic kidney disease: Code(s): N17.9 - Acute kidney failure, unspecified; N18.1 - Chronic kidney disease, stage 1 Status: Acute Assessment and Plan: Improved (3) Atrial flutter: Code(s): I48.92 - Unspecified atrial flutter Status: Acute Assessment and Plan: In sinus rhythm currently. On Eliquis which has been held by the hospitalist in case of LHC. He has history of DVT and PE so will order SCD's for DVT prophylaxis. Resume Eliquis if stress test negative (4) History of pulmonary embolism: Code(s): Z86.711 - Personal history of pulmonary embolism Status: Acute Assessment and Plan: Resume anticoagulation if stress test is normal Subjective Date/time seen: 06/29/24 09:46 Interval history: 68-year-old male referred chest pain Date of service 06/29/2024: His chest pain is clearly pleuritic and unlikely anginal. He describes it as a pain upon breathing. Does have a history of pericarditis also. Currently his discomfort does improve upon sitting up. Has had intermittent episodes of pleuritic chest pain overnight yet has several negative troponins Review of Systems Review of Systems: All systems reviewed & are unremarkable except as noted in HPI and below Constitutional: Constitutional: Denies body ache(s) Cardiovascular: Cardiovascular: Reports chest pain Respiratory: Respiratory: Denies hemoptysis Gastrointestinal: Gastrointestinal: Denies abdominal pain Musculoskeletal: Musculoskeletal: Denies back pain Exam Narrative: Alert oriented appears stated age Const: General: comfortable, no acute distress, alert and awake Orientation/consciousness: patient oriented x3 HENMT: Head: normal to inspection Eyes: General: appearance normal, both eyes and all related structures Sclera: sclerae normal Neck: Neck: normal visual inspection, supple and no JVD Carotids: normal carotid upstroke Resp: Effort & Inspection: normal respiratory effort Auscultation: clear to auscultation bilaterally Cardio: Rate: regular rate Rhythm: regular rhythm Heart sounds: S1 normal heart sound present, S2 normal heart sound present and no murmurs GI: Auscultation: normal bowel sounds Skin: General skin exam: normal color Neuro: General: patient oriented x3 Speech: normal speech Extrem: General: normal to inspection Psych: Appearance: grossly normal Mental Status: mental status grossly normal Objective Data Vital Signs Vital Signs: Vital Signs - 24 hr 06/28/24 09:53 06/28/24 10:00 06/28/24 11:25 Temperature 36.8 C Pulse Rate 84 81 81 Respiratory Rate 18 Blood Pressure 154/84 H Pulse Oximetry 98 Oxygen Delivery 06/28/24 11:48 06/28/24 12:00 06/28/24 12:00 Temperature 36.6 C Pulse Rate 87 73 Respiratory Rate 14 Blood Pressure 148/80 H Pulse Oximetry 98 Oxygen Delivery Room Air 06/28/24 13:00 06/28/24 15:35 06/28/24 16:00 Temperature 36.9 C Pulse Rate 78 Respiratory Rate 18 Blood Pressure 137/74 140/81 Pulse Oximetry 98 Oxygen Delivery Room Air 06/28/24 16:00 06/28/24 18:00 06/28/24 20:00 Temperature 36.7 C Pulse Rate 81 66 67 Respiratory Rate 18 Blood Pressure 135/67 Pulse Oximetry 96 Oxygen Delivery 06/28/24 20:00 06/28/24 20:00 06/28/24 21:03 Temperature Pulse Rate 66 73 Respiratory Rate Blood Pressure Pulse Oximetry Oxygen Delivery Room Air 06/28/24 22:00 06/28/24 23:41 06/29/24 00:00 Temperature 37.0 C Pulse Rate 65 69 Respiratory Rate 18 Blood Pressure 126/70 Pulse Oximetry 95 Oxygen Delivery Room Air 06/29/24 00:00 06/29/24 02:00 06/29/24 04:00 Temperature 36.9 C Pulse Rate 71 72 80 Respiratory Rate 18 Blood Pressure 140/76 Pulse Oximetry 95 Oxygen Delivery 06/29/24 04:00 06/29/24 04:00 06/29/24 06:00 Temperature Pulse Rate 71 71 Respiratory Rate Blood Pressure Pulse Oximetry Oxygen Delivery Room Air 06/29/24 07:39 06/29/24 08:34 Temperature 36.9 C Pulse Rate 76 79 Respiratory Rate 14 Blood Pressure 125/61 142/73 H Pulse Oximetry 95 Oxygen Delivery Intake/Output Intake/Output: Intake & Output 06/26/24 06/27/24 06/28/24 06/29/24 23:59 23:59 23:59 23:59 Intake Total 480 1550 Output Total 1075 925 Balance -595 625 Meds/Results Medications: Active Medications Generic Name Dose Route Start Last Admin Trade Name Freq PRN Reason Stop Dose Admin Acetaminophen 650 mg 06/28/24 08:47 Acetaminophen 325 Mg Tablet PO Q4H PRN Mild Pain (1-3) or Fever Acetaminophen 650 mg 06/28/24 09:03 Acetaminophen 325 Mg Tablet PO Q6H PRN Mild Pain (1-3) or Fever Aspirin 81 mg 06/28/24 09:00 06/29/24 08:38 Aspirin 81 Mg Enteric Tablet PO 81 mg DAILY ALE Administration Atorvastatin Calcium 40 mg 06/28/24 09:00 06/29/24 08:38 Atorvastatin 40 Mg Tablet PO 40 mg DAILY ALE Administration Diltiazem HCl 240 mg 06/28/24 11:35 06/28/24 13:31 Diltiazem Hcl Cd 240 Mg Cap.24hr PO 240 mg DAILY ALE Administration Empagliflozin 10 mg 06/28/24 11:35 06/29/24 08:39 Empagliflozin 10 Mg Tablet PO 10 mg DAILY ALE Administration Sodium Chloride 1,000 mls @ 100 mls/hr 06/28/24 09:05 06/29/24 00:45 Normal Saline Iv IV CONT 100 mls/hr .Q10H ALE Administration Losartan Potassium 50 mg 06/28/24 09:00 06/29/24 08:38 Losartan Potassium 50 Mg Tablet PO 50 mg DAILY ALE Administration Magnesium Oxide 400 mg 06/28/24 11:35 06/29/24 08:39 Magnesium Oxide 400 Mg Tablet PO 400 mg BID ALE Administration Metoprolol Tartrate 25 mg 06/28/24 09:00 06/28/24 21:03 Metoprolol Tartrate 25 Mg Tablet PO 25 mg Q12HR ALE Administration Morphine Sulfate 4 mg 06/28/24 09:03 06/29/24 05:09 Morphine Sulfate (*Crx) 4 Mg/Ml Inj IV PUSH 4 mg Q5M PRN Administration Pain Rated 7-10 Nitroglycerin 0.4 mg 06/28/24 09:03 06/28/24 21:29 Nitroglycerin Sl 0.4 Mg Tablet SUBLINGUAL 0.4 mg Q5MIN PRN Administration Chest Pain Non-Formulary Medication 10 mg 06/28/24 17:00 Ruxolitinib [Jakafi] PO 07/28/24 16:59 BID ALE Ondansetron HCl 4 mg 06/28/24 08:47 Ondansetron Inj 4 Mg/2 Ml Vial IV PUSH Q4H PRN Nausea Radiology Results: ITS Impressions Chest X-Ray 06/28/24 06:17 Impression: Normal chest. Chest CTA 06/28/24 07:39 Impression: No evidence of pulmonary embolus, aortic dissection, or aortic aneurysm. No acute pulmonary abnormality. Renal Ultrasound 06/28/24 15:45 IMPRESSION: No hydronephrosis or renal calculi. Findings suggesting medical renal disease. Labs Labs: Laboratory Results - last 24 hr 06/28/24 06/28/24 06/29/24 07:45 10:02 00:33 Troponin I < 0.012 < 0.012 LDL Cholesterol Direct 72 Echo . Concentric LVH with normal systolic function and grade 1 diastolic noncompliance. 2. Abnormal septal motion consistent with IVCD/bundle branch block. 3. Dilated left atrium. 4. Trivial MR.
[2024-06-29 10:02] LABS: Basophils Percent Auto 0.1 % (0.2-1.2); Eosinophils Absolute Auto 0.1 K/mm3 (0-0.3); Eosinophils Percent Auto 0.6 % (0-4.4); Hematocrit 42.5 % (42.0-52.0); Hemoglobin 13.8 g/dL (14.0-18.0); Immature Granulocyte Absolute 0.05 K/mm3 (0.00-0.031); Immature Granulocyte Percent A 0.5 % (0-0.5); Lymphocytes Absolute Auto 2.19 K/mm3 (0.9-3.2); Lymphocytes Percent Auto 21.7 % (18.3-44.2); Mean Corpuscular HGB Conc 32.5 g/dl (32-36); Mean Corpuscular Hemoglobin 32.3 pg (26-34); Mean Corpuscular Volume 99.5 fl (80-100); Mean Platelet Volume 9.1 fl (7.4-10.4); Monocytes Absolute Auto 1.3 K/mm3 (0.1-0.6); Monocytes Percent Auto 12.4 % (2.6-8.5); Neutrophils Absolute Auto 6.6 K/mm3 (1.3-6.7); Neutrophils Percent Auto 64.7 % (45.5-73.1); Platelet Count Result 347 k/mm3 (150-375); Red Blood Count 4.27 M/mm3 (4.6-6.20); Red Cell Distribution Width 14.8 % (11.5-14.5); White Blood Count 10.1 K/mm3 (4.5-10.0)
[2024-06-29 10:17] LABS: Anion Gap 6 mmol/L (4-12); Blood Urea Nitrogen 24 mg/dL (9-20); Calcium 8.4 mg/dL (8.4-10.2); Carbon Dioxide 28 mmol/L (22-30); Chloride 104 mmol/L (98-107); Estimated CRCL calculation 51 ml/min; Estimated Glomerular Filt Rate 41; Glucose 107 mg/dL (65-110); Potassium 4.3 mmol/L (3.4-5.0); Sodium 138 mmol/L (137-145)
--- NOTE | 2024-06-29 11:53 | PC.NURSE ---
0815- Patient complaining of 8/10 chest pain on inspiration. EKG ordered, no new changes. MD Wilber arrives at bedside. Pain has resolved. No new orders. Awaiting stress test. Vitals stable.
[2024-06-29] MEDS: METOPROLOL TARTRATE 25 MG TABLET PO ×2 (12:52→21:05)
[2024-06-29] MEDS: dilTIAZem HCL CD 240 MG CAP.24HR PO (12:53)
--- NOTE | 2024-06-29 14:45 | PC.NURSE ---
1445- RN notified MD Donnelly of patient not being able to tolerate NSAIDs due to CKD. Andrzej to contact Wilber to come up with medical management of potential pericarditis.
[2024-06-29] MEDS: ACETAMINOPHEN 325 MG TABLET 650 MG PO (21:05)
[2024-06-30] VITALS (9 sets, daily range): BP systolic 138–144; BP diastolic 64–80; PULSE 63–79; RESP 16–20; TEMP 36.4–36.5; O2SAT 94–96
[2024-06-30 04:45] LABS: Basophils Percent Auto 0.1 % (0.2-1.2); Eosinophils Absolute Auto 0.1 K/mm3 (0-0.3); Eosinophils Percent Auto 0.9 % (0-4.4); Hematocrit 40.3 % (42.0-52.0); Hemoglobin 13.3 g/dL (14.0-18.0); Immature Granulocyte Absolute 0.02 K/mm3 (0.00-0.031); Immature Granulocyte Percent A 0.2 % (0-0.5); Lymphocytes Percent Auto 23.1 % (18.3-44.2); Mean Corpuscular Hemoglobin 32.4 pg (26-34); Mean Corpuscular Volume 98.1 fl (80-100); Mean Platelet Volume 9.4 fl (7.4-10.4); Monocytes Absolute Auto 1.1 K/mm3 (0.1-0.6); Monocytes Percent Auto 12.3 % (2.6-8.5); Neutrophils Absolute Auto 5.8 K/mm3 (1.3-6.7); Neutrophils Percent Auto 63.4 % (45.5-73.1); Platelet Count Result 339 k/mm3 (150-375); Red Blood Count 4.11 M/mm3 (4.6-6.20); Red Cell Distribution Width 14.6 % (11.5-14.5); White Blood Count 9.1 K/mm3 (4.5-10.0)
[2024-06-30 05:03] LABS: Anion Gap 8 mmol/L (4-12); Blood Urea Nitrogen 21 mg/dL (9-20); Calcium 8.4 mg/dL (8.4-10.2); Carbon Dioxide 25 mmol/L (22-30); Chloride 105 mmol/L (98-107); Estimated CRCL calculation 49 ml/min; Estimated Glomerular Filt Rate 39; Glucose 94 mg/dL (65-110); Potassium 4.2 mmol/L (3.4-5.0); Sodium 138 mmol/L (137-145)
[2024-06-30] MEDS: ACETAMINOPHEN 325 MG TABLET 650 MG PO (06:56)
[2024-06-30] MEDS: EMPAGLIFLOZIN 10 MG TABLET PO (08:49)
[2024-06-30] MEDS: ASPIRIN 81 MG ENTERIC TABLET PO (08:49)
[2024-06-30] MEDS: dilTIAZem HCL CD 240 MG CAP.24HR PO (08:49)
[2024-06-30] MEDS: MAGNESIUM OXIDE 400 MG TABLET PO (08:49)
[2024-06-30] MEDS: COLCHICINE 0.6 MG TABLET PO (08:49)
[2024-06-30] MEDS: LOSARTAN POTASSIUM 50 MG TABLET PO (08:50)
[2024-06-30] MEDS: METOPROLOL TARTRATE 25 MG TABLET PO (08:50)
[2024-06-30] MEDS: ATORVASTATIN 40 MG TABLET PO (08:51)
--- NOTE | 2024-06-30 09:22 | PM.IMPN ---
Progress Note: A&P Assessment and Plan (1) Chest pain: Code(s): R07.9 - Chest pain, unspecified Status: Acute (2) Acute kidney injury superimposed on stage 1 chronic kidney disease: Code(s): N17.9 - Acute kidney failure, unspecified; N18.1 - Chronic kidney disease, stage 1 Status: Acute (3) Thrombocytosis: Code(s): D75.839 - Thrombocytosis, unspecified Status: Acute (4) CKD (chronic kidney disease): Code(s): N18.9 - Chronic kidney disease, unspecified Status: Acute (5) Shortness of breath: Code(s): R06.02 - Shortness of breath Status: Acute (6) History of pulmonary embolism: Code(s): Z86.711 - Personal history of pulmonary embolism Status: Acute Plan Chest pain Patient has been having intermittent chest pain since yesterday Troponin negative x2, EKG shows sinus rhythm, T-wave inversion aVL and lead I initially Suspecting unstable angina Patient received nitroglycerin sublingual Start aspirin 325 mg once a 81 mg daily p.o. Lipitor 40 mg daily p.o.,, nitroglycerin sublingual p.r.n. echocardiogram and cardiac stress test does not suggest ACS radiation monitor : No ischemia or significant arrhythmia Consult chemical production engineer for evaluation treatment. Care issue consider possible pleuritis Received colchicine and NSAID Chronic patient has no chest pain Will continue NSAID P.R.N. per chemical production engineer recommendation, also provide prednisone p.o. and taper dose Hypertension Uncontrolled blood pressure upon arrival Start losartan 50 mg, resume home medication: Cardizem 240 mg daily p.o. Paroxysmal atrial flutter Chronic patient is sinus rhythm Resume Eliquis Start metoprolol 25 mg b.i.d. p.o. JUANITO on CKD Unclear etiologies Elevated BUN creatinine above baseline Start normal saline IV 100 mL/hour Follow-up urinalysis renal ultrasound: No hydronephrosis or renal calculi.Findings suggesting medical renal disease. Creatinine is trending down Received normal saline IV to protect kidney in case patient needs interventional treatment Creatinine is stable, creatinine 1.75 today, on arrival creatinine 1.99 Subjective Date/time seen: 06/30/24 09:22 Interval history: I saw examined the patient today. Patient denies chest pain shortness breath nausea vomiting abdomen pain. Patient afebrile blood pressure stable. Labs reviewed, creatinine is trending down Exam Narrative: GENERAL: Pleasant, in no acute distress. Well-nourished. - EYES: EOMI. Anicteric. - HENT: Moist mucous membranes. - LUNGS: Clear to auscultation bilaterally, no wheezing, rhonchi, or rales. - CARDIOVASCULAR: Regular rate and rhythm. No murmur. No JVD. - ABDOMEN: Soft, non-tender and non-distended. No palpable masses. - EXTREMITIES: No edema. Peripheral pulses 2+. Non-tender. - NEUROLOGIC: No focal neurological deficits. CN II-XII grossly intact. - PSYCHIATRIC: Awake, Alert and oriented x 3. Appropriate mood and affect. - SKIN: No rashes or lesions. Warm. - LYMPH: No cervical lymphadenopathy. Objective Data Vital Signs Vital Signs: Vital Signs - 24 hr 06/29/24 10:00 06/29/24 12:00 06/29/24 12:46 Temperature 98.1 F Pulse Rate 77 81 80 Respiratory Rate 18 Blood Pressure 126/73 Pulse Oximetry 97 Oxygen Delivery 06/29/24 12:52 06/29/24 14:00 06/29/24 15:39 Temperature 97.9 F Pulse Rate 81 74 78 Respiratory Rate 16 Blood Pressure 131/64 Pulse Oximetry 98 Oxygen Delivery 06/29/24 16:00 06/29/24 18:00 06/29/24 19:47 Temperature 98.3 F Pulse Rate 75 66 66 Respiratory Rate 16 Blood Pressure 143/67 H Pulse Oximetry 98 Oxygen Delivery 06/29/24 20:00 06/29/24 20:00 06/29/24 21:05 Temperature Pulse Rate 70 66 Respiratory Rate Blood Pressure Pulse Oximetry Oxygen Delivery Room Air 06/29/24 22:00 06/29/24 23:50 06/30/24 00:00 Temperature 97.6 F Pulse Rate 66 71 Respiratory Rate 16 Blood Pressure 141/77 H Pulse Oximetry 97 Oxygen Delivery Room Air 06/30/24 00:00 06/30/24 02:00 06/30/24 03:59 Temperature 97.7 F Pulse Rate 63 68 71 Respiratory Rate 16 Blood Pressure 144/80 H Pulse Oximetry 96 Oxygen Delivery 06/30/24 04:00 06/30/24 04:00 06/30/24 06:00 Temperature Pulse Rate 79 64 Respiratory Rate Blood Pressure Pulse Oximetry Oxygen Delivery Room Air 06/30/24 07:42 06/30/24 08:50 Temperature 97.6 F Pulse Rate 69 70 Respiratory Rate 20 Blood Pressure 138/64 Pulse Oximetry 94 Oxygen Delivery Intake/Output Intake/Output: Intake & Output 06/27/24 06/28/24 06/29/24 06/30/24 23:59 23:59 23:59 23:59 Intake Total 480 3340 120 Output Total 1075 1550 0 Balance -595 1790 120 Meds/Results Medications: Active Medications Generic Name Dose Route Start Last Admin Trade Name Freq PRN Reason Stop Dose Admin Acetaminophen 650 mg 06/28/24 08:47 06/30/24 06:56 Acetaminophen 325 Mg Tablet PO 650 mg Q4H PRN Administration Mild Pain (1-3) or Fever Acetaminophen 650 mg 06/28/24 09:03 Acetaminophen 325 Mg Tablet PO Q6H PRN Mild Pain (1-3) or Fever Aspirin 81 mg 06/28/24 09:00 06/30/24 08:49 Aspirin 81 Mg Enteric Tablet PO 81 mg DAILY ALE Administration Atorvastatin Calcium 40 mg 06/28/24 09:00 06/30/24 08:51 Atorvastatin 40 Mg Tablet PO 40 mg DAILY ALE Administration Colchicine 0.6 mg 06/30/24 09:00 06/30/24 08:49 Colchicine 0.6 Mg Tablet PO 0.6 mg DAILY ALE Administration Diltiazem HCl 240 mg 06/28/24 11:35 06/30/24 08:49 Diltiazem Hcl Cd 240 Mg Cap.24hr PO 240 mg DAILY ALE Administration Empagliflozin 10 mg 06/28/24 11:35 06/30/24 08:49 Empagliflozin 10 Mg Tablet PO 10 mg DAILY ALE Administration Losartan Potassium 50 mg 06/28/24 09:00 06/30/24 08:50 Losartan Potassium 50 Mg Tablet PO 50 mg DAILY ALE Administration Magnesium Oxide 400 mg 06/28/24 11:35 06/30/24 08:49 Magnesium Oxide 400 Mg Tablet PO 400 mg BID ALE Administration Metoprolol Tartrate 25 mg 06/28/24 09:00 06/30/24 08:50 Metoprolol Tartrate 25 Mg Tablet PO 25 mg Q12HR ALE Administration Morphine Sulfate 4 mg 06/28/24 09:03 06/29/24 05:09 Morphine Sulfate (*Crx) 4 Mg/Ml Inj IV PUSH 4 mg Q5M PRN Administration Pain Rated 7-10 Nitroglycerin 0.4 mg 06/28/24 09:03 06/28/24 21:29 Nitroglycerin Sl 0.4 Mg Tablet SUBLINGUAL 0.4 mg Q5MIN PRN Administration Chest Pain Non-Formulary Medication 10 mg 06/28/24 17:00 Ruxolitinib [Jakafi] PO 07/28/24 16:59 BID ALE Ondansetron HCl 4 mg 06/28/24 08:47 Ondansetron Inj 4 Mg/2 Ml Vial IV PUSH Q4H PRN Nausea Radiology Results: ITS Impressions Chest X-Ray 06/28/24 06:17 Impression: Normal chest. Chest CTA 06/28/24 07:39 Impression: No evidence of pulmonary embolus, aortic dissection, or aortic aneurysm. No acute pulmonary abnormality. Renal Ultrasound 06/28/24 15:45 IMPRESSION: No hydronephrosis or renal calculi. Findings suggesting medical renal disease. Lexiscan Stress Test 06/29/24 13:03 IMPRESSION: 1. Normal myocardial perfusion at rest and during stress. 2. Left ventricular ejection fraction measuring 55%. Labs Labs: Laboratory Results - last 24 hr 06/29/24 06/30/24 09:46 03:47 WBC 10.1 H 9.1 RBC 4.27 L 4.11 L Hgb 13.8 L 13.3 L Hct 42.5 40.3 L MCV 99.5 98.1 MCH 32.3 32.4 MCHC 32.5 33.0 RDW 14.8 H 14.6 H Plt Count 347 339 MPV 9.1 9.4 Immature Gran % (Auto) 0.5 0.2 Neut % (Auto) 64.7 63.4 Lymph % (Auto) 21.7 23.1 [place] % (Auto) 12.4 H 12.3 H Eos % (Auto) 0.6 0.9 Baso % (Auto) 0.1 L 0.1 L Lymph # (Auto) 2.19 2.10 [place] # (Auto) 1.3 H 1.1 H Eos # (Auto) 0.1 0.1 Baso # (Auto) 0.0 0.0 Abs Immat Gran (auto) 0.05 H 0.02 Absolute Neuts (auto) 6.6 5.8 Absolute Nucleated RBC 0.000 0.000 Nucleated RBC % 0.0 0.0 Sodium 138 138 Potassium 4.3 4.2 Chloride 104 105 Carbon Dioxide 28 25 Anion Gap 6 8 BUN 24 H 21 H Creatinine 1.68 H 1.75 H Estim Creat Clear Calc 51 49 Estimated GFR 41 L 39 L Glucose 107 94 Calcium 8.4 8.4
--- NOTE | 2024-06-30 09:27 | PM.DS ---
DS: Admitting Diagnosis Discharge Date 06/30 Admitting Diagnosis (1) Chest pain: Code(s): R07.9 - Chest pain, unspecified Status: Acute (2) Acute kidney injury superimposed on stage 1 chronic kidney disease: Code(s): N17.9 - Acute kidney failure, unspecified; N18.1 - Chronic kidney disease, stage 1 Status: Acute (3) Thrombocytosis: Code(s): D75.839 - Thrombocytosis, unspecified Status: Acute (4) CKD (chronic kidney disease): Code(s): N18.9 - Chronic kidney disease, unspecified Status: Acute (5) Shortness of breath: Code(s): R06.02 - Shortness of breath Status: Acute (6) History of pulmonary embolism: Code(s): Z86.711 - Personal history of pulmonary embolism Status: Acute DS: Discharge Diagnosis Discharge Diagnosis (1) Chest pain: Code(s): R07.9 - Chest pain, unspecified Status: Acute (2) Acute kidney injury superimposed on stage 1 chronic kidney disease: Code(s): N17.9 - Acute kidney failure, unspecified; N18.1 - Chronic kidney disease, stage 1 Status: Acute (3) Thrombocytosis: Code(s): D75.839 - Thrombocytosis, unspecified Status: Acute (4) CKD (chronic kidney disease): Code(s): N18.9 - Chronic kidney disease, unspecified Status: Acute (5) Shortness of breath: Code(s): R06.02 - Shortness of breath Status: Acute (6) History of pulmonary embolism: Code(s): Z86.711 - Personal history of pulmonary embolism Status: Acute DS: Summary Hospital Course Hospital Course: 68 years old man with 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 Patient has been having intermittent chest pain since yesterday. Patient had episode of substernal chest pain about 4:00 p.m. yesterday, radiating to the neck. Patient also has shortness breath associated chest pain. Patient is compliant with Eliquis but did not take medication gear room keeper. Patient came to ED for evaluation treatment. Patient denies headache, focal weakness, vision change, abdomen pain, nausea vomiting diarrhea dysuria. Upon arrival to ED, patient was afebrile, blood pressure stable, no O2 desaturation on room air EKG showed sinus rhythm, T-wave inversion aVL and lead I initially CBC unremarkable, castrate showed thrombocytosis, elevated BUN creatinine ratio 23/1.99, baseline creatinine 27/1.60 on April 07, 2019. Troponin x2 negative The following med issues have been addressed during hospitalization Chest pain Patient has been having intermittent chest pain since yesterday Troponin negative x2, EKG shows sinus rhythm, T-wave inversion aVL and lead I initially Suspecting unstable angina Patient received nitroglycerin sublingual Start aspirin 325 mg once a 81 mg daily p.o. Lipitor 40 mg daily p.o.,, nitroglycerin sublingual p.r.n. echocardiogram and cardiac stress test does not suggest ACS in service educator : No ischemia or significant arrhythmia Consult snow shoveler for evaluation treatment. Care issue consider possible pleuritis Received colchicine and NSAID Chronic patient has no chest pain Will continue NSAID P.R.N. per snow shoveler recommendation, also provide prednisone p.o. and taper dose Hypertension Uncontrolled blood pressure upon arrival Start losartan 50 mg, resume home medication: Cardizem 240 mg daily p.o. Paroxysmal atrial flutter Chronic patient is sinus rhythm Resume Eliquis Start metoprolol 25 mg b.i.d. p.o. JUANITO on CKD Unclear etiologies Elevated BUN creatinine above baseline Start normal saline IV 100 mL/hour Follow-up urinalysis renal ultrasound: No hydronephrosis or renal calculi.Findings suggesting medical renal disease. Creatinine is trending down Received normal saline IV to protect kidney in case patient needs interventional treatment Creatinine is stable, creatinine 1.75 today, on arrival creatinine 1.99 Time Spent with Patient Time attestation: Total time spent providing and/or coordinating discharge services: Exam Narrative: GENERAL: Pleasant, in no acute distress. Well-nourished. - EYES: EOMI. Anicteric. - HENT: Moist mucous membranes. - LUNGS: Clear to auscultation bilaterally, no wheezing, rhonchi, or rales. - CARDIOVASCULAR: Regular rate and rhythm. No murmur. No JVD. - ABDOMEN: Soft, non-tender and non-distended. No palpable masses. - EXTREMITIES: No edema. Peripheral pulses 2+. Non-tender. - NEUROLOGIC: No focal neurological deficits. CN II-XII grossly intact. - PSYCHIATRIC: Awake, Alert and oriented x 3. Appropriate mood and affect. - SKIN: No rashes or lesions. Warm. - LYMPH: No cervical lymphadenopathy. DS: Data Data Completed and Pending Labs on day of discharge: Labs from last 24 hours 06/30/24 06/29/24 03:47 09:46 WBC 9.1 10.1 H RBC 4.11 L 4.27 L Hgb 13.3 L 13.8 L Hct 40.3 L 42.5 MCV 98.1 99.5 MCH 32.4 32.3 MCHC 33.0 32.5 RDW 14.6 H 14.8 H Plt Count 339 347 MPV 9.4 9.1 Immature Gran % (Auto) 0.2 0.5 Neut % (Auto) 63.4 64.7 Lymph % (Auto) 23.1 21.7 [place] % (Auto) 12.3 H 12.4 H Eos % (Auto) 0.9 0.6 Baso % (Auto) 0.1 L 0.1 L Lymph # (Auto) 2.10 2.19 [place] # (Auto) 1.1 H 1.3 H Eos # (Auto) 0.1 0.1 Baso # (Auto) 0.0 0.0 Abs Immat Gran (auto) 0.02 0.05 H Absolute Neuts (auto) 5.8 6.6 Absolute Nucleated RBC 0.000 0.000 Nucleated RBC % 0.0 0.0 Sodium 138 138 Potassium 4.2 4.3 Chloride 105 104 Carbon Dioxide 25 28 Anion Gap 8 6 BUN 21 H 24 H Creatinine 1.75 H 1.68 H Estim Creat Clear Calc 49 51 Estimated GFR 39 L 41 L Glucose 94 107 Calcium 8.4 8.4 Discharge Plan Discharge Attending physician on discharge: Sixto Donnelly Consulting providers: Ancelmo Avila Discharging Clinician: Sixto Donnelly Anticipated Discharge Date/Time: 06/30/24 09:28 Patient Disposition: Home, Self-Care Activity: as tolerated Diet: as tolerated and heart healthy Patient Instructions: Antibiotic Form, Apixaban (By mouth), Heart Healthy Diet (DC), Acute Coronary Syndrome (DC), Cardiac Rehabilitation (DC) Patient Language: Citizen Of [place] Stand Alone Forms: General Discharge Information Follow-up/Referrals: Ancelmo Avila MD [Physician] - (Patient needs to call snow shoveler for follow-up appointment) UNKNOWN,DOCTOR [Primary Care Provider] - (Patient needs see primary care doctor in 1 week) Discharge Medications: New naproxen 500 mg tablet,delayed release (DR/EC) 500 mg PO BID PRN (Reason: pain) Qty: 30 0RF prednisone 10 mg tablets,dose pack See Taper PO DAILY 12 Days Qty: 42 0RF Taper: Prednisone Taper from 60 mg;12 days 40 mg DAILY for 2 Days and 0 Hour 30 mg DAILY for 2 Days and 0 Hour 20 mg DAILY for 2 Days and 0 Hour 10 mg DAILY for 2 Days and 0 Hour Continued testosterone cypionate 200 mg/mL oil 100 mg IM Q7D Jakafi 10 mg tablet 10 mg PO BID Mounjaro 10 mg/0.5 mL pen injector 10 mg subcut WEEKLY Jardiance 10 mg tablet 10 mg PO DAILY Eliquis 5 mg tablet 5 mg PO Q12H magnesium 200 mg tablet 400 mg PO BID pravastatin 10 mg tablet 10 mg PO DAILY diltiazem HCl 240 mg capsule,ext.rel 24h degradable 240 mg PO DAILY Date of admission: 06/28/24 08:47 Primary Care Provider: UNKNOWN,DOCTOR Admitting Provider: Sixto Donnelly Attending physician on admission: Sixto Donnelly Condition: Stable
== END 2024-06-30 11:00 | disposition home or self-care (01) ==
LOC: ANHED 08:51 → ANHIMU 09:31
PROVIDERS: Emergency Medicine; Internal Medicine Cardiovascular Disease; Admitting Provider Hospitalist; Emergency Provider Student in an Organized Health Care Education/Training Program; Visit Provider Hospitalist
DX: R07.9 Chest pain, unspecified (principal); I13.0 Hypertensive heart and chronic kidney disease with heart failure and stage 1 through stage 4 chronic kidney disease, or unspecified chronic kidney disease; I50.32 Chronic diastolic (congestive) heart failure; E11.22 Type 2 diabetes mellitus with diabetic chronic kidney disease; N18.1 Chronic kidney disease, stage 1; N17.9 Acute kidney failure, unspecified; I48.92 Unspecified atrial flutter; I48.0 Paroxysmal atrial fibrillation; C92.01 Acute myeloblastic leukemia, in remission; K21.9 Gastro-esophageal reflux disease without esophagitis; D75.839 Thrombocytosis, unspecified; E78.5 Hyperlipidemia, unspecified; Z20.822 Contact with and (suspected) exposure to COVID-19; Z87.891 Personal history of nicotine dependence; Z79.01 Long term (current) use of anticoagulants; Z79.84 Long term (current) use of oral hypoglycemic drugs; Z79.85 Long-term (current) use of injectable non-insulin antidiabetic drugs; Z86.711 Personal history of pulmonary embolism; Z86.718 Personal history of other venous thrombosis and embolism; Z96.651 Presence of right artificial knee joint; Z94.89 Other transplanted organ and tissue status
CPT/HCPCS: 36415; 71046; 71275; 76775; 78452; 80048; 80053; 80061; 83690; 83880; 84484; 85025; 85610; 85730; 87637; 93005; 93017; 93306; 96361; 96374; 96375; 96376; 99285; A9270; A9502; G0378; J2270; J2785; J7030; Q9957; Q9967

== ENCOUNTER 2024-08-10 00:48 | Inpatient (IN) | payer OTHER, SELFPAY ==
[2024-08-10] VITALS (21 sets, daily range): BP systolic 111–166; BP diastolic 50–106; PULSE 63–121; RESP 14–20; TEMP 36.4–39.4; O2SAT 92–100; BMI 35.6
--- NOTE | 2024-08-10 | ECHO_ITS ---
Patient Info Name: Aristides Pichardo Age: 68 years : 1955 Gender: Male Ht: 72 in Wt: 255 lbs BSA: 2.46 m2 HR: 73 bpm BP: 139 / 70 mmHg Heart Rhythm: Sinus Rhythm Technical Quality: Good Exam Date: 08/10/2024 3:54 PM Exam Location: Echo Lab Patient Status: Inpatient Admit Date: 08/10/2024 Staff Ordering Physician: Judy Zepeda MD Snowboarding Instructor: Maricarmen Guo RDCS Attending Provider: Vida Dinh DO Exam Type: CA echo doppler color flow Study Info Indications - Fever, prior endocarditis Complete two-dimensional, color flow and Doppler transthoracic echocardiogram is performed. Summary 1. Complete two-dimensional, color flow and Doppler transthoracic echocardiogram is performed. 2. Left ventricular chamber dimension is enlarged. 3. Left ventricular systolic function is normal, estimated at 55-60%. 4. The left ventricular diastolic function is grade I diastolic dysfunction. 5. There is mildly increased left ventricular wall thickness. 6. Right ventricular chamber dimension is enlarged. 7. There is mild to moderate mitral valve regurgitation. 8. There is mild tricuspid valve regurgitation. 9. No pulmonary hypertension, estimated pulmonary arterial systolic pressure is 24 mmHg. Left Ventricle Left ventricular chamber dimension is enlarged. Left ventricular systolic function is normal, estimated at 55-60%. There is mildly increased left ventricular wall thickness. Left ventricular septal wall motion is normal. The left ventricular diastolic function is grade I diastolic dysfunction. Right Ventricle Right ventricular chamber dimension is enlarged. Right ventricular systolic function is normal. Left Atria Left atrial chamber dimension is normal. Right Atria Right atrial chamber dimension is normal. Aortic Valve The aortic valve is trileaflet. There is no aortic valve sclerosis. There is no aortic valve stenosis. There is no aortic valve regurgitation. Pulmonic Valve The pulmonic valve is normal. There is no pulmonic valve stenosis. There is no pulmonic regurgitation. Mitral Valve The mitral valve has normal leaflets. There is no mitral valve stenosis. There is mild to moderate mitral valve regurgitation. Tricuspid Valve The tricuspid valve leaflets are normal. There is no significant tricuspid valve stenosis. There is mild tricuspid valve regurgitation. No pulmonary hypertension, estimated pulmonary arterial systolic pressure is 24 mmHg. Pericardium/Pleural The pericardium appears normal. There is no pericardial effusion. Inferior Vena Cava Normal inferior vena cava with >50% collapse upon inspiration consistent with Empty right atrial pressure, Empty. Aorta The aortic root size at the sinus of Valsalva is dilated. The prox ascending aorta size is normal. Left Ventricular Outflow Tract Name Value Normal LVOT 2D LVOT Diameter 2.4 cm LVOT Doppler LVOT Peak Gradient 3 mmHg LVOT Mean Gradient 1 mmHg LVOT VTI 17 cm LVOT VTI/AV VTI Ratio 0.8 LVOT Stroke Volume 78 ml LVOT CO 15.0 l/min LVOT CI 6.1 l/min/m2 Pulmonic Valve Name Value Normal RVOT Doppler RVOT Peak Gradient 1 mmHg PV Doppler PV Peak Gradient 1 mmHg Mitral Valve Name Value Normal MV Doppler MV Decel Guadalupe 333 cm/s2 MV PHT 60 ms MV Area (PHT) 3.7 cm2 4.0-5.0 MV Diastolic Function MV E Peak Velocity 69 cm/s MV A Peak Velocity 83 cm/s MV E/A 0.8 MV Decel Time 206 ms MV Annular TDI MV E/e' (Septal) 13.3 <=8.0 MV E/e' (Lateral) 7.5 <=8.0 MV E/e' (Average) 10.4 Tricuspid Valve Name Value Normal TV Regurgitation Doppler TR Peak Velocity 216 cm/s TR Peak Gradient 19 mmHg Estimated PAP/RSVP PA Systolic Pressure 24 mmHg <36 Aortic Valve Name Value Normal AV Doppler AV Peak Velocity 104 cm/s AV Peak Gradient 4 mmHg AV Mean Gradient 2 mmHg AV VTI 20 cm AV Area (Cont Eq VTI) 3.9 cm2 >=3.0 AV Area (Cont Eq Bishop) 3.6 cm2 AV Regurgitation 2D LVOT Area 4.7 cm2 Ventricles Name Value Normal LV Dimensions 2D/MM IVS Diastolic Thickness (2D) 1.0 cm 0.6-1.0 LVID Diastole (2D) 5.4 cm 4.2-5.8 LVIW Diastolic Thickness (2D) 1.1 cm 0.6-1.0 LVID Systole (2D) 3.9 cm 2.5-4.0 LVOT Diameter 2.4 cm LV Mass (2D Cubed) 227.23 g 88.00-224.00 LV Mass Index (2D Cubed) 92 g/m2 49-115 Relative Wall Thickness (2D) 0.41 LV Fractional Shortening/Ejection Fraction 2D/MM LV Fractional Shortening (2D) 29 % 25-43 LV EF (2D Teicholz) 55 % 52-72 LV Diastolic Volume (4C MOD) 178 ml LV EF (4C MOD) 59 % LV Diastolic Volume (2C MOD) 192 ml LV EF (2C MOD) 64 % LV Diastolic Volume (BP MOD) 188 ml 62-150 LV Diastolic Volume Index (BP MOD) 76 ml/m2 34-74 LV Systolic Volume (BP MOD) 72 ml 21-61 LV Systolic Volume Index (BP MOD) 29 ml/m2 11-31 LV EF (BP MOD) 62 % 52-72 LV Diastolic Length (4C) 10.1 cm LV Systolic Length (4C) 8.4 cm LV Stroke Volume (4C MOD) 105 ml Atria Name Value Normal LA Dimensions LA Volume (4C A-L) 87 ml LA Volume (BP A-L) 113 ml RA Dimensions RA Area (4C) 23.8 cm2 <=18.0 Report Signatures
--- NOTE | ~2024-08-10 | CT_ITS ---
Clinical Indication: Sepsis CT Scan of the Chest, Abdomen, and Pelvis with Contrast: Technique: Contiguous sections were acquired throughout the chest, abdomen, and pelvis after intraven ous administration of 100 cc of Omnipaque 350. Dose reduction technique was used on this scan by ivory fletcher automated exposure control and iterative reconstruction technique. The dose-length product (DL P) was 1837.67 mGy-cm. Comparison: 05/31/2024 Findings: There is no evidence of any significant mediastinal, hilar or axillary lymphadenopathy. The mediastin al soft tissues appear normal. There is no evidence of pleural or pericardial effusion. The lungs are clear, aside from a few areas of focal chronic scarring. The liver, spleen, pancreas, gallbladder, adrenals and kidneys are within normal limits. No evidence of aortic aneurysm. No lymphadenopathy. IVC filter present. No bowel obstruction or bowel wall thickening. There is no evidence to suggest acute appendicitis. Urinary bladder is unremarkable. No pelvic mass seen. No ascites. Small bilateral fat-containing ingu inal hernias are present. Impression: No acute abnormalities seen. Small bilateral fat-containing inguinal hernias. Reviewed, dictated and finalized at [facility]. Impression: No acute abnormalities seen. Small bilateral fat-containing inguinal hernias.
--- NOTE | ~2024-08-10 | XR_ITS ---
Portable chest x-ray Comparison: 06/28/2024 Clinical History: Fever Findings: Lungs are clear, without focal consolidation or pleural effusion. Cardiomediastinal silho uette is stable. Bones and soft tissues are unremarkable. Impression: Normal chest. Reviewed, dictated and finalized at [facility]. Impression: Normal chest.
--- NOTE | 2024-08-10 01:31 | ECG_ITS ---
Test Date: 2024-08-10 02:33:52 Measurements Intervals Gore Rate: 116 P: 18 CO: 197 QRS: -26 QRSD: 105 T: 68 QT: 304 QTc: 424 Interpretive Statements SINUS TACHYCARDIA POSSIBLE LEFT ATRIAL ENLARGEMENT BORDERLINE R WAVE PROGRESSION, ANTERIOR LEADS INFERIOR INFARCT, AGE INDETERMINATE NONSPECIFIC T-WAVE ABNORMALITY BORDERLINE ST-T WAVE ABNORMALITY- HIGH LATERAL LEADS BASELINE ARTIFACT- I, II, AVR, AVL, AVF, V1-V6 ABNORMAL ECG Compared to ECG 06/29/2024 08:42:07 HEART RATE HAS INCREASED Electronically Signed On 08-10-2024 06:08:14 CDT by Stuart Wilkinson D.O.
--- NOTE | 2024-08-10 01:35 | ED.FEVER ---
HPI - Fever General Chief Complaint: Fever Stated Complaint: CHILLS, NAUSEA, FEVER, Hx LEUKEMIA Time Seen by Provider: 08/10/24 00:57 History of Present Illness HPI Narrative: 68-year-old male with a past medical history including leukemia currently in remission, atrial flutter on Eliquis, CKD, recent hospitalization for chest pain and possible pericarditis. He was treated in the hospital setting and discharged home with Cardiology follow-up. Patient states that today he has been feeling nauseous and warm. He had a high fever at home and complaining of neuropathy in his legs. Came to the emergency department for evaluation. States he has been having fever and chills since this evening and took a Naprosyn at home but no Tylenol. Denies any chest pain shortness a breath. No vomiting, headache, vision changes, abdominal pain or back pain. Was otherwise in his normal state of health. Related Data Home Medications ?Medication ?Instructions ?Recorded ?Confirmed ?Last Taken ?Type apixaban 5 mg tablet (Eliquis) 5 mg PO Q12H 06/28/24 06/28/24 Unknown History diltiazem HCl 240 mg 240 mg PO DAILY 06/28/24 06/28/24 Unknown History capsule,extended release 24 hr, controlled empagliflozin 10 mg tablet 10 mg PO DAILY 06/28/24 06/28/24 Unknown History (Jardiance) magnesium 200 mg tablet 400 mg PO BID 06/28/24 06/28/24 Unknown History pravastatin 10 mg tablet 10 mg PO DAILY 06/28/24 06/28/24 Unknown History ruxolitinib 10 mg tablet (Jakafi) 10 mg PO BID 06/28/24 06/28/24 Unknown History testosterone cypionate 200 mg/mL 100 mg IM Q7D 06/28/24 06/28/24 06/20/24 History intramuscular oil tirzepatide 10 mg/0.5 mL 10 mg subcut WEEKLY 06/28/24 06/28/24 06/23/24 History subcutaneous pen injector (Mounjaro) Allergies Allergy/AdvReac Type Severity Reaction Status Date / Time vancomycin Allergy Mild Redness of Verified 06/28/24 10:10 Skin gabapentin AdvReac Severe Unknown Verified 06/28/24 10:10 Review of Systems Review of Systems: As reviewed above in HPI [facility] Past Medical History Medical History AML (acute myeloblastic leukemia) in remission Pericarditis Depression Leukemia Pneumonia Pulmonary embolism DVT (deep venous thrombosis) Hypertension GERD (gastroesophageal reflux disease) Diabetes type 2, controlled Surgical History Surgical History Status post right knee 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 Father Cerebrovascular accident Father Alzheimer dementia Social History Social History Smoking packs per day: 0.5 Smoking cigarettes per day: 10.0 Years smoked: 2 Smoking pack-years: 1.00 Smoking status: Former smoker Tobacco type: cigarettes Alcohol intake: current Drinks per week: 2 Substance use: never Do You Feel Safe in your Home?: Yes Lack of Transportation: No Lack of Food: Never True Current Housing: I Have Housing Concerned About Future Housing: No Difficulty Paying Gas/Electric Bills: No Difficulty Paying for Meds: No Currently Unemployed: No Education: Bachelor's Degree Difficulty w/ Childcare or Family Care: No Spiritual care concerns: No Exam Narrative: GENERAL: Ill-appearing, not any acute distress HEAD: [Normocephalic, atraumatic.] EYES: [PERRLA and EOMI.] ENT: Nares clear, no rhinorrhea or epistaxis. Mucous membranes dry. NECK: Supple. CHEST: [Clear to auscultation. No respiratory distress.] HEART: Tachycardic rate, regular rhythm. No murmur heard. [Normal peripheral pulses.] ABDOMEN: [Soft, nondistended], [nontender], [No rigidity or guarding] EXTREMITIES: Normal range of motion. [No edema.] No rashes or lesions to the feet or toes. No blisters. SKIN: Warm, dry, no rash. NEURO: [No focal deficits]. Alert and oriented [x3.] PSYCH: [Normal mood and affect.] Course Vital Signs Vital signs: Vital Signs Temperature 39.4 C H 08/10/24 00:48 Pulse Rate 121 H 08/10/24 00:48 Respiratory Rate 19 08/10/24 00:48 Blood Pressure 153/106 H 08/10/24 00:48 Pulse Oximetry 97 08/10/24 00:48 Oxygen Delivery Room Air 08/10/24 00:48 Temperature 38.5 C H 08/10/24 03:00 Pulse Rate 113 H 08/10/24 03:00 Respiratory Rate 18 08/10/24 03:00 Blood Pressure 166/70 H 08/10/24 03:00 Pulse Oximetry 95 08/10/24 03:00 Oxygen Delivery Room Air 08/10/24 00:48 MDM - Fever MDM Narrative Medical decision making narrative: 68-year-old male with a history of AML currently in remission, atrial flutter on Eliquis, CKD, recent hospitalization to this facility for chest pain about 1 month prior. Discharge home after improvement and followed up with Cardiology. He denies any recent injuries or illnesses otherwise. Today he has been complaining of nauseousness, high fevers, body aches and chills. He is febrile at 39.4 with a tachycardic pulse 121, no hypoxia or tachypnea. Blood pressure 153/106. He looks very dry and is complaining of being very thirsty. States he has been urinating well, no abdominal pain, back pain, chest pain or shortness of breath. Differential diagnosis includes sepsis, urinary tract infection, pneumonia from recent hospital visit, recurrence of his prior pericarditis, COVID, influenza. Septic bundle was initiated and he was given a 30 cc/kg bolus for his vital anomalies. Lactic acid and blood cultures drawn. CBC, CMP, lactic acid, chest x-ray and EKG ordered. Viral panel swabs obtained. Antibiotics to be started after blood cultures and labs obtained while workup is pending. Patient was provided 1000 mg of p.o. Tylenol for his fever and placed on monitor tech and pulse oximetry. His previous admission was reviewed, previous echocardiogram done last month shows normal ejection fraction, grade 1 diastolic dysfunction, he is able to tolerate fluid boluses at this time. Will re-evaluate his response to fluids and reassess. Patient re-evaluated after fluid boluses. Heart rate has come down into the low 110s but still elevated. Fever came down to 38.5 but still febrile. Saturating 95% on room air. Chest x-ray independently reviewed does not show any acute etiology. Patient has a white count of 15.9, lactic acid of 2.1, minor JUANITO on CKD. No obvious source on workup thus far, CT scans of the chest abdomen pelvis was ordered for further review. Urinalysis negative for infection. Viral swabs negative. CT scans independently reviewed and also interpreted by Radiology. No acute findings within the chest abdomen or pelvis identifiable. Patient is on Zosyn for empiric coverage of infection of unclear etiology since he is allergic to vancomycin. Will discuss with the hospitalist for admission at this time. Spoke to Dr. Dinh who accepted the patient to a telemetry monitored bed. Admission orders placed. Patient made aware plan for admission. Medical Records Attestation: I reviewed the patient's medical records. Lab Data Attestation: I reviewed the patient's lab results. 08/10/24 01:53 08/10/24 01:53 Labs: Lab Results 08/10/24 08/10/24 08/10/24 Range/Units 00:56 01:53 01:55 WBC 15.9 H (4.5-10.0) K/mm3 RBC 4.40 L (4.6-6.20) M/mm3 Hgb 13.9 L (14.0-18.0) g/dL Hct 42.2 (42.0-52.0) % MCV 95.9 (80-100) fl MCH 31.6 (26-34) pg MCHC 32.9 (32-36) g/dl RDW 14.6 H (11.5-14.5) % Plt Count 380 H (150-375) k/mm3 MPV 9.2 (7.4-10.4) fl Immature Gran % (Auto) 0.6 H (0-0.5) % Neut % (Auto) 82.7 H (45.5-73.1) % Lymph % (Auto) 8.3 L (18.3-44.2) % [place] % (Auto) 8.2 (2.6-8.5) % Eos % (Auto) 0.1 (0-4.4) % Baso % (Auto) 0.1 L (0.2-1.2) % Lymph # (Auto) 1.31 (0.9-3.2) K/mm3 [place] # (Auto) 1.3 H (0.1-0.6) K/mm3 Eos # (Auto) 0.0 (0-0.3) K/mm3 Baso # (Auto) 0.0 (0.0-0.1) K/mm3 Abs Immat Gran (auto) 0.09 H (0.00-0.031) K/mm3 Absolute Neuts (auto) 13.1 H (1.3-6.7) K/mm3 Absolute Nucleated RBC 0.020 H (0.0-0.012) K/mm3 Nucleated RBC % 0.1 (0.0-0.2) % PT 18.3 H (11.1-14.7) Seconds INR 1.5 APTT 29.8 (22.3-36.8) Seconds Sodium 139 (137-145) mmol/L Potassium 4.0 (3.4-5.0) mmol/L Chloride 103 (98-107) mmol/L Carbon Dioxide 26 (22-30) mmol/L Anion Gap 10 (4-12) mmol/L BUN 32 H D (9-20) mg/dL Creatinine 1.97 H (0.7-1.3) mg/dL Estim Creat Clear Calc 43 ml/min Estimated GFR 34 L (59 - ) Glucose 120 H (65-110) mg/dL Lactic Acid 2.1 H (0.7-2.0) mmol/L Calcium 9.6 (8.4-10.2) mg/dL Total Bilirubin 0.7 (0.2-1.3) mg/dL AST 45 (17-59) U/L ALT 41 (6-50) U/L Alkaline Phosphatase 41 (38-126) U/L C-Reactive Protein 1.0 (<1.0) mg/dL Total Protein 7.0 (6.3-8.2) g/dL Albumin 4.4 (3.5-5.1) g/dL Urine Color Yellow (Yellow) Urine Appearance Clear (Clear) Urine pH 7.0 (5.0-9.0) Ur Specific [place] 1.015 (1.001-1.035) Urine Protein 2+ H (Negative) mg/dL Urine Glucose (UA) 3+ H (Negative) mg/dL Urine Ketones Negative (Negative) mg/dL Ur Blood (Man) Trace-intact H (Negative) Urine Nitrate Negative (Negative) Urine Bilirubin Negative (Negative) Urine Urobilinogen 0.2 (<2.0) mg/dL Leukocyte Esterase Rfl Negative (Negative) ANGELICA/UL Urine RBC 0-2 (0-2) /hpf Urine WBC 0-3 (0-3) /hpf Ur Squamous Epith Cells None seen (Few) /hpf Urine Bacteria Rare /hpf Hyaline Casts 0-2 (None) /lpf Influenza A (RT-PCR) Negative (Negative) Influenza B (RT-PCR) Negative (Negative) RSV (RT-PCR) Negative (Negative) SARS-CoV-2 RNA (RT-PCR) Negative (Negative) Imaging Data Attestation: I personally reviewed and interpreted this imaging study as follows: My impression: No acute process in the chest abdomen or pelvis based on radiology interpretation at night. ECG Data EKG #1: Attestation: I personally reviewed and interpreted this ECG as follows: ECG completion date: 08/10/24 ECG completion time: 02:33 Prior ECG tracings: available for review Interpretation: Sinus tachycardia, QTC 424, IA interval 197, QRS 105. No significant interval change compared to prior EKG. Overall interpretation of sinus tachycardia. Rate of 116 beats per minute. Leftward axis deviation. Critical Care Time Critical Care Time Critical Care Time: Yes Total Critical Care Time: 36 Discharge Plan Discharge Clinical Impression: Fever of unknown origin, Sepsis, Acute dehydration Patient Disposition: Still a Patient Condition: Stable Patient Language: Kazakh Prescriptions: No Action testosterone cypionate 200 mg/mL oil 100 mg IM Q7D Jakafi 10 mg tablet 10 mg PO BID Mounjaro 10 mg/0.5 mL pen injector 10 mg subcut WEEKLY Jardiance 10 mg tablet 10 mg PO DAILY Eliquis 5 mg tablet 5 mg PO Q12H magnesium 200 mg tablet 400 mg PO BID pravastatin 10 mg tablet 10 mg PO DAILY diltiazem HCl 240 mg capsule,ext.rel 24h degradable 240 mg PO DAILY naproxen 500 mg tablet,delayed release (DR/EC) 500 mg PO BID PRN (Reason: pain) Qty: 30 0RF prednisone 10 mg tablets,dose pack See Taper PO DAILY 12 Days Qty: 42 0RF Taper: Prednisone Taper from 60 mg;12 days 40 mg DAILY for 2 Days and 0 Hour 30 mg DAILY for 2 Days and 0 Hour 20 mg DAILY for 2 Days and 0 Hour 10 mg DAILY for 2 Days and 0 Hour Follow-up/Referrals: UNKNOWN,DOCTOR [Primary Care Provider] - Time of Disposition: 04:49
[2024-08-10 01:38] LABS: Influenza A QL RT-PCR Negative (Negative); Influenza B QL RT-PCR Negative (Negative); RSV RNA, RT-PCR Negative (Negative); SARS-CoV-2 RNA PCR Negative (Negative)
[2024-08-10] MEDS: LACTATED RINGERS 1,000 ML 999 ML IV CONT ×3 (01:39→01:58)
[2024-08-10] MEDS: ACETAMINOPHEN 500 MG TABLET 1000 MG PO (01:39)
--- OUTSIDE RECORDS SUMMARY | 2024-08-10 01:56 | XMS_ITS ---
Author Organization [facility] Address [address] [place] [address] Care Team Providers Care Hospitality Aide Name Role Phone Rosa Russell WAREHOUSE INCENTIVE SELECTOR Unavailable [phone] Franky Sylvester MD Primary Care Provider [phone] Montrell Wolfe MD PhD Unavailable [phone] Pablo Mcmillan MD Unavailable [phone] Active Problems Problem Noted Date Diagnosed Date Controlled type 2 diabetes koby villarreal with stage 3 chronic kidney disease, without long-term current use of insulin 06/15/2024 History of colon polyps 03/23/2024 Medicare annual wellness visit, subsequent 02/14 Assessment & Plan (02/15/2024 10:43 AM FRUIT GRADER OPERATOR): Discussed with patient current recommendations for routine [...] 02/12/2024 Assessment & Plan (02/15/2024 10:42 AM FRUIT GRADER OPERATOR): Stable limit nephrotoxins Continue Lasix 20mg BP and glucose control GFR 42 Lab Results Component Value Date CREATININE 1.75 (H) 2023 BUNSER 26 (H) 2023 SODIUM 140 2023 POTASSIUM 4.5 2023 CO2 27 2023 Simple chronic bronchitis 02/12/2024 Assessment & Plan (02/15/2024 10:40 AM FRUIT GRADER OPERATOR): Stable Continue Shannoni Reports has substantially helped sx 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 EKG in [facility] 07/05 showed narrow complex tachycardia with HR >150. Given adenosine x2 (6 mg, 12 mg) in [facility]. EKG strip after adenosine noted [...] S/p LUISA and successful cardioversion 07/07/22 with orthodox of sinus rhythm. PO diltiazem 60 mg [...] 01/02/2022 Assessment & Plan (03/01/2024 9:39 AM FRUIT GRADER OPERATOR): Stable Uses CPAP with relief of symptoms [...] 2017 Assessment & Plan (02/15/2024 10:42 AM FRUIT GRADER OPERATOR): Stable Declines pain management Reports magnesium has [...] (10/09/2020): Added automatically from request for surgery [id number] Other osteoporosis without c urrent pathological fracture 05/17/2019 10/16/2022 Prediabetes 05/17/2019 10/16/2022 Acute on chronic renal insufficiency 10/26/2018 10/16/2022 Assessment & Plan (07/08/2022 1:13 PM CDT): Cr 2.32 on admission (BL around 2 ). S/p 1L IVF bolus in [facility] 3/25 -Patient does endorse occasional NSAID use at [...]
--- OUTSIDE RECORDS SUMMARY | 2024-08-10 01:56 | XMS_ITS | Encounter Summary ---
Author Organization [facility] Healthcare Address [address] [place] [address] Care Team Providers Care Chlorinator Operator Name Role Phone Rosa Russell ACCOUNTS PAYABLE ANALYST Unavailable [phone] rFanky Sylvester MD Primary Care Provider [phone] Montrell Wolfe MD PhD Unavailable [phone] Pablo Mcmillan MD Unavailable [phone] Encounter Details Date Type Department Care Team (Late st Contact Info) Description 06/14/2024 Orders Only [facility] Medical Group Family Medicine at [address] [place] [address] Franky Sylvester MD [address] [place] [address] [address] [place], [place] [id number] Social History Tobacco Use Types Packs/Day Years Used Date Smoking Tobacco: Former Cigarettes 0.3 15 1 5 - 1989 Smokeless Tobacco: Never Alcohol Use Standard Drinks/Week Comments No 0 (1 standard drink = 0.6 oz pur e alcohol) [facility] Utilities Answer Date Recorded In the past 12 months has [employer] electric, gas, oil, or water company threatened [...] often do you attend chur ch or voodoo services? Never 06/26/2023 Do you belong to any clubs o r organizations such as sabianism groups, unions, fraternal or athletic groups, or [...] on file Legal Sex Male 10:07 AM INTERIOR PANELER Gender Identity Not on file Sexual Orientation Not on file documented as of this encounter Plan of Treatment Not on file documented as of this encounter Goals Goal Patient Goal Type Associated Problems Recent Progress Patient-Stated? Author CCM Chronic Pain Care Plan Chronic Care Management No change(06/04 7:38 AM INTERIOR PANELER) No Seema Dutton, RN Note: Problem: Chronic Pain Goals: 1. Minimize further functional decline 2. Maximize quality of life 3. Control pain Strategies: - Activity/exercise program recommendation - Conservative stepwise pain medicine strategy with multi-disciplinary approach - Recommend healthy lifestyle strategies and compensatory methods as needed documented as of this encounter Visit Diagnoses Not on filedocumented in this encounter Care Teams Chlorinator Operator Relationship Specialty Start Date End Date Franky Sylvester MD PCP - General Family Medicine 12/03/21 Rosa Russell NP Nurse Practitioner Medical Oncology 06/13/20 Montrell Wolfe MD PhD Medical Oncologist/Layout Artist Medical Oncology 12/03/21 Pablo Mcmillan MD [id number] [place] [address] Grocery Packer Nephrology 03/21/24 documented as of this encounter
--- OUTSIDE RECORDS SUMMARY | 2024-08-10 01:56 | XMS_ITS | CONTINUITY OF CARE DOCUMENT ---
Author Name kori sheikh Address Unknown Organization [facility] Address [address] [facility] [address] [place] [address] Phone [phone] Care Team Providers Care Senior Planning Analyst Name Role Phone kori sheikh Unavailable Unavailable
--- OUTSIDE RECORDS SUMMARY | 2024-08-10 01:57 | XMS_ITS | Continuity of Care Document ---
Author Organization [facility] Address [address] [place] [address] [place] [address] Phone Care Team Providers Care Transportation Superintendent Name Role Phone Ghassan Simmons MD Unavailable Unavailable Allergies, Adverse Reactions, Alerts Substance Reaction Status Criticality vancomycin Active No Information Medications Medication Instructions Dosage Effective Dates (start - stop) Status Comments Ventolin HFA 90 mcg/actuation Aerosol Inhaler inhale 2 puff by inhalation route every 4 - 6 hours as needed - Active Levaquin 500 mg tablet take 1 tablet (500MG) by oral route every 24 hours - Active Procedures Procedure Date OFFICE/OUTPATIENT VISIT, EST Advance Directives Directive Yes / No Effective Date File Name No Information Encounters Encounter Description Practice Location Reason(s) For Visit Diagnoses Date Provider Providers Copied on Encounter OFFICE/OUTPAT IENT VISIT, EST [facility], [address] [place], [id number], [place] tel:[phone] [facility] Medicine cough (chief complaint) AML (chief complaint) GERD (chief complaint) Depression (chief complaint) slow stream (chief complaint) Dietary surveillance and counselingBronchi tis, AcuteMyeloid leukemia, acute, without mention of remissionOther osteoporosisGERD 4 Troy Ferrell. [address] [place], [place], [id number] , [place]. tel:[phone] Family History Family Member Type Diagnosis Age At Onset Mother Problem (finding) of surgical compli cation Brother Problem (finding) Coronary artery disease Father Problem (finding) dementia Brother Problem (finding) Alive and well Payers Payer name Insurance type Covered democrat ID Authoriza tion(s) No Information Social History Type Description Quantity Date Captured Comments Alcohol Use Details No Caffeine Use Details Unknown Tobacco Use Status No Information Smoking Status Never smoker Non-Smoking Tobacco Use Details : No Details Available : No Details Available Sex Male Vital Signs Date / Time: Height Weight BMI Pulse Rate Blood Pressure Temperature Respiratory Rate Body Surface Area Head Circumference BMI percentile Pulse Ox Inhaled Ox 3:46 PM 73.00 in 279.00 lbs 36.8 1 kg/m eter (2) 115 /min 118/54 mm[Hg] 96.4 F 18 /min Chief Complaint And Reason For Visit From encounter dated '05/03/2013 15:41'. cough (chief complaint) AML (chief complaint) GERD (chief complaint) Depression (chief complaint) slow stream (chief complaint) Plan Of Treatment Date Type Action Status Goal PSA. Due on due Goal Colonoscopy. Due on 014 due History Of Present Illness Encounter Date Complaint History Of Prese nt Illness No Information Instructions Date Instruction Additional Infor mation Dietary counseling Related to Di etary surveillance counseling Decrease caloric intake Related to Dietary surveillance counseling Assessments Type Assessment Date No Information Mental Status Date Cognitive Assessment Orientation - [employer] ed to time, place, person, situation.
--- OUTSIDE RECORDS SUMMARY | 2024-08-10 01:57 | XMS_ITS | Encounter Summary ---
Author Organization [facility] Address [address] [place] [address] Care Team Providers Care Chemical Machine Tender Name Role Phone Rosa Russell MANAGER LEADERSHIP DEVELOPMENT Unavailable [phone] Franky Sylvester MD Primary Care Provider [phone] Montrell Wolfe MD PhD Unavailable Pablo Mcmillan MD Unavailable [phone] Encounter Details Date Type Department Care Team (Late st Contact Info) Description 06/13/2024 Results Follow-Up [facility] Family Medicine at [address] [place] [address] [address] [place] [address] Social History Tobacco Use Types Packs/Day Years Used Date Smoking Tobacco: Former Cigarettes 0.3 15 - 1989 Smokeless Tobacco: Never Alcohol Use Standard Drinks/Week Comments No 0 (1 standard drink = 0.6 oz pur e alcohol) [facility] Utilities Answer Date Recorded In the past 12 months has [employer], gas, oil, or water company threatened to [...] any clubs o r organizations such as cheondoism groups, unions, fraternal or athletic groups, or [...] place to sleep or slept in a long term (including now)? No 06/26/2023 PHQ-9 Answer Date Recorded PHQ-9 Total Score 10 02/14/2024 Personal Safety Answer Date Recorded Have you ever been in or are you currently in a harmful physical or emotional relationship or is someone making you feel afraid or unsafe? Denies 05/19/2024 Sex and Gender Information Value Date Recorded Sex Assigned at Not on file Legal Sex Male 10:07 AM INSURANCE CLAIMS SUPERVISOR Gender Identity Not on file Sexual Orientation Not on file documented as of this encounter Plan of Treatment Not on file documented as of this encounter Goals Goal Patient Goal Type Associated Problems Recent Progress Patient-Stated? Author CCM Chronic Pain Care Plan Chronic Care Management No change(06/04 7:38 AM INSURANCE CLAIMS SUPERVISOR) No Seema Dutton, RN Note: Problem: Chronic Pain Goals: 1. Minimize further functional decline 2. Maximize quality of life 3. Control pain Strategies: - Activity/exercise program recommendation - Conservative stepwise pain medicine strategy with multi-disciplinary approach - Recommend healthy lifestyle strategies and compensatory methods as needed documented as of this encounter Visit Diagnoses Not on filedocumented in this encounter Care Teams Chemical Machine Tender Relationship Specialty Start Date End Date Franky Sylvester MD PCP - General Family Medicine 12/03/21 Rosa Russell NP Nurse Practitioner Medical Oncology 06/13/20 Montrell Wolfe MD PhD Medical Oncologist/Mining Captain Medical Oncology 12/03/21 Pablo Mcmillan MD [address] [place] [address] Granulator Machine Operator Nephrology 03/21/24 documented as of this encounter
--- OUTSIDE RECORDS SUMMARY | 2024-08-10 01:57 | XMS_ITS | Encounter Summary ---
Author Organization [facility] Address [address] [place] [address] Phone Care Team Providers Care Sea Captain Name Role Phone Rosa Russell Placido FUNERAL GREETER Unavailable [phone] Franky Sylvester MD Primary Care Provider [phone] Montrell Wofle MD PhD Unavailable [phone] Pablo Mcmillan MD Unavailable [phone] Encounter Details Date Type Department Care Team (Late st Contact Info) Description 07/18/2024 Results Follow-Up [facility] Endocrinology Metabolism and Lipid [address] [facility] Medicine [address] [place] [address] [place] [address] Breanne Hunt, PhD [address] [place] [address] Social History Tobacco Use Types Packs/Day Years Used Date Smoking Tobacco: Former Cigarettes 0.3 15 1 975 - 1989 Smokeless Tobacco: Never Alcohol Use Standard Drinks/Week Comments No 0 (1 standard drink = 0.6 oz pur e alcohol) [facility] Utilities Answer Date Recorded In the past 12 months has e electric, gas, oil, or water company threatened [...] on file Legal Sex Male 10:07 AM TEXTILE TECHNICAL OFFICER Gender Identity Not on file Sexual Orientation Not on file documented as of this encounter Plan of Treatment Not on file documented as of this encounter Goals Goal Patient Goal Type Associated Problems Recent Progress Patient-Stated? Author CCM Chronic Pain Care Plan Chronic Care Management No change(06/04 7:38 AM TEXTILE TECHNICAL OFFICER) No Seema Dutton, RN Note: Problem: Chronic Pain Goals: 1. Minimize further functional decline 2. Maximize quality of life 3. Control pain Strategies: - Activity/exercise program recommendation - Conservative stepwise pain medicine strategy with multi-disciplinary approach - Recommend healthy lifestyle strategies and compensatory methods as needed documented as of this encounter Visit Diagnoses Not on filedocumented in this encounter Care Teams Sea Captain Relationship Specialty Start Date End Date Franky Sylvester MD PCP - General Family Medicine 12/03/21 Rosa Russell NP Nurse Practitioner Medical Oncology 06/13/20 Montrell Wolfe MD PhD Medical Oncologist/Test Center Manager Medical Oncology 12/03/21 [place] [address] [place] [address] Filter Helper Nephrology 03/21/24 documented as of this encounter
--- OUTSIDE RECORDS SUMMARY | 2024-08-10 01:57 | XMS_ITS | Encounter Summary ---
Author Organization [facility] Address [address] [place] [address] Phone Care Team Providers Care Sign Poster Name Role Phone Rosa Russell PIPE INSPECTOR Unavailable [phone] Franky Sylvester MD Primary Care Provider [phone] Montrell Wolfe MD PhD Unavailable [phone] Pablo Mcmillan MD Unavailable [phone] Reason for Visit * Reason Onset Date Comments Prior Auth 07/18/2024 testosterone 07/18/2024 Encounter Details Date Type Department Care Team (Late st Contact Info) Description 07/18/[address] [facility] Endocrinology Metabolism and Lipid [address] [place] [address] Afsaneh Ackerman RN Prior Auth; testosterone Social History Tobacco Use Types Packs/Day Years Used Date Smoking Tobacco: Former Cigarettes 0.3 15 1 5 - 1989 Smokeless Tobacco: Never Alcohol Use Standard Drinks/Week Comments No 0 (1 standard drink = 0.6 oz pur e alcohol) [facility] Utilities Answer Date Recorded In the past 12 months has [employer], gas, oil, or water company threatened to [...] often do you attend chur ch or restorationist services? 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 Gender Identity Not on file Sexual Orientation Not on file documented as of this encounter Miscellaneous Notes * Telephone Encounter - Afsaneh Ackerman RN - 07/18/2024 6:20 PM CDT Pt notified * Telephone Encounter - Aaliyah Montenegro MA - 07/18/2024 5:46 PM CDT Rice: [id number] Depo-Testosterone 200MG/ML solution [employer] CaseId:[id number] Prior Auth Status:Approved Prior Auth Coverage Start Date:06/18/2024 Coverage End Date:07/18/2025 * Telephone Encounter - Afsaneh Ackerman RN - 07/18/2024 11:18 AM CDT Prior auth testosterone cypionate (DEPO-TESTOTERONE) 200 mg/mL injection E29.1 documented in this encounter Plan of Treatment Not on file documented as of this encounter Goals Goal Patient Goal Type Associated Problems Recent Progress Patient-Stated? Author CCM Chronic Pain Care Plan Chronic Care Management No change(06/04 7:38 AM ANNEALING OPERATOR) No Seema Dutton RN Note: Problem: Chronic Pain Goals: 1. Minimize further functional decline 2. Maximize quality of life 3. Control pain Strategies: - Activity/exercise program recommendation - Conservative stepwise pain medicine strategy with multi-disciplinary approach - Recommend healthy lifestyle strategies and compensatory methods as needed documented as of this encounter Visit Diagnoses Not on filedocumented in this encounter Care Teams Sign Poster Relationship Specialty Start Date End Date Franky Sylvester MD PCP - General Family Medicine 12/03/21 Rosa Russell NP Nurse Practitioner Medical Oncology 06/13/20 Montrell Wolfe MD PhD Medical Oncologist/Courseware Developer Medical Oncology 12/03/21 Pablo Mcmillan MD [address] [address] Print Finisher Nephrology 03/21/24 documented as of this encounter
--- OUTSIDE RECORDS SUMMARY | 2024-08-10 01:57 | XMS_ITS | Continuity of Care Document ---
Author Organization [facility] Address [address] [place] [address] Phone Care Team Providers Care Stage Set Designer Name Role Phone No Information Unavailable Unavailable Medications Medication Instructions Dosage Effective Dates (start - stop) Status Comments No Drug Therapy Prescribed Advance Directives Directive Yes / No Effective Date File Name No Information Encounters Encounter Description Practice Location Reason(s) For Visit Diagnoses Date Provider Providers Copied on Encounter [facility], [address] [place] [address], [address], [place] tel:[phone] No Information No Information Family History Family Member Type Diagnosis Age At Onset No Information Payers Payer name Insurance type Covered republican ID Authoriza tion(s) No Information Social History Type Description Quantity Date Captured Comments Sex Male Smoking Status No Information Chief Complaint And Reason For Visit No Information History Of Present Illness Encounter Date Complaint History Of Prese nt Illness No Information Medications Administered Medication Instructions Dosage Effective Dates (start - stop) Status Comments No Drug Therapy Prescribed Instructions Date Instruction Additional Infor mation No Information Assessments Type Assessment Date No Information
--- OUTSIDE RECORDS SUMMARY | 2024-08-10 01:57 | XMS_ITS | Referral Summary ---
Author Organization [facility] Address [address] [place] [address] Care Team Providers Care Photography Instructor Name Role Phone Rosa Russell CASE ADVOCATE Unavailable Franky Sylvester MD Primary Care Provider [phone] Montrell Wolfe MD PhD Unavailable Pablo Mcmillan MD Unavailable Encounters Date Type Department Care Team Description 07/20/2024 Telephone [facility] Family Medicine at [address] [place] [address] Wandy Smith MA Chart Review (MED ADHERENCE) 07/18/2024 Telephone [facility] Endocrinology Metabolism and Lipid [address] [facility] Medicine 5th [place] [address] [place] [address] Afsaneh Ackerman RN Prior Auth; testosterone 07/18/2024 Results Follow-Up [facility] Endocrinology Metabolism and Lipid [address] [facility] Medicine 13th [place] [address] [place] [address] Breanne Hunt MD PhD 07/12/2024 8:00 AM CDT Office Visit [facility] Endocrinology Metabolism and Lipid [address] [facility] Medicine 13th [place] [address] [place] [address] Breanne Hunt MD PhD Hypogonadism in male (Primary Dx); Diabetes mellitus screening 07/07/2024 6:58 PM CDT - 07/07/2024 11:59 PM CDT Hospital Encounter [facility] [address] [place] [address] Hypogonadism in male Discharge Disposition: Discharge to home or self care 07/07/2024 8:30 AM CDT Lab [facility] Outpatient Lab at [address] [id number] Essential hypertension (Primary Dx) 07/04/2024 Orders Only [facility] Cardiology [address] [facility] [address] [place] [phone] Sandie Coe, VIOLETTA 06/29/2024 Orders Only [facility] Information Management [address] [place] [address] Sandie Coe, VIOLETTA 06/23/2024 ACO Medication Access [facility] Accountable Care Organization [address] [place] [address] Giana Thomas CPhT 06/15/2024 9:15 AM SKIN SPECIALIST Office Visit [facility] Family Medicine at [address] [place] [address] Franky Sylvester MD Stage 3b chronic kidney disease (HCC) (Primary Dx); Essential hypertension; Paroxysmal atrial flutter (HCC); Hypogonadism in male; Acute myeloid leukemia in remission (HCC); 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 Floor [address] [place] [address] Montrell Wolfe MD PhD Acute myeloid leukemia in remission (HCC) 06/13/2024 8:00 AM SKIN SPECIALIST Lab [facility] - Lab Collection [address] [facility] Floor [address] [place] [address] Acute myeloid leukemia in remission (HCC); 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 disease, without long-term current use of insulin (HCC); Low testosterone in male 06/06/2024 Telephone [facility] Family Medicine at [address] [place] [address] Franky Sylvester MD Referral Request 05/19/2024 1:00 PM SKIN SPECIALIST - 05/19/2024 1:45 PM SKIN SPECIALIST Surgery [facility] Digestive Disease [address] [address] Natalie Gonzalez MD COLON REMOVAL SNARE 05/19/2024 1:04 PM SKIN SPECIALIST Anesthesia Event [facility] Digestive Disease [address] [address] Bautista Huertas MD 05/19/2024 11:46 AM SKIN SPECIALIST - 05/19/2024 2:23 PM SKIN SPECIALIST Hospital Encounter [facility] Digestive Disease [address] [address] Natalie Gonzalez MD History of colon polyps Discharge Disposition: Discharge to home or self care 05/12/2024 Telephone [facility] Specialty Services [address] [place] [address] Maria Guadalupe Marques RN GI Preprocedure from Last 3 Months Allergies Active Allergy Reactions Criticality Noted Date Comments Gabapentin Other (See comments) Low Reaction: Other Lisinopril Cough Low 11/13/2021 Vancomycin Itching Low Medications prochlorperazin e (COMPAZINE) 10 mg tabletIndicatio ns:Acute myeloid leukemia in remission (HCC) Take 1 tablet (10 mg total) by mouth every 6 (six) hours as needed for nausea 120 tablet 5 9 Active Additional Information Patient not taking.Reported on 07/12/2024 pravastatin (PRAVACHOL) 10 mg tablet TAKE 1 TABLET BY MOUTH EVERY DAY 90 tablet 3 4 Active dilTIAZem XR 240 mg 24 hr capsuleIndicati ons:Atrial fibrillation, unspecified type (HCC) Take 1 capsule (240 mg total) by mouth daily 90 capsule 2 4 Active magnesium gluconate 200 mg tabletIndicatio ns:hypomagnesem ia Take 2 tablets (400 mg total) by mouth 2 (two) times a day Active needle, disp, 18 G (BD Regular Bevel [place]) 18 gauge x 1 needle To draw up injection 12 each 11 4 Active syringe, disposable, (BD Luer-Emilia Syringe) 1 mL syringe To use for injection 12 each 11 4 Active needle, disp, 23 gauge (BD Regular Bevel [place]) 23 gauge x 3/4 needle To use to inject 12 each 11 4 Active apixaban (ELIQUIS) 5 mg tablet Take 1 tablet (5 mg total) by mouth 2 (two) times a day 180 tablet 1 5 Active empagliflozin (JARDIANCE) 10 mg tablet Take 1 tablet (10 mg total) by mouth daily 90 tablet 3 5 Active Jakafi 10 mg tabletIndicatio ns: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 TAKE WITH OR WITHOUT FOOD. 60 tablet [address] (EC NAPROSYN) 500 mg EC tablet Take 1 tablet (500 mg total) by mouth 2 (two) times a day 5 Active testosterone cypionate (DEPO-TESTOTERO NE) 200 mg/mL injectionIndica tions:Hypogonad ism in male Inject 0.5 mL (100 mg total) into the muscle as instructed every 7 days 4 mL 2 5 025 Active tirzepatide (Mounjaro) 10 mg/0.5 mL pen injector injection Inject 0.5 mL (10 mg total) under the skin once a week 0.5 mL 3 5 Active tirzepatide (Mounjaro) 10 mg/0.5 mL pen injector injection Inject 0.5 mL (10 mg total) under the skin once a week 0.5 mL 5 5 025 Discontin ued(Reord er) testosterone cypionate (DEPO-TESTOTERO NE) 200 mg/mL injectionIndica tions:Hypogonad ism in male Inject 0.5 mL (100 mg total) into the muscle as instructed every 7 days 2 mL 5 025 Discontin ued(Reord er) Active Problems Problem Noted Date Diagnosed Date Controlled type 2 diabetes m cherelle with stage 3 chronic kidney disease, without long-term current use of insulin 06/15/2024 History of colon polyps 03/23/2024 Medicare annual wellness visit, subsequent 02/14 Assessment & Plan (02/15/2024 10:43 AM SKIN SPECIALIST): Discussed with patient current recommendations for routine [...] 02/12/2024 Assessment & Plan (02/15/2024 10:42 AM SKIN SPECIALIST): Stable limit nephrotoxins Continue Lasix 20mg BP and glucose control GFR 42 Lab Results Component Value Date CREATININE 1.75 (H) 2023 BUNSER 26 (H) 2023 SODIUM 140 2023 POTASSIUM 4.5 2023 CO2 27 2023 Simple chronic bronchitis 02/12/2024 Assessment & Plan (02/15/2024 10:40 AM SKIN SPECIALIST): Stable Continue Lashaun Odell has substantially helped sx 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 EKG in [facility] 07/05 showed narrow complex tachycardia with HR >150. Given adenosine x2 (6 mg, 12 mg) in [facility]. EKG strip after adenosine noted flutter waves. Given Amio bolus 150 mg, IV metop x2 5 mg after adenosine with poor clinical response. -S/p IV dilt 10 mg x3 07/06/22. Better rate control was noted with IV dilt compared to metop/amio. -Cards consulted.He sees Dr Elizondo as outpatient,-PO metop & amio stopped per cards recs S/p LUISA and successful cardioversion 07/07/22 with latter-day of sinus rhythm. PO diltiazem 60 mg [...] 01/02/2022 Assessment & Plan (03/01/2024 9:39 AM SKIN SPECIALIST): Stable Uses CPAP with relief of symptoms [...] 2017 Assessment & Plan (02/15/2024 10:42 AM SKIN SPECIALIST): Stable Declines pain management Reports magnesium has [...] (10/09/2020): Added automatically from request for surgery [id number] Other osteoporosis without c urrent pathological fracture 05/17/2019 10/16/2022 Prediabetes 05/17/2019 10/16/2022 Acute on chronic renal insufficiency 10/26/2018 10/16/2022 Assessment & Plan (07/08/2022 1:13 PM CDT): Cr 2.32 on admission (BL around 2 ). S/p 1L IVF bolus in [facility] 07/05 -Patient does endorse occasional NSAID [...] 1 975 - 1989 Smokeless Tobacco: Never Tobacco Cessation:Counseling Given: No Alcohol Use Standard Drinks/Week Comments No 0 (1 standard drink = 0.6 oz pur e alcohol) [facility] Answer Date Recorded In the past 12 months has [employer], gas, oil, or water [employer] threatened to shut off services in your [...] 06/26/2023 How often do you attend chur or jewish services? Never 06/26/2023 Do you belong to any clubs o r organizations such as amish groups, unions, fraternal or athletic groups, or [...] on file Legal Sex Male 10:07 AM SKIN SPECIALIST Gender Identity Not on file Sexual Orientation Not on file Last Filed Vital Signs Vital Sign Reading Time Taken Comments Blood Pressure 126/79 07/12/2024 7:55 AM CDT Pulse 65 07/12/2024 7:55 AM CDT Temperature 36.8 C (98.3 F) 07/12/2024 7:55 AM CDT Respiratory Rate 18 06/13/2024 8:48 AM SKIN SPECIALIST Oxygen Saturation 95% 06/15/2024 8:47 AM SKIN SPECIALIST Inhaled Oxygen Concentration - - Weight 116.6 kg (257 lb) 07/12/2024 7:55 AM CDT Height 185.4 cm (6' 1 ) 07/12/2024 7:55 AM CDT Body Mass Index 33.91 07/12/2024 7:55 AM CDT Plan of Treatment Not on file Goals Goal Patient Goal Type Associated Problems Recent Progress Patient-Stated? Author CCM Chronic Pain Care Plan Chronic Care Management No change(06/04 7:38 AM SKIN SPECIALIST) No Seema Dutton, RN Note: Problem: Chronic Pain Goals: 1. Minimize further functional decline 2. Maximize quality of life 3. Control pain Strategies: - Activity/exercise program recommendation - Conservative stepwise pain medicine strategy with multi-disciplinary approach - Recommend healthy lifestyle strategies and compensatory methods as needed Medical Devices Implanted Type Area Striker Off Device Identifier Shelf Expiration Date Model / Serial / Lot Ivc Filter IVC Filter Vena Cava Procedures Procedure Name Priority Date/Time Associated Diagnosis Comments POCT GLUCOSE [id number] Routine 07/12/2024 8: 00 AM CDT Diabetes mellitus screening TESTOSTERONE, TOTAL AND FREE, SERUM Routine 07/07/2024 12:00 PM CDT Hypogonadism in male CARDIOLOGY DOCUMENT SCAN Routine 06/29/2024 2:46 PM CDT CARDIOLOGY DOCUMENT SCAN 06/29/2024 SCAN - RADIOLOGY/IMAGING 06/29/2024 CARDIOLOGY DOCUMENT SCAN Routine 06/28/2024 2:38 PM CDT EGFR Routine 06/13/2024 7:24 AM SKIN SPECIALIST Acute myeloid leukemia in remission (HCC) DIFFERENTIAL AUTO Routine 06/13/2024 7:2 4 AM SKIN SPECIALIST Acute myeloid leukemia in remission (HCC) TESTOSTERONE, TOTAL AND FREE, SERUM Routine 06/13/2024 7:24 AM SKIN SPECIALIST Low testosterone in male HEMOGLOBIN A1C Routine 06/13/2024 7:24 AM SKIN SPECIALIST 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 disease, without long-term current use of insulin (HCC) CBC WITH AUTO DIFFERENTIAL Routine 06/13/2024 7:24 AM SKIN SPECIALIST Acute myeloid leukemia in remission (HCC) COMPREHENSIVE METABOLIC PANEL Routine 06/13/2024 7:24 AM SKIN SPECIALIST Acute myeloid leukemia in remission (HCC) LACTATE DEHYDROGENASE Routine 06/13/2024 7:24 AM SKIN SPECIALIST Acute myeloid leukemia in remission (HCC) SURGICAL PATHOLOGY Routine 05/19/2024 1: 23 PM SKIN SPECIALIST History of colon polyps ENDO ADD ON COLON BIOPSY 05/19/2024 1:04 PM SKIN SPECIALIST History of colon polyps COLON REMOVAL SNARE 05/19/2024 1 :04 PM SKIN SPECIALIST History of colon polyps COLONOSCOPY 05/19/2024 12:30 PM SKIN SPECIALIST PSA SCREEN Routine 10/27/2023 10:05 AM CDT [...] DIABETES EYE EXAM Routine 02/26/2023 11:15 AM SKIN SPECIALIST HEPATITIS C ANTIBODY Routine 08/07/2021 2:55 PM CDT Creatinine elevation from Last 3 Months or Most Recently Relevant to Health Maintenance Results * POCT glucose (07/12/2024 8:00 AM CDT) Glucose Blood, POC 99 mg/dL Blood 07/12/2024 8:00 AM CDT Breanne Rivera MD PhD POINT OF CARE TEST ORDERABLES Final Result * (ABNORMAL) Testosterone, Total and Free, Serum (07/07/2024 12:00 PM CDT) Testosterone 217(L) 240 - 950 ng/dL [facility] Comment: ADDITIONAL INFORMATION Testing performed by Liquid Chromatography-Tandem Mass Spectrometry (LC-MS/MS). This test was developed and its performance characteristics determined by [facility] in a manner consistent with CLIA requirements. This test has not been cleared or approved by the U.S. Food and Drug Administration. Test Performed by: [facility] [place] [address] Ground Operations Supervisor: Dawn Rosa Ph.D.; CLIA# [id number] Testosterone, free 7.16 3.47 - 13.0 ng/dL [facility] Comment: ADDITIONAL INFORMATION This test was developed and its performance characteristics determined by [facility] in a manner consistent with CLIA requirements. This test has not been cleared or approved by the U.S. Food and Drug Administration. Blood 07/07/2024 12:0 0 PM CDT 07/07/2024 7:00 PM CDT Breanne Rivera MD PhD LAB BLOOD ORDERABLES Final Result [facility] [address] Department [place] [address] [facility] * Cardiology Document Scan (06/29/2024 2:46 PM CDT) Anatomical Region Laterality Modality Other Heriberto Merino MD CV CARDIAC SERVICES CORRINE TONEY Final Result * SCAN - RADIOLOGY/IMAGING (06/29/2024) Anatomical Region Laterality Modality Other Sandei Coe NP Final Result * Cardiology Document Scan (06/29/2024) Anatomical Region Laterality Modality Other Sandie Coe NP CV CARDIAC SERVICES PROCEDUR ES Final Result * Cardiology Document Scan (06/28/2024 2:38 PM CDT) Anatomical Region Laterality Modality Other Sandie Coe NP CV CARDIAC SERVICES PROCEDUR ES Final Result * (ABNORMAL) eGFR (06/13/2024 7:24 AM SKIN SPECIALIST) eGFR 37(L) >=60 mL/min/1. 73 m2 Comment: [...] last reviewed 2021. Blood 06/13/2024 7:24 AM SKIN SPECIALIST 06/13/2024 7:41 AM SKIN SPECIALIST Montrell Wolfe MD PhD LAB BLOOD ORDERABLES Fin al Result [facility] Department [place] [address] * (ABNORMAL) Differential, auto (06/13/2024 7:24 AM SKIN SPECIALIST) Neutrophil abs 3.3 1.5 - 6.5 K/cumm Comment:Testing performed by : [facility]e [facility], [address] [place] [phone] Lymphocyte abs 4.1(H) 0.8 - 3.3 K/cumm [facility] Comment:Testing performed by : [facility], [address] [place], [place] [phone] Monocyte abs 1.1(H) 0.2 - 0.8 K/cumm [facility] Comment:Testing performed by : [facility], [address] [place] [address] Eosinophil abs 0.0 0.0 - 0.5 K/cumm [facility] Comment:Testing performed by : [facility], [address] [place] [phone] Basophil abs 0.0 0.0 - 0.1 K/cumm [facility] Comment:Testing performed by : [facility], [address] [place] [phone] Neutrophil pct 38.6 % [facility] Comment: Interpretive Data Percent cell count reference ranges are not reported, since discordance with absolute values may lead to misinterpretation of CBC data. Current Interpretive Data was last revised on 2017. Testing performed by: [facility], [address] [place] [phone] Lymphocyte pct 48.1 % [facility] Comment: Interpretive Data Percent cell count reference ranges are not reported, since discordance with absolute values may lead to misinterpretation of CBC data. Current Interpretive Data was last revised on 2017. Testing performed by: [facility], [address] [place], [place] [phone] Monocyte pct 12.7 % [facility] Comment: Interpretive Data Percent cell count reference ranges are not reported, since discordance with absolute values may lead to misinterpretation of CBC data. Current Interpretive Data was last revised on 2017. Testing performed by: [facility], [address] [place] [phone] Eosinophil pct 0.5 % [facility] Comment: Interpretive Data Percent cell count reference ranges are not reported, since discordance with absolute values may lead to misinterpretation of CBC data. Current Interpretive Data was last revised on 2017. Testing performed by: [facility], [address] [place], [place] [phone] Basophil pct 0.1 % [facility] Comment: Interpretive Data Percent cell count reference ranges are not reported, since discordance with absolute values may lead to misinterpretation of CBC data. Current Interpretive Data was last revised on 2017. Testing performed by: [facility], [address] [place] [phone] Blood 06/13/2024 7:24 AM SKIN SPECIALIST 06/13/2024 7:42 AM SKIN SPECIALIST Montrell Wolfe MD PhD LAB BLOOD ORDERABLES Fin al Result [facility] Department of Laboratories [place], [place] [id number] * (ABNORMAL) CBC with auto differential (06/13/2024 7:24 AM SKIN SPECIALIST) WBC 8.5 3.8 - 9.9 K/cumm Comment:Testing performed by : [facility], [address] [place] [phone] Hgb 14.2 13.0 - 17.5 g/dL [facility] Comment:Testing performed by : [facility], [address] [place] [phone] Hct 42.6 38.9 - 50.3 % [facility] Comment:Testing performed by : [facility], [address] [place] [phone] Plt 417(H) 150 - 400 K/cumm [facility] Comment:Testing performed by : [facility], [address] [place], [place] [phone] MPV 7.6 6.8 - 10.4 fL [facility] Comment:Testing performed by : [facility], [address] [place], [place] [phone] RBC 4.47 4.30 - 5.80 M/cumm [facility] Comment:Testing performed by : [facility], [address] [place], [place] [phone] MCV 95.3 81.3 - 96.4 fL [facility] Comment:Testing performed by : [facility], [address] [place], [place] [phone] MCH 31.8 27.1 - 33.3 pg [facility] Comment:Testing performed by : [facility], [address] [place], [place] [phone] MCHC 33.4 32.3 - 35.7 g/dL [facility] Comment:Testing performed by : [facility], [address] [place], [place] [phone] RDW CV 14.8 11.1 - 14.9 % [facility] Comment:Testing performed by : [facility], [address] [place], [place] [phone] NRBC abs 0.00 0.00 - 0.01 K/cumm [facility] Comment:Testing performed by : [facility], [address] [place], [place] [phone] Blood 06/13/2024 7:24 AM SKIN SPECIALIST 06/13/2024 7:42 AM SKIN SPECIALIST us Montrell Wolfe MD PhD LAB BLOOD ORDERABLES Fin al Result [facility] Department [place] [address] * (ABNORMAL) Testosterone, Total and Free, Serum (06/13/2024 7:24 AM SKIN SPECIALIST) Testosterone 1260(H) 240 - 950 ng/dL [facility] Comment: ADDITIONAL INFORMATION Testing performed by Liquid Chromatography-Tandem Mass Spectrometry (LC-MS/MS). This test was developed and its performance characteristics determined by [facility] in a manner consistent with CLIA requirements. This test has not been cleared or approved by the U.S. Food and Drug Administration. Test Performed by: [facility] [address] [place] [address] Ground Operations Supervisor: Dawn Rosa Ph.D.; CLIA# [id number] Testosterone, free 44.5(H) 3.47 - 13.0 ng/dL [facility] Comment: ADDITIONAL INFORMATION This test was developed and its performance characteristics determined by [facility] in a manner consistent with CLIA requirements. This test has not been cleared or approved by the U.S. Food and Drug Administration. Blood 06/13/2024 7:24 AM SKIN SPECIALIST 06/13/2024 10:33 AM SKIN SPECIALIST Breanne Rivera MD PhD LAB BLOOD ORDERABLES Final Result Performing Organization Address City/[facility]/ZIP Co de Phone Number [facility] [employer] [place] [address] [facility] * Lactate dehydrogenase (LD) (06/13/2024 7:24 AM SKIN SPECIALIST) Lactate dehydrogenase (LDH) 198 100 - 250 Units/L Blood 06/13/2024 7:24 AM SKIN SPECIALIST 06/13/2024 7:41 AM SKIN SPECIALIST us Montrell Wolfe MD PhD LAB BLOOD ORDERABLES Fin al Result Performing Organization Address City/[facility]/ZIP Co de Phone Number [facility] [employer] [address] * Hemoglobin A1c (06/13/2024 7:24 AM SKIN SPECIALIST) Pathologist [facility] Hgb A1C 5.6 4.0 - 5.6 % Estimated Average Glucose 114 mg/dL [facility] Comment: The ADA recommends reporting an estimated Average Glucose (eAG) with all Hemoglobin A1c results using the equation derived from a study of 507 normal and diabetic adults. Minority populations were underrepresented and children were not included. (Diabetes Care 2020; 43(S1): S66-S76). The eAG is not equivalent to a fasting glucose. Blood 06/13/2024 7:24 AM SKIN SPECIALIST 06/13/2024 7:40 AM SKIN SPECIALIST us Franky Sylvester MD LAB BLOOD ORDERABLES Final Re sult [facility] Department [place] [address] * (ABNORMAL) Comprehensive metabolic panel (06/13/2024 7:24 AM SKIN SPECIALIST) [facility] Sodium 143 135 - 145 mmol/L Potassium, pl 4.1 3.3 - 4.9 mmol/L [facility] Chloride 105 97 - 110 mmol/L [facility] CO2 30 22 - 32 mmol/L [facility] Anion gap 8 2 - 15 mmol/L [facility] BUN 35(H) 6 - 25 mg/dL [facility] Creatinine 1.93(H) 0.80 - 1.30 mg/dL [facility] Glucose 105 70 - 199 mg/dL [facility] Comment: Interpretive Data Fasting glucose >/= 126 [...] 2022. Calcium 9.9 8.5 - 10.3 mg/dL [facility] Bilirubin, total 0.5 0.1 - 1.2 mg/dL [facility] Protein, pl 7.5 6.5 - 8.5 g/dL [facility] Albumin 4.2 3.5 - 5.0 g/dL [facility] Alk phos 46 40 - 130 Units/L [facility] ALT 31 7 - 55 Units/L [facility] AST 39 10 - 50 Units/L [facility] Blood 06/13/2024 7:24 AM SKIN SPECIALIST 06/13/2024 7:41 AM SKIN SPECIALIST Montrell Wolfe MD PhD LAB BLOOD ORDERABLES Fin al Result [facility] Department [place] [address] * Surgical pathology (05/19/2024 1:23 PM SKIN SPECIALIST) Tissue specimen (specimen) (Polyp(s), colon/colorectal, esophageal, gastric) 05/19/2024 1:23 PM SKIN SPECIALIST Tissue specimen (specimen) (Polyp(s), colon/colorectal, esophageal, gastric) 05/19/2024 1:32 PM SKIN SPECIALIST Narrative PATHOLOGY [facility] - 05/20/2024 9:52 AM SKIN SPECIALIST EPIC results best viewed via link to PDF [facility] [place] [address] Note to Patients: This report may contain [...] Gender: M : 1955 (Age: 68) Address: [address] [place] [address] [place] [address] Hospital #: [id number] Taken:05/19/2024 Received:05/19/2024 Reported: 05/20/2024 Patient Type: [facility] Service: Gastro Location: Physician(s): Natalie Gonzalez M.D. Franky Sylvester M.D. Diagnosis: A. Large bowel, ascending colon, [...] Surgical Pathology and Flow Cytometry Departments at [facility] as part of an ongoing software quality engineer program and in compliance with federally mandated [...] Surgical Pathology and Flow Cytometry Departments of [facility]. It has not been cleared or approved by the [place]. [place]. Food and Drug Administration. IMAGES AND SCANNED DOCUMENTS, IF INCLUDED, ONLY VIEWABLE IN PDF VERSION OF REPORT us Natalie Gonzalez MD LAB PATHOLOGY ORDERABLES Final Result PATHOLOGY [facility] 3rd Floor [place], [place] [phone] * Colonoscopy (05/19/2024 12:30 PM SKIN SPECIALIST) Anatomical Region Laterality Modality Other Narrative Procedure Note Natalie Gonzalez MD - 05/19/2024 12:30 PM CST [facility] ENDOS[facility] Patient Name: Bk Pichardo Procedure Date: 05/19/2024 12:30 PM Date of : 1955 Admit Type: Outpatient Age: 68 Gender: Male Attending MD: Natalie Gonzalez M.D. Room: [facility] ENDOSCOPY ROOM 4 Note Status: Finalized Procedure: Colonoscopy Indications: High risk colon cancer surveillance: Personalhistory of colonic polyps, Last colonoscopy: 2023, multiple TAs were removed Referring MD: Franky Sylvester M.D. Providers: Natalie Gonzaelz M.D. Medicines: Monitored Anesthesia Care Complications: No [...] scope was passed under direct vision.The CF [id number] endoscope was introduced through the anus and [...] Return to referring physician. - please call [phone], 8 am -5 pm if any post procedural concerns/issues, after hours/weekends please call [phone] and ask for GI fellow oncall Attending [...] LAB BLOOD ORDERABLES Final Re sult [facility] [address] Department [place] [address] * (ABNORMAL) Lipid panel (09/04/2023 10:34 AM [...] on 2017. Triglycerides 245(H) <=149 mg/dL [facility] Comment: Interpretive Data Ages < or = [...] revised on 2017. HDL 40 >=40 mg/dL [facility] Comment: Interpretive Data Ages < or = [...] on 2017. LDL, calculated 104 <=129 mg/dL [facility] Comment: Interpretive Data Ages < or = [...] revised on 2017. Non-HDL Cholesterol 153 mg/dL [facility] Comment: Interpretive Data Ages < or = [...] last revised on 2017. Chol/HDL ratio 5 [facility] Blood 09/04/2023 10:3 4 AM CDT 09/04/2023 11:01 AM CDT us Corina Rater CASE ADVOCATE LAB BLOOD ORDERABLES Final Resul t Performing Organization Address [facility] Co de Phone Number [facility] Department [place] [address] * (ABNORMAL) Albumin Creatinine Ratio, Urine (07/09/2023 9:09 AM CDT) Albumin Ur 65.7 mg/L Comment: Interpretive Data No reference range established. Current interpretive data was last revised 2018. Creatinine Ur 186.3 mg/dL [facility] Comment: Interpretive Data No reference range established. Current interpretive data was last revised 2018. Albumin Creatinine Ratio, Ur 35(H) 1 - 29 mg/g [facility] Urine 07/09/2023 9:09 AM CDT 07/09/2023 2:01 PM CDT Franky Sylvester MD LAB URINE ORDERABLES Final Re sult Performing Organization Address [facility] Co de Phone Number [facility] [address] Department [place] [address] * (ABNORMAL) DIABETES EYE EXAM (02/26/2023 11:15 AM SKIN SPECIALIST) Result [facility] Filemon Wilkerson MD HEALTH MAINTENANCE Final Result * Hepatitis C antibody (08/07/2021 2:55 PM CDT) Hep C Ab Nonreactive Nonreactive [facility] Comment:Antibodies to HCV no t detected. Does NOT exclude the possibility of recent exposure to HCV. Blood 08/07/2021 2:55 PM CDT 08/07/2021 3:30 PM CDT Pablo Mcmillan MD LAB MICROBIOLOGY - GENE RAL ORDERABLES Edited Result - Final Performing Organization Address [facility] Co de Phone Number [facility] [place] [address] from Last 3 Months or Most Recently Relevant to Health Maintenance Insurance [facility] Advance Directives For more information, please contact: [phone] * Full Code (Latest Code Status on File) Date Activated Date Inactivated Comments 05/19/2024 12:20 PM 05/19/2024 6:43 PM * Full Code Date Activated Date Inactivated Comments 04/22/2023 8:39 AM 04/22/2023 2:54 PM * Full Code Date Activated Date Inactivated Comments 07/05/2022 6:35 PM 07/08/2022 7:06 PM * Full Code Date Activated Date Inactivated Comments 10/24/2020 6:59 AM 10/24/2020 1:29 PM Care Teams Photography Instructor Relationship Specialty Start Date End Date Franky Sylvester MD PCP - General Family Medicine 12/03/21 Rosa Russell, VIOLETTA Nurse Practitioner Medical Oncology 06/13/20 Montrell Wolfe MD PhD Medical Oncologist/Webbing Seamer [employer] Medical Oncology 12/03/21 [place] [id number] [place] [id number] [employer] Coil Assembler Nephrology 03/21/24
--- OUTSIDE RECORDS SUMMARY | 2024-08-10 01:57 | XMS_ITS | Clinical Summary ---
Author Organization [facility] Address [address] [place] [address] Care Team Providers Care Foam Cutting Supervisor Name Role Phone Rosa Russell HOT DIPPER Unavailable [phone] Franky Sylvester MD Primary Care Provider [phone] Montrell Wolfe MD PhD Unavailable [phone] Pablo Mcmillan MD Unavailable Allergies Active Allergy Reactions Criticality Noted Date [...] needle, disp, 18 G (BD Regular Bevel [place]) 18 gauge x 1 needle To draw up injection 12 each 11 12/20/202 4 Active syringe, disposable, (BD Luer-Emilia Syringe) 1 mL syringe To use for injection 12 each 4 Active needle, disp, 23 gauge (BD Regular Bevel [place]) 23 gauge x 3/4 needle To use to inject 12 each 4 Active apixaban (ELIQUIS) 5 mg tablet [...] 02/14 Assessment & Plan (02/15/2024 10:43 AM TOASTER ELEMENT REPAIRER): Discussed with patient current recommendations for routine [...] 02/12/2024 Assessment & Plan (02/15/2024 10:42 AM TOASTER ELEMENT REPAIRER): Stable limit nephrotoxins Continue Lasix 20mg BP and glucose control GFR 42 Lab Results Component Value Date CREATININE 1.75 (H) 2023 BUNSER 26 (H) 2023 SODIUM 140 2023 POTASSIUM 4.5 2023 CO2 27 2023 Simple chronic bronchitis 02/12/2024 Assessment & Plan (02/15/2024 10:40 AM TOASTER ELEMENT REPAIRER): Stable Continue Shannoni Reports has substantially helped sx 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 EKG in [facility] 07/05 showed narrow complex tachycardia with HR >150. Given adenosine x2 (6 mg, 12 mg) in [facility]. EKG strip after adenosine noted flutter waves. Given Amio bolus 150 mg, IV metop x2 5 mg after adenosine with poor clinical response. -S/p IV dilt 10 mg x3 07/06/22. Better rate control was noted with IV dilt compared to metop/amio. -Cards consulted.He sees Dr Elizondo as outpatient,-PO metop & amio stopped per peter recs S/p LUISA and successful cardioversion 07/07/22 with judaism of sinus rhythm. PO diltiazem 60 mg [...] 01/02/2022 Assessment & Plan (03/01/2024 9:39 AM TOASTER ELEMENT REPAIRER): Stable Uses CPAP with relief of symptoms [...] 2017 Assessment & Plan (02/15/2024 10:42 AM TOASTER ELEMENT REPAIRER): Stable Declines pain management Reports magnesium has [...] (10/09/2020): Added automatically from request for surgery [id number] Other osteoporosis without c urrent pathological fracture 05/17/2019 10/16/2022 Prediabetes 05/17/2019 10/16/2022 Acute on chronic renal insufficiency 10/26/2018 10/16/2022 Assessment & Plan (07/08/2022 1:13 PM CDT): Cr 2.32 on admission (BL around 2 ). S/p 1L IVF bolus in [facility] 07/05 -Patient does endorse occasional [...] Type Department Care Team Description 07/20/2024 Telephone [facility] Family Medicine at [address] [place] [phone] Wandy Smith MA Chart Review (MED ADHERENCE) 07/18/2024 Telephone [facility] Endocrinology Metabolism and Lipid [address] [facility] 5th [place] [address] [place] [address] Afsaneh Ackerman RN Prior Auth; testosterone 07/18/2024 Results Follow-Up [facility] Endocrinology Metabolism and Lipid [address] [facility] Medicine 13th [place] [address] [place] [address] Breanne Hunt MD PhD 07/12/2024 8:00 AM CDT Office Visit [facility] Endocrinology Metabolism and Lipid [address] [facility] Medicine 13th [place] [address] [place] [address] Breanne Hunt MD PhD Hypogonadism in male (Primary Dx); Diabetes mellitus screening 07/07/2024 6:58 PM CDT - 07/07/2024 11:59 PM CDT Hospital Encounter [facility] [address] [place] [address] Hypogonadism in male Discharge Disposition: Discharge to home or self care 07/07/2024 8:30 AM CDT Lab [facility] Outpatient Lab at [address] [phone] Essential hypertension (Primary Dx) 07/04/2024 Orders Only [facility] Medical [facility] Cardiology [address] [place] [phone] Sandie Coe, VIOLETTA 06/29/2024 Orders Only [facility] Information Management [address] [place] [address] Sandie Coe NP 06/23/2024 ACO Medication Access [facility] Accountable Care Organization [address] [place] [address] Giana Thomas CPhT 06/15/2024 9:15 AM TOASTER ELEMENT REPAIRER Office Visit [facility] Medical [facility] Family Medicine at [address] [place] [address] Franky Sylvester MD Stage 3b chronic kidney disease (HCC) (Primary Dx); Essential hypertension; Paroxysmal atrial flutter (HCC); Hypogonadism in male; Acute myeloid leukemia in remission (HCC); 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 disease, without long-term current use of insulin (HCC) 06/14/2024 Orders Only [facility] Family Medicine at [address] [place] [address] Franky Sylvester MD 06/13/2024 9:15 AM TOASTER ELEMENT REPAIRER Office Visit [facility] Bone Marrow Transplant [facility] Floor 6 [place] [phone] Montrell Wolfe MD PhD Acute myeloid leukemia in remission (HCC) 06/13/2024 8:00 AM TOASTER ELEMENT REPAIRER Lab [facility] - Lab Collection [facility] Floor [address] [place] [address] Acute myeloid leukemia in remission (HCC); 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 disease, without long-term current use of insulin (HCC); Low testosterone in male 06/13/2024 Results Follow-Up [facility] Family Medicine at [address] [place] [address] Lisandra Romero PA 06/06/2024 Telephone [facility] Medicine at [address] [place] [address] Franky Sylvester MD Referral Request 05/19/2024 1:04 PM TOASTER ELEMENT REPAIRER Anesthesia Event [facility] Digestive [address] [address] Bautista Huertas MD 05/19/2024 1:00 PM TOASTER ELEMENT REPAIRER - 05/19/2024 1:45 PM TOASTER ELEMENT REPAIRER Surgery [facility] Digestive [address] [address] Natalie Gonzalez MD COLON REMOVAL SNARE 05/19/2024 11:46 AM TOASTER ELEMENT REPAIRER - 05/19/2024 2:23 PM TOASTER ELEMENT REPAIRER Hospital Encounter [facility] Digestive [address] [address] Natalie Gonzalez MD History of colon polyps Discharge Disposition: Discharge to home or self care 05/12/2024 Telephone [facility] Specialty Services [address] [place] [phone] Maria Guadalupe Marques RN GI Preprocedure from Last 3 Months Immunizations Immunization Administration [...] (HCC) 2007 s/p chemoradiation. 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 Never 06/26/2023 Do you belong to [...] on file Legal Sex Male 10:07 AM TOASTER ELEMENT REPAIRER Gender Identity Not on file Sexual Orientation Not on file Obstetrics History Last Filed Vital Signs Vital Sign Reading Time Taken Comments Blood Pressure 126/79 07/12/2024 7:55 AM CDT Pulse 65 07/12/2024 7:55 AM CDT Temperature 36.8 C (98.3 F) 07/12/2024 7:55 AM CDT Respiratory Rate 18 06/13/2024 8:48 AM TOASTER ELEMENT REPAIRER Oxygen Saturation 95% 06/15/2024 8:47 AM TOASTER ELEMENT REPAIRER Inhaled Oxygen Concentration - - Weight 116.6 kg (257 lb) 07/12/2024 7:55 AM CDT Height 185.4 cm (6' 1 ) 07/12/2024 7:55 AM CDT Body Mass Index 33.91 07/12/2024 7:55 AM CDT Plan of Treatment Health Maintenance Due Date Last Done Comments Hepatitis B Screening 12/20/1973 Zoster Vaccine (1 of 2) 12/20/1974 Pneumococcal vaccine 65+ (4 of 4 - PCV20 or PCV21) 11/11/2020 11/12/2015, 10/01/2015, 08/29/2015, Additional history exists Abdominal Aortic Aneurysm (A AA) Screen 12/20/2020 Foot Exam 10/17/2023 10/16/2022, 08/12, 10/26/2018, Additional history exists Covid-19 Vaccine (2023-2 5 season) 2023 03/25/2023, 05/19/2022, 11/27/2021, Additional [...] Chronic Care Management No change(06/04 7:38 AM TOASTER ELEMENT REPAIRER) No Seema Dutton, PANCHO Note: Problem: Chronic Pain Goals: 1. Minimize further functional decline 2. Maximize quality of life 3. Control pain Strategies: - Activity/exercise program recommendation - Conservative stepwise pain medicine strategy with multi-disciplinary approach - Recommend healthy lifestyle strategies and compensatory methods as needed Medical Devices Implanted Type Area Vp Of Product Device Identifier Shelf Expiration Date Model / Serial / Lot Ivc Filter IVC Filter Vena Cava Procedures Procedure Name Priority Date/Time Associated Diagnosis Comments POCT GLUCOSE [id number] Routine 07/12/2024 8: 00 AM CDT Diabetes mellitus screening TESTOSTERONE, TOTAL AND FREE, SERUM Routine 07/07/2024 12:00 PM CDT Hypogonadism in male CARDIOLOGY DOCUMENT SCAN Routine 06/29/2024 2:46 PM CDT CARDIOLOGY DOCUMENT SCAN 06/29/2024 SCAN - RADIOLOGY/IMAGING 06/29/2024 CARDIOLOGY DOCUMENT SCAN Routine 06/28/2024 2:38 PM CDT EGFR Routine 06/13/2024 7:24 AM TOASTER ELEMENT REPAIRER Acute myeloid leukemia in remission (HCC) DIFFERENTIAL AUTO Routine 06/13/2024 7:2 4 AM TOASTER ELEMENT REPAIRER Acute myeloid leukemia in remission (HCC) TESTOSTERONE, TOTAL AND FREE, SERUM Routine 06/13/2024 7:24 AM TOASTER ELEMENT REPAIRER Low testosterone in male HEMOGLOBIN A1C Routine 06/13/2024 7:24 AM TOASTER ELEMENT REPAIRER 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 disease, without long-term current use of insulin (HCC) CBC WITH AUTO DIFFERENTIAL Routine 06/13/2024 7:24 AM TOASTER ELEMENT REPAIRER Acute myeloid leukemia in remission (HCC) COMPREHENSIVE METABOLIC PANEL Routine 06/13/2024 7:24 AM TOASTER ELEMENT REPAIRER Acute myeloid leukemia in remission (HCC) LACTATE DEHYDROGENASE Routine 06/13/2024 7:24 AM TOASTER ELEMENT REPAIRER Acute myeloid leukemia in remission (HCC) SURGICAL PATHOLOGY Routine 05/19/2024 1: 23 PM TOASTER ELEMENT REPAIRER History of colon polyps ENDO ADD ON COLON BIOPSY 05/19/2024 1:04 PM TOASTER ELEMENT REPAIRER History of colon polyps COLON REMOVAL SNARE 05/19/2024 1 :04 PM TOASTER ELEMENT REPAIRER History of colon polyps COLONOSCOPY 05/19/2024 12:30 PM TOASTER ELEMENT REPAIRER PSA SCREEN Routine 10/27/2023 10:05 AM CDT [...] DIABETES EYE EXAM Routine 02/26/2023 11:15 AM TOASTER ELEMENT REPAIRER HEPATITIS C ANTIBODY Routine 08/07/2021 2:55 PM CDT Creatinine elevation from Last 3 Months or Most Recently Relevant to Health Maintenance Results * POCT glucose (07/12/2024 8:00 AM CDT) Pathologist [facility] Glucose Blood, POC 99 mg/dL Blood 07/12/2024 8:00 AM CDT Breanne Rivera MD PhD POINT OF CARE TEST ORDERABLES Final Result * (ABNORMAL) Testosterone, Total and Free, Serum (07/07/2024 12:00 PM CDT) Pathologist [facility] Testosterone 217(L) 240 - 950 ng/dL [facility] ref Lab Comment: ADDITIONAL INFORMATION Testing performed by Liquid Chromatography-Tandem Mass Spectrometry (LC-MS/MS). This test was developed and its performance characteristics determined by [facility] in a manner consistent with CLIA requirements. This test has not been cleared or approved by the U.S. Food and Drug Administration. Test Performed by: [facility] Laboratories - [facility] [address] [place] [address] Lead Tank Mechanic: Dawn Rosa Ph.D.; CLIA# [id number] Testosterone, free 7.16 3.47 - 13.0 ng/dL KANA MIGUEL Comment: ADDITIONAL INFORMATION This test was developed and its performance characteristics determined by [facility] in a manner consistent with CLIA requirements. This test has not been cleared or approved by the U.S. Food and Drug Administration. Blood 07/07/2024 12:0 0 PM CDT 07/07/2024 7:00 PM CDT Breanne Rivera MD PhD LAB BLOOD ORDERABLES Final Result [facility] [address] [place] [address] [facility] Lab * Cardiology Document Scan (06/29/2024 2:46 PM CDT) Anatomical Region Laterality Modality Other Heriberto Merino MD CV CARDIAC SERVICES CORRINE TONEY Final Result * SCAN - RADIOLOGY/IMAGING (06/29/2024) Anatomical Region Laterality Modality Other us Sandie Coe NP Final Result * Cardiology Document Scan (06/29/2024) Anatomical Region Laterality Modality Other Sandie Coe NP CV CARDIAC SERVICES PROCEDUR ES Final Result * Cardiology Document Scan (06/28/2024 2:38 PM CDT) Anatomical Region Laterality Modality Other Sandie Janessa Carolin HOT DIPPER CV CARDIAC SERVICES PROCEDUR ES Final Result * (ABNORMAL) eGFR (06/13/2024 7:24 AM TOASTER ELEMENT REPAIRER) eGFR 37(L) >=60 mL/min/1. 73 m2 Comment: [...] last reviewed 2021. Blood 06/13/2024 7:24 AM TOASTER ELEMENT REPAIRER 06/13/2024 7:41 AM TOASTER ELEMENT REPAIRER Montrell Wolfe MD PhD LAB BLOOD ORDERABLES Fin al Result [facility] [address] [facility] Department of Laboratories [place], [place] [id number] * (ABNORMAL) Differential, auto (06/13/2024 7:24 AM TOASTER ELEMENT REPAIRER) Pathologist [facility] Neutrophil abs 3.3 1.5 - 6.5 K/cumm Comment:Testing performed by : [facility] Heme Lab, [facility] [place] [address] Lymphocyte abs 4.1(H) 0.8 - 3.3 K/cumm [facility] Comment:Testing performed by : [facility] Heme Lab, [facility] [place] [address] Monocyte abs 1.1(H) 0.2 - 0.8 K/cumm [facility] Comment:Testing performed by : [facility] Heme Lab, [address] [place] [phone] Eosinophil abs 0.0 0.0 - 0.5 K/cumm [facility] Comment:Testing performed by : [facility] Heme Lab, [address] [place] [phone] Basophil abs 0.0 0.0 - 0.1 K/cumm [facility] Comment:Testing performed by : [facility] Heme Lab, [address] [place] [phone] Neutrophil pct 38.6 % [facility] Comment: Interpretive Data Percent cell count reference ranges are not reported, since discordance with absolute values may lead to misinterpretation of CBC data. Current Interpretive Data was last revised on 2017. Testing performed by: [facility] Lab, [address] [place] [phone] Lymphocyte pct 48.1 % [facility] Comment: Interpretive Data Percent cell count reference ranges are not reported, since discordance with absolute values may lead to misinterpretation of CBC data. Current Interpretive Data was last revised on 2017. Testing performed by: [facility] Lab, [address] [place] [phone] Monocyte pct 12.7 % [facility] Comment: Interpretive Data Percent cell count reference ranges are not reported, since discordance with absolute values may lead to misinterpretation of CBC data. Current Interpretive Data was last revised on 2017. Testing performed by: [facility] Heme Lab, [address] [place] [phone] Eosinophil pct 0.5 % [facility] Comment: Interpretive Data Percent cell count reference ranges are not reported, since discordance with absolute values may lead to misinterpretation of CBC data. Current Interpretive Data was last revised on 2017. Testing performed by: [facility] Heme Lab, [address] [place] [phone] Basophil pct 0.1 % [facility] Comment: Interpretive Data Percent cell count reference ranges are not reported, since discordance with absolute values may lead to misinterpretation of CBC data. Current Interpretive Data was last revised on 2017. Testing performed by: [facility] Heme Lab, [address] [place] [phone] Blood 06/13/2024 7:24 AM TOASTER ELEMENT REPAIRER 06/13/2024 7:42 AM TOASTER ELEMENT REPAIRER us Montrell Wolfe MD PhD LAB BLOOD ORDERABLES Fin al Result [facility] [address] [facility] Department [place] [address] * (ABNORMAL) CBC with auto differential (06/13/2024 7:24 AM TOASTER ELEMENT REPAIRER) WBC 8.5 3.8 - 9.9 K/cumm Comment:Testing performed by : [facility] Heme Lab, [address] [place] [address] Hgb 14.2 13.0 - 17.5 g/dL CERIRASEMA [facility] Comment:Testing performed by : [facility] Heme Lab, [address] [place] [address] Hct 42.6 38.9 - 50.3 % [facility] Comment:Testing performed by : [facility] Heme Lab, [address] [place] [address] Plt 417(H) 150 - 400 K/cumm CERIRASEMA [facility] Comment:Testing performed by : [facility] Heme Lab, [address] [place] [address] MPV 7.6 6.8 - 10.4 fL CERIRASEMA [facility] Comment:Testing performed by : [facility] Heme Lab, [address] [place] [address] RBC 4.47 4.30 - 5.80 M/cumm [facility]ERIR[facility]EMA [facility] Comment:Testing performed by : [facility] Heme Lab, [address] [place] [address] MCV 95.3 81.3 - 96.4 fL [facility]ERIR[facility]EMA [facility] Comment:Testing performed by : [facility] Heme Lab, [address] [place] [address] MCH 31.8 27.1 - 33.3 pg CERIRASEMA [facility] Comment:Testing performed by : [facility] Heme Lab, [address] [place] [phone] MCHC 33.4 32.3 - 35.7 g/dL KANA LEE Comment:Testing performed by : [facility] Heme Lab, [address] [place] [phone] RDW CV 14.8 11.1 - 14.9 % KANA LEE Comment:Testing performed by : [facility] Heme Lab, [address] [place] [phone] NRBC abs 0.00 0.00 - 0.01 K/cumm KANA [facility] Comment:Testing performed by : [facility] Heme Lab, [address] [place] [phone] Blood 06/13/2024 7:24 AM TOASTER ELEMENT REPAIRER 06/13/2024 7:42 AM TOASTER ELEMENT REPAIRER Montrell Wolfe MD PhD LAB BLOOD ORDERABLES Fin al Result [facility] [address] [facility] Department [place] [address] * (ABNORMAL) Testosterone, Total and Free, Serum (06/13/2024 7:24 AM TOASTER ELEMENT REPAIRER) Testosterone 1260(H) 240 - 950 ng/dL [facility] ref Lab Comment: ADDITIONAL INFORMATION Testing performed by Liquid Chromatography-Tandem Mass Spectrometry (LC-MS/MS). This test was developed and its performance characteristics determined by [facility] in a manner consistent with CLIA requirements. This test has not been cleared or approved by the U.S. Food and Drug Administration. Test Performed by: [facility] Laboratories [facility] [address] [place] [address] Lead Tank Mechanic: Dawn Rosa Ph.D.; CLIA# [id number] Testosterone, free 44.5(H) 3.47 - 13.0 ng/dL KANA LEE Comment: ADDITIONAL INFORMATION This test was developed and its performance characteristics determined by [facility] in a manner consistent with CLIA requirements. This test has not been cleared or approved by the U.S. Food and Drug Administration. Blood 06/13/2024 7:24 AM TOASTER ELEMENT REPAIRER 06/13/2024 10:33 AM TOASTER ELEMENT REPAIRER Breanne Rivera MD PhD LAB BLOOD ORDERABLES Final Result Performing Organization Address City/[facility]/ZIP Co de Phone Number [facility] Department [place] [address] [facility] ref Lab * Lactate dehydrogenase (LD) (06/13/2024 7:24 AM TOASTER ELEMENT REPAIRER) Pathologist [facility] Lactate dehydrogenase (LDH) 198 100 - 250 Units/L Blood 06/13/2024 7:24 AM TOASTER ELEMENT REPAIRER 06/13/2024 7:41 AM TOASTER ELEMENT REPAIRER Montrell Wolfe MD PhD LAB BLOOD ORDERABLES Fin al Result Performing Organization Address [facility] Co de Phone Number [facility] Department [place] [address] * Hemoglobin A1c (06/13/2024 7:24 AM TOASTER ELEMENT REPAIRER) Hgb A1C 5.6 4.0 - 5.6 % Estimated Average Glucose 114 mg/dL [facility] Comment: The ADA recommends reporting an estimated Average Glucose (eAG) with all Hemoglobin A1c results using the equation derived from a study of 507 normal and diabetic adults. Minority populations were underrepresented and children were not included. (Diabetes Care 2020; 43(S1): S66-S76). The eAG is not equivalent to a fasting glucose. Blood 06/13/2024 7:24 AM TOASTER ELEMENT REPAIRER 06/13/2024 7:40 AM TOASTER ELEMENT REPAIRER us Franky Sylvester MD LAB BLOOD ORDERABLES Final Re sult [facility] [address] [facility] [place] [address] * (ABNORMAL) Comprehensive metabolic panel (06/13/2024 7:24 AM TOASTER ELEMENT REPAIRER) Sodium 143 135 - 145 mmol/L Potassium, pl 4.1 3.3 - 4.9 mmol/L [facility]ANN[facility]ER [facility] Chloride 105 97 - 110 mmol/L [facility] CO2 30 22 - 32 mmol/L [facility] Anion gap 8 2 - 15 mmol/L [facility] BUN 35(H) 6 - 25 mg/dL [facility] Creatinine 1.93(H) 0.80 - 1.30 mg/dL [facility] Glucose 105 70 - 199 mg/dL [facility] Comment: Interpretive Data Fasting glucose >/= [...] 2022. Calcium 9.9 8.5 - 10.3 mg/dL [facility] Bilirubin, total 0.5 0.1 - 1.2 mg/dL [facility] Protein, pl 7.5 6.5 - 8.5 g/dL [facility] Albumin 4.2 3.5 - 5.0 g/dL [facility] Alk phos 46 40 - 130 Units/L [facility] ALT 31 7 - 55 Units/L [facility] AST 39 10 - 50 Units/L [facility] Blood 06/13/2024 7:24 AM TOASTER ELEMENT REPAIRER 06/13/2024 7:41 AM TOASTER ELEMENT REPAIRER us Montrell Wolfe MD PhD LAB BLOOD ORDERABLES Fin al Result KANA [facility] Department [place] [address] * Surgical pathology (05/19/2024 1:23 PM TOASTER ELEMENT REPAIRER) Tissue specimen (specimen) (Polyp(s), colon/colorectal, esophageal, gastric) 05/19/2024 1:23 PM TOASTER ELEMENT REPAIRER Tissue specimen (specimen) (Polyp(s), colon/colorectal, esophageal, gastric) 05/19/2024 1:32 PM TOASTER ELEMENT REPAIRER Narrative PATHOLOGY [facility] - 05/20/2024 9:52 AM TOASTER ELEMENT REPAIRER EPIC results best viewed via link to PDF [facility] [place] [address] Note to Patients: This report may contain [...] Gender: M : 1955 (Age: 68) Address: [address] [place] [address] Hospital #: [id number] Taken:05/19/2024 Received:05/19/2024 Reported: 05/20/2024 Patient Type: [facility] Service: Gastro Location: Physician(s): Natalie Gonzalez [...] x 0.1 cm. Labeled B1. Jar 0. [facility]/05/19/2024 18:12 PA(s): Luba Bruce By this signature, I attest that the above diagnosis is based upon my personal examination of the slides(and/or other material). Addenda/Procedures The performance characteristics of some immunohistochemical stains, fluorescence in-situ hybridization tests and immunophenotyping by flow cytometry cited in this report (if any) were determined by the Surgical Pathology and Flow Cytometry Departments at [facility] as part of an ongoing quality control assessor program and in compliance with federally mandated [...] Surgical Pathology and Flow Cytometry Departments of [facility]. It has not been cleared or approved by the U. S. Food and Drug Administration. IMAGES AND SCANNED DOCUMENTS, IF INCLUDED, ONLY VIEWABLE IN PDF VERSION OF REPORT us Natalie Gonzalez MD LAB PATHOLOGY ORDERABLES Final Result PATHOLOGY [facility] 3rd Floor [place], [place] [phone] * Colonoscopy (05/19/2024 12:30 PM TOASTER ELEMENT REPAIRER) Anatomical Region Laterality Modality Other Narrative Procedure Note Natalie Gonzalez MD - 05/19/2024 12:30 PM CST GI ENDOSCOPY [facility] Patient Name: Bk Pichardo Procedure Date: 05/19/2024 12:30 PM Date of : 1955 Admit Type: Outpatient Age: 68 Gender: Male Attending MD: Natalie Gonzalez M.D. Room: [facility] ENDOSCOPY ROOM 4 Note Status: Finalized Procedure: [...] The scope was passed under direct vision.The [id number] endoscope was introduced through the anus [...] Return to referring physician. - please call [phone], 8 am -5 pm if any post procedural concerns/issues, after hours/weekends please call [phone] and ask for GI fellow oncall Attending [...] LAB BLOOD ORDERABLES Final Re sult KANA MIGUEL [id number] [facility] [place] [address] * (ABNORMAL) Lipid panel (09/04/2023 10:34 AM [...] on 2017. Triglycerides 245(H) <=149 mg/dL [facility] Comment: Interpretive Data Ages < or [...] revised on 2017. HDL 40 >=40 mg/dL [facility] Comment: Interpretive Data Ages < or [...] on 2017. LDL, calculated 104 <=129 mg/dL [facility] Comment: Interpretive Data Ages < or [...] revised on 2017. Non-HDL Cholesterol 153 mg/dL [facility] Comment: Interpretive Data Ages < or [...] last revised on 2017. Chol/HDL ratio 5 [facility] Blood 09/04/2023 10:3 4 AM CDT 09/04/2023 11:01 AM CDT us Corina Norris HOT DIPPER LAB BLOOD ORDERABLES Final Resul t [facility] One [facility] [place] [address] * (ABNORMAL) Albumin Creatinine Ratio, Urine (07/09/2023 9:09 AM CDT) Albumin Ur 65.7 mg/L Comment: Interpretive Data No reference range established. Current interpretive data was last revised 2018. Creatinine Ur 186.3 mg/dL [facility] Comment: Interpretive Data No reference range established. Current interpretive data was last revised 2018. Albumin Creatinine Ratio, Ur 35(H) 1 - 29 mg/g [facility] Urine 07/09/2023 9:09 AM CDT 07/09/2023 2:01 PM CDT us Franky Sylvester MD LAB URINE ORDERABLES Final Re sult KANA MIGUEL [id number] [address] [place] [address] * (ABNORMAL) DIABETES EYE EXAM (02/26/2023 11:15 AM TOASTER ELEMENT REPAIRER) Historical Provider HEALTH MAINTENANCE Final Result * Hepatitis C antibody (08/07/2021 2:55 PM CDT) Hep C Ab Nonreactive Nonreactive [facility] Comment:Antibodies to HCV no t detected. Does NOT exclude the possibility of recent exposure to HCV. Blood 08/07/2021 2:55 PM CDT 08/07/2021 3:30 PM CDT us Pablo Mcmillan MD LAB MICROBIOLOGY - GENE RAL ORDERABLES Edited Result - Final [facility] One [facility] [place] [address] from Last 3 Months or Most Recently Relevant to Health Maintenance Insurance [facility] MALIK WILLIAMSON [address] [facility] [address] [facility] Advance Directives For more information, please contact: [phone] * Full Code (Latest Code Status on File) Date Activated Date Inactivated Comments 05/19/2024 12:20 PM 05/19/2024 6:43 PM * Full Code Date Activated Date Inactivated Comments 04/22/2023 8:39 AM 04/22/2023 2:54 PM * Full Code Date Activated Date Inactivated Comments 07/05/2022 6:35 PM 07/08/2022 7:06 PM * Full Code Date Activated Date Inactivated Comments 10/24/2020 6:59 AM 10/24/2020 1:29 PM Care Teams Foam Cutting Supervisor Relationship Specialty Start Date End Date Franky Sylvester MD PCP - General Family Medicine 12/03/21 Rosa Russell, VIOLETTA Nurse Practitioner Medical Oncology 06/13/20 Montrell Wolfe MD PhD Medical Oncologist/Chamber Magistrate Medical Oncology 12/03/21 Pablo Mcmillan MD [address] [place] [address] Steel Pickler Nephrology 03/21/24
--- OUTSIDE RECORDS SUMMARY | 2024-08-10 01:57 | XMS_ITS | Encounter Summary ---
Author Organization [facility] Healthcare Address [address] [place] [address] Care Team Providers Care Radiation Monitor Name Role Phone Emily Tovar MD Primary Care Provider Rosa Russell ELECTRIC MOTOR TESTER Unavailable [phone] Franky Sylvester MD Primary Care Provider [phone] Montrell Wolfe MD PhD Unavailable [phone] Luba Corona RN Unavailable [phone] Pablo Mcmillan MD Unavailable [phone] Reason for Visit * Reason Onset Date Comments Med Refill 08/17/2020 Encounter Details Date Type Department Care Team (Late st Contact Info) Description 08/17/2020 Telephone [facility] [place] [facility] [address] [facility] [address] [place], [place] [id number] Heriberto Salgado MD [address] [facility] [address] [place], [place] [id number] Med Refill Social History Tobacco Use Types [...] on file Legal Sex Male 10:07 AM ARTIST'S MANAGER Gender Identity Not on file Sexual Orientation Not on file documented as of this encounter Plan of Treatment Not on file documented as of this encounter Goals Goal Patient Goal Type Associated Problems Recent Progress Patient-Stated? Author CCM Chronic Pain Care Plan Chronic Care Management No change(06/04 7:38 AM ARTIST'S MANAGER) No Seema Dutton RN Note: Problem: Chronic [...] documented as of this encounter Care Teams Radiation Monitor Relationship Specialty Start Date End Date Emily Tovar MD PCP - General Internal Medicine 09/22/16 10/09/21 Franky Sylvester MD PCP - General Family Medicine 12/03/21 Rosa Russell NP Nurse Practitioner Medical Oncology 06/13/20 Montrell Wolfe MD PhD Medical Oncologist/Steam Table Worker Medical Oncology 12/03/21 Luba Corona, PANCHO [address] [place] [address] [place] [address] Collision Repairer 05/19/23 02/07/24 Pablo Mmcillan MD [address] [place] [address] Motion And Time Study Teacher Nephrology 03/21/24 documented as of this encounter
--- OUTSIDE RECORDS SUMMARY | 2024-08-10 01:57 | XMS_ITS | Encounter Summary ---
Author Organization [facility] Address [address] [place] [address] Phone Care Team Providers Care Cement Breaker Name Role Phone Rosa Russell Placido PRODUCTION SUPPORT SUPERVISOR Unavailable Franky Sylvester MD Primary Care Provider [phone] Montrell Wolfe MD PhD Unavailable [phone] Luba Corona RN Unavailable [phone] Pablo Mcmillan MD Unavailable [phone] Encounter Details Date Type Department Care Team (Late st Contact Info) Description 12/03/2021 Telephone [facility] Marrow Transplant [address] [facility] 7th Floor, [place] [address] Lisette Rucker V. Social History [...] on file Legal Sex Male 10:07 AM ELECTRIC CELL TENDER Gender Identity Not on file Sexual Orientation Not on file documented as of this encounter Plan of Treatment Not on file documented as of this encounter Goals Goal Patient Goal Type Associated Problems Recent Progress Patient-Stated? Author CCM Chronic Pain Care Plan Chronic Care Management No change(06/04 7:38 AM ELECTRIC CELL TENDER) No Seema Dutton RN Note: Problem: Chronic [...] documented as of this encounter Care Teams Cement Breaker Relationship Specialty Start Date End Date Franky Sylvester MD PCP - General Family Medicine 12/03/21 Rosa Russell NP Nurse Practitioner Medical Oncology 06/13/20 Montrell Wolfe MD PhD Medical Oncologist/Metal Tile Lather Medical Oncology 12/03/21 Luba Corona RN [address] [place] [address] [address] [place] [address] Director Corporate 05/19/23 02/07/24 Pablo Mcmillan MD [address] [place] [address] [address] [place] [address] Integrated Marketing Intern Nephrology 03/21/24 documented as of this encounter
--- OUTSIDE RECORDS SUMMARY | 2024-08-10 01:57 | XMS_ITS | Continuity of Care Document ---
Author Organization [facility] Address [address] [facility] [address] [place] [address] Phone Care Team Providers Care Lead Shipper Name Role Phone Sammy Rico MD Unavailable Unavailable Allergies, Adverse Reactions, Alerts Substance Reaction Status Criticality vancomycin Active No Information Medications Medication Instructions Dosage Effective Dates (start - stop) Status Comments alprazolam 0.5 mg tablet take 1 tablet by oral route 3 times every day 0.5 MG - Active Multi Vitamin BUCCAL CAPSULE - Active AndroGel 1 % (25 mg/2.5 gram) transdermal gel packet apply 2 packet by transdermal route every day in the morning to shoulders/upper arms and/or abdomen divided evenly between areas 50 MG - Active Prednisone 10 mg Tab take 1 tablet (10MG ) by ORAL route every day 10 MG - Active Procedures Procedure Date No Charge Refraction IOLMaster-Technical Office/outpatient Visit, Est Office/outpatient Visit, Est Eye Exam Established Pt Post-op Follow-up Visit Post-op Follow-up Visit Remove Cataract, Insert Lens IOLMaster-Professional IOLMaster-Technical Eye Exam, New Patient Certified EMR Advance Directives Directive Yes / No Effective Date File Name No Information Encounters Encounter Description Practice Location Reason(s) For Visit Diagnoses Date Provider Providers Copied on Encounter Office/outpa tient Visit, Est [facility], [address], [place], [place], [id number], [place] [phone] SEC Man HERRERA Professional Cataract evaluation (chief complaint) Nuclear sclerosis of right eyePseudopha donna, left eye Feb- 6 Jacky Christianson. [address] [facility], [facility], [place], [place], [id number], [place]. tel:[phone] Referring Provider: Montrell Eastman OD, [address] [place], [address]. tel:[phone] [facility], [address], [place], [place], [id number], [place] tel:[phone] SEC Man HERRERA Professional No Information 6 Jacky Christianson. [address] [facility], [facility] [place], [id number], [place]. tel:[phone] Office/outpa tient Visit, [facility], [address], [place], [place], [id number], [place] [phone] SEC Man HERRERA Professional Psychophysic al visual disturbances LENS REPLACEMENT NECGRAFT-RAMEZ GILDARDO-HOST NOSSENILE NUCLEAR CATARACT 4 Janine Vital. [address], [address] [place] [address], [facility], [place]. tel:[phone] Referring Provider: Montrell Eastman OD, [address] [place], [address]. tel:[phone] [facility], [address], [place], [place], [address], [place] tel:[phone] SEC Man HERRERA Professional No Information 3 Janine Vital. [address], [address], [place], [address], [place]. tel:[phone] Referring Provider: Montrell Eastman OD, [address] [place], [address]. tel:[phone] [facility], [address], [place], [place], [id number], [place] tel:[phone] SEC Man [place] Professional FOLLOW-UP SURGERY NOS Nov-0 8-201 2 Janine Vital. [address], [address] [place] [address], Psych[facility] hospital, [facility], . tel:[phone] Referring Provider: Montrell Eastman OD, [address] [place], [address]. tel:[phone] [facility], [address], [place], [place], [id number], [place] tel:[phone] SEC [place] Professional FOLLOW-UP SURGERY NOS Oct-2 4-201 2 Janine Vital. [address], [address] [place] [address], Psych[facility] hospital, [facility] [place], [place]. tel:[phone] Referring Provider: Montrell Eastman OD, [address] [place], [address]. tel:[phone] [facility], [address], [place], [place], [id number], [place] tel:[phone] [facility] [place] No Information Oct-2 3-201 2 Janine Vital. [address], [address], [place], [place], Psychiatric hospital, [facility] [place], [place]. tel:[phone] Referring Provider: Montrell Eastman OD, [address] [place], [address]. tel:[phone] [facility], [address], [place], [place], [address], [place] tel:[phone] SEC Vanesa Pozo No Information Oct-2 2-201 2 Janine Vital. [address], [address], [place], Psych[facility], [facility] [place], [place]. tel:[phone] Referring Provider: Montrell Eastman OD, [address] [place], [address]. tel:[phone] [facility], [address], [place], [place], [id number], tel:[phone] SEC Vanesa Pozo No Information 2 Janine Vital. [address] [facility], [address], [address], . tel:[phone] Referring Provider: Montrell Eastman OD, [address] [place], [address]. tel:[phone] [facility], [address], [place], [place], [id number], tel:[phone] SEC Man HERRERA Professional No Information 0 2 Janine Vital. [address] [facility], [address], [address], . tel:[phone] Referring Provider: Montrell Eastman OD, [address] [place], [address]. tel:[phone] [facility], [address], [place], [place], [id number], tel:[phone] SEC [place] Professional No Information 2 Tere Ferguson. [address] [facility] [place], [address], . tel:[phone] Family History Family Member Type Diagnosis Age At Onset Problem (finding) Maternal grandfather Problem (finding) stomach cancer Mother Problem (finding) renal stone Father Problem (finding) hypertension Payers Payer name Insurance type Covered green party ID Emmanuel grace(s) [facility] [id number] Medicare RR MB [id number] Social History Type Description Quantity Date Captured Comments Alcohol Use Details No Caffeine Use Details Tobacco Use Status No Information Smoking Status Never smoker Non-Smoking Tobacco Use Details : No Details Available : No Details Available Sex Male Chief Complaint And Reason For Visit From encounter dated '03/05/2016 15:00'. Cataract evaluation (chief complaint). Description: The 60 year old male presents for Cataract evaluation in the right eye. Hx of Cataract OD and PC IOL OS Dr Donaldson 2013. Pt states VA blurry, like looking through a fog. Pt states difficult to drive at night due to headlight glare, having to get closer to street signs to see them clearly, difficult to see TV, and difficult to see small print. DVand NV OD prgressive decrease x2-3 yrs. Pt uses Murine OU PRN. Prior to 2103 Cat Sx pt had Luekemiaand radiation. Reason For Referral Reason For Referral No Information History Of Present Illness Encounter Date Complaint History Of Prese nt Illness Cataract evaluation The 60 year old male presents for Cataract evaluation in the right eye. Hx of Cataract OD and PC IOL OS Dr Donaldson 2013. Pt states VA blurry, like looking through a fog. Pt states difficult to drive at night due to headlight glare, having to get closer to street signs to see them clearly, difficult to see TV, and difficult to see small print. DV and NV OD prgressive decrease x2-3 yrs. Pt uses Murine OU PRN. Prior to 2103 Cat Sx pt had Luekemia and radiation. Functional Status Date Functional Assessmen t No Information Instructions Date Instruction Additional Infor lavon Impression/Plan - Ea rly Cataract OD discussed. Given 20/20 visual acuity OD, recommend observation at this time. He is starting to have some early glare issues, but do not recommend treatment at this time. Patient will return in 6 months for Cataract check OD or sooner with problems. Follow up - Patient will return in 6 months for Cataract check OD or sooner with problems. 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 Related to Senile nuclear cataract GVHD - having GI pro blems now - monitor dry eyes, look ok today, discussed restasis. early NS, VA good de spite darkness of lens. - monitor pciol OS - in good p osition - stable, monitor. - 4 months cat check Related to FOLLOW-UP SURGERY NOS FOLLOW-UP SURGERY NO S, OS - 2 week po phaco w/ PCIOL-established, stable - vision improved - will continue to monitor - Continue tapering gtts. Recommends seeing compound filler in about 1 week. No activity restrictions. Will monitor. Related to FOLLOW-UP SURGERY NOS - 2 weeks as sched Related to FO LLOW-UP SURGERY NOS FOLLOW-UP SURGERY NO S, OS - 1 day po phaco w/ PCIOL-vision improved - will continue to monitor - PO regimen given, pt understands. Wear shield at night. Activity restriction reviewed. Reading glasses discussed. Related to FOLLOW-UP SURGERY NOS psc os>>od, visually significant os - discussed r/b/a, wants to proceed, discussed suture if needed. going on trip 1st week in january, schedule after that. Needs IOL master. Assessments Type Assessment Date assessment Nuclear sclerosis of right eye N assessment Pseudophakia, left eye 16 Patient Care Teams Name Effective Dates (start - stop) Status Members No Information
[2024-08-10] MEDS: ONDANSETRON INJ 4 MG/2 ML VIAL IV PUSH (01:58)
[2024-08-10] MEDS: LACTATED RINGERS 500 ML 999 ML IV CONT (01:59)
[2024-08-10 02:02] LABS: Basophils Percent Auto 0.1 % (0.2-1.2); Eosinophils Percent Auto 0.1 % (0-4.4); Hematocrit 42.2 % (42.0-52.0); Hemoglobin 13.9 g/dL (14.0-18.0); Immature Granulocyte Absolute 0.09 K/mm3 (0.00-0.031); Immature Granulocyte Percent A 0.6 % (0-0.5); Lymphocytes Absolute Auto 1.31 K/mm3 (0.9-3.2); Lymphocytes Percent Auto 8.3 % (18.3-44.2); Mean Corpuscular HGB Conc 32.9 g/dl (32-36); Mean Corpuscular Hemoglobin 31.6 pg (26-34); Mean Corpuscular Volume 95.9 fl (80-100); Mean Platelet Volume 9.2 fl (7.4-10.4); Monocytes Absolute Auto 1.3 K/mm3 (0.1-0.6); Monocytes Percent Auto 8.2 % (2.6-8.5); Neutrophils Absolute Auto 13.1 K/mm3 (1.3-6.7); Neutrophils Percent Auto 82.7 % (45.5-73.1); Nucleated Red Blood Cells Perc 0.1 % (0.0-0.2); Platelet Count Result 380 k/mm3 (150-375); Red Cell Distribution Width 14.6 % (11.5-14.5); White Blood Count 15.9 K/mm3 (4.5-10.0)
[2024-08-10 02:14] LABS: Lactic Acid Reflex 2.1 mmol/L (0.7-2.0)
[2024-08-10 02:15] LABS: Alanine Aminotransferase 41 U/L (6-50); Albumin Level 4.4 g/dL (3.5-5.1); Alkaline Phosphatase 41 U/L (38-126); Anion Gap 10 mmol/L (4-12); Aspartate Amino Transferase 45 U/L (17-59); Bilirubin,Total 0.7 mg/dL (0.2-1.3); Blood Urea Nitrogen 32 mg/dL (9-20); Calcium 9.6 mg/dL (8.4-10.2); Carbon Dioxide 26 mmol/L (22-30); Chloride 103 mmol/L (98-107); Estimated CRCL calculation 43 ml/min; Estimated Glomerular Filt Rate 34; Glucose 120 mg/dL (65-110); Sodium 139 mmol/L (137-145)
[2024-08-10 02:16] LABS: INR 1.5; Partial Thromboplastin Time 29.8 Seconds (22.3-36.8); Prothrombin Time 18.3 Seconds (11.1-14.7)
[2024-08-10 02:42] LABS: Appearance Urine Clear (Clear); Color Urine Yellow (Yellow)
[2024-08-10 02:43] LABS: Add Urine Microscopic? YES; Bilirubin Urine Negative (Negative); Blood Urine Trace-intact (Negative); Glucose Urine UA 3+ mg/dL (Negative); Ketones Urine Negative (Negative); Leukocyte Esterase Ur Negative LEU/UL (Negative); Nitrate Urine Negative (Negative); Protein Urine 2+ mg/dL (Negative); RBC Urine 0-2 /hpf (0-2); Specific Grav Ur 1.015 (1.001-1.035); Urobilinogen Urine 0.2 mg/dL (<2.0); WBC Urine 0-3 /hpf (0-3)
[2024-08-10 02:44] LABS: Bacteria Urine Rare /hpf; Hyaline Casts Urine 0-2 /lpf; Squamous Epithelial Cell Urine None seen /hpf (Few)
[2024-08-10] MEDS: PIPERACILLN/TAZ 3.375GM/NS50ML 3.375 GM/50 ML BAG IVPB (03:21)
[2024-08-10 03:59] LABS: Reflex Lactic Acid Yes or No Add Lactic
[2024-08-10 06:06] LABS: Lactic Acid 1.1 mmol/L (0.7-2.0)
--- OUTSIDE RECORDS SUMMARY | 2024-08-10 12:52 | XMS_ITS | Encounter Summary ---
Author Organization [facility] Healthcare Address [address] [place] [address] Care Team Providers Care Micrographics Services Supervisor Name Role Phone Emily Tovar MD Primary Care Provider Rosa Russell POLICE RESERVES COMMANDER Unavailable [phone] Franky Sylvester MD Primary Care Provider [phone] Montrell Wolfe MD PhD Unavailable [phone] Luba Corona RN Unavailable [phone] Pablo Mcmillan MD Unavailable [phone] Reason for Visit * Reason Onset Date Comments Med Refill 08/17/2020 Encounter Details Date Type Department Care Team (Late st Contact Info) Description 08/17/2020 Telephone [facility] [place] [facility] [address] [facility] [address] [place], [place] [id number] Heriberto Salgado MD [address] [facility] [address] [place], [place] [id number] Med Refill Social History Tobacco Use Types [...] on file Legal Sex Male 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 Author CCM Chronic Pain Care Plan Chronic Care Management No change(06/04 7:38 AM STRATEGIC CONSULTANT) No Seema Dutton RN Note: Problem: Chronic [...] documented as of this encounter Care Teams Micrographics Services Supervisor Relationship Specialty Start Date End Date Emily Tovar MD PCP - General Internal Medicine 09/22/16 10/09/21 Franky Sylvester MD PCP - General Family Medicine 12/03/21 Rosa Russell NP Nurse Practitioner Medical Oncology 06/13/20 Montrell Wolfe MD PhD Medical Oncologist/Data Operations Manager Medical Oncology 12/03/21 Luba Corona, PANCHO [address] [place] [address] [place] [address] Journeyman Patternmaker 05/19/23 02/07/24 Pablo Mcmillan MD [address] [place] [address] Talent Buyer Nephrology 03/21/24 documented as of this encounter
--- OUTSIDE RECORDS SUMMARY | 2024-08-10 12:52 | XMS_ITS | Encounter Summary ---
Author Organization [facility] Address [address] [place] [address] Phone Care Team Providers Care Monumental Stonemason Name Role Phone Rosa Russell MASTERCAM PROGRAMMER Unavailable Franky Sylvester MD Primary Care Provider [phone] Montrell Wolfe MD PhD Unavailable [phone] Pablo Mcmillan MD Unavailable [phone] Reason for Visit * Reason Onset Date Comments Prior Auth 07/18/2024 testosterone 07/18/2024 Encounter Details Date Type Department Care Team (Late st Contact Info) Description 07/18/2024 Telephone [facility] Endocrinology Metabolism and Lipid [address] [facility] 5th [place] [address] [place] [address] Afsaneh Ackerman RN Prior Auth; testosterone Social History Tobacco Use Types Packs/Day Years Used Date Smoking Tobacco: Former Cigarettes 0.3 15 1 5 - 1989 Smokeless Tobacco: Never Alcohol Use Standard Drinks/Week Comments No 0 (1 standard drink = 0.6 oz pur e alcohol) [facility] Utilities Answer Date Recorded In the past 12 months has [employer], gas, oil, or water company threatened to [...] often do you attend chur ch or synagogue services? Never 06/26/2023 Do you belong to any clubs o r organizations such as temple groups, unions, fraternal or athletic groups, or [...] place to sleep or slept in a detention (including now)? No 06/26/2023 PHQ-9 Answer Date Recorded PHQ-9 Total Score 10 02/14/2024 Personal Safety Answer Date Recorded Have you ever been in or are you currently in a harmful physical or emotional relationship or is someone making you feel afraid or unsafe? Denies 05/19/2024 Sex and Gender Information Value Date Recorded Sex Assigned at Not on file Legal Sex Male 10:07 AM RECORDS SPECIALIST Gender Identity Not on file Sexual Orientation Not on file documented as of this encounter Miscellaneous Notes * Telephone Encounter - Afsaneh Ackerman RN - 07/18/2024 6:20 PM CDT Pt notified * Telephone Encounter - Aaliyah Montenegro MA - 07/18/2024 5:46 PM CDT Rice: [id number] Depo-Testosterone 200MG/ML solution [employer] CaseId:[id number] Prior Auth Status:Approved Prior Auth Coverage Start [...] Chronic Care Management No change(06/04 7:38 AM RECORDS SPECIALIST) No Seema Dutton RN Note: Problem: Chronic Pain Goals: 1. Minimize further functional decline 2. Maximize quality of life 3. Control pain Strategies: - Activity/exercise program recommendation - Conservative stepwise pain medicine strategy with multi-disciplinary approach - Recommend healthy lifestyle strategies and compensatory methods as needed documented as of this encounter Visit Diagnoses Not on filedocumented in this encounter Care Teams Monumental Stonemason Relationship Specialty Start Date End Date Franky Sylvester MD PCP - General Family Medicine 12/03/21 Rosa Russell NP Nurse Practitioner Medical Oncology 06/13/20 Montrell Wolfe MD PhD Medical Oncologist/Food Services Director Medical Oncology 12/03/21 Pablo Mcmillan MD [address] [address] Anthropological Linguist Nephrology 03/21/24 documented as of this encounter
--- OUTSIDE RECORDS SUMMARY | 2024-08-10 12:52 | XMS_ITS | Encounter Summary ---
Author Organization [facility] Address [address] [place] [address] Phone Care Team Providers Care Gantry Crane Operator Name Role Phone Rosa Russell Placido BANKRUPTCY MANAGER Unavailable Franky Sylvester MD Primary Care Provider [phone] Montrell Wolfe MD PhD Unavailable [phone] Pablo Mcmillan MD Unavailable [phone] Encounter Details Date Type Department Care Team (Late st Contact Info) Description 07/18/2024 Results Follow-Up [facility] Endocrinology Metabolism and Lipid [address] [facility] Medicine 13th [place] [address] [place] [address] Breanne Hunt, PhD [address] [place] [address] Social History Tobacco Use Types Packs/Day Years Used Date Smoking Tobacco: Former Cigarettes 0.3 15 1 975 - 1989 Smokeless Tobacco: Never Alcohol Use Standard Drinks/Week Comments No 0 (1 standard drink = 0.6 oz pur e alcohol) [facility] Utilities Answer Date Recorded In the [...] often do you attend chur ch or adventist services? Never 06/26/2023 Do you belong to [...] place to sleep or slept in a chcf (including now)? No 06/26/2023 PHQ-9 Answer Date Recorded PHQ-9 Total Score 10 02/14/2024 Personal Safety Answer Date Recorded Have you ever been in or are you currently in a harmful physical or emotional relationship or is someone making you feel afraid or unsafe? Denies 05/19/2024 Sex and Gender Information Value Date Recorded Sex Assigned at Not on file Legal Sex Male 10:07 AM AUTOMATION AND CONTROLS MANAGER Gender Identity Not on file Sexual Orientation Not on file documented as of this encounter Plan of Treatment Not on file documented as of this encounter Goals Goal Patient Goal Type Associated Problems Recent Progress Patient-Stated? Author CCM Chronic Pain Care Plan Chronic Care Management No change(06/04 7:38 AM AUTOMATION AND CONTROLS MANAGER) No Seema Dutton, RN Note: Problem: Chronic Pain Goals: 1. Minimize further functional decline 2. Maximize quality of life 3. Control pain Strategies: - Activity/exercise program recommendation - Conservative stepwise pain medicine strategy with multi-disciplinary approach - Recommend healthy lifestyle strategies and compensatory methods as needed documented as of this encounter Visit Diagnoses Not on filedocumented in this encounter Care Teams Gantry Crane Operator Relationship Specialty Start Date End Date Franky Sylvester MD PCP - General Family Medicine 12/03/21 Rosa Russell NP Nurse Practitioner Medical Oncology 06/13/20 Montrell Wolfe MD PhD Medical Oncologist/Birdcage Assembler Medical Oncology 12/03/21 [place] [address] [place] [id number] Strategic Marketing Leader Nephrology 03/21/24 documented as of this encounter
--- OUTSIDE RECORDS SUMMARY | 2024-08-10 12:52 | XMS_ITS | Encounter Summary ---
Author Organization [facility] Healthcare Address [address] [place] [address] Care Team Providers Care Tile Erector Name Role Phone Rosa Russell GARMENT EXAMINER Unavailable [phone] Franky Sylvester MD Primary Care Provider [phone] Montrell Wolfe MD PhD Unavailable [phone] Pablo Mcmillan MD Unavailable [phone] Encounter Details Date Type Department Care Team (Late st Contact Info) Description 06/14/2024 Orders Only [facility] Medical Group Family Medicine at [address] [place] [address] Franky Sylvester MD [address] [place] [address] [address] [place], [place] [id number] Social History Tobacco Use Types Packs/Day Years Used Date Smoking Tobacco: Former Cigarettes 0.3 15 1 5 - 1989 Smokeless Tobacco: Never Alcohol Use Standard Drinks/Week Comments No 0 (1 standard drink = 0.6 oz pur e alcohol) [facility] Utilities Answer Date Recorded In the past 12 months has [employer], gas, oil, or water company threatened [...] often do you attend chur ch or church services? Never 06/26/2023 Do you belong to [...] on file Legal Sex Male 10:07 AM COMPOSITE BOND WORKER Gender Identity Not on file Sexual Orientation Not on file documented as of this encounter Plan of Treatment Not on file documented as of this encounter Goals Goal Patient Goal Type Associated Problems Recent Progress Patient-Stated? Author CCM Chronic Pain Care Plan Chronic Care Management No change(06/04 7:38 AM COMPOSITE BOND WORKER) No Seema Dutton, RN Note: Problem: Chronic Pain Goals: 1. Minimize further functional decline 2. Maximize quality of life 3. Control pain Strategies: - Activity/exercise program recommendation - Conservative stepwise pain medicine strategy with multi-disciplinary approach - Recommend healthy lifestyle strategies and compensatory methods as needed documented as of this encounter Visit Diagnoses Not on filedocumented in this encounter Care Teams Tile Erector Relationship Specialty Start Date End Date Franky Sylvester MD PCP - General Family Medicine 12/03/21 Rosa Russell NP Nurse Practitioner Medical Oncology 06/13/20 Montrell Wolfe MD PhD Medical Oncologist/Postal Mail Carrier Medical Oncology 12/03/21 Pablo Mcmillan MD [address] [place] [address] Uke Operator Nephrology 03/21/24 documented as of this encounter
--- OUTSIDE RECORDS SUMMARY | 2024-08-10 12:52 | XMS_ITS | Encounter Summary ---
Author Organization [facility] Healthcare Address [address] [place] [address] Care Team Providers Care Insurance Examiner Name Role Phone Rosa Russell ROOF FIXER Unavailable [phone] Franky Sylvester MD Primary Care Provider [phone] Montrell Wolfe MD PhD Unavailable [phone] Pablo Mcmillan MD Unavailable [phone] Encounter Details Date Type Department Care Team (Late st Contact Info) Description 06/13/2024 Results Follow-Up [facility] Medical Group Family Medicine at [address] [place] [address] [place] [address] Social History Tobacco Use Types Packs/Day Years Used Date Smoking Tobacco: Former Cigarettes 0.3 15 - 1989 Smokeless Tobacco: Never Alcohol Use Standard Drinks/Week Comments No 0 (1 standard drink = 0.6 oz pur e alcohol) [facility] Utilities Answer Date Recorded In the past 12 months has [employer], gas, oil, or water company threatened to [...] often do you attend chur ch or evangelical services? Never 06/26/2023 Do you belong to any clubs o r organizations such as latter day groups, unions, fraternal or athletic groups, or [...] place to sleep or slept in a intermediate (including now)? No 06/26/2023 PHQ-9 Answer Date Recorded PHQ-9 Total Score 10 02/14/2024 Personal Safety Answer Date Recorded Have you ever been in or are you currently in a harmful physical or emotional relationship or is someone making you feel afraid or unsafe? Denies 05/19/2024 Sex and Gender Information Value Date Recorded Sex Assigned at Not on file Legal Sex Male 10:07 AM REFERRAL SPECIALIST Gender Identity Not on file Sexual Orientation Not on file documented as of this encounter Plan of Treatment Not on file documented as of this encounter Goals Goal Patient Goal Type Associated Problems Recent Progress Patient-Stated? Author CCM Chronic Pain Care Plan Chronic Care Management No change(06/04 7:38 AM REFERRAL SPECIALIST) No Seema Dutton, RN Note: Problem: Chronic Pain Goals: 1. Minimize further functional decline 2. Maximize quality of life 3. Control pain Strategies: - Activity/exercise program recommendation - Conservative stepwise pain medicine strategy with multi-disciplinary approach - Recommend healthy lifestyle strategies and compensatory methods as needed documented as of this encounter Visit Diagnoses Not on filedocumented in this encounter Care Teams Insurance Examiner Relationship Specialty Start Date End Date Franky Sylvester MD PCP - General Family Medicine 12/03/21 Rosa Russell NP Nurse Practitioner Medical Oncology 06/13/20 Montrell Wolfe MD PhD Medical Oncologist/Graphic Design Manager Medical Oncology 12/03/21 Pablo Mcmillan MD [address] [place] [address] Floor Broker Nephrology 03/21/24 documented as of this encounter
--- OUTSIDE RECORDS SUMMARY | 2024-08-10 12:52 | XMS_ITS | Encounter Summary ---
Author Organization [facility] Address [address] [place] [address] Phone Care Team Providers Care Hr Business Partner Consultant Name Role Phone Rosa Russell Placido ANALYTICS MANAGER Unavailable Franky Sylvester MD Primary Care Provider [phone] Montrell Wolfe MD PhD Unavailable Luba Corona RN Unavailable [phone] Pablo Mcmillan MD Unavailable [phone] Encounter Details Date Type Department Care Team (Late st Contact Info) Description 12/03/2021 Telephone [facility] Bone Marrow Transplant [address] [facility] [address], [place] [address] Lisette Rucker V. Social History [...] on file Legal Sex Male 10:07 AM ASSEMBLER CONVERTIBLE TOP Gender Identity Not on file Sexual Orientation Not on file documented as of this encounter Plan of Treatment Not on file documented as of this encounter Goals Goal Patient Goal Type Associated Problems Recent Progress Patient-Stated? Author CCM Chronic Pain Care Plan Chronic Care Management No change(06/04 7:38 AM ASSEMBLER CONVERTIBLE TOP) No Seema Dutton RN Note: Problem: Chronic [...] documented as of this encounter Care Teams Hr Business Partner Consultant Relationship Specialty Start Date End Date Franky Sylvester MD PCP - General Family Medicine 12/03/21 Rosa Russell NP Nurse Practitioner Medical Oncology 06/13/20 Montrell Wolfe MD PhD Medical Oncologist/Continuous Process Machine Operator Medical Oncology 12/03/21 Luba Corona RN [address] [place] [address] [address] [place] [address] Addictions Recovery Specialist 05/19/23 02/07/24 Pablo Mcmillan MD [address] [place] [address] [address] [place] [address] Distribution Center Assistant Nephrology 03/21/24 documented as of this encounter
--- OUTSIDE RECORDS SUMMARY | 2024-08-10 12:52 | XMS_ITS | Continuity of Care Document ---
Author Organization [facility] Address [address] [place] [address] Phone Care Team Providers Care Oncology Social Worker Name Role Phone No Information Unavailable Unavailable Medications Medication Instructions Dosage Effective Dates (start - stop) Status Comments No Drug Therapy Prescribed Advance Directives Directive Yes / No Effective Date File Name No Information Encounters Encounter Description Practice Location Reason(s) For Visit Diagnoses Date Provider Providers Copied on Encounter [facility], [address] [place] [address], [address], [place] tel:[phone] No Information No Information Family History Family [...]
--- OUTSIDE RECORDS SUMMARY | 2024-08-10 12:52 | XMS_ITS | CONTINUITY OF CARE DOCUMENT ---
Author Name kori sheikh Address Unknown Organization [facility] Address [address] [facility] [address] [place] [address] Phone [phone] Care Team Providers Care Toggler Name Role Phone kori sheikh Unavailable Unavailable
--- OUTSIDE RECORDS SUMMARY | 2024-08-10 12:52 | XMS_ITS ---
Author Organization [facility] Address [address] [place] [address] Care Team Providers Care Senior Software Manager Name Role Phone Rosa Russell HEALTH CLUB MANAGER Unavailable Franky Sylvester MD Primary Care Provider [phone] Montrell Wolfe MD PhD Unavailable [phone] Pablo Mcmillan MD Unavailable [phone] Active Problems Problem Noted Date Diagnosed Date Controlled type 2 diabetes koby villarreal with stage 3 chronic kidney disease, without long-term current use of insulin 06/15/2024 History of colon polyps 03/23/2024 Medicare annual wellness visit, subsequent 02/14 Assessment & Plan (02/15/2024 10:43 AM CARDIOVASCULAR SONOGRAPHER): Discussed with patient current recommendations for routine [...] 02/12/2024 Assessment & Plan (02/15/2024 10:42 AM CARDIOVASCULAR SONOGRAPHER): Stable limit nephrotoxins Continue Lasix 20mg BP and glucose control GFR 42 Lab Results Component Value Date CREATININE 1.75 (H) 2023 BUNSER 26 (H) 2023 SODIUM 140 2023 POTASSIUM 4.5 2023 CO2 27 2023 Simple chronic bronchitis 02/12/2024 Assessment & Plan (02/15/2024 10:40 AM CARDIOVASCULAR SONOGRAPHER): Stable Continue Shannoni Reports has substantially helped sx 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 EKG in [facility]3] 07/05 showed narrow complex tachycardia with HR >150. Given adenosine x2 (6 mg, 12 mg) in [facility]3]. EKG strip after adenosine noted flutter waves. Given Amio bolus 150 mg, IV metop x2 5 mg after adenosine with poor clinical response. -S/p IV dilt 10 mg x3 07/06/22. Better rate control was noted with IV dilt compared to metop/amio. -Cards consulted.He sees Dr Elizondo as outpatient,-PO metop & amio stopped per cards recs S/p LUISA and successful cardioversion 07/07/22 with alevism of sinus rhythm. PO diltiazem 60 mg [...] 01/02/2022 Assessment & Plan (03/01/2024 9:39 AM CARDIOVASCULAR SONOGRAPHER): Stable Uses CPAP with relief of symptoms [...] 2017 Assessment & Plan (02/15/2024 10:42 AM CARDIOVASCULAR SONOGRAPHER): Stable Declines pain management Reports magnesium has [...] (10/09/2020): Added automatically from request for surgery [id number] Other osteoporosis without c urrent pathological fracture 05/17/2019 10/16/2022 Prediabetes 05/17/2019 10/16/2022 Acute on chronic renal insufficiency 10/26/2018 10/16/2022 Assessment & Plan (07/08/2022 1:13 PM CDT): Cr 2.32 on admission (BL around 2 ). S/p 1L IVF bolus in [facility]3] 3/25 -Patient does endorse occasional NSAID use [...]
--- OUTSIDE RECORDS SUMMARY | 2024-08-10 12:52 | XMS_ITS | Referral Summary ---
Author Organization [facility] Address [address] [place] [address] Care Team Providers Care Candy Spreader Name Role Phone Rosa Russell GROUND SERVICE EQUIPMENT MECHANIC Unavailable Franky Sylvester MD Primary Care Provider [phone] Montrell Wolfe MD PhD Unavailable [phone] Pablo Mcmillan MD Unavailable Encounters Date Type Department Care Team Description 07/20/2024 Telephone [facility] Family Medicine at [address] [place] [address] Wandy Smith MA Chart Review (MED ADHERENCE) 07/18/2024 Telephone [facility] Endocrinology Metabolism and Lipid [address] [facility] Medicine 5th [place] [address] [place] [address] Afsaneh Ackerman RN Prior Auth; testosterone 07/18/2024 Results Follow-Up [facility] Endocrinology Metabolism and Lipid [address] [facility] Medicine 13th [place] [address] [place] [address] Breanne Hunt MD PhD 07/12/2024 8:00 AM CDT Office Visit [facility] Endocrinology Metabolism and Lipid [address] [facility] Medicine 13th [place] [address] [place] [address] Breanne Hunt MD PhD Hypogonadism in male (Primary Dx); Diabetes mellitus screening 07/07/2024 6:58 PM CDT - 07/07/2024 11:59 PM CDT Hospital Encounter [facility] [address] [place] [address] Hypogonadism in male Discharge Disposition: Discharge to home or self care 07/07/2024 8:30 AM CDT Lab [facility] Outpatient Lab at [address] [phone] Essential hypertension (Primary Dx) 07/04/2024 Orders Only [facility] Medical [facility] Cardiology [address] [facility] [address] [place] [phone] Sandie Coe, VIOLETTA 06/29/2024 Orders Only [facility] Health Information Management [address] [place] [address] Sandie Coe, VIOLETTA 06/23/2024 ACO Medication Access [facility] Accountable Care Organization [address] [place] [address] Giana Thomas CPhT 06/15/2024 9:15 AM PERSONAL INJURY SPECIALIST Office Visit [facility] Medical [facility] Family Medicine at [address] [place] [address] Franky Sylvester MD Stage 3b chronic kidney disease (HCC) (Primary Dx); Essential hypertension; Paroxysmal atrial flutter (HCC); Hypogonadism in male; Acute myeloid leukemia in remission (HCC); 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 disease, without long-term current use of insulin (HCC) 06/14/2024 Orders Only [facility] Family Medicine at [address] [place] [address] Franky Sylvester MD 06/13/2024 Results Follow-Up [facility] Family Medicine at [address] [place] [address] Lisandra Romero PA 06/13/2024 9:15 AM PERSONAL INJURY SPECIALIST Office Visit [facility] Bone Marrow Transplant [facility] Floor [address] [place] [address] Montrell Wolfe MD PhD Acute myeloid leukemia in remission (HCC) 06/13/2024 8:00 AM PERSONAL INJURY SPECIALIST Lab [facility] - Lab Collection [address] [facility] Floor 6 [place] [address] Acute myeloid leukemia in remission (HCC); 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 disease, without long-term current use of insulin (HCC); Low testosterone in male 06/06/2024 Telephone [facility] Family Medicine at [address] [place] [address] Franky Sylvester MD Referral Request 05/19/2024 1:00 PM PERSONAL INJURY SPECIALIST - 05/19/2024 1:45 PM PERSONAL INJURY SPECIALIST Surgery [facility] Digestive Disease [address] [address] Natalie Gonzalez MD COLON REMOVAL SNARE 05/19/2024 1:04 PM PERSONAL INJURY SPECIALIST Anesthesia Event [facility] Digestive Disease [address] [address] Bautista Huertas MD 05/19/2024 11:46 AM PERSONAL INJURY SPECIALIST - 05/19/2024 2:23 PM PERSONAL INJURY SPECIALIST Hospital Encounter [facility] Digestive Disease [address] [address] Natalie Gonzalez MD History of colon polyps Discharge Disposition: Discharge to home or self care 05/12/2024 Telephone [facility] Specialty Services [address] [place] [address] Maria Guadalupe Marques RN GI Preprocedure from [...] needle, disp, 18 G (BD Regular Bevel [place]) 18 gauge x 1 needle To draw up injection 12 each 11 4 Active syringe, disposable, (BD Luer-Emilia Syringe) 1 mL syringe To use for injection 12 each 11 4 Active needle, disp, 23 gauge (BD Regular Bevel [place]) 23 gauge x 3/4 needle To use [...] 02/14 Assessment & Plan (02/15/2024 10:43 AM PERSONAL INJURY SPECIALIST): Discussed with patient current recommendations for [...] 02/12/2024 Assessment & Plan (02/15/2024 10:42 AM PERSONAL INJURY SPECIALIST): Stable limit nephrotoxins Continue Lasix 20mg BP and glucose control GFR 42 Lab Results Component Value Date CREATININE 1.75 (H) 2023 BUNSER 26 (H) 2023 SODIUM 140 2023 POTASSIUM 4.5 2023 CO2 27 2023 Simple chronic bronchitis 02/12/2024 Assessment & Plan (02/15/2024 10:40 AM PERSONAL INJURY SPECIALIST): Stable Continue Lashaun Odell has substantially [...] S/p LUISA and successful cardioversion 07/07/22 with church of sinus rhythm. PO diltiazem 60 mg [...] 01/02/2022 Assessment & Plan (03/01/2024 9:39 AM PERSONAL INJURY SPECIALIST): Stable Uses CPAP with relief of [...] 2017 Assessment & Plan (02/15/2024 10:42 AM PERSONAL INJURY SPECIALIST): Stable Declines pain management Reports magnesium [...] (10/09/2020): Added automatically from request for surgery [id number] Other osteoporosis without c urrent pathological fracture [...] drink = 0.6 oz pur e alcohol) [email or web address] Answer Date Recorded In the past 12 months has [facility], gas, oil, or water [employer] threatened to shut off services in your [...] How often do you attend chur or cheondoism services? Never 06/26/2023 Do you belong to any clubs o r organizations such as buddhism groups, unions, fraternal or athletic groups, or [...] place to sleep or slept in a skilled nursing (including now)? No 06/26/2023 PHQ-9 Answer Date Recorded PHQ-9 Total Score 10 02/14/2024 Personal Safety Answer Date Recorded Have you ever been in or are you currently in a harmful physical or emotional relationship or is someone making you feel afraid or unsafe? Denies 05/19/2024 Sex and Gender Information Value Date Recorded Sex Assigned at Not on file Legal Sex Male 10:07 AM PERSONAL INJURY SPECIALIST Gender Identity Not on file Sexual Orientation Not on file Last Filed Vital Signs Vital Sign Reading Time Taken Comments Blood Pressure 126/79 07/12/2024 7:55 AM CDT Pulse 65 07/12/2024 7:55 AM CDT Temperature 36.8 C (98.3 F) 07/12/2024 7:55 AM CDT Respiratory Rate 18 06/13/2024 8:48 AM PERSONAL INJURY SPECIALIST Oxygen Saturation 95% 06/15/2024 8:47 AM PERSONAL INJURY SPECIALIST Inhaled Oxygen Concentration - - Weight 116.6 kg (257 lb) 07/12/2024 7:55 AM CDT Height 185.4 cm (6' 1 ) 07/12/2024 7:55 AM CDT Body Mass Index 33.91 07/12/2024 7:55 AM CDT Plan of Treatment Not on file Goals Goal Patient Goal Type Associated Problems Recent Progress Patient-Stated? Author CCM Chronic Pain Care Plan Chronic Care Management No change(06/04 7:38 AM PERSONAL INJURY SPECIALIST) No Seema Dutton, RN Note: Problem: Chronic Pain Goals: 1. Minimize further functional decline 2. Maximize quality of life 3. Control pain Strategies: - Activity/exercise program recommendation - Conservative stepwise pain medicine strategy with multi-disciplinary approach - Recommend healthy lifestyle strategies and compensatory methods as needed Medical Devices Implanted Type Area Rn Transplant Device Identifier Shelf Expiration Date Model / Serial / Lot Ivc Filter IVC Filter Vena Cava Procedures Procedure Name Priority Date/Time Associated Diagnosis Comments POCT GLUCOSE [id number] Routine 07/12/2024 8: 00 AM CDT Diabetes mellitus screening TESTOSTERONE, TOTAL AND FREE, SERUM Routine 07/07/2024 12:00 PM CDT Hypogonadism in male CARDIOLOGY DOCUMENT SCAN Routine 06/29/2024 2:46 PM CDT CARDIOLOGY DOCUMENT SCAN 06/29/2024 SCAN - RADIOLOGY/IMAGING 06/29/2024 CARDIOLOGY DOCUMENT SCAN Routine 06/28/2024 2:38 PM CDT EGFR Routine 06/13/2024 7:24 AM PERSONAL INJURY SPECIALIST Acute myeloid leukemia in remission (HCC) DIFFERENTIAL AUTO Routine 06/13/2024 7:2 4 AM PERSONAL INJURY SPECIALIST Acute myeloid leukemia in remission (HCC) TESTOSTERONE, TOTAL AND FREE, SERUM Routine 06/13/2024 7:24 AM PERSONAL INJURY SPECIALIST Low testosterone in male HEMOGLOBIN A1C Routine 06/13/2024 7:24 AM PERSONAL INJURY SPECIALIST 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 disease, without long-term current use of insulin (HCC) CBC WITH AUTO DIFFERENTIAL Routine 06/13/2024 7:24 AM PERSONAL INJURY SPECIALIST Acute myeloid leukemia in remission (HCC) COMPREHENSIVE METABOLIC PANEL Routine 06/13/2024 7:24 AM PERSONAL INJURY SPECIALIST Acute myeloid leukemia in remission (HCC) LACTATE DEHYDROGENASE Routine 06/13/2024 7:24 AM PERSONAL INJURY SPECIALIST Acute myeloid leukemia in remission (HCC) SURGICAL PATHOLOGY Routine 05/19/2024 1: 23 PM PERSONAL INJURY SPECIALIST History of colon polyps ENDO ADD ON COLON BIOPSY 05/19/2024 1:04 PM PERSONAL INJURY SPECIALIST History of colon polyps COLON REMOVAL SNARE 05/19/2024 1 :04 PM PERSONAL INJURY SPECIALIST History of colon polyps COLONOSCOPY 05/19/2024 12:30 PM PERSONAL INJURY SPECIALIST PSA SCREEN Routine 10/27/2023 10:05 AM [...] DIABETES EYE EXAM Routine 02/26/2023 11:15 AM PERSONAL INJURY SPECIALIST HEPATITIS C ANTIBODY Routine 08/07/2021 2:55 [...] CDT) Testosterone 217(L) 240 - 950 ng/dL [facility] Comment: ADDITIONAL INFORMATION Testing performed by Liquid Chromatography-Tandem Mass Spectrometry (LC-MS/MS). This test was developed and its performance characteristics determined by [facility] in a manner consistent with CLIA requirements. This test has not been cleared or approved by the U.S. Food and Drug Administration. Test Performed by: [facility] [place] [address] [employer] Crewmember: Dawn Rosa Ph.D.; CLIA# [id number] Testosterone, free 7.16 3.47 - 13.0 ng/dL [facility] Comment: ADDITIONAL INFORMATION This test was developed and its performance characteristics determined by [facility] in a manner consistent with CLIA requirements. This test has not been cleared or approved by the U.S. Food and Drug Administration. Blood 07/07/2024 12:0 0 PM CDT 07/07/2024 7:00 PM CDT Breanne Rivera MD PhD LAB BLOOD ORDERABLES Final Result [facility] [address] Department of [place] [address] [facility] * Cardiology Document Scan (06/29/2024 2:46 PM CDT) Anatomical Region Laterality Modality Other Heriberto Merino MD CV CARDIAC SERVICES CORRINE TONEY Final Result * SCAN - RADIOLOGY/IMAGING (06/29/2024) Anatomical Region Laterality Modality Other Sandie Coe NP Final Result * Cardiology Document Scan (06/29/2024) Anatomical Region Laterality Modality Other Sandie Coe NP CV CARDIAC SERVICES PROCEDUR ES Final Result * Cardiology Document Scan (06/28/2024 2:38 PM CDT) Anatomical Region Laterality Modality Other Sandie Coe NP CV CARDIAC SERVICES PROCEDUR ES Final Result * (ABNORMAL) eGFR (06/13/2024 7:24 AM PERSONAL INJURY SPECIALIST) eGFR 37(L) >=60 mL/min/1. 73 m2 [...] last reviewed 2021. Blood 06/13/2024 7:24 AM PERSONAL INJURY SPECIALIST 06/13/2024 7:41 AM PERSONAL INJURY SPECIALIST Montrell Wolfe MD PhD LAB BLOOD ORDERABLES Fin al Result [facility] Department of [place] [address] * (ABNORMAL) Differential, auto (06/13/2024 7:24 AM PERSONAL INJURY SPECIALIST) Neutrophil abs 3.3 1.5 - 6.5 K/cumm Comment:Testing performed by : [facility], [address] [place] [phone] Lymphocyte abs 4.1(H) 0.8 - 3.3 K/cumm [facility] Comment:Testing performed by : [facility], [address] [place], [place] [phone] Monocyte abs 1.1(H) 0.2 - 0.8 K/cumm [facility] Comment:Testing performed by : [facility], [address] [place] [address] Eosinophil abs 0.0 0.0 - 0.5 K/cumm [facility] Comment:Testing performed by : [facility], [address] [place] [phone] Basophil abs 0.0 0.0 - 0.1 K/cumm [facility] Comment:Testing performed by : [facility], [address] [place] [phone] Neutrophil pct 38.6 % [facility] Comment: Interpretive Data Percent cell count reference ranges are not reported, since discordance with absolute values may lead to misinterpretation of CBC data. Current Interpretive Data was last revised on 2017. Testing performed by: [facility], [address] [place] [phone] Lymphocyte pct 48.1 % [facility] Comment: Interpretive Data Percent cell count reference ranges are not reported, since discordance with absolute values may lead to misinterpretation of CBC data. Current Interpretive Data was last revised on 2017. Testing performed by: [facility], [address] [place], [place] [phone] Monocyte pct 12.7 % [facility] Comment: Interpretive Data Percent cell count reference ranges are not reported, since discordance with absolute values may lead to misinterpretation of CBC data. Current Interpretive Data was last revised on 2017. Testing performed by: [facility], [address] [place] [phone] Eosinophil pct 0.5 % [facility] Comment: Interpretive Data Percent cell count reference ranges are not reported, since discordance with absolute values may lead to misinterpretation of CBC data. Current Interpretive Data was last revised on 2017. Testing performed by: [facility], [address] [place], [place] [phone] Basophil pct 0.1 % [facility] Comment: Interpretive Data Percent cell count reference ranges are not reported, since discordance with absolute values may lead to misinterpretation of CBC data. Current Interpretive Data was last revised on 2017. Testing performed by: [facility], [address] [place] [phone] Blood 06/13/2024 7:24 AM PERSONAL INJURY SPECIALIST 06/13/2024 7:42 AM PERSONAL INJURY SPECIALIST Montrell oWlfe MD PhD LAB BLOOD ORDERABLES Fin al Result [facility] Department of Laboratories [place], [place] [id number] * (ABNORMAL) CBC with auto differential (06/13/2024 7:24 AM PERSONAL INJURY SPECIALIST) WBC 8.5 3.8 - 9.9 K/cumm Comment:Testing performed by : [facility], [address] [place] [phone] Hgb 14.2 13.0 - 17.5 g/dL [facility] Comment:Testing performed by : [facility], [address] [place] [phone] Hct 42.6 38.9 - 50.3 % [facility] Comment:Testing performed by : [facility], [address] [place] [phone] Plt 417(H) 150 - 400 K/cumm [facility] Comment:Testing performed by : [facility], [address] [place], [place] [phone] MPV 7.6 6.8 - 10.4 fL [facility] Comment:Testing performed by : [facility], [address] [place], [place] [phone] RBC 4.47 4.30 - 5.80 M/cumm [facility] Comment:Testing performed by : [facility], [address] [place], [place] [phone] MCV 95.3 81.3 - 96.4 fL [facility] Comment:Testing performed by : [facility], [address] [place], [place] [phone] MCH 31.8 27.1 - 33.3 pg [facility] Comment:Testing performed by : [facility], [address] [place], [place] [phone] MCHC 33.4 32.3 - 35.7 g/dL [facility] Comment:Testing performed by : [facility], [address] [place], [place] [phone] RDW CV 14.8 11.1 - 14.9 % [facility] Comment:Testing performed by : [facility], [address] [place], [place] [phone] NRBC abs 0.00 0.00 - 0.01 K/cumm [facility] Comment:Testing performed by : [facility], [address] [place], [place] [phone] Blood 06/13/2024 7:24 AM PERSONAL INJURY SPECIALIST 06/13/2024 7:42 AM PERSONAL INJURY SPECIALIST us Montrell Wolfe MD PhD LAB BLOOD ORDERABLES Fin al Result [facility] Department of [place] [address] * (ABNORMAL) Testosterone, Total and Free, Serum (06/13/2024 7:24 AM PERSONAL INJURY SPECIALIST) Testosterone 1260(H) 240 - 950 ng/dL [facility] Comment: ADDITIONAL INFORMATION Testing performed by Liquid Chromatography-Tandem Mass Spectrometry (LC-MS/MS). This test was developed and its performance characteristics determined by [facility] in a manner consistent with CLIA requirements. This test has not been cleared or approved by the U.S. Food and Drug Administration. Test Performed by: [facility] [address] [place] [address] [employer] Crewmember: Dawn Rosa Ph.D.; CLIA# [id number] Testosterone, free 44.5(H) 3.47 - 13.0 ng/dL [facility] Comment: ADDITIONAL INFORMATION This test was developed and its performance characteristics determined by [facility] in a manner consistent with CLIA requirements. This test has not been cleared or approved by the U.S. Food and Drug Administration. Blood 06/13/2024 7:24 AM PERSONAL INJURY SPECIALIST 06/13/2024 10:33 AM PERSONAL INJURY SPECIALIST Breanne Rivera MD PhD LAB BLOOD ORDERABLES Final Result Performing Organization Address City/[facility]/ZIP Co de Phone Number [facility] [place] [address] [facility] * Lactate dehydrogenase (LD) (06/13/2024 7:24 AM PERSONAL INJURY SPECIALIST) Lactate dehydrogenase (LDH) 198 100 - 250 Units/L Blood 06/13/2024 7:24 AM PERSONAL INJURY SPECIALIST 06/13/2024 7:41 AM PERSONAL INJURY SPECIALIST us Montrell Wolfe MD PhD LAB BLOOD ORDERABLES Fin al Result Performing Organization Address City/[facility]/ZIP Co de Phone Number [facility] [employer] [address] * Hemoglobin A1c (06/13/2024 7:24 AM PERSONAL INJURY SPECIALIST) Pathologist [facility] Hgb A1C 5.6 4.0 - 5.6 % Estimated Average Glucose 114 mg/dL [facility] Comment: The ADA recommends reporting an estimated Average Glucose (eAG) with all Hemoglobin A1c results using the equation derived from a study of 507 normal and diabetic adults. Minority populations were underrepresented and children were not included. (Diabetes Care 2020; 43(S1): S66-S76). The eAG is not equivalent to a fasting glucose. Blood 06/13/2024 7:24 AM PERSONAL INJURY SPECIALIST 06/13/2024 7:40 AM PERSONAL INJURY SPECIALIST us Franky Sylvester MD LAB BLOOD ORDERABLES Final Re sult [facility] Department of [place] [address] * (ABNORMAL) Comprehensive metabolic panel (06/13/2024 7:24 AM PERSONAL INJURY SPECIALIST) [facility] Sodium 143 135 - 145 mmol/L Potassium, pl 4.1 3.3 - 4.9 mmol/L [facility] Chloride 105 97 - 110 mmol/L [facility] CO2 30 22 - 32 mmol/L [facility] Anion gap 8 2 - 15 mmol/L [facility] BUN 35(H) 6 - 25 mg/dL [facility] Creatinine 1.93(H) 0.80 - 1.30 mg/dL [facility] Glucose 105 70 - 199 mg/dL [facility] Comment: Interpretive Data Fasting glucose >/= [...] Calcium 9.9 8.5 - 10.3 mg/dL [facility] Bilirubin, total 0.5 0.1 - 1.2 mg/dL [facility] Protein, pl 7.5 6.5 - 8.5 g/dL [facility] Albumin 4.2 3.5 - 5.0 g/dL [facility] Alk phos 46 40 - 130 Units/L [facility] ALT 31 7 - 55 Units/L [facility] AST 39 10 - 50 Units/L [facility] Blood 06/13/2024 7:24 AM PERSONAL INJURY SPECIALIST 06/13/2024 7:41 AM PERSONAL INJURY SPECIALIST Montrell Wolfe MD PhD LAB BLOOD ORDERABLES Fin al Result [facility] Department of [place] [address] * Surgical pathology (05/19/2024 1:23 PM PERSONAL INJURY SPECIALIST) Tissue specimen (specimen) (Polyp(s), colon/colorectal, esophageal, gastric) 05/19/2024 1:23 PM PERSONAL INJURY SPECIALIST Tissue specimen (specimen) (Polyp(s), colon/colorectal, esophageal, gastric) 05/19/2024 1:32 PM PERSONAL INJURY SPECIALIST Narrative PATHOLOGY [facility] - 05/20/2024 9:52 AM PERSONAL INJURY SPECIALIST EPIC results best viewed via link to PDF [facility] Misty Michel [facility] of Surgical [place] [address] Note to Patients: This report may contain [...] M : 1955 (Age: 68) Address: [address] [place] [address] [place] [address] Hospital #: [id number] Taken:05/19/2024 Received:05/19/2024 Reported: 05/20/2024 Patient Type: [facility] Service: Gastro Location: Physician(s): Natalie Gonzalez M.D. [...] Pathology and Flow Cytometry Departments at [facility] as part of an ongoing quality specialist program and in compliance with federally [...] Pathology and Flow Cytometry Departments of [facility]. It has not been cleared or approved by the U. S. Food and Drug Administration. IMAGES AND SCANNED DOCUMENTS, IF INCLUDED, ONLY VIEWABLE IN PDF VERSION OF REPORT us Natalie Gonzalez MD LAB PATHOLOGY ORDERABLES Final Result PATHOLOGY [facility] 3rd Floor [place], [place] [phone] * Colonoscopy (05/19/2024 12:30 PM PERSONAL INJURY SPECIALIST) Anatomical Region Laterality Modality Other Narrative Procedure Note Natalie Gonzalez MD - 05/19/2024 12:30 PM CST [facility] ENDOSCOPY [facility] Patient Name: Bk Pichardo Procedure Date: 05/19/2024 12:30 PM Date of : 1955 Admit Type: Outpatient Age: 68 Gender: Male Attending MD: Natalie Gonzalez M.D. Room: [facility] ENDOSCOPY ROOM 4 Note Status: Finalized Procedure: Colonoscopy Indications: High risk colon cancer surveillance: Personalhistory of colonic polyps, Last colonoscopy: 2023, multiple TAs were removed Referring MD: Franky Sylvester M.D. Providers: Natalei Gonzalez M.D. Medicines: Monitored Anesthesia Care Complications: [...] scope was passed under direct vision.The CF [id number] endoscope was introduced through the anus and [...] Return to referring physician. - please call [phone], 8 am -5 pm if any post procedural concerns/issues, after hours/weekends please call [phone] and ask for GI fellow oncall Attending [...] LAB BLOOD ORDERABLES Final Re sult [facility] [address] Department of Laboratories [place] [address] * (ABNORMAL) Lipid panel (09/04/2023 10:34 AM [...] on 2017. Triglycerides 245(H) <=149 mg/dL [facility] Comment: Interpretive Data Ages < [...] revised on 2017. HDL 40 >=40 mg/dL [facility] Comment: Interpretive Data Ages < [...] on 2017. LDL, calculated 104 <=129 mg/dL [facility] Comment: Interpretive Data Ages < [...] revised on 2017. Non-HDL Cholesterol 153 mg/dL [facility] Comment: Interpretive Data Ages < [...] last revised on 2017. Chol/HDL ratio 5 [facility] Blood 09/04/2023 10:3 4 AM CDT 09/04/2023 11:01 AM CDT us Corina Rater GROUND SERVICE EQUIPMENT MECHANIC LAB BLOOD ORDERABLES Final Resul t Performing Organization Address [facility] Co de Phone Number [facility] Department of [place] [address] * (ABNORMAL) Albumin Creatinine Ratio, Urine (07/09/2023 9:09 AM CDT) Albumin Ur 65.7 mg/L Comment: Interpretive Data No reference range established. Current interpretive data was last revised 2018. Creatinine Ur 186.3 mg/dL [facility] Comment: Interpretive Data No reference range established. Current interpretive data was last revised 2018. Albumin Creatinine Ratio, Ur 35(H) 1 - 29 mg/g [facility] Urine 07/09/2023 9:09 AM CDT 07/09/2023 2:01 PM CDT Franky Sylvester MD LAB URINE ORDERABLES Final Re sult Performing Organization Address [facility] Co de Phone Number [facility] [address] Department [place] [address] * (ABNORMAL) DIABETES EYE EXAM (02/26/2023 11:15 AM PERSONAL INJURY SPECIALIST) Result [facility] Filemon Wilkerson MD HEALTH MAINTENANCE Final Result * Hepatitis C antibody (08/07/2021 2:55 PM CDT) Hep C Ab Nonreactive Nonreactive [facility] Comment:Antibodies to HCV no t detected. Does NOT exclude the possibility of recent exposure to HCV. Blood 08/07/2021 2:55 PM CDT 08/07/2021 3:30 PM CDT Pablo Mcmillan MD LAB MICROBIOLOGY - GENE RAL ORDERABLES Edited Result - Final Performing Organization Address [facility] Co de Phone Number [facility] of [place] [address] from Last 3 Months or Most Recently Relevant to Health Maintenance Insurance [facility] Advance Directives For more information, please contact: [phone] * Full Code (Latest Code Status on File) Date Activated Date Inactivated Comments 05/19/2024 12:20 PM 05/19/2024 6:43 PM * Full Code Date Activated Date Inactivated Comments 04/22/2023 8:39 AM 04/22/2023 2:54 PM * Full Code Date Activated Date Inactivated Comments 07/05/2022 6:35 PM 07/08/2022 7:06 PM * Full Code Date Activated Date Inactivated Comments 10/24/2020 6:59 AM 10/24/2020 1:29 PM Care Teams Candy Spreader Relationship Specialty Start Date End Date Franky Sylvester MD PCP - General Family Medicine 12/03/21 Rosa Russell, VIOLETTA Nurse Practitioner Medical Oncology 06/13/20 Montrell Wolfe MD PhD Medical Oncologist/Demand Generation Manager Medical Oncology 12/03/21 [place] [address] [place] [id number] [employer] [facility] 03/21/24
--- OUTSIDE RECORDS SUMMARY | 2024-08-10 12:52 | XMS_ITS | Clinical Summary ---
Author Organization [facility] Address [address] [place] [address] Care Team Providers Care Vocational Education Professional Name Role Phone Rosa Russell RADIO COMMUNICATIONS MECHANICIAN Unavailable Franky Sylvester MD Primary Care Provider [phone] Montrell Wolfe MD PhD Unavailable [phone] Pablo Mcmillan MD Unavailable [phone] Allergies Active Allergy Reactions Criticality Noted Date [...] needle, disp, 18 G (BD Regular Bevel [place]) 18 gauge x 1 needle To draw up injection 12 each 11 12/20/202 4 Active syringe, disposable, (BD Luer-Emilia Syringe) 1 mL syringe To use for injection 12 each 4 Active needle, disp, 23 gauge (BD Regular Bevel [place]) 23 gauge x 3/4 needle To use [...] 02/14 Assessment & Plan (02/15/2024 10:43 AM PROCUREMENT ACCOUNTANT): Discussed with patient current recommendations for routine [...] 02/12/2024 Assessment & Plan (02/15/2024 10:42 AM PROCUREMENT ACCOUNTANT): Stable limit nephrotoxins Continue Lasix 20mg BP and glucose control GFR 42 Lab Results Component Value Date CREATININE 1.75 (H) 2023 BUNSER 26 (H) 2023 SODIUM 140 2023 POTASSIUM 4.5 2023 CO2 27 2023 Simple chronic bronchitis 02/12/2024 Assessment & Plan (02/15/2024 10:40 AM PROCUREMENT ACCOUNTANT): Stable Continue Shannoni Reports has substantially helped sx 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 [facility] showed narrow complex tachycardia with HR >150. Given adenosine x2 (6 mg, 12 mg) in [facility]. EKG strip after adenosine noted flutter [...] 01/02/2022 Assessment & Plan (03/01/2024 9:39 AM PROCUREMENT ACCOUNTANT): Stable Uses CPAP with relief of symptoms [...] 2017 Assessment & Plan (02/15/2024 10:42 AM PROCUREMENT ACCOUNTANT): Stable Declines pain management Reports magnesium has [...] (10/09/2020): Added automatically from request for surgery [id number] Other osteoporosis without c urrent pathological fracture 05/17/2019 10/16/2022 Prediabetes 05/17/2019 10/16/2022 Acute on chronic renal insufficiency 10/26/2018 10/16/2022 Assessment & Plan (07/08/2022 1:13 PM CDT): Cr 2.32 on admission (BL around 2 ). S/p 1L IVF bolus [facility] 07/05 -Patient does endorse occasional NSAID [...] Type Department Care Team Description 07/20/2024 Telephone [facility] Family Medicine at [address] [place] [phone] Wandy Smith MA Chart Review (MED ADHERENCE) 07/18/2024 Telephone [facility] Endocrinology Metabolism and Lipid [address] [facility] 5th [place] [address] [place] [address] Afsaneh Ackerman RN Prior Auth; testosterone 07/18/2024 Results Follow-Up [facility] Endocrinology Metabolism and Lipid [address] [facility] Medicine 13th [place] [address] [place] [address] Breanne Hunt MD PhD 07/12/2024 8:00 AM CDT Office Visit [facility] Endocrinology Metabolism and Lipid [address] [facility] Medicine 13th [place] [address] [place] [address] Breanne Hunt MD PhD Hypogonadism in male (Primary Dx); Diabetes mellitus screening 07/07/2024 6:58 PM CDT - 07/07/2024 11:59 PM CDT Hospital Encounter [facility] [address] [place] [address] Hypogonadism in male Discharge Disposition: Discharge to home or self care 07/07/2024 8:30 AM CDT Lab [facility] Outpatient Lab at [address] [phone] Essential hypertension (Primary Dx) 07/04/2024 Orders Only [facility] Medical [facility] Cardiology [address] [place] [phone] Sandie Coe, VIOLETTA 06/29/2024 Orders Only [facility] Information Management [address] [place] [address] Sandie Coe NP 06/23/2024 ACO Medication Access [facility] Accountable Care Organization [address] [place] [address] Giana Thomas CPhT 06/15/2024 9:15 AM PROCUREMENT ACCOUNTANT Office Visit [facility] Family Medicine at [address] [place] [address] Franky Sylvester MD Stage 3b chronic kidney disease (HCC) (Primary Dx); Essential hypertension; Paroxysmal atrial flutter (HCC); Hypogonadism in male; Acute myeloid leukemia in remission (HCC); 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 disease, without long-term current use of insulin (HCC) 06/14/[address] [facility] Family Medicine at [address] [place] [address] Franky Sylvester MD 06/13/2024 9:15 AM PROCUREMENT ACCOUNTANT Office Visit [facility] Bone Marrow Transplant [facility] Floor [address] [place] [phone] Montrell Wolfe MD PhD Acute myeloid leukemia in remission (HCC) 06/13/2024 8:00 AM PROCUREMENT ACCOUNTANT Lab [facility] - Lab Collection [facility] Floor [address] [place] [address] Acute myeloid leukemia in remission (HCC); 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 disease, without long-term current use of insulin (HCC); Low testosterone in male 06/13/2024 Results Follow-Up [facility] Family Medicine at [address] [place] [address] Lisandra Romero PA 06/06/2024 Telephone [facility] Medicine at [address] [place] [address] Franky Sylvester MD Referral Request 05/19/2024 1:04 PM PROCUREMENT ACCOUNTANT Anesthesia Event [facility] [address] [address] Bautista Huertas MD 05/19/2024 1:00 PM PROCUREMENT ACCOUNTANT - 05/19/2024 1:45 PM PROCUREMENT ACCOUNTANT Surgery [facility] [address] [address] Natalie Gonzalez MD COLON REMOVAL SNARE 05/19/2024 11:46 AM PROCUREMENT ACCOUNTANT - 05/19/2024 2:23 PM PROCUREMENT ACCOUNTANT Hospital Encounter [facility] [address] [address] Natalie Gonzalez MD History of colon polyps Discharge Disposition: Discharge to home or self care 05/12/2024 Telephone [facility] Specialty Services [address] [place] [phone] Maria Guadalupe Marques RN GI Preprocedure from [...] drink = 0.6 oz pur e alcohol) [facility] Utilities Answer Date Recorded In the past 12 months has [employer], oil, or water [employer] threatened to shut off services in your [...] often do you attend chur ch or amish services? Never 06/26/2023 Do you belong to any clubs o r organizations such as protestant groups, unions, fraternal or athletic groups, or [...] place to sleep or slept in a usp (including now)? No 06/26/2023 PHQ-9 Answer Date Recorded PHQ-9 Total Score 10 02/14/2024 Personal Safety Answer Date Recorded Have you ever been in or are you currently in a harmful physical or emotional relationship or is someone making you feel afraid or unsafe? Denies 05/19/2024 Sex and Gender Information Value Date Recorded Sex Assigned at Not on file Legal Sex Male 10:07 AM PROCUREMENT ACCOUNTANT Gender Identity Not on file Sexual Orientation Not on file Obstetrics History Last Filed Vital Signs Vital Sign Reading Time Taken Comments Blood Pressure 126/79 07/12/2024 7:55 AM CDT Pulse 65 07/12/2024 7:55 AM CDT Temperature 36.8 C (98.3 F) 07/12/2024 7:55 AM CDT Respiratory Rate 18 06/13/2024 8:48 AM PROCUREMENT ACCOUNTANT Oxygen Saturation 95% 06/15/2024 8:47 AM PROCUREMENT ACCOUNTANT Inhaled Oxygen Concentration - - Weight 116.6 [...] Chronic Care Management No change(06/04 7:38 AM PROCUREMENT ACCOUNTANT) No Seema Dutton, PANCHO Note: Problem: Chronic Pain Goals: 1. Minimize further functional decline 2. Maximize quality of life 3. Control pain Strategies: - Activity/exercise program recommendation - Conservative stepwise pain medicine strategy with multi-disciplinary approach - Recommend healthy lifestyle strategies and compensatory methods as needed Medical Devices Implanted Type Area Internet Systems Administrator Device Identifier Shelf Expiration Date Model / Serial / Lot Ivc Filter IVC Filter Vena Cava Procedures Procedure Name Priority Date/Time Associated Diagnosis Comments POCT GLUCOSE [id number] Routine 07/12/2024 8: 00 AM CDT Diabetes mellitus screening TESTOSTERONE, TOTAL AND FREE, SERUM Routine 07/07/2024 12:00 PM CDT Hypogonadism in male CARDIOLOGY DOCUMENT SCAN Routine 06/29/2024 2:46 PM CDT CARDIOLOGY DOCUMENT SCAN 06/29/2024 SCAN - RADIOLOGY/IMAGING 06/29/2024 CARDIOLOGY DOCUMENT SCAN Routine 06/28/2024 2:38 PM CDT EGFR Routine 06/13/2024 7:24 AM PROCUREMENT ACCOUNTANT Acute myeloid leukemia in remission (HCC) DIFFERENTIAL AUTO Routine 06/13/2024 7:2 4 AM PROCUREMENT ACCOUNTANT Acute myeloid leukemia in remission (HCC) TESTOSTERONE, TOTAL AND FREE, SERUM Routine 06/13/2024 7:24 AM PROCUREMENT ACCOUNTANT Low testosterone in male HEMOGLOBIN A1C Routine 06/13/2024 7:24 AM PROCUREMENT ACCOUNTANT 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 disease, without long-term current use of insulin (HCC) CBC WITH AUTO DIFFERENTIAL Routine 06/13/2024 7:24 AM PROCUREMENT ACCOUNTANT Acute myeloid leukemia in remission (HCC) COMPREHENSIVE METABOLIC PANEL Routine 06/13/2024 7:24 AM PROCUREMENT ACCOUNTANT Acute myeloid leukemia in remission (HCC) LACTATE DEHYDROGENASE Routine 06/13/2024 7:24 AM PROCUREMENT ACCOUNTANT Acute myeloid leukemia in remission (HCC) SURGICAL PATHOLOGY Routine 05/19/2024 1: 23 PM PROCUREMENT ACCOUNTANT History of colon polyps ENDO ADD ON COLON BIOPSY 05/19/2024 1:04 PM PROCUREMENT ACCOUNTANT History of colon polyps COLON REMOVAL SNARE 05/19/2024 1 :04 PM PROCUREMENT ACCOUNTANT History of colon polyps COLONOSCOPY 05/19/2024 12:30 PM PROCUREMENT ACCOUNTANT PSA SCREEN Routine 10/27/2023 10:05 AM CDT [...] DIABETES EYE EXAM Routine 02/26/2023 11:15 AM PROCUREMENT ACCOUNTANT HEPATITIS C ANTIBODY Routine 08/07/2021 2:55 PM CDT Creatinine elevation from Last 3 Months or Most Recently Relevant to Health Maintenance Results * POCT glucose (07/12/2024 8:00 AM CDT) Pathologist [facility] Glucose Blood, POC 99 mg/dL Blood 07/12/2024 8:00 AM CDT Breanne Rivera MD PhD POINT OF CARE TEST ORDERABLES Final Result * (ABNORMAL) Testosterone, Total and Free, Serum (07/07/2024 12:00 PM CDT) Pathologist [facility] Testosterone 217(L) 240 - 950 ng/dL [facility] Comment: ADDITIONAL INFORMATION Testing performed by Liquid Chromatography-Tandem Mass Spectrometry (LC-MS/MS). This test was developed and its performance characteristics determined by [facility] in a manner consistent with CLIA requirements. This test has not been cleared or approved by the U.S. Food and Drug Administration. Test Performed by: [facility] Laboratories - [facility] [address] [place] [address] Foreman/Project Manager: Dawn Rosa Ph.D.; CLIA# [id number] Testosterone, free 7.16 3.47 - 13.0 ng/dL [...] MD PhD LAB BLOOD ORDERABLES Final Result [facility] [address] Department [place] [address] [facility] Lab * Cardiology Document Scan (06/29/2024 [...] Region Laterality Modality Other Sandie Janessa Carolin RADIO COMMUNICATIONS MECHANICIAN CV CARDIAC SERVICES PROCEDUR ES Final Result * (ABNORMAL) eGFR (06/13/2024 7:24 AM PROCUREMENT ACCOUNTANT) eGFR 37(L) >=60 mL/min/1. 73 m2 Comment: [...] last reviewed 2021. Blood 06/13/2024 7:24 AM PROCUREMENT ACCOUNTANT 06/13/2024 7:41 AM PROCUREMENT ACCOUNTANT Montrell Wolfe MD PhD LAB BLOOD ORDERABLES Fin al Result [facility] One [facility] Department of Laboratories [place], [place] [id number] * (ABNORMAL) Differential, auto (06/13/2024 7:24 AM PROCUREMENT ACCOUNTANT) Pathologist [facility] Neutrophil abs 3.3 1.5 - 6.5 K/cumm Comment:Testing performed by : [facility] Cancer [facility] Heme Lab, [facility] [place] [address] Lymphocyte abs 4.1(H) 0.8 - 3.3 K/cumm [facility] Comment:Testing performed by : [facility] Heme Lab, [facility] [place] [address] Monocyte abs 1.1(H) 0.2 - 0.8 K/cumm [facility] Comment:Testing performed by : [facility] Heme Lab, [address] [place] [phone] Eosinophil abs 0.0 0.0 - 0.5 K/cumm [facility] Comment:Testing performed by : [facility] Heme Lab, [address] [place] [phone] Basophil abs 0.0 0.0 - 0.1 K/cumm [facility] Comment:Testing performed by : [facility] Heme Lab, [address] [place] [phone] Neutrophil pct 38.6 % [facility] Comment: Interpretive Data Percent cell count reference ranges are not reported, since discordance with absolute values may lead to misinterpretation of CBC data. Current Interpretive Data was last revised on 2017. Testing performed by: [facility], [address] [place] [phone] Lymphocyte pct 48.1 % [facility] Comment: Interpretive Data Percent cell count reference ranges are not reported, since discordance with absolute values may lead to misinterpretation of CBC data. Current Interpretive Data was last revised on 2017. Testing performed by: [facility], [address] [place] [phone] Monocyte pct 12.7 % [facility] Comment: Interpretive Data Percent cell count reference ranges are not reported, since discordance with absolute values may lead to misinterpretation of CBC data. Current Interpretive Data was last revised on 2017. Testing performed by: [facility] Heme Lab, [address] [place] [phone] Eosinophil pct 0.5 % [facility] Comment: Interpretive Data Percent cell count reference ranges are not reported, since discordance with absolute values may lead to misinterpretation of CBC data. Current Interpretive Data was last revised on 2017. Testing performed by: [facility] Heme Lab, [address] [place] [phone] Basophil pct 0.1 % [facility] Comment: Interpretive Data Percent cell count reference ranges are not reported, since discordance with absolute values may lead to misinterpretation of CBC data. Current Interpretive Data was last revised on 2017. Testing performed by: [facility] Heme Lab, [address] [place] [phone] Blood 06/13/2024 7:24 AM PROCUREMENT ACCOUNTANT 06/13/2024 7:42 AM PROCUREMENT ACCOUNTANT us Montrell Wolfe MD PhD LAB BLOOD ORDERABLES Fin al Result [facility] One [facility] Department [place] [address] * (ABNORMAL) CBC with auto differential (06/13/2024 7:24 AM PROCUREMENT ACCOUNTANT) WBC 8.5 3.8 - 9.9 K/cumm Comment:Testing performed by : [facility] Heme Lab, [address] [place] [address] Hgb 14.2 13.0 - 17.5 g/dL [facility] Comment:Testing performed by : [facility] Heme Lab, [address] [place] [address] Hct 42.6 38.9 - 50.3 % [facility] Comment:Testing performed by : [facility] Heme Lab, [address] [place] [address] Plt 417(H) 150 - 400 K/cumm [facility] Comment:Testing performed by : [facility] Heme Lab, [address] [place] [address] MPV 7.6 6.8 - 10.4 fL [facility] Comment:Testing performed by : [facility] Heme Lab, [address] [place] [address] RBC 4.47 4.30 - 5.80 M/cumm [facility] Comment:Testing performed by : [facility] Heme Lab, [address] [place] [address] MCV 95.3 81.3 - 96.4 fL [facility] Comment:Testing performed by : [facility] Heme Lab, [address] [place] [address] MCH 31.8 27.1 - 33.3 pg [facility] Comment:Testing performed by : [facility] Heme Lab, [address] [place] [phone] MCHC 33.4 32.3 - 35.7 g/dL KANA LEE Comment:Testing performed by : [facility] Heme Lab, [address] [place] [phone] RDW CV 14.8 11.1 - 14.9 % [facility] Comment:Testing performed by : [facility] Heme Lab, [address] [place] [phone] NRBC abs 0.00 0.00 - 0.01 K/cumm KANA [facility] Comment:Testing performed by : [facility] Heme Lab, [address] [place] [phone] Blood 06/13/2024 7:24 AM PROCUREMENT ACCOUNTANT 06/13/2024 7:42 AM PROCUREMENT ACCOUNTANT Montrell Wolfe MD PhD LAB BLOOD ORDERABLES Fin al Result [facility] One [facility] Department [place] [address] * (ABNORMAL) Testosterone, Total and Free, Serum (06/13/2024 7:24 AM PROCUREMENT ACCOUNTANT) Testosterone 1260(H) 240 - 950 ng/dL [facility] Comment: ADDITIONAL INFORMATION Testing performed by Liquid Chromatography-Tandem Mass Spectrometry (LC-MS/MS). This test was developed and its performance characteristics determined by [facility] in a manner consistent with CLIA requirements. This test has not been cleared or approved by the U.S. Food and Drug Administration. Test Performed by: [facility] Laboratories [facility] [address] [place] [address] Foreman/Project Manager: Dawn Rosa Ph.D.; CLIA# [id number] Testosterone, free 44.5(H) 3.47 - 13.0 ng/dL [facility] Comment: ADDITIONAL INFORMATION This test was developed and its performance characteristics determined by [facility] in a manner consistent with CLIA requirements. This test has not been cleared or approved by the U.S. Food and Drug Administration. Blood 06/13/2024 7:24 AM PROCUREMENT ACCOUNTANT 06/13/2024 10:33 AM PROCUREMENT ACCOUNTANT Breanne Rivera MD PhD LAB BLOOD ORDERABLES Final Result Performing Organization Address City/[facility]/ZIP Co de Phone Number [facility] Department [place] [address] [facility] * Lactate dehydrogenase (LD) (06/13/2024 7:24 AM PROCUREMENT ACCOUNTANT) Pathologist [facility] Lactate dehydrogenase (LDH) 198 100 - 250 Units/L Blood 06/13/2024 7:24 AM PROCUREMENT ACCOUNTANT 06/13/2024 7:41 AM PROCUREMENT ACCOUNTANT Montrell Wolfe MD PhD LAB BLOOD ORDERABLES Fin al Result Performing Organization Address [facility] Co de Phone Number [facility] Department [place] [address] * Hemoglobin A1c (06/13/2024 7:24 AM PROCUREMENT ACCOUNTANT) Hgb A1C 5.6 4.0 - 5.6 % Estimated Average Glucose 114 mg/dL [facility] Comment: The ADA recommends reporting an estimated Average Glucose (eAG) with all Hemoglobin A1c results using the equation derived from a study of 507 normal and diabetic adults. Minority populations were underrepresented and children were not included. (Diabetes Care 2020; 43(S1): S66-S76). The eAG is not equivalent to a fasting glucose. Blood 06/13/2024 7:24 AM PROCUREMENT ACCOUNTANT 06/13/2024 7:40 AM PROCUREMENT ACCOUNTANT us Franky Sylvester MD LAB BLOOD ORDERABLES Final Re sult [facility] Department [place] [address] * (ABNORMAL) Comprehensive metabolic panel (06/13/2024 7:24 AM PROCUREMENT ACCOUNTANT) Sodium 143 135 - 145 mmol/L Potassium, pl 4.1 3.3 - 4.9 mmol/L [facility] Chloride 105 97 - 110 mmol/L [facility] CO2 30 22 - 32 mmol/L [facility] Anion gap 8 2 - 15 mmol/L [facility] BUN 35(H) 6 - 25 mg/dL [facility] Creatinine 1.93(H) 0.80 - 1.30 mg/dL [facility] Glucose 105 70 - 199 mg/dL [facility] Comment: Interpretive Data Fasting glucose >/= 126 [...] 2022. Calcium 9.9 8.5 - 10.3 mg/dL [facility] Bilirubin, total 0.5 0.1 - 1.2 mg/dL [facility] Protein, pl 7.5 6.5 - 8.5 g/dL [facility] Albumin 4.2 3.5 - 5.0 g/dL [facility] Alk phos 46 40 - 130 Units/L [facility] ALT 31 7 - 55 Units/L [facility] AST 39 10 - 50 Units/L [facility] Blood 06/13/2024 7:24 AM PROCUREMENT ACCOUNTANT 06/13/2024 7:41 AM PROCUREMENT ACCOUNTANT us Montrell Wolfe MD PhD LAB BLOOD ORDERABLES Fin al Result [facility] Department [place] [address] * Surgical pathology (05/19/2024 1:23 PM PROCUREMENT ACCOUNTANT) Tissue specimen (specimen) (Polyp(s), colon/colorectal, esophageal, gastric) 05/19/2024 1:23 PM PROCUREMENT ACCOUNTANT Tissue specimen (specimen) (Polyp(s), colon/colorectal, esophageal, gastric) 05/19/2024 1:32 PM PROCUREMENT ACCOUNTANT Narrative PATHOLOGY [facility] - 05/20/2024 9:52 AM PROCUREMENT ACCOUNTANT EPIC results best viewed via link to PDF [facility] [place] [address] Note to Patients: This report may contain [...] Gender: M : 1955 (Age: 68) Address: [address] [place] [address] Hospital #: [id number] Taken:05/19/2024 Received:05/19/2024 Reported: 05/20/2024 Patient Type: [facility] Service: Gastro Location: Physician(s): Natalie Gonzalez M.D. [...] x 0.1 cm. Labeled B1. Jar [facility]. [facility]05/19/2024 18:12 PA(s): Luba Bruce By this signature, I attest that the above diagnosis is based upon my personal examination of the slides(and/or other material). Addenda/Procedures The performance characteristics of some immunohistochemical stains, fluorescence in-situ hybridization tests and immunophenotyping by flow cytometry cited in this report (if any) were determined by the Surgical Pathology and Flow Cytometry Departments at [facility] as part of an ongoing quality compliance consultant program and in compliance with federally mandated [...] Surgical Pathology and Flow Cytometry Departments of [facility]. It has not been cleared or approved by the U. S. Food and Drug Administration. IMAGES AND SCANNED DOCUMENTS, IF INCLUDED, ONLY VIEWABLE IN PDF VERSION OF REPORT us Natalie Gonzalez MD LAB PATHOLOGY ORDERABLES Final Result PATHOLOGY [facility] 3rd Floor [place], [place] [phone] * Colonoscopy (05/19/2024 12:30 PM PROCUREMENT ACCOUNTANT) Anatomical Region Laterality Modality Other Narrative Procedure Note Natalie Gonzalez MD - 05/19/2024 12:30 PM [facility]ST [facility] ENDOS[facility] Patient Name: Bk Pichardo Procedure Date: 05/19/2024 12:30 PM Date of : 1955 Admit Type: Outpatient Age: 68 Gender: Male Attending MD: Natalie Gonzalez M.D. Room: [facility] 4 Note Status: Finalized [...] The scope was passed under direct vision.The [id number] endoscope was introduced through the anus [...] Return to referring physician. - please call [phone], 8 am -5 pm if any post procedural concerns/issues, after hours/weekends please call [phone] and ask for GI fellow oncall Attending [...] BLOOD ORDERABLES Final Re sult [facility] [address] [employer] [facility] [employer] [facility] Department [place] [address] * (ABNORMAL) Lipid panel (09/04/2023 10:34 AM [...] on 2017. Triglycerides 245(H) <=149 mg/dL [facility] [facility] Comment: Interpretive Data Ages < or [...] on 2017. HDL 40 >=40 mg/dL KANA [facility] Comment: Interpretive Data Ages < or [...] on 2017. LDL, calculated 104 <=129 mg/dL [facility] Comment: Interpretive Data Ages < or = [...] revised on 2017. Non-HDL Cholesterol 153 mg/dL [facility] Comment: Interpretive Data Ages < or = [...] last revised on 2017. Chol/HDL ratio [address] [facility] Blood 09/04/2023 10:3 4 AM CDT 09/04/2023 11:01 AM CDT us Corina Norris RADIO COMMUNICATIONS MECHANICIAN LAB BLOOD ORDERABLES Final Resul t [facility] Department [place] [address] * (ABNORMAL) Albumin Creatinine Ratio, Urine (07/09/2023 9:09 AM CDT) Albumin Ur 65.7 mg/L Comment: Interpretive Data No reference range established. Current interpretive data was last revised 2018. Creatinine Ur 186.3 mg/dL [facility] Comment: Interpretive Data No reference range established. Current interpretive data was last revised 2018. Albumin Creatinine Ratio, Ur 35(H) 1 - 29 mg/g [facility] Urine 07/09/2023 9:09 AM CDT 07/09/2023 2:01 PM CDT us Franky Sylvester MD LAB URINE ORDERABLES Final Re sult [facility]ANA MIGUEL [address] Department [place] [address] * (ABNORMAL) DIABETES EYE EXAM (02/26/2023 11:15 AM PROCUREMENT ACCOUNTANT) Historical Provider HEALTH MAINTENANCE Final Result * Hepatitis C antibody (08/07/2021 2:55 PM CDT) Hep C Ab Nonreactive Nonreactive [facility] Comment:Antibodies to HCV no t detected. Does NOT exclude the possibility of recent exposure to HCV. Blood 08/07/2021 2:55 PM CDT 08/07/2021 3:30 PM CDT us Pablo Mcmillan MD LAB MICROBIOLOGY - GENE RAL ORDERABLES Edited Result - Final KANA [facility] One [facility] Department [place] [address] from Last 3 Months or Most Recently Relevant to Health Maintenance Insurance [facility] MALIK WILLIAMSON [address] [facility] [address] [facility] Advance Directives For more information, please contact: [phone] * Full Code (Latest Code Status on File) Date Activated Date Inactivated Comments 05/19/2024 12:20 PM 05/19/2024 6:43 PM * Full Code Date Activated Date Inactivated Comments 04/22/2023 8:39 AM 04/22/2023 2:54 PM * Full Code Date Activated Date Inactivated Comments 07/05/2022 6:35 PM 07/08/2022 7:06 PM * Full Code Date Activated Date Inactivated Comments 10/24/2020 6:59 AM 10/24/2020 1:29 PM Care Teams Vocational Education Professional Relationship Specialty Start Date End Date Franky Sylvester MD PCP - General Family Medicine 12/03/21 Rosa Rsusell, VIOLETTA Nurse Practitioner Medical Oncology 06/13/20 Montrell Wolfe MD PhD Medical Oncologist/Material Control Associate Medical Oncology 12/03/21 Pablo Mcmillan MD [address] [place] [address] Denture Model Maker Nephrology 03/21/24
--- OUTSIDE RECORDS SUMMARY | 2024-08-10 12:52 | XMS_ITS | Continuity of Care Document ---
Author Organization [facility] Address [address] [place] [address] [place] [address] Phone Care Team Providers Care Coding Director Name Role Phone Ghassan Simmons MD Unavailable Unavailable Allergies, Adverse Reactions, Alerts Substance Reaction Status Criticality vancomycin Active No Information Medications Medication Instructions Dosage Effective Dates (start - stop) Status Comments Levaquin 500 mg tablet take 1 tablet (500MG) by oral route every 24 hours - Active Ventolin HFA 90 mcg/actuation Aerosol Inhaler inhale 2 puff by inhalation route every 4 - 6 hours as needed - Active Procedures Procedure Date OFFICE/OUTPATIENT VISIT, EST Advance Directives Directive Yes / No Effective Date File Name No Information Encounters Encounter Description Practice Location Reason(s) For Visit Diagnoses Date Provider Providers Copied on Encounter OFFICE/OUTPAT IENT VISIT, EST [facility], [address] [place], [address], [place] tel:[phone] [facility] Medicine cough (chief complaint) AML (chief complaint) GERD (chief complaint) Depression (chief complaint) slow stream (chief complaint) Dietary surveillance and counselingBronchi tis, AcuteMyeloid leukemia, acute, without mention of remissionOther osteoporosisGERD 4 Troy Ferrell. [address] [place], [place], [address] , [place]. tel:[phone] Family History Family Member Type Diagnosis Age [...] Of Treatment Date Type Action Status Goal Colonoscopy. Due on 014 due Goal PSA. Due on due History Of Present Illness Encounter Date Complaint History Of Prese nt Illness No Information Instructions Date Instruction Additional Infor mation Dietary counseling Related to Di etary surveillance counseling Decrease caloric intake Related to Dietary surveillance counseling Assessments Type Assessment Date No Information Mental Status Date Cognitive Assessment Orientation - Germfask ed to time, place, person, situation.
--- OUTSIDE RECORDS SUMMARY | 2024-08-10 12:52 | XMS_ITS | Continuity of Care Document ---
Author Organization [employer] [facility] Address [address] [facility] [address] [place] [phone] Phone Care Team Providers Care Geological E Logger Name Role Phone Sammy Rico MD Unavailable [...] Copied on Encounter Office/outpa tient Visit, Est [facility], [address], [place], [place], [address], [place] [phone] SEC Mna HERRERA Professional Cataract evaluation (chief complaint) Nuclear sclerosis of right eyePseudopha donna, left eye Feb- 6 Jacky Christianson. [address] [facility], [facility] A, [place], [place], [address], [place]. tel:[phone] Referring Provider: Montrell Eastman OD, [address] [place], [address]. tel:[phone] [facility], [address], [place], [place], [address], [place] tel:[phone] SEC Man HERRERA Professional No Information 6 Jacky Christianson. [address] [facility], [facility] [place], [address], [place]. tel:[phone] Office/outpa tient Visit, [facility], [address], [place], [place], [address], [place] [phone] SEC Man HERRERA Professional Psychophysic al visual disturbances LENS REPLACEMENT NECGRAFT-RAMEZ GILDARDO-HOST NOSSENILE NUCLEAR CATARACT 4 Janine Vital. [address], [address] [place] [address], [facility], [place]. tel:[phone] Referring Provider: Montrell Eastman OD, [address] [place], [address]. tel:[phone] [facility], [address], [place], [place], [address], [place] tel:[phone] SEC Man HERRERA Professional No Information 3 Janine Vital. [address], [address], [place]. tel:[phone] Referring Provider: Montrell Eastman OD, [address] [place], [address]. tel:[phone] [facility], [address], [place], [place], [address], [place] tel:[phone] SEC Man [place] Professional FOLLOW-UP SURGERY NOS Nov-0 8-201 2 Janine Vital. [address], [address] [place] [address], [facility], . tel:[phone] Referring Provider: Montrell Eastman OD, [address] [place], [address]. tel:[phone] [facility], [address] [facility] [address], [place], [place], [address], [place] tel:[phone] SEC Horatio [place] Professional FOLLOW-UP SURGERY NOS Oct-2 4-201 2 Janine Vital. [address], [address] [place] [address], [facility], [place]. tel:[phone] Referring Provider: Montrell Eastman OD, [address] [place], [address]. tel:[phone] [facility], [address] [facility] [address], [place], [place], [address], [place] tel:[phone] [facility] [place] No Information Oct-2 3-201 2 Janine Vital. [address], [address], [place], [place], [facility], [place]. tel:[phone] Referring Provider: Montrell Eastman OD, [address] [place], [address]. tel:[phone] [facility], [address] [facility] [address], [place], [place], [address], [place] tel:[phone] SEC Vanesa Pozo No Information Oct-2 2-201 2 Janine Vital. [address], [address], [place], [facility], [place]. tel:[phone] Referring Provider: Montrell Eastman OD, [address] [place], [address]. tel:[phone] [facility], [address] [facility], [address], [place], [place], [address], tel:[phone] SEC Vanesa Pozo No Information 2 Janine Vital. [address] [facility], [address], [address], . tel:[phone] Referring Provider: Montrell Eastman OD, [address] [place], [address]. tel:[phone] [facility], [address] [facility], [address], [place], [place], [address], tel:[phone] SEC Man HERRERA Professional No Information 0 2 Janine Vital. [address] [facility], [address], [address], . tel:[phone] Referring Provider: Montrell Eastman OD, [address] [place], [address]. tel:[phone] [facility], [address] [facility], [address], [place], [place], [address], tel:[phone] SEC Horatio [place] Professional No Information 2 Tere Ferguson. [address] [facility] [place], [address], . tel:[phone] Family History Family Member Type Diagnosis Age At Onset Problem (finding) Maternal grandfather Problem (finding) stomach cancer Mother Problem (finding) renal stone Father Problem (finding) hypertension Payers Payer name Insurance type Covered constitution party ID Emmanuel grace(s) [email or web address] [id number] Medicare RR MB [id number] Social History Type Description Quantity Date Captured [...] or sooner with problems. 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 Related to Senile nuclear cataract early NS, [place] good de spite darkness of lens. - monitor GVHD - having GI pro blems now - monitor dry eyes, look ok today, discussed restasis. pciol OS - in good p osition - stable, monitor. - 4 months cat check Related to FOLLOW-UP SURGERY NOS FOLLOW-UP SURGERY NO S, OS - 2 week po phaco w/ PCIOL-established, stable - vision improved - will continue to monitor - Continue tapering gtts. Recommends seeing lens engraver in about 1 week. No activity restrictions. [...]
--- OUTSIDE RECORDS SUMMARY | 2024-08-10 12:53 | XMS_ITS | CONTINUITY OF CARE DOCUMENT ---
Author Name kori sheikh Address Unknown Organization [facility] Address [address] [place] [address] Phone [phone] Care Team Providers Care Sour Bleaching Pleater Name Role Phone kori sheikh Unavailable Unavailable
--- OUTSIDE RECORDS SUMMARY | 2024-08-10 12:53 | XMS_ITS | Continuity of Care Document ---
Author Organization [facility] Address [address] [place] [address] Phone Care Team Providers Care Paper Processing Machine Helper Name Role Phone Ghassan Simmons MD Unavailable [...] Copied on Encounter OFFICE/OUTPAT IENT VISIT, EST [facility], [address] [place], [address], [place] tel:[phone] [facility] Medicine cough (chief complaint) AML (chief complaint) GERD (chief complaint) Depression (chief complaint) slow stream (chief complaint) Dietary surveillance and counselingBronchi tis, AcuteMyeloid leukemia, acute, without mention of remissionOther osteoporosisGERD 4 Troy Ferrell. [address] [place], [place], [address] , [place]. tel:[phone] Family History Family Member Type Diagnosis Age At Onset Mother Problem (finding) of surgical compli cation Brother Problem (finding) Coronary artery disease Father Problem (finding) dementia Brother Problem (finding) Alive and well Payers Payer name Insurance type Covered green party ID Authoriza tion(s) No Information Social History [...] Mental Status Date Cognitive Assessment Orientation - Salix ed to time, place, person, situation.
--- OUTSIDE RECORDS SUMMARY | 2024-08-10 12:54 | XMS_ITS | Continuity of Care Document ---
Author Organization [facility] Address [address] [facility] [address] [place] [address] Phone Care Team Providers Care Senior Technical Manager Name Role Phone Sammy Rico MD Unavailable [...] Copied on Encounter Office/outpa tient Visit, Est [facility], [address], [place], [place], [address], [place] [phone] SEC Man HERRERA Professional Cataract evaluation (chief complaint) Nuclear sclerosis of right eyePseudopha donna, left eye Feb- 6 Jacky Christianson. [address] [facility], [facility] A, [place], [place], [address], [place]. tel:[phone] Referring Provider: Montrell Eastman OD, [address] [place], [address]. tel:[phone] [facility], [address], [place], [place], [address], [place] tel:[phone] SEC Man HERRERA Professional No Information 6 Jacky Christianson. [address] [facility], [facility] [place], [address], [place]. tel:[phone] Office/outpa tient Visit, [facility], [address], [place], [place], [address], [place] [phone] SEC Man HERRERA Professional Psychophysic al visual disturbances LENS REPLACEMENT NECGRAFT-RAMEZ GILDARDO-HOST NOSSENILE NUCLEAR CATARACT 4 Janine Vital. [address] [place] [address], [facility], [place]. tel:[phone] Referring Provider: Montrell Eastman OD, [address] [place], [address]. tel:[phone] [facility], [address], [place], [place], [address], [place] tel:[phone] SEC Man HERRERA Professional No Information 3 Janine Vital. [address], [address], [place]. tel:[phone] Referring Provider: Montrell Eastman OD, [address] [place], [address]. tel:[phone] [facility], [address], [place], [place], [address], [place] tel:[phone] SEC Man [place] Professional FOLLOW-UP SURGERY NOS Nov-0 8-201 2 Janine Vital. [address] [place] [address], [facility], . tel:[phone] Referring Provider: Montrell Eastman OD, [address] [place], [address]. tel:[phone] [facility], [address] [facility] [address], [place], [place], [address], [place] tel:[phone] SEC [place] Professional FOLLOW-UP SURGERY NOS Oct-2 4-201 2 Janine Vital. [address] [place] [address], [facility], [place]. tel:[phone] Referring Provider: Montrell Eastman OD, [address] [place], [address]. tel:[phone] [facility], [address] [facility] [address], [place], [place], [address], [place] tel:[phone] [facility] [place] No Information Oct-2 3-201 2 Janine Vital. [address], [address], [place], [place], [facility], [place]. tel:[phone] Referring Provider: Montrell Eastman OD, [address] [place], [address]. tel:[phone] [facility], [address] [facility] [address], [place], [place], [address], [place] tel:[phone] SEC Vanesa Pozo No Information Oct-2 2-201 2 Janine Vital. [address], [address], [place], [facility], [place]. tel:[phone] Referring Provider: Montrell Eastman OD, [address] [place], [address]. tel:[phone] [facility], [address], [place], [place], [address], tel:[phone] SEC Vanesa Pozo No Information 2 Janine Vital. [address] [facility], [address], [address], . tel:[phone] Referring Provider: Montrell Eastman OD, [address] [place], [address]. tel:[phone] [facility], [address], [place], [place], [address], tel:[phone] SEC Mna HERRERA Professional No Information 0 2 Janine Vital. [address] [facility], [address], [address], . tel:[phone] Referring Provider: Montrell Eastman OD, [address] [place], [address]. tel:[phone] [facility], [address], [place], [place], [address], tel:[phone] SEC [place] Professional No Information 2 Tere Ferguson. [address] [facility] [place], [address], . tel:[phone] Family History Family Member Type Diagnosis Age At Onset Problem (finding) Maternal grandfather Problem (finding) stomach cancer Mother Problem (finding) renal stone Father Problem (finding) hypertension Payers Payer name Insurance type Covered democrat ID Emmanuel grace(s) [facility] [id number] Medicare RR MB [id number] Social History Type Description Quantity Date Captured [...] Information Instructions Date Instruction Additional Infor lavon Follow up - Patient will return in 6 months for Cataract check OD or sooner with problems. Impression/Plan - Ea rly Cataract OD discussed. Given 20/20 visual acuity OD, recommend observation at this time. He is starting to have some early glare issues, but do not recommend treatment at this time. Patient will return in 6 months for Cataract check OD or sooner with problems. Pseudophakia GVHD - Mzspx-hvvywe-nvrt disease Senile nuclear cataract - stable NS, no signs of glaucoma, GVHD no signs of ocular surface disease. Related to Senile nuclear cataract pciol OS - in good p osition - stable, monitor. early NS, [place] good de spite darkness of lens. - monitor GVHD - having GI pro blems now - monitor dry eyes, look ok today, discussed restasis. FOLLOW-UP SURGERY NO S, OS - 2 week po phaco w/ PCIOL-established, stable - vision improved - will continue to monitor - Continue tapering gtts. Recommends seeing block making machine operator in about 1 week. No activity restrictions. Will monitor. Related to FOLLOW-UP SURGERY NOS - 4 months cat check Related to FOLLOW-UP SURGERY NOS FOLLOW-UP SURGERY NO S, OS - 1 day po phaco w/ PCIOL-vision improved - will continue to monitor - PO regimen given, pt understands. Wear shield at night. Activity restriction reviewed. Reading glasses discussed. Related to FOLLOW-UP SURGERY NOS - 2 weeks as sched Related to FO LLOW-UP SURGERY NOS psc os>>od, visually significant os [...]
--- OUTSIDE RECORDS SUMMARY | 2024-08-10 12:54 | XMS_ITS | Continuity of Care Document ---
Author Organization [facility] Address [address] [place] [address] Phone Care Team Providers Care Adult Basic Studies Teacher Name Role Phone No Information Unavailable Unavailable Medications Medication Instructions Dosage Effective Dates (start - stop) Status Comments No Drug Therapy Prescribed Advance Directives Directive Yes / No Effective Date File Name No Information Encounters Encounter Description Practice Location Reason(s) For Visit Diagnoses Date Provider Providers Copied on Encounter [facility], [address] [place] [address], [address], [place] tel:[phone] No Information No Information Family History Family Member Type Diagnosis Age At Onset No Information Payers Payer name Insurance type Covered alliance party ID Authoriza tion(s) No Information Social [...]
--- NOTE | 2024-08-10 14:43 | PM.IMHP ---
H&P: HPI History of Present Illness Date/Time: 08/10/24 14:43 Chief Complaint: Fever Narrative: 68-year-old male past medical history of leukemia status post stem cell transplant, wyjpz-rzjxvs-fzxo disease on Jafaki, atrial flutter on Eliquis, type 2 diabetes on Jardiance presented to the ER on account of fever. Patient reported he was in his usual state of health until about 9:00 p.m. last night he started having fever with a temperature of 103? associated with nausea. Otherwise denies any chest pain shortness a breath no vomiting no abdominal pain no diarrhea and soon focal symptoms. ER evaluation in the ER notable fever 103, pulse rate 121, respiratory rate 19, saturating 97% on room air blood pressure 153/106. Labs notable for WBC 15 with neutrophil predominance, creatinine 1.97 baseline 1.75, UA nitrates and leukocyte esterase negative, flu COVID RSV negative. CT chest abdomen no acute abnormality seen. IVC filter present. Started on IV fluid Zosyn prior to admission Review of Systems Review of Systems: All other the systems were reviewed and negative except as noted in history above. [facility] Past Medical History Medical History AML (acute myeloblastic leukemia) in remission Pericarditis Depression Leukemia Pneumonia Pulmonary embolism DVT (deep venous thrombosis) Hypertension GERD (gastroesophageal reflux disease) Diabetes type 2, controlled Surgical History Surgical History Status post right knee 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 Father Cerebrovascular accident Father Alzheimer dementia Social History Social History Smoking packs per day: 0.5 Smoking cigarettes per day: 10.0 Years smoked: 2 Smoking pack-years: 1.00 Smoking status: Former smoker Tobacco type: cigarettes Alcohol intake: current Drinks per week: 2 Substance use: never Do You Feel Safe in your Home?: Yes Lack of Transportation: No Lack of Food: Never True Current Housing: I Have Housing Concerned About Future Housing: No Difficulty Paying Gas/Electric Bills: No Difficulty Paying for Meds: No Currently Unemployed: No Education: Bachelor's Degree Difficulty w/ Childcare or Family Care: No Spiritual care concerns: No Meds Home Medications and Allergies Home Medications ?Medication ?Instructions ?Recorded ?Confirmed ?Type apixaban 5 mg tablet (Eliquis) 5 mg PO Q12H 06/28/24 06/28/24 History diltiazem HCl 240 mg 240 mg PO DAILY 06/28/24 06/28/24 History capsule,extended release 24 hr, controlled empagliflozin 10 mg tablet 10 mg PO DAILY 06/28/24 06/28/24 History (Jardiance) magnesium 200 mg tablet 400 mg PO BID 06/28/24 06/28/24 History pravastatin 10 mg tablet 10 mg PO DAILY 06/28/24 06/28/24 History ruxolitinib 10 mg tablet (Jakafi) 10 mg PO BID 06/28/24 06/28/24 History testosterone cypionate 200 mg/mL 100 mg IM Q7D 06/28/24 06/28/24 History intramuscular oil tirzepatide 10 mg/0.5 mL 10 mg subcut WEEKLY 06/28/24 06/28/24 History subcutaneous pen injector (Christianunjessero) naproxen 500 mg tablet,delayed 500 mg PO BID PRN pain #30 tabs 06/30/24 Rx release prednisone 10 mg tablets in a dose See Taper PO DAILY 12 days #42 tabs 06/30/24 Rx pack Allergies Allergy/AdvReac Type Severity Reaction Status Date / Time vancomycin Allergy Mild Redness of Verified 06/28/24 10:10 Skin gabapentin AdvReac Severe Unknown Verified 06/28/24 10:10 Vital Signs Vital Signs - 24 hr 08/10/24 00:48 08/10/24 01:00 08/10/24 02:00 Temperature 103 F H Pulse Rate 121 H 120 H Respiratory Rate 19 19 20 Blood Pressure 153/106 H 145/79 H Pulse Oximetry 97 96 95 Oxygen Delivery Room Air Oxygen Flow Rate 08/10/24 03:00 08/10/24 05:00 08/10/24 06:00 Temperature 101.3 F H Pulse Rate 113 H 97 90 Respiratory Rate 18 15 17 Blood Pressure 166/70 H 118/50 L 111/53 L Pulse Oximetry 95 93 93 Oxygen Delivery Oxygen Flow Rate 08/10/24 06:48 08/10/24 07:16 08/10/24 08:00 Temperature 98.3 F Pulse Rate 86 73 Respiratory Rate 16 16 Blood Pressure 126/73 115/63 Pulse Oximetry 94 93 92 Oxygen Delivery Nasal Cannula Oxygen Flow Rate 1 08/10/24 09:01 08/10/24 10:06 08/10/24 11:00 Temperature Pulse Rate 72 70 75 Respiratory Rate 15 14 16 Blood Pressure 123/68 125/74 131/75 Pulse Oximetry 98 Oxygen Delivery Oxygen Flow Rate 08/10/24 12:00 08/10/24 13:00 08/10/24 14:05 Temperature Pulse Rate 72 82 76 Respiratory Rate 15 20 18 Blood Pressure 116/68 143/74 H 131/78 Pulse Oximetry 94 95 96 Oxygen Delivery Oxygen Flow Rate 08/10/24 14:29 Temperature Pulse Rate 75 Respiratory Rate Blood Pressure Pulse Oximetry Oxygen Delivery Oxygen Flow Rate Exam Narrative: General: alert and comfortable Eyes: EOMI, PERRLA ENNT External ears normal, Neck is supple, no masses, Respiratory systems: Clear to auscultation Cardiovascular S1, S2, normal rhythm, no murmur, rub, or gallop; no thrill or palpable murmurs on palpation. Gastrointestinal: soft, non-tender, and non-distended abdomen with no masses; BS present Skin: no rash, lesions, ulcerations, subcutaneous nodules or induration Musculoskeletal: no abnormality and no tenderness, normal ROM Neurologic: Alert and oriented x3, non focal Mental Status Exam: normal affect H&P: Results Labs Labs: Short CBC 08/10/24 Range/Units 01:53 WBC 15.9 H (4.5-10.0) K/mm3 Hgb 13.9 L (14.0-18.0) g/dL Hct 42.2 (42.0-52.0) % Plt Count 380 H (150-375) k/mm3 BMP 08/10/24 01:53 Sodium 139 Potassium 4.0 Chloride 103 Carbon Dioxide 26 BUN 32 H D Creatinine 1.97 H Glucose 120 H Calcium 9.6 Liver Function 08/10/24 Range/Units 01:53 Total Bilirubin 0.7 (0.2-1.3) mg/dL AST 45 (17-59) U/L ALT 41 (6-50) U/L Alkaline Phosphatase 41 (38-126) U/L Albumin 4.4 (3.5-5.1) g/dL Urine 08/10/24 Range/Units 01:55 Urine Color Yellow (Yellow) Urine Appearance Clear (Clear) Urine pH 7.0 (5.0-9.0) Ur Specific Triangle 1.015 (1.001-1.035) Urine Protein 2+ H (Negative) mg/dL Urine Glucose (UA) 3+ H (Negative) mg/dL Assessment and Plan Assessment and plan (1) Sepsis: Code(s): A41.9 - Sepsis, unspecified organism Status: Acute Plan Sepsis Etiology unclear, concerning however given history of immunosuppression Patient presented with fever Fever, tachycardia leukocytosis present on admission. CT abdomen chest unremarkable Echo, blood culture, Fungitell, ordered. Meropenem and doxycycline. Follow-up cultures. History of leukemia status post stem cell transplant in remission. Paons-touhal-pghg disease On Ruxolitinib which is on hold Continue above care Aflutter Continue Eliquis, await home med rec DM2 SSI with accucheks and adjust with clinical course DVT prophyalxis on Eliquis Full code Surrogate decision maker, Cristel Pichardo [place] [employer] MIPS Advance Care Plan I have confirmed that the patient's Advanced Care Plan is present, code status is documented, or surrogate decision maker is listed in patient medical record.: Yes Medication Reconciliation I have utilized all available resources to obtain, update and review the patients current medications (includes all prescriptions, OTC, herbals, cannabis, and nutritional supplements).: Yes
--- NOTE | 2024-08-10 14:54 | ADMGEN ---
This patient, Aristides Pichardo, was admitted to Medical Room 250-01. Patient oriented to hospital policies and general routines including ID bracelet, bed and alarms, visiting hours, pain management, procedures, bathroom and other care routines, personal items, smoking policy, room service/diet, and visiting hours. Information on how to activate the Rapid Response Team has been discussed. Patient are encouraged to report perceived risks to care and to ask questions if they do not understand what they are told or what they should do.
[2024-08-10] MEDS: MEROPENEM 1 GM/NS 100 ML 1 GM/100 ML BAG IVPB (15:17)
[2024-08-10] MEDS: SODIUM CHLORIDE 0.9% IV 1,000 ML 75 ML IV CONT (15:17)
[2024-08-10] MEDS: DOXYCYCLINE 100 MG/NS 100 ML 100 MG/100 ML BAG IVPB (16:21)
[2024-08-10 17:17] LABS: Glucose Point of Care 86 mg/dl (65-105)
[2024-08-10] MEDS: APIXABAN 5 MG TABLET PO (20:16)
[2024-08-10] MEDS: ACETAMINOPHEN 325 MG TABLET 650 MG PO (20:19)
[2024-08-11] VITALS (12 sets, daily range): BP systolic 141–150; BP diastolic 68–83; PULSE 74–86; RESP 18; TEMP 36.3–37.2; O2SAT 94–98
[2024-08-11] MEDS: MEROPENEM 1 GM/NS 100 ML 1 GM/100 ML BAG IVPB ×2 (03:51→17:16)
[2024-08-11] MEDS: DOXYCYCLINE 100 MG/NS 100 ML 100 MG/100 ML BAG IVPB ×2 (04:43→17:47)
[2024-08-11 05:25] LABS: Basophils Percent Auto 0.1 % (0.2-1.2); Eosinophils Percent Auto 0.2 % (0-4.4); Hematocrit 40.7 % (42.0-52.0); Hemoglobin 12.7 g/dL (14.0-18.0); Immature Granulocyte Absolute 0.04 K/mm3 (0.00-0.031); Immature Granulocyte Percent A 0.4 % (0-0.5); Lymphocytes Absolute Auto 1.56 K/mm3 (0.9-3.2); Lymphocytes Percent Auto 15.4 % (18.3-44.2); Mean Corpuscular HGB Conc 31.2 g/dl (32-36); Mean Corpuscular Hemoglobin 31.3 pg (26-34); Mean Corpuscular Volume 100.2 fl (80-100); Mean Platelet Volume 9.3 fl (7.4-10.4); Monocytes Absolute Auto 0.9 K/mm3 (0.1-0.6); Monocytes Percent Auto 8.8 % (2.6-8.5); Neutrophils Absolute Auto 7.6 K/mm3 (1.3-6.7); Neutrophils Percent Auto 75.1 % (45.5-73.1); Platelet Count Result 302 k/mm3 (150-375); Red Blood Count 4.06 M/mm3 (4.6-6.20); Red Cell Distribution Width 14.9 % (11.5-14.5); White Blood Count 10.1 K/mm3 (4.5-10.0)
[2024-08-11 05:40] LABS: Alanine Aminotransferase 34 U/L (6-50); Albumin Level 3.6 g/dL (3.5-5.1); Alkaline Phosphatase 43 U/L (38-126); Anion Gap 6 mmol/L (4-12); Aspartate Amino Transferase 37 U/L (17-59); Bilirubin,Total 0.7 mg/dL (0.2-1.3); Blood Urea Nitrogen 22 mg/dL (9-20); Calcium 8.4 mg/dL (8.4-10.2); Carbon Dioxide 27 mmol/L (22-30); Chloride 105 mmol/L (98-107); Estimated CRCL calculation 49 ml/min; Estimated Glomerular Filt Rate 39; Glucose 86 mg/dL (65-110); Magnesium 2.4 mg/dL (1.6-2.3); Sodium 138 mmol/L (137-145)
[2024-08-11] MEDS: ACETAMINOPHEN 325 MG TABLET 650 MG PO ×2 (09:26→21:22)
[2024-08-11] MEDS: APIXABAN 5 MG TABLET PO ×2 (09:27→21:21)
[2024-08-11] MEDS: dilTIAZem HCL CD 240 MG CAP.24HR PO (10:29)
--- NOTE | 2024-08-11 11:47 | PM.IMPN ---
Progress Note: A&P Assessment and Plan (1) Sepsis: Code(s): A41.9 - Sepsis, unspecified organism Status: Acute Plan Sepsis Etiology unclear, concerning however given history of immunosuppression No fever since admission and vital signs, leukocytosis resolving CT abdomen chest unremarkable Echo, blood culture, Fungitell, pending Meropenem and doxycycline. monitor History of leukemia status post stem cell transplant in remission. Zvzjd-gruxvr-swwm disease On Ruxolitinib which is on hold Continue above care Aflutter Continue Eliquis, await home med rec DM2 SSI with accucheks and adjust with clinical course DVT prophyalxis on Eliquis Full code Surrogate decision maker, Cristel Pichardo Subjective Date/time seen: 08/11/24 11:47 Interval history: Patient comfortable at bedside No fever overnight and vital signs has been normal monitor one more day Review of Systems Review of Systems: All other the systems were reviewed and negative except as noted in history above. Exam Narrative: General: alert and comfortable Eyes: EOMI, PERRLA ENNT External ears normal, Neck is supple, no masses, Respiratory systems: Clear to auscultation Cardiovascular S1, S2, normal rhythm, no murmur, rub, or gallop; no thrill or palpable murmurs on palpation. Gastrointestinal: soft, non-tender, and non-distended abdomen with no masses; BS present Skin: no rash, lesions, ulcerations, subcutaneous nodules or induration Musculoskeletal: no abnormality and no tenderness, normal ROM Neurologic: Alert and oriented x3, non focal Mental Status Exam: normal affect Objective Data Vital Signs Vital Signs: Vital Signs - 24 hr 08/10/24 12:00 08/10/24 13:00 08/10/24 14:05 Temperature Pulse Rate 72 82 76 Respiratory Rate 15 20 18 Blood Pressure 116/68 143/74 H 131/78 Pulse Oximetry 94 95 96 Oxygen Delivery 08/10/24 14:29 08/10/24 15:00 08/10/24 15:13 Temperature 97.7 F Pulse Rate 75 73 Respiratory Rate 18 Blood Pressure 139/70 Pulse Oximetry 98 100 Oxygen Delivery Room Air 08/10/24 16:04 08/10/24 20:00 08/10/24 20:00 Temperature Pulse Rate 63 78 Respiratory Rate Blood Pressure Pulse Oximetry Oxygen Delivery Room Air 08/10/24 22:00 08/11/24 00:00 08/11/24 04:00 Temperature 97.5 F L Pulse Rate 74 82 77 Respiratory Rate 18 Blood Pressure 144/82 H Pulse Oximetry 99 Oxygen Delivery 08/11/24 06:00 Temperature 97.4 F L Pulse Rate 76 Respiratory Rate 18 Blood Pressure 150/83 H Pulse Oximetry 95 Oxygen Delivery Intake/Output Intake/Output: Intake & Output 08/08/24 08/09/24 08/10/24 08/11/24 23:59 23:59 23:59 23:59 Intake Total 3990 340 Output Total 300 1900 Balance 3690 -1560 Meds/Results Medications: Active Medications Generic Name Dose Route Start Last Admin Trade Name Freq PRN Reason Stop Dose Admin Acetaminophen 650 mg 08/10/24 04:43 08/11/24 09:26 Acetaminophen 325 Mg Tablet PO 650 mg Q4H PRN Administration Mild Pain (1-3) or Fever Apixaban 5 mg 08/10/24 21:00 08/11/24 09:27 Apixaban 5 Mg Tablet PO 5 mg Q12HR ALE Administration Diltiazem HCl 240 mg 08/11/24 09:30 08/11/24 10:29 Diltiazem Hcl Cd 240 Mg Cap.24hr PO 240 mg DAILY ALE Administration Meropenem 1 gm in 100 mls @ 200 mls/hr 08/10/24 16:00 08/11/24 04:42 IVPB Infused Q12H ALE Infusion Doxycycline Hyclate 100 mg in 100 mls @ 100 mls/hr 08/10/24 17:00 08/11/24 04:43 Vibramycin 100 Mg/Ns 100 Ml IVPB 100 mls/hr Q12H AEL Administration Sodium Chloride 1,000 mls @ 75 mls/hr 08/10/24 14:55 08/10/24 15:17 Normal Saline Iv IV CONT 75 mls/hr .[id number] ALE Administration Ondansetron HCl 4 mg 08/10/24 04:43 Ondansetron Inj 4 Mg/2 Ml Vial IV PUSH Q4H PRN Nausea Perflutren Lipid Microsphere 0 ml 08/10/24 14:47 Perflutren Lipid Microspheres 1.5 Ml Vial Diluted To 10 Ml Total Volume IV PUSH 08/13/24 14:47 ONCE PRN adequate visualization Protocol Radiology Results: ITS Impressions Chest X-Ray 08/10/24 06:07 Impression: Normal chest. Chest/Abdomen/Pelvis CT 08/10/24 06:08 Impression: No acute abnormalities seen. Small bilateral fat-containing inguinal hernias. Labs Labs: Laboratory Results - last 24 hr 08/10/24 08/11/24 08/11/24 17:07 05:07 05:08 WBC 10.1 H RBC 4.06 L Hgb 12.7 L Hct 40.7 L MCV 100.2 H MCH 31.3 MCHC 31.2 L RDW 14.9 H Plt Count 302 MPV 9.3 Immature Gran % (Auto) 0.4 Neut % (Auto) 75.1 H Lymph % (Auto) 15.[address] [place] % (Auto) 8.8 H Eos % (Auto) 0.2 Baso % (Auto) 0.1 L Lymph # (Auto) 1.56 [place] # (Auto) 0.9 H Eos # (Auto) 0.0 Baso # (Auto) 0.0 Abs Immat Gran (auto) 0.04 H Absolute Neuts (auto) 7.6 H Absolute Nucleated RBC 0.000 Nucleated RBC % 0.0 Sodium 138 Potassium 4.0 Chloride 105 Carbon Dioxide 27 Anion Gap 6 BUN 22 H D Creatinine 1.73 H Estim Creat Clear Calc 49 Estimated GFR 39 L Glucose 86 POC Capillary Glucose 86 Calcium 8.4 Magnesium 2.4 H Total Bilirubin 0.7 AST 37 ALT 34 Alkaline Phosphatase 43 Total Protein 7.0 Albumin 3.6
[2024-08-12] VITALS: PULSE 79
[2024-08-12 04:00] VITALS: PULSE 66
[2024-08-12] MEDS: MEROPENEM 1 GM/NS 100 ML 1 GM/100 ML BAG IVPB (04:47)
[2024-08-12 05:21] LABS: Basophils Percent Auto 0.1 % (0.2-1.2); Eosinophils Percent Auto 0.3 % (0-4.4); Hematocrit 39.9 % (42.0-52.0); Hemoglobin 12.6 g/dL (14.0-18.0); Immature Granulocyte Absolute 0.03 K/mm3 (0.00-0.031); Immature Granulocyte Percent A 0.3 % (0-0.5); Lymphocytes Absolute Auto 1.64 K/mm3 (0.9-3.2); Lymphocytes Percent Auto 18.1 % (18.3-44.2); Mean Corpuscular HGB Conc 31.6 g/dl (32-36); Mean Corpuscular Hemoglobin 31.3 pg (26-34); Mean Corpuscular Volume 99.3 fl (80-100); Mean Platelet Volume 9.4 fl (7.4-10.4); Monocytes Absolute Auto 1.3 K/mm3 (0.1-0.6); Neutrophils Absolute Auto 6.1 K/mm3 (1.3-6.7); Neutrophils Percent Auto 67.2 % (45.5-73.1); Platelet Count Result 304 k/mm3 (150-375); Red Blood Count 4.02 M/mm3 (4.6-6.20); Red Cell Distribution Width 14.8 % (11.5-14.5); White Blood Count 9.1 K/mm3 (4.5-10.0)
[2024-08-12] MEDS: DOXYCYCLINE 100 MG/NS 100 ML 100 MG/100 ML BAG IVPB (05:24)
[2024-08-12 05:29] VITALS: BP 148/76; PULSE 70; RESP 18; TEMP 36.6; O2SAT 96
[2024-08-12 05:41] LABS: Alanine Aminotransferase 28 U/L (6-50); Albumin Level 3.6 g/dL (3.5-5.1); Alkaline Phosphatase 41 U/L (38-126); Anion Gap 7 mmol/L (4-12); Aspartate Amino Transferase 30 U/L (17-59); Bilirubin,Total 0.5 mg/dL (0.2-1.3); Blood Urea Nitrogen 18 mg/dL (9-20); Calcium 8.3 mg/dL (8.4-10.2); Carbon Dioxide 26 mmol/L (22-30); Chloride 104 mmol/L (98-107); Estimated CRCL calculation 53 ml/min; Estimated Glomerular Filt Rate 43; Glucose 96 mg/dL (65-110); Magnesium 2.4 mg/dL (1.6-2.3); Potassium 3.6 mmol/L (3.4-5.0); Sodium 137 mmol/L (137-145)
[2024-08-12] MEDS: APIXABAN 5 MG TABLET PO (09:07)
[2024-08-12] MEDS: dilTIAZem HCL CD 240 MG CAP.24HR PO (09:07)
--- NOTE | 2024-08-12 10:13 | P.DS_ITS ---
DS: Admitting Diagnosis Discharge Date 08/12/24 Admitting Diagnosis Fever DS: Discharge Diagnosis Discharge Diagnosis (1) Sepsis: Code(s): A41.9 - Sepsis, unspecified organism Status: Acute DS: Summary Hospital Course Hospital Course: 68-year-old male past medical history of leukemia status post stem cell transplant, mztxl-blhlxa-jprc disease on Jafaki, atrial flutter on Eliquis, type 2 diabetes on Jardiance presented to the ER on account of fever. Patient reported he was in his usual state of health until about 9:00 p.m. last night he started having fever with a temperature of 103? associated with nausea. Otherwise denies any chest pain shortness a breath no vomiting no abdominal pain no diarrhea and soon focal symptoms. ER evaluation in the ER notable fever 103, pulse rate 121, respiratory rate 19, saturating 97% on room air blood pressure 153/106. Labs notable for WBC 15 with neutrophil predominance, creatinine 1.97 baseline 1.75, UA nitrates and leukocyte esterase negative, flu COVID RSV negative. CT chest abdomen no acute abnormality seen. IVC filter present. Started on IV fluid Zosyn prior to admission Patient was eventually started on Meropenem and Doxycycline. Sepsis has resolved as vital signs has been normal since the day of admission, Leukocytosis resolved, urine cultures negative and blood culture negative at this time. Patient was thus discharged on 7 more days of Augmentin and Doxycycline. He will continue to follow up with his PCP and oncology. Patient advised to hold Jafaki during the period of antibiotics. F/u with PCP in 3-5 days F/u with primary oncology as scheduled Time Spent with Patient Time attestation: Total time spent providing and/or coordinating discharge services: DS: Data Data Completed and Pending Labs on day of discharge: Labs from last 24 hours 08/12/24 05:12 WBC 9.1 RBC 4.02 L Hgb 12.6 L Hct 39.9 L MCV 99.3 MCH 31.3 MCHC 31.6 L RDW 14.8 H Plt Count 304 MPV 9.4 Immature Gran % (Auto) 0.3 Neut % (Auto) 67.2 Lymph % (Auto) 18.1 L [place] % (Auto) 14.0 H Eos % (Auto) 0.3 Baso % (Auto) 0.1 L Lymph # (Auto) 1.64 [place] # (Auto) 1.3 H Eos # (Auto) 0.0 Baso # (Auto) 0.0 Abs Immat Gran (auto) 0.03 Absolute Neuts (auto) 6.1 Absolute Nucleated RBC 0.000 Nucleated RBC % 0.0 Sodium 137 Potassium 3.6 Chloride 104 Carbon Dioxide 26 Anion Gap 7 BUN 18 Creatinine 1.60 H Estim Creat Clear Calc 53 Estimated GFR 43 L Glucose 96 Calcium 8.3 L Magnesium 2.4 H Total Bilirubin 0.5 AST 30 ALT 28 Alkaline Phosphatase 41 Total Protein 7.0 Albumin 3.6 Preliminary micro results at discharge 08/10/24 01:53 Blood Culture - Preliminary Blood 08/10/24 02:30 Blood Culture - Preliminary Blood Discharge Plan Discharge Attending physician on discharge: Judy Zepeda Discharging Clinician: Judy Zepeda Anticipated Discharge Date/Time: 08/12/24 10:10 Patient Disposition: Home Activity: as tolerated Diet: as tolerated and regular Patient Instructions: Antibiotic Form, Apixaban (By mouth) Patient Language: Belarusian Stand Alone Forms: General Discharge Information Follow-up/Referrals: Higinio,Franky Sanz MD [Primary Care Provider] - (F/u with PCP in 3-5 days ) Discharge Medications: New doxycycline hyclate 100 mg tablet 100 mg PO BID 7 Days Qty: 14 0RF amoxicillin-pot clavulanate 875-125 mg tablet 1 tablet PO Q12H 7 Days Qty: 14 0RF Continued testosterone cypionate 200 mg/mL oil 100 mg IM Q7D Patient Comments: takes on Sundays Jakafi 10 mg tablet 10 mg PO BID Mounjaro 10 mg/0.5 mL pen injector 10 mg subcut WEEKLY Patient Comments: takes on Sundays Jardiance 10 mg tablet 10 mg PO DAILY Eliquis 5 mg tablet 5 mg PO Q12H magnesium 200 mg tablet 400 mg PO BID pravastatin 10 mg tablet 10 mg PO DAILY diltiazem HCl 240 mg capsule,ext.rel 24h degradable 240 mg PO DAILY naproxen 500 mg tablet,delayed release (DR/EC) 500 mg PO BID PRN (Reason: pain) Qty: 30 0RF Date of admission: 08/11/24 14:15 Primary Care Provider: Higinio,Franky Sanz Admitting Provider: Vida Dinh Attending physician on admission: Vida Dinh Condition: Stable
[2024-08-15 14:55] LABS: Fungitell (1-3) B D Glucan 104 pg/mL (<60); Fungitell Interpretation Positive (Negative)
== END 2024-08-12 11:23 | disposition home or self-care (01) | DRG 872 ==
LOC: ANHED 04:49 → ANH3MEDSUR 11:23 → ANH2MED 14:18
PROVIDERS: Physician Assistant; Admitting Provider Internal Medicine; Emergency Provider Student in an Organized Health Care Education/Training Program; PCP Family Medicine; Visit Provider Internal Medicine
DX: A41.9 Sepsis, unspecified organism (principal); C95.91 Leukemia, unspecified, in remission; I48.92 Unspecified atrial flutter; D89.813 Graft-versus-host disease, unspecified; Z94.81 Bone marrow transplant status; E86.0 Dehydration; I12.9 Hypertensive chronic kidney disease with stage 1 through stage 4 chronic kidney disease, or unspecified chronic kidney disease; N18.9 Chronic kidney disease, unspecified; E11.22 Type 2 diabetes mellitus with diabetic chronic kidney disease; K21.9 Gastro-esophageal reflux disease without esophagitis; Z20.822 Contact with and (suspected) exposure to COVID-19; F32.A Depression, unspecified; Z96.651 Presence of right artificial knee joint; Z79.01 Long term (current) use of anticoagulants; Z86.711 Personal history of pulmonary embolism; Z86.718 Personal history of other venous thrombosis and embolism; Z87.891 Personal history of nicotine dependence
CPT/HCPCS: 36415; 71045; 71260; 74177; 80053; 81001; 82948; 83605; 83735; 85025; 85610; 85730; 86140; 87040; 87086; 87637; 93005; 93306; 96365; 96366; 96367; 96368; 96375; 99285; A9270; G0378; J2185; J2405; J2543; J7030; J7120; Q9967

== ENCOUNTER 2024-11-09 19:40 | Emergency (ER) | payer OTHER, SELFPAY ==
[2024-11-09] VITALS (17 sets, daily range): BP systolic 130–160; BP diastolic 55–85; PULSE 67–74; RESP 13–22; TEMP 36.5; O2SAT 90–96
--- NOTE | ~2024-11-09 | CT_ITS ---
EXAMINATION: CT abdomen pelvis w con DATE: 11/09/2024 20:51 INDICATION: RLQ pain TECHNIQUE: Computed tomography (CT) of the abdomen and pelvis was performed with 100 mL Omnipaque-350 intravenous contrast. Automated exposure control and iterative reconstruction technique were employe d. The dose-length product was 1576.73 mGy-cm. COMPARISON: 08/10/2024. FINDINGS: Lower thorax: Calcified right middle lobe granuloma. Bibasilar scar/atelectasis. Coronary artery and aortic valve calcification. Calcified right hilar nodes. Liver: Normal. Biliary/Gallbladder: Gallbladder is normal. No bile duct dilation. Pancreas: No mass or duct dilation. Spleen: Normal. Adrenals:No mass. Kidneys: No suspicious mass, obstructing stone, or hydronephrosis. Simple left renal cyst. Additional bilateral hypodensities that are too small to characterize but most likely represent cysts. GI tract: No small or large bowel dilation. 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 Mesentery/Peritoneum: No ascites, mass, or free air. Retroperitoneum: No mass. Atherosclerotic calcifications of intra-abdominal arterial vessels. IVC windy ter. Pelvis: Mild urinary bladder wall thickening in a partially distended bladder. Prostatomegaly. Soft Tissues: Small uncomplicated fat-containing of local and bilateral inguinal hernias. Bones: No acute osseous finding. Stable grade 1 anterolisthesis at L5-S1. IMPRESSION: Mild bladder wall thickening may be secondary to incomplete distention, chronic obstruction from pros tatomegaly, or cystitis. Otherwise, no acute abdominopelvic process detected. Reviewed, dictated and finalized at location K. IMPRESSION: Mild bladder wall thickening may be secondary to incomplete distention, chronic obstruction from prostatomegaly, or cystitis. Otherwise, no acute abdominopelvic process detected.
--- OUTSIDE RECORDS SUMMARY | 2024-11-09 19:42 | XMS_ITS | Clinical Summary ---
Author Organization [facility] Address [address] [place] [address] Care Team Providers Care Account Support Associate Name Role Phone Rosa Russell Placido CARDROOM ATTENDANT Unavailable Franky Sylvester MD Primary Care Provider [phone] Montrell Wolfe MD PhD Unavailable [phone] Pablo Mcmillan MD Unavailable [phone] Allergies Active Allergy Reactions Criticality Noted Date Comments Gabapentin Other (See comments) Low Reaction: Other Lisinopril Cough Low 11/13/2021 Vancomycin Itching Low Medications pravastatin (PRAVACHOL) 10 mg tablet TAKE 1 TABLET BY MOUTH EVERY DAY 90 tablet 3 12/08/19 24 Active magnesium gluconate 200 mg tabletIndicatio ns:hypomagnesem ia Take 2 tablets (400 mg total) by mouth 2 (two) times a day Active needle, disp, 18 G (BD Regular Bevel [place]) 18 gauge x 1 needle To draw up injection 12 each 04/01/20 24 Active syringe, disposable, (BD Luer-Emilia Syringe) 1 mL syringe To use for injection 12 each 04/01/20 24 Active empagliflozin (JARDIANCE) 10 mg tablet Take 1 tablet (10 mg total) by mouth daily 90 tablet 3 04/19/[address] (EC NAPROSYN) 500 mg EC tablet Take 1 tablet (500 mg total) by mouth 2 (two) times a day 07/01/19 25 Active tirzepatide (Mounjaro) 10 mg/0.5 mL pen injector injection Inject 0.5 mL (10 mg total) under the skin once a week 0.5 mL 3 07/22/19 25 Active needle, disp, 25 gauge (BD Regular Bevel [place]) 25 gauge x 5/8 needle To use to inject 12 each 3 08/18/19 25 Active amoxicillin-cla vulanate (AUGMENTIN) 875-125 mg per tablet Take 1 tablet by mouth every 12 (twelve) hours for 7 days 08/13/19 25 Active dilTIAZem XR 240 mg 24 hr capsuleIndicati ons:Atrial fibrillation, unspecified type ([facility]) TAKE 1 CAPSULE BY MOUTH EVERY DAY 90 capsule 2 08/30/19 25 Active olmesartan (Benicar) 20 mg tabletIndicatio ns:CKD stage 3b, GFR 30-44 ml/min ([facility]),Essential hypertension Take 1 tablet (20 mg total) by mouth daily 90 each 3 09/15/19 25 026 Active testosterone cypionate (DEPO-TESTOTERO NE) 200 mg/mL injectionIndica tions:Hypogonad ism in male Inject 0.5 mL (100 mg total) into the muscle as instructed every 7 days 4 mL 2 10/18/19 25 025 Active apixaban (ELIQUIS) 5 mg tablet Take 1 tablet (5 mg total) by mouth 2 (two) times a day 180 tablet 1 10/25/19 25 Active hydrocortisone 2.5 % ointmentIndicat ions:Contact dermatitis, unspecified contact dermatitis type, unspecified trigger,Itchy scalp Apply topically 2 (two) times a day as needed for rash Avoid face 30 g 10/26/19 25 Active Jakafi 10 mg tabletIndicatio ns: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 TAKE AT ABOUT THE SAME TIME EACH DAY. 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 TAKE WITH OR WITHOUT FOOD. 60 tablet 3 06/18/19 25 025 Discontinued testosterone cypionate (DEPO-TESTOTERO NE) 200 mg/mL injectionIndica tions:Hypogonad ism in male Inject 0.5 mL (100 mg total) into the muscle as instructed every 7 days 4 mL 2 07/13/19 025 Discontinued(R eorder) mupirocin (BACTROBAN) 2 % ointmentIndicat ions:Local skin infection Apply topically 3 (three) times a day for 10 days 22 g 10/26/19 25 025 Active Problems Problem Noted Date Diagnosed Date Controlled type 2 diabetes m cherelle with stage 3 chronic kidney disease, without long-term current use of insulin 06/15/2024 History of colon polyps 03/23/2024 Medicare annual wellness visit, subsequent 02/14 Assessment & Plan (02/15/2024 10:43 AM SCORING MACHINE OPERATOR): Discussed with patient current recommendations for [...] 02/12/2024 Assessment & Plan (02/15/2024 10:42 AM SCORING MACHINE OPERATOR): Stable limit nephrotoxins Continue Lasix 20mg BP and glucose control GFR 42 Lab Results Component Value Date CREATININE 1.75 (H) 2023 BUNSER 26 (H) 2023 SODIUM 140 2023 POTASSIUM 4.5 2023 CO2 27 2023 Simple chronic bronchitis 02/12/2024 Assessment & Plan (02/15/2024 10:40 AM SCORING MACHINE OPERATOR): Stable Davon Shannonsandhya Reports has substantially helped sx 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 EKG in [facility] 07/05 showed narrow complex tachycardia with HR >150. Given adenosine x2 (6 mg, 12 mg) in [facility] EKG strip after adenosine noted flutter waves. Given Amio bolus 150 mg, IV metop x2 5 mg after adenosine with poor clinical response. -S/p IV dilt 10 mg x3 07/06/22. Better rate control was noted with IV dilt compared to metop/amio. -Cards consulted.He sees Dr Elizondo as outpatient,-PO metop & amio stopped per cards recs S/p LUISA and successful cardioversion 07/07/22 with mosque of sinus rhythm. PO diltiazem 60 mg [...] 01/02/2022 Assessment & Plan (03/01/2024 9:39 AM SCORING MACHINE OPERATOR): Stable Uses CPAP with relief of [...] 2017 Assessment & Plan (02/15/2024 10:42 AM SCORING MACHINE OPERATOR): Stable Declines pain management Reports magnesium [...] (10/09/2020): Added automatically from request for surgery [id number] Other osteoporosis without c urrent pathological fracture 05/17/2019 10/16/2022 Prediabetes 05/17/2019 10/16/2022 Acute on chronic renal insufficiency 10/26/2018 10/16/2022 Assessment & Plan (07/08/2022 1:13 PM CDT): Cr 2.32 on admission (BL around 2 ). S/p 1L IVF bolus in [facility] 07/05 -Patient does endorse occasional NSAID use [...] Encounters Date Type Department Care Team Description 10/25/2024 6:00 PM CDT Office Visit [facility] Convenient Care at [address] [address] Geovany Castle NP Local skin infection (Primary Dx); Contact dermatitis, unspecified contact dermatitis type, unspecified trigger; Itchy scalp 10/17/2024 Orders Only [facility] Bone Marrow Transplant [address] [facility] [address] [place] [address] Ney Padron RN Acute myeloid leukemia in remission (HCC) (Primary Dx) 09/19/2024 8:30 AM CDT Infusion [facility] - Infusion [address] [facility] [address] [place] [address] Acute myeloid leukemia in remission (HCC) 09/19/2024 7:30 AM CDT Clinical Support [facility] - Lab Collection [address] [facility] [address] 6 [place] [address] Acute myeloid leukemia in remission (HCC); CKD stage 3b, GFR 30-44 ml/min (HCC); Albuminuria 09/14/2024 8:30 AM CDT Office Visit [facility] Nephrology [address] [place] [address] 5th [place] [address] [place] [address] CKD stage 3b, GFR 30-44 ml/min (HCC) (Primary Dx); Essential hypertension; Albuminuria; Obesity, Class II, BMI 35-39.9 09/02/2024 8:45 AM CDT Lab [facility] Outpatient Lab at [address] [address] 09/02/2024 8:40 AM CDT - 09/02/2024 11:59 PM CDT Hospital Encounter [address] [address] CKD stage 3b, GFR 30-44 ml/min (HCC); Essential hypertension; Vitamin D deficiency disease; Acute myeloid leukemia in remission (HCC); Vitamin D deficiency, unspecified; Encounter for routine adult health examination with abnormal findings; Medication dose changed Discharge Disposition: Discharge to home or self care 08/26/2024 Orders Only [facility] Nephrology [address] [place] [address] 5th [place] [address] [place] [id number] Mami Alcala MD CKD stage 3b, GFR 30-44 ml/min (HCC) (Primary Dx); Essential hypertension; Vitamin D deficiency disease; Acute myeloid leukemia in remission (HCC); Vitamin D deficiency, unspecified; Encounter for routine adult health examination with abnormal findings; Medication dose changed 08/22/2024 10:45 AM CDT Office Visit [facility] Family Medicine at [address] [place] [address] Franky Sylvester MD Fever in other diseases (Primary Dx); Stage 3b chronic kidney disease (HCC); Polycythemia, secondary; Paroxysmal atrial flutter (HCC); Hypogonadism in male; Stem cells transplant status (HCC) 08/16/2024 JORI IP Outreach [facility] Accountable Care Organization [address] [place] [address] Keysha Marte MA 08/10/2024 Orders Only [facility] Information Management [address] [place] [address] Scanning, Provider from Last 3 Months Immunizations Immunization Administration [...] Tobacco: Former Cigarettes 0.3 15 1 5 1989 Smokeless Tobacco: Never Tobacco Cessation:Counseling Given: No Alcohol Use Standard Drinks/Week Comments No 0 (1 standard drink = 0.6 oz pur e alcohol) [employer] Utilities Answer Date Recorded In the past 12 months has [employer], gas, oil, or water [employer] threatened to shut off services in your [...] often do you attend chur ch or yazidism services? Never 06/26/2023 Do you belong to [...] often do you have a drink containing alcohol? Never 09/14/2024 Q2: How many drinks containi ng alcohol do you have on a typical day when you are drinking? Patient does not drink Q3: How often do you have si x or more drinks on one occasion? Never 09/14/2024 Overall Financial Resource Strain (CARDIA) Answe r [...] place to sleep or slept in a snf (including now)? No 06/26/2023 PHQ-9 Answer Date Recorded PHQ-9 Total Score 10 02/14/2024 Personal Safety Answer Date Recorded Have you ever been in or are you currently in a harmful physical or emotional relationship or is someone making you feel afraid or unsafe? Denies 05/19/2024 Sex and Gender Information Value Date Recorded Sex Assigned at Not on file Legal Sex Male 10:07 AM SCORING MACHINE OPERATOR Gender Identity Not on file Sexual Orientation Not on file Obstetrics History Last Filed Vital Signs Vital Sign Reading Time Taken Comments Blood Pressure 122/64 10/25/2024 5:52 PM CDT Pulse 78 10/25/2024 5:52 PM CDT Temperature 36.6 C (97.8 F) 10/25/2024 5:52 PM CDT Respiratory Rate 20 10/25/2024 5:52 PM CDT Oxygen Saturation 96% 10/25/2024 5:52 PM CDT Inhaled Oxygen Concentration - - Weight 121.1 kg (267 lb) 10/25/2024 5:52 PM CDT Height 185.4 cm (6' 1) 08/22/2024 10:31 AM CDT Body Mass Index 35.23 08/22/2024 10:31 AM CDT Plan of Treatment Health Maintenance [...] history exists Dilated Eye Exam 02/27/2024 02/26/2023 Lipid Panel 09/03/2024 09/04/2023, 01/11, 11/27/2021, Additional history exists Influenza Vaccine (#1) 2024 , 01/14/2023, 01/14/2022, Additional history exists Hemoglobin A1C 12/14/2024 06/13/2024, 10/11, 01/21/2023, Additional history exists Depression Screening 02/14/2025 02/15/2024, 02/15/2024, 12/16/2023, Additional history exists Well Visit 65+ 02/14/2025 02/15/2024, 07/2022, 10/16/2022, Additional history exists Colon Cancer Screening-Colonoscopy 05/19/2025 05/19/2024, 04/22/2023, 01/25/2013, Additional history exists Fall Risk Assessment 05/19/2025 05/19/2024, 02/15/2024, 12/16/2023, Additional history exists Albumin Creatinine Ratio, Urine 09/19/2025 09/19/2024, 09/02/2024, 07/09/2023, Additional history exists eGFR 09/19/2025 09/19/2024, 08/12, 06/13/2024, Additional history exists Prostate Cancer Screening-PSA 10/26/2025, 07/23/2022, 06/24/2021, Additional history exists DTaP/Tdap/Td Vaccine (3 - Td or Tdap) 11/25/2030 11/25/2020, 09/09/2019 Hepatitis C Screening Completed 08/07/2021, 008 Colon Cancer Screening-CT Colonography Discontinued 05/19/2024, 04/22/2023, [...] Chronic Care Management No change(06/04 7:38 AM SCORING MACHINE OPERATOR) No Seema Dutton, RN Note: Problem: Chronic Pain Goals: 1. Minimize further functional decline 2. Maximize quality of life 3. Control pain Strategies: - Activity/exercise program recommendation - Conservative stepwise pain medicine strategy with multi-disciplinary approach - Recommend healthy lifestyle strategies and compensatory methods as needed Medical Devices Implanted Type Area Cuprous Chloride Helper Device Identifier Shelf Expiration Date Model / Serial / Lot Ivc Filter IVC Filter Vena Cava Procedures Procedure Name Priority Date/Time Associated Diagnosis Comments ALBUMIN CREATININE RATIO, URINE Routine 09/19/2024 7:53 AM CDT CKD stage 3b, GFR 30-44 ml/min (HCC) Albuminuria DIFFERENTIAL AUTO Routine 09/19/2024 7:1 2 AM CDT Acute myeloid leukemia in remission (HCC) CBC WITH AUTO DIFFERENTIAL Routine 09/19/2024 7:12 AM CDT Acute myeloid leukemia in remission (HCC) EGFR Routine 09/19/2024 7:12 AM CDT Acute myeloid leukemia in remission (HCC) PHOSPHORUS Routine 09/19/2024 7:12 AM CDT Acute myeloid leukemia in remission (HCC) PTH Routine 09/19/2024 7:12 AM CDT CKD stage 3b, GFR 30-44 ml/min (HCC) COMPREHENSIVE METABOLIC PANEL Routine 09/19/2024 7:12 AM CDT Acute myeloid leukemia in remission (HCC) LACTATE DEHYDROGENASE Routine 09/19/2024 7:12 AM CDT Acute myeloid leukemia in remission (HCC) VITAMIN D 25 HYDROXY Routine 09/19/2024 7:12 AM CDT CKD stage 3b, GFR 30-44 ml/min (HCC) EGFR Routine 09/02/2024 8:40 AM CDT CKD stage 3b, GFR 30-44 ml/min (HCC) Essential hypertension Vitamin D deficiency disease Acute myeloid leukemia in remission (HCC) Vitamin D deficiency, unspecified Encounter for routine adult health examination with abnormal findings Medication dose changed DIFFERENTIAL AUTO Routine 09/02/2024 8:4 0 AM CDT CKD stage 3b, GFR 30-44 ml/min (HCC) Essential hypertension Vitamin D deficiency disease Acute myeloid leukemia in remission (HCC) Vitamin D deficiency, unspecified Encounter for routine adult health examination with abnormal findings Medication dose changed PTH Routine 09/02/2024 8:40 AM CDT CKD stage 3b, GFR 30-44 ml/min (HCC) Essential hypertension Vitamin D deficiency disease Acute myeloid leukemia in remission (HCC) Vitamin D deficiency, unspecified Encounter for routine adult health examination with abnormal findings Medication dose changed CBC WITH AUTO DIFFERENTIAL Routine 09/02/2024 8:40 AM CDT CKD stage 3b, GFR 30-44 ml/min (HCC) Essential hypertension Vitamin D deficiency disease Acute myeloid leukemia in remission (HCC) Vitamin D deficiency, unspecified Encounter for routine adult health examination with abnormal findings Medication dose changed VITAMIN D 25 HYDROXY Routine 09/02/2024 8:40 AM CDT CKD stage 3b, GFR 30-44 ml/min (HCC) Essential hypertension Vitamin D deficiency disease Acute myeloid leukemia in remission (HCC) Vitamin D deficiency, unspecified Encounter for routine adult health examination with abnormal findings Medication dose changed RENAL FUNCTION PANEL Routine 09/02/2024 8:40 AM CDT CKD stage 3b, GFR 30-44 ml/min (HCC) Essential hypertension Vitamin D deficiency disease Acute myeloid leukemia in remission (HCC) Vitamin D deficiency, unspecified Encounter for routine adult health examination with abnormal findings Medication dose changed ALBUMIN CREATININE RATIO, URINE Routine 09/02/2024 8:40 AM CDT CKD stage 3b, GFR 30-44 ml/min (HCC) Essential hypertension Vitamin D deficiency disease Acute myeloid leukemia in remission (HCC) Vitamin D deficiency, unspecified Encounter for routine adult health examination with abnormal findings Medication dose changed CARDIOLOGY DOCUMENT SCAN 08/10/2024 HEMOGLOBIN A1C Routine 06/13/2024 7:24 AM SCORING MACHINE OPERATOR 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 disease, without long-term current use of insulin (HCC) COLONOSCOPY 05/19/2024 12:30 PM SCORING MACHINE OPERATOR PSA SCREEN Routine 10/27/2023 10:05 AM CDT Screening for prostate cancer LIPID PANEL Routine 09/04/2023 10:34 AM CDT Atrial flutter with rapid ventricular response (HCC) Essential hypertension Paroxysmal atrial flutter (HCC) Pure hypercholesterolemi a Acute myeloid leukemia in remission (HCC) NOVAK (dyspnea on exertion) DIABETES EYE EXAM Routine 02/26/2023 11:15 AM SCORING MACHINE OPERATOR HEPATITIS C ANTIBODY Routine 08/07/2021 2:55 PM CDT Creatinine elevation from Last 3 Months or Most Recently Relevant to Health Maintenance Results * (ABNORMAL) Albumin Creatinine Ratio, Urine (09/19/2024 7:53 AM CDT) Pathologist [facility] Albumin Ur 106.6 mg/L Comment: Interpretive Data No reference range established. Current interpretive data was last revised 2018. Creatinine Ur 124.7 mg/dL [facility] Comment: Interpretive Data No reference range established. Current interpretive data was last revised 2018. Albumin Creatinine Ratio, Ur 85(H) 1 - 29 mg/g [facility] Urine 09/19/2024 7:5 3 AM CDT 09/19/2024 8:21 AM CDT Lynn Bain MD LAB URINE ORDERABLES Final Result [facility] Department [place] [address] * (ABNORMAL) Differential, auto (09/19/2024 7:12 AM CDT) Pathologist [facility] Neutrophil abs 4.30 1.50 - 6.50 K/cumm Comment:Testing performed by : [facility], [address] [place] [phone] Lymphocyte abs 3.31(H) 0.80 - 3.30 K/cumm [facility] Comment:Testing performed by : [facility], [address] [place] [phone] Monocyte abs 1.03(H) 0.20 - 0.80 K/cumm [facility] Comment:Testing performed by : [facility], [address] [place] [phone] Eosinophil abs 0.05 0.00 - 0.50 K/cumm [facility] Comment:Testing performed by : [facility], [address] [place] [phone] Basophil abs 0.02 0.00 - 0.10 K/cumm [facility] Comment:Testing performed by : [facility], [address] [place] [phone] Neutrophil pct 49.4 % [facility] Comment: Interpretive Data Percent cell count reference ranges are not reported, since discordance with absolute values may lead to misinterpretation of CBC data. Current Interpretive Data was last revised on 2017. Testing performed by: [facility], [address] [place] [phone] Lymphocyte pct 38.0 % [facility] Comment: Interpretive Data Percent cell count reference ranges are not reported, since discordance with absolute values may lead to misinterpretation of CBC data. Current Interpretive Data was last revised on 2017. Testing performed by: [facility], [address] [place] [phone] Monocyte pct 11.8 % [facility] Comment: Interpretive Data Percent cell count reference ranges are not reported, since discordance with absolute values may lead to misinterpretation of CBC data. Current Interpretive Data was last revised on 2017. Testing performed by: [facility], [address] [place] [phone] Eosinophil pct 0.6 % [facility] Comment: Interpretive Data Percent cell count reference ranges are not reported, since discordance with absolute values may lead to misinterpretation of CBC data. Current Interpretive Data was last revised on 2017. Testing performed by: [facility], [address] [place] [phone] Basophil pct 0.3 % [facility] Comment: Interpretive Data Percent cell count reference ranges are not reported, since discordance with absolute values may lead to misinterpretation of CBC data. Current Interpretive Data was last revised on 2017. Testing performed by: [facility], [address] [place] [phone] Blood 09/19/2024 7:12 AM CDT 09/19/2024 7:15 AM CDT us Montrell Wolfe MD PhD LAB BLOOD ORDERABLES Fin al Result [facility] Department [place] [address] * (ABNORMAL) CBC with auto differential (09/19/2024 7:12 AM CDT) WBC 8.71 3.80 - 9.90 K/cumm Comment:Testing performed by : [facility], [address] [place] [address] Hgb 15.0 13.0 - 17.5 g/dL [facility] Comment:Testing performed by : [facility], [address] [place] [address] Hct 44.7 38.9 - 50.3 % [facility] Comment:Testing performed by : [facility], [address] [place] [address] Plt 411(H) 150 - 400 K/cumm [facility] Comment:Testing performed by : [facility], [address] [place] [address] MPV 7.2 6.8 - 10.4 fL [facility] Comment:Testing performed by : [facility], [address] [place] [address] RBC 4.75 4.30 - 5.80 M/cumm [facility] Comment:Testing performed by : [facility], [address] [place] [address] MCV 94.0 81.3 - 96.4 fL [facility] Comment:Testing performed by : [facility], [address] [place] [address] MCH 31.5 27.1 - 33.3 pg [facility] Comment:Testing performed by : [facility], [address] [place] [address] MCHC 33.5 32.3 - 35.7 g/dL [facility]ERIR[facility] Comment:Testing performed by : [facility], [address] [place] [phone] RDW CV 16.0(H) 11.1 - 14.9 % [facility] Comment:Testing performed by : [facility], [address] [place] [phone] NRBC abs 0.00 0.00 - 0.01 K/cumm [facility] Comment:Testing performed by : [facility], [address] [place] [phone] Blood 09/19/2024 7:12 AM CDT 09/19/2024 7:15 AM CDT Montrell Wolfe MD PhD LAB BLOOD ORDERABLES Fin al Result [facility] Department [place] [address] * (ABNORMAL) eGFR (09/19/2024 7:12 AM CDT) eGFR 34(L) >=60 mL/min/1. 73 m2 Comment: Interpretive Data [...] interpretive data was last reviewed 2021. Blood 09/19/2024 7:12 AM CDT 09/19/2024 7:16 AM CDT Montrell Wolfe MD PhD LAB BLOOD ORDERABLES Fin al Result Performing Organization Address [facility] Co de Phone Number [facility] [place] [address] * (ABNORMAL) Vitamin D 25 hydroxy (09/19/2024 7:12 AM CDT) Vitamin D 25-OH 29(L) 30 - 80 ng/mL Blood 09/19/2024 7:12 AM CDT 09/19/2024 7:16 AM CDT Lynn Bain MD LAB BLOOD ORDERABLES Final Result Performing Organization Address [facility] de Phone Number [facility] [place] [address] * Phosphorus (09/19/2024 7:12 AM CDT) Phosphorus, pl 3.1 2.3 - 4.5 mg/dL Blood 09/19/2024 7:12 AM CDT 09/19/2024 7:16 AM CDT Montrell Wolfe MD PhD LAB BLOOD ORDERABLES Fin al Result Performing Organization Address [facility] Co de Phone Number [facility] [place] [address] * PTH (09/19/2024 7:12 AM CDT) PTH 65 15 - 65 pg/mL Blood 09/19/2024 7:12 AM CDT 09/19/2024 8:16 AM CDT Lynn Bain MD LAB BLOOD ORDERABLES Final Result Performing Organization Address [facility] Co de Phone Number [facility] Department [place] [address] * Lactate dehydrogenase (LD) (09/19/2024 7:12 AM CDT) [facility] Lactate dehydrogenase (LDH) 203 100 - 250 Units/L Blood 09/19/2024 7:12 AM CDT 09/19/2024 7:16 AM CDT Montrell Wolfe MD PhD LAB BLOOD ORDERABLES Fin al Result [facility] Department [place] [address] * (ABNORMAL) Comprehensive metabolic panel (09/19/2024 7:12 AM CDT) [facility] Sodium 143 135 - 145 mmol/L Potassium, pl 4.1 3.3 - 4.9 mmol/L [facility] Chloride 106 97 - 110 mmol/L [facility] [facility] CO2 28 22 - 32 mmol/L [facility] Anion gap 9 2 - 15 mmol/L [facility] BUN 26(H) 6 - 25 mg/dL [facility] Creatinine 2.09(H) 0.80 - 1.30 mg/dL [facility] Glucose 107 70 - 199 mg/dL [facility] Comment: Interpretive Data Fasting glucose [...] interpretive data was last revised 2022. Calcium 9.4 8.5 - 10.3 mg/dL [facility] Bilirubin, total 0.6 0.1 - 1.2 mg/dL [facility] Protein, pl 7.8 6.5 - 8.5 g/dL [facility] Albumin 4.3 3.5 - 5.0 g/dL [facility] Alk phos 39(L) 40 - 130 Units/L [facility] ALT 34 7 - 55 Units/L [facility] AST 38 10 - 50 Units/L [facility] Blood 09/19/2024 7:12 AM CDT 09/19/2024 7:16 AM CDT us Montrell Wlofe MD PhD LAB BLOOD ORDERABLES Fin al Result [facility] Department [place] [address] * (ABNORMAL) eGFR (09/02/2024 8:40 AM CDT) eGFR 40(L) >=60 mL/min/1. 73 m2 Comment: Interpretive Data [...] interpretive data was last reviewed 2021. Blood 09/02/2024 8:40 AM CDT 09/02/2024 7:15 PM CDT us Mami Alcala MD LAB BLOOD ORDERABL ES Final Result [facility] [address] Department [place] [address] * (ABNORMAL) Differential, auto (09/02/2024 8:40 AM CDT) Neutrophil abs 3.24 1.50 - 6.50 K/cumm Imm gran abs 0.03 0.00 - 0.10 K/cumm [facility] Lymphocyte abs 3.15 0.80 - 3.30 K/cumm [facility] Monocyte abs 0.90(H) 0.20 - 0.80 K/cumm [facility] Eosinophil abs 0.03 0.00 - 0.50 K/cumm [facility] Basophil abs 0.01 0.00 - 0.10 K/cumm [facility] Neutrophil pct 44.1 % [facility] Comment: Interpretive Data Percent cell count reference ranges are not reported, since discordance with absolute values may lead to misinterpretation of CBC data. Current Interpretive Data was last revised on 2017. Imm gran pct 0.4 % [facility] Comment: Interpretive Data Percent cell count reference ranges are not reported, since discordance with absolute values may lead to misinterpretation of CBC data. Current Interpretive Data was last revised on 2017. Lymphocyte pct 42.8 % [facility] Comment: Interpretive Data Percent cell count reference ranges are not reported, since discordance with absolute values may lead to misinterpretation of CBC data. Current Interpretive Data was last revised on 2017. Monocyte pct 12.2 % [facility] Comment: Interpretive Data Percent cell count reference ranges are not reported, since discordance with absolute values may lead to misinterpretation of CBC data. Current Interpretive Data was last revised on 2017. Eosinophil pct 0.4 % [facility] Comment: Interpretive Data Percent cell count reference ranges are not reported, since discordance with absolute values may lead to misinterpretation of CBC data. Current Interpretive Data was last revised on 2017. Basophil pct 0.1 % [facility] Comment: Interpretive Data Percent cell count reference ranges are not reported, since discordance with absolute values may lead to misinterpretation of CBC data. Current Interpretive Data was last revised on 2017. Blood 09/02/2024 8:40 AM CDT 09/02/2024 5:54 PM CDT Mami Alcala MD LAB BLOOD ORDERABL ES Final Result Performing Organization Address [facility] Co de Phone Number KANA MIGUEL [address] [place], [place] [id number] * (ABNORMAL) CBC with auto differential (09/02/2024 8:40 AM CDT) Pathologist [facility] WBC 7.36 3.80 - 9.90 K/cumm Hgb 14.6 13.0 - 17.5 g/dL [facility] Hct 46.8 38.9 - 50.3 % [facility] Plt 431(H) 150 - 400 K/cumm [facility] MPV 9.7 9.1 - 12.3 fL [facility] RBC 4.71 4.30 - 5.80 M/cumm [facility] MCV 99.4(H) 81.3 - 96.4 fL [facility] MCH 31.0 27.1 - 33.3 pg [facility] MCHC 31.2(L) 32.3 - 35.7 g/dL [facility] RDW CV 14.9 11.1 - 14.9 % [facility] RDW SD 55.5(H) 35.7 - 48.1 fL [facility] NRBC abs 0.00 0.00 - 0.01 K/cumm [facility] Blood 09/02/2024 8:40 AM CDT 09/02/2024 5:54 PM CDT Mami Alcala MD LAB BLOOD ORDERABL ES Final Result Performing Organization Address City/[facility]/ZIP Co de Phone Number KANA MIGUEL [address] [place] [place] [address] * (ABNORMAL) Albumin Creatinine Ratio, Urine (09/02/2024 8:40 AM CDT) Pathologist [facility] Albumin Ur 147.7 mg/L Comment: Interpretive Data No reference range established. Current interpretive data was last revised 2018. Creatinine Ur 110.6 mg/dL [facility] Comment: Interpretive Data No reference range established. Current interpretive data was last revised 2018. Albumin Creatinine Ratio, Ur 134(H) 1 - 29 mg/g [facility] Urine 09/02/2024 8:40 AM CDT 09/02/2024 5:54 PM CDT Mami Alcala MD LAB URINE ORDERABL ES Final Result Performing Organization Address [facility] Co de Phone Number MYKELIRASEMA [address] [place] [address] * (ABNORMAL) Vitamin D 25 hydroxy (09/02/2024 8:40 AM CDT) Pathologist [facility] Vitamin D 25-OH 28(L) 30 - 80 ng/mL Blood 09/02/2024 8:40 AM CDT 09/05/2024 9:55 PM CDT Mami Alcala MD LAB BLOOD ORDERABL ES Final Result Performing Organization Address [facility] de Phone Number [facility] [address] [place] [address] * (ABNORMAL) PTH (09/02/2024 8:40 AM CDT) PTH 71(H) 15 - 65 pg/mL Blood 09/02/2024 8:40 AM CDT 09/02/2024 5:54 PM CDT Mami Alcala MD LAB BLOOD ORDERABL ES Final Result Performing Organization Address [facility] de Phone Number [facility] [address] [facility] [place] [place] [address] * (ABNORMAL) Renal function panel (09/02/2024 8:40 AM CDT) Sodium 138 135 - 145 mmol/L Potassium, pl 4.1 3.3 - 4.9 mmol/L [facility] Chloride 102 97 - 110 mmol/L [facility] CO[facility] 25 22 - 32 mmol/L [facility] Anion gap 11 2 - 15 mmol/L [facility] BUN 25 6 - 25 mg/dL [facility] Creatinine 1.81(H) 0.80 - 1.30 mg/dL [facility] Glucose 86 70 - 199 mg/dL [facility] Comment: Interpretive Data Fasting glucose [...] interpretive data was last revised 2022. Calcium 9.0 8.5 - 10.3 mg/dL [facility] Phosphorus, pl 2.3 2.3 - 4.5 mg/dL [facility] Albumin 4.0 3.5 - 5.0 g/dL [facility] Blood 09/02/2024 8:40 AM CDT 09/02/2024 5:54 PM CDT Mami Alcala MD LAB BLOOD ORDERABL ES Final Result [facility] [address] Department [place] [address] * Cardiology Document Scan (08/10/2024) Anatomical Region Laterality Modality Other us Provider Scanning CV CARDIAC SERVICES PROCEDURES Final Result * Hemoglobin A1c (06/13/2024 7:24 AM SCORING MACHINE OPERATOR) Hgb A1C 5.6 4.0 - 5.6 % Estimated Average Glucose 114 mg/dL [facility] Comment: The ADA recommends reporting an estimated Average Glucose (eAG) with all Hemoglobin A1c results using the equation derived from a study of 507 normal and diabetic adults. Minority populations were underrepresented and children were not included. (Diabetes Care 2020; 43(S1): S66-S76). The eAG is not equivalent to a fasting glucose. Blood 06/13/2024 7:24 AM SCORING MACHINE OPERATOR 06/13/2024 7:40 AM SCORING MACHINE OPERATOR us Franky Sylvester MD LAB BLOOD ORDERABLES Final Re sult K[facility] Department [place] [address] * Colonoscopy (05/19/2024 12:30 PM SCORING MACHINE OPERATOR) Anatomical Region Laterality Modality Other Narrative Procedure Note Natalie Gonzalez MD - 05/19/2024 12:30 PM CST [facility] ENDOS[facility] Patient Name: Bk Ferrera Procedure Date: 05/19/2024 12:30 PM Date of : 1955 Admit Type: Outpatient Age: 68 Gender: Male Attending MD: Natalie Gonzalez M.D. Room: [facility] ENDOSCOPY ROOM 4 Note Status: Finalized [...] scope was passed under direct vision.The CF [id number] endoscope was introduced through the anus [...] Return to referring physician. - please call [phone], 8 am -5 pm if any post procedural concerns/issues, after hours/weekends please call [phone] and ask for GI fellow juan alberto Attending Participation: I personally performed the entire [...] BLOOD ORDERABLES Final Re sult KANA MIGUEL [address] Department [place] [address] * (ABNORMAL) Lipid panel (09/04/2023 10:34 AM [...] revised on 2017. Triglycerides 245(H) <=149 mg/dL [facility] Comment: Interpretive Data Ages < [...] revised on 2017. HDL 40 >=40 mg/dL [facility] Comment: Interpretive Data Ages < [...] on 2017. LDL, calculated 104 <=129 mg/dL [facility] Comment: Interpretive Data Ages < [...] revised on 2017. Non-HDL Cholesterol 153 mg/dL [facility] Comment: Interpretive Data Ages < [...] last revised on 2017. Chol/HDL ratio 5 [facility] Blood 09/04/2023 10:3 4 AM CDT 09/04/2023 11:01 AM CDT Corina Rater CARDROOM ATTENDANT LAB BLOOD ORDERABLES Final Resul t [facility] Department [place] [address] * (ABNORMAL) DIABETES EYE EXAM (02/26/2023 11:15 AM SCORING MACHINE OPERATOR) Historical Provider HEALTH MAINTENANCE Final Result * Hepatitis C antibody (08/07/2021 2:55 PM CDT) Hep C Ab Nonreactive Nonreactive [facility] Comment:Antibodies to HCV no t detected. Does NOT exclude the possibility of recent exposure to HCV. Blood 08/07/2021 2:55 PM CDT 08/07/2021 3:30 PM CDT Pablo Mcmillan MD LAB MICROBIOLOGY - GENE RAL ORDERABLES Edited Result - Final [facility] Department [place] [address] from Last 3 Months or Most Recently Relevant to Health Maintenance Insurance [facility] Advance Directives For more information, please contact: [phone] * Full Code (Latest Code Status on File) Date Activated Date Inactivated Comments 05/19/2024 12:20 PM 05/19/2024 6:43 PM * Full Code Date Activated Date Inactivated Comments 04/22/2023 8:39 AM 04/22/2023 2:54 PM * Full Code Date Activated Date Inactivated Comments 07/05/2022 6:35 PM 07/08/2022 7:06 PM * Full Code Date Activated Date Inactivated Comments 10/24/2020 6:59 AM 10/24/2020 1:29 PM Care Teams Account Support Associate Relationship Specialty Start Date End Date Franky Sylvester MD PCP - General Family Medicine 12/03/21 Rosa Russell NP Nurse Practitioner Medical Oncology 06/13/20 Montrell Wolfe MD PhD Medical Oncologist/Director Of Optimization Medical Oncology 12/03/21 [place] [address] [place] [address] Lance Crewmember Nephrology 03/21/24
--- OUTSIDE RECORDS SUMMARY | 2024-11-09 19:42 | XMS_ITS | Continuity of Care Document ---
Author Organization [facility] Address [address] [place] [address] [place] [address] Phone Care Team Providers Care Horse Race Timer Name Role Phone Ghassan Simmons MD Unavailable [...] Copied on Encounter OFFICE/OUTPAT IENT VISIT, EST [facility], [address] [place], [id number], [place] tel:[phone] [facility] Medicine cough (chief complaint) AML (chief complaint) GERD (chief complaint) Depression (chief complaint) slow stream (chief complaint) Dietary surveillance and counselingBronchi tis, AcuteMyeloid leukemia, acute, without mention of remissionOther osteoporosisGERD [address] Troy Ferrell. [address] [place], [place], [id number] , [place]. tel:[phone] Family History Family Member Type Diagnosis Age At Onset Mother Problem (finding) of surgical compli cation Brother Problem (finding) Coronary artery disease Father Problem (finding) dementia Brother Problem (finding) Alive and well Payers Payer name Insurance type Covered republican [...] Mental Status Date Cognitive Assessment Orientation - [place] ed to time, place, person, situation.
--- OUTSIDE RECORDS SUMMARY | 2024-11-09 19:42 | XMS_ITS ---
Author Organization [facility] Address [address] [place] [address] Care Team Providers Care Hand Icer Name Role Phone Yvonne Rosa Cummins SUPERINTENDENT TERMINAL Unavailable Franky Sylvester MD Primary Care Provider [phone] Montrell Wolfe MD PhD Unavailable [phone] Pablo Mcmillan MD Unavailable [phone] Active Problems Problem Noted Date Diagnosed Date Controlled type 2 diabetes koby villarreal with stage 3 chronic kidney disease, without long-term current use of insulin 06/15/2024 History of colon polyps 03/23/2024 Medicare annual wellness visit, subsequent 02/14 Assessment & Plan (02/15/2024 10:43 AM BAIT MAN): Discussed with patient current recommendations for routine [...] 02/12/2024 Assessment & Plan (02/15/2024 10:42 AM BAIT MAN): Stable limit nephrotoxins Continue Lasix 20mg BP and glucose control GFR 42 Lab Results Component Value Date CREATININE 1.75 (H) 2023 BUNSER 26 (H) 2023 SODIUM 140 2023 POTASSIUM 4.5 2023 CO2 27 2023 Simple chronic bronchitis 02/12/2024 Assessment & Plan (02/15/2024 10:40 AM BAIT MAN): Stable Continue Jakafi Reports has substantially helped sx 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 EKG in [facility] 07/05 showed narrow complex tachycardia with HR >150. Given adenosine x2 (6 mg, 12 mg) in [facility]. EKG strip after adenosine noted [...] S/p LUISA and successful cardioversion 07/07/22 with hindu of sinus rhythm. PO diltiazem 60 mg [...] 01/02/2022 Assessment & Plan (03/01/2024 9:39 AM BAIT MAN): Stable Uses CPAP with relief of symptoms [...] 2017 Assessment & Plan (02/15/2024 10:42 AM BAIT MAN): Stable Declines pain management Reports magnesium has [...] (10/09/2020): Added automatically from request for surgery [id number] Other osteoporosis without c urrent pathological fracture 05/17/2019 10/16/2022 Prediabetes 05/17/2019 10/16/2022 Acute on chronic renal insufficiency 10/26/2018 10/16/2022 Assessment & Plan (07/08/2022 1:13 PM CDT): Cr 2.32 on admission (BL around 2 ). S/p 1L IVF bolus in [facility] 07/05 -Patient does endorse occasional [...]
--- OUTSIDE RECORDS SUMMARY | 2024-11-09 19:43 | XMS_ITS | Encounter Summary ---
Author Organization [facility] Address [address] [place] [address] Care Team Providers Care Ux Design Lead Name Role Phone Emily Tovar MD Primary Care Provider Rosa Russell TAMPING MACHINE OPERATOR Unavailable [phone] Franky Sylvester MD Primary Care Provider [phone] Montrell Wolfe MD PhD Unavailable [phone] Luba Corona RN Unavailable Pablo Mcmillan MD Unavailable [phone] Reason for Visit * Reason Onset Date Comments Med Refill 08/17/2020 Encounter Details Date Type Department Care Team (Late st Contact Info) Description 08/17/2020 Telephone [facility] [address] [facility] [address] [facility] [address] [place], [place] [id number] Heriberto Salgado MD [address] [facility] [address] [place], [place] [id number] Med Refill Social History Tobacco Use Types Packs/Day Years Used Date Smoking Tobacco: Former Cigarettes 0.3 10 1 980 - 1989 Smokeless Tobacco: Never Alcohol Use [...] on file Legal Sex Male 10:07 AM APPELLATE CONFEREE Gender Identity Not on file Sexual Orientation Not on file documented as of this encounter Plan of Treatment Not on file documented as of this encounter Goals Goal Patient Goal Type Associated Problems Recent Progress Patient-Stated? Author CCM Chronic Pain Care Plan Chronic Care Management No change(06/04 7:38 AM APPELLATE CONFEREE) No Seema Dutton RN Note: Problem: Chronic [...] documented as of this encounter Care Teams Ux Design Lead Relationship Specialty Start Date End Date Emily Tovar MD PCP - General Internal Medicine 09/22/16 10/09/21 Franky Sylvester MD PCP - General Family Medicine 12/03/21 Rosa Russell NP Nurse Practitioner Medical Oncology 06/13/20 Montrell Wolfe MD PhD Medical Oncologist/Mining Machinery Assembler Medical Oncology 12/03/21 Luba Corona, PANCHO [address] [place] [address] Web Applications Programmer 05/19/23 02/07/24 Pablo Mcmillan MD [address] [place] [address] Maths Tutor Nephrology 03/21/24 documented as of this encounter
--- OUTSIDE RECORDS SUMMARY | 2024-11-09 19:43 | XMS_ITS | Continuity of Care Document ---
Author Organization [facility] Address [address] [place] [address] Phone Care Team Providers Care Senior Web Architect Name Role Phone No Information Unavailable Unavailable Medications Medication Instructions Dosage Effective Dates (start - stop) Status Comments No Drug Therapy Prescribed Advance Directives Directive Yes / No Effective Date File Name No Information Encounters Encounter Description Practice Location Reason(s) For Visit Diagnoses Date Provider Providers Copied on Encounter [facility], [address] [place] [address], [address], [place] tel:[phone] No Information No Information Family History Family Member Type Diagnosis Age At Onset No Information Payers Payer name Insurance type Covered constitution party ID Authoriza tion(s) No Information Social [...]
--- OUTSIDE RECORDS SUMMARY | 2024-11-09 19:43 | XMS_ITS | Referral Summary ---
Author Organization [facility] Address [address] [place] [address] Care Team Providers Care Blueprint Trimmer Name Role Phone Yvonne Rosa Placido TILE CLASSIFIER Unavailable Franky Sylvester MD Primary Care Provider [phone] Montrell Wolfe MD PhD Unavailable [phone] Pablo Mcmillan MD Unavailable [phone] Encounters Date Type Department Care Team Description 10/25/2024 6:00 PM CDT Office Visit [facility] Medical [facility] Convenient Care at [address] [address] Geovany Castle NP Local skin infection (Primary Dx); Contact dermatitis, unspecified contact dermatitis type, unspecified trigger; Itchy scalp 10/17/2024 Orders Only [facility] Bone Marrow Transplant [address] [facility] Floor 6 [place] [address] Ney Padron RN Acute myeloid leukemia in remission (HCC) (Primary Dx) 09/19/2024 7:30 AM CDT Clinical Support [facility] - Lab Collection [address] [facility] Floor 6 [place] [address] Acute myeloid leukemia in remission (HCC); CKD stage 3b, GFR 30-44 ml/min (HCC); Albuminuria 09/19/2024 8:30 AM CDT Infusion [facility] - Infusion [address] [facility] Floor 6 [place] [address] Acute myeloid leukemia in remission (HCC) 09/14/2024 8:30 AM CDT Office Visit [facility] Nephrology [address] [facility] 5th [place] [address] [place] [id number] CKD stage 3b, GFR 30-44 ml/min (HCC) (Primary Dx); Essential hypertension; Albuminuria; Obesity, Class II, BMI 35-39.9 09/02/2024 8:40 AM CDT - 09/02/2024 11:59 PM CDT Hospital Encounter [facility] [address] [place] [address] CKD stage 3b, GFR 30-44 ml/min (HCC); Essential hypertension; Vitamin D deficiency disease; Acute myeloid leukemia in remission (HCC); Vitamin D deficiency, unspecified; Encounter for routine adult health examination with abnormal findings; Medication dose changed Discharge Disposition: Discharge to home or self care 09/02/2024 8:45 AM CDT Lab [facility] Medical [facility] Outpatient Lab at [address] [phone] 08/26/2024 Orders Only [facility] Nephrology [address] [facility] 5th [place] [address] Mami Alcala MD CKD stage 3b, GFR 30-44 ml/min (HCC) (Primary Dx); Essential hypertension; Vitamin D deficiency disease; Acute myeloid leukemia in remission (HCC); Vitamin D deficiency, unspecified; Encounter for routine adult health examination with abnormal findings; Medication dose changed 08/22/2024 10:45 AM CDT Office Visit [facility] Medical [facility] Family Medicine at [address] [place] [phone] Franky Sylvester MD Fever in other diseases (Primary Dx); Stage 3b chronic kidney disease (HCC); Polycythemia, secondary; Paroxysmal atrial flutter (HCC); Hypogonadism in male; Stem cells transplant status (HCC) 08/16/2024 JORI IP Outreach [facility] Accountable Care Organization [address] [place] [address] Keysha Marte MA 08/10/2024 Orders Only [facility] Health Information Management [address] [place] [address] Scanning, Provider from Last 3 Months Allergies Active Allergy [...] needle, disp, 18 G (BD Regular Bevel [place]) 18 gauge x 1 needle To draw up injection 12 each 11 04/01/20 24 Active syringe, disposable, (BD Luer-Emilia Syringe) 1 mL syringe To use for injection 12 each 11 04/01/20 24 Active empagliflozin (JARDIANCE) 10 mg [...] needle, disp, 25 gauge (BD Regular Bevel [place]) 25 gauge x 5/8 needle To use to inject 12 each 3 08/18/19 25 Active amoxicillin-cla vulanate (AUGMENTIN) 875-125 mg per tablet Take 1 tablet by mouth every 12 (twelve) hours for 7 days 08/13/19 25 Active dilTIAZem XR 240 mg 24 hr capsuleIndicati ons:Atrial fibrillation, unspecified type (HCC) TAKE 1 CAPSULE BY MOUTH EVERY DAY 90 capsule 2 08/30/19 25 Active olmesartan (Benicar) 20 mg tabletIndicatio ns:CKD stage 3b, GFR 30-44 ml/min (HCC),Essential hypertension Take 1 tablet (20 mg total) [...] every 7 days 4 mL 2 07/13/19 25 025 Discontinued(R eorder) mupirocin (BACTROBAN) 2 % ointmentIndicat ions:Local skin infection Apply topically 3 (three) times a day for 10 days 22 g 10/26/19 25 025 Active Problems Problem Noted Date Diagnosed Date Controlled type 2 diabetes m ellitus with stage 3 chronic kidney disease, without long-term current use of insulin 06/15/2024 History of colon polyps 03/23/2024 Medicare annual wellness visit, subsequent 02/14 Assessment & Plan (02/15/2024 10:43 AM SURVEILLANCE TECHNICIAN): Discussed with patient current recommendations for routine [...] 02/12/2024 Assessment & Plan (02/15/2024 10:42 AM SURVEILLANCE TECHNICIAN): Stable limit nephrotoxins Continue Lasix 20mg BP and glucose control GFR 42 Lab Results Component Value Date CREATININE 1.75 (H) 2023 BUNSER 26 (H) 2023 SODIUM 140 2023 POTASSIUM 4.5 2023 CO2 27 2023 Simple chronic bronchitis 02/12/2024 Assessment & Plan (02/15/2024 10:40 AM SURVEILLANCE TECHNICIAN): Stable Continue Shannoni Reports has substantially helped sx 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 EKG in [facility] 07/05 showed narrow complex tachycardia with HR >150. Given adenosine x2 (6 mg, 12 mg) in [facility]. EKG strip after adenosine noted flutter waves. [...] 01/02/2022 Assessment & Plan (03/01/2024 9:39 AM SURVEILLANCE TECHNICIAN): Stable Uses CPAP with relief of symptoms Encourage to bring in compliance report Essential hypertension 10/10/2021 Assessment & Plan (07/08/2022 1:20 PM CDT): Held arb at admit with JUANITO on CKD. Now on cardizem CD240 mg po qday Daytime somnolence 02/12/2021 History of antineoplastic chemotherapy 1 Polycythemia, secondary 02/06/2020 Assessment & Plan (07/05/2022 6:58 PM CDT): Treated with phlebotomy every 3 months. Baseline hgb ~15-16 post transplant Hx of peripheral stem cell transplant 02/06/2020 Personal history of nicotine dependence 09/20/19 20 Hypogonadism in male 05/17/2019 Long-term current use of testosterone replacemen t therapy 05/17/2019 Stem cells transplant status 07/09/2017 Chemotherapy-induced neuropathy (CMS/HCC) 2017 Assessment & Plan (02/15/2024 10:42 AM SURVEILLANCE TECHNICIAN): Stable Declines pain management Reports magnesium has [...] (10/09/2020): Added automatically from request for surgery [id number] Other osteoporosis without c urrent pathological fracture 05/17/2019 10/16/2022 Prediabetes 05/17/2019 10/16/2022 Acute on chronic renal insufficiency 10/26/2018 10/16/2022 Assessment & Plan (07/08/2022 1:13 PM CDT): Cr 2.32 on admission (BL around 2 ). S/p 1L IVF bolus in [facility] 07/05 -Patient does endorse occasional NSAID use [...] drink = 0.6 oz pur e alcohol) [facility] Utilities Answer Date Recorded In the past 12 months has th e electric, gas, oil, or water company [...] often do you attend chur ch or holiness services? Never 06/26/2023 Do you belong to [...] place to sleep or slept in a fci (including now)? No 06/26/2023 PHQ-9 Answer Date Recorded PHQ-9 Total Score 10 02/14/2024 Personal Safety Answer Date Recorded Have you ever been in or are you currently in a harmful physical or emotional relationship or is someone making you feel afraid or unsafe? Denies 05/19/2024 Sex and Gender Information Value Date Recorded Sex Assigned at Not on file Legal Sex Male 10:07 AM SURVEILLANCE TECHNICIAN Gender Identity Not on file Sexual Orientation [...] 08/22/2024 10:31 AM CDT Plan of Treatment Not on file Goals Goal Patient Goal Type Associated Problems Recent Progress Patient-Stated? Author CCM Chronic Pain Care Plan Chronic Care Management No change(06/04 7:38 AM SURVEILLANCE TECHNICIAN) Seema Sterling, PANCHO Note: Problem: Chronic Pain Goals: 1. Minimize further functional decline 2. Maximize quality of life 3. Control pain Strategies: - Activity/exercise program recommendation - Conservative stepwise pain medicine strategy with multi-disciplinary approach - Recommend healthy lifestyle strategies and compensatory methods as needed Medical Devices Implanted Type Area Olive Knocker Device Identifier Shelf Expiration Date Model / [...] 08/10/2024 HEMOGLOBIN A1C Routine 06/13/2024 7:24 AM SURVEILLANCE TECHNICIAN 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 disease, without long-term current use of insulin (HCC) COLONOSCOPY 05/19/2024 12:30 PM SURVEILLANCE TECHNICIAN PSA SCREEN Routine 10/27/2023 10:05 AM CDT Screening for prostate cancer LIPID PANEL Routine 09/04/2023 10:34 AM CDT Atrial flutter with rapid ventricular response (HCC) Essential hypertension Paroxysmal atrial flutter (HCC) Pure hypercholesterolemi a Acute myeloid leukemia in remission (HCC) NOVAK (dyspnea on exertion) [facility] DIABETES EYE EXAM Routine 02/26/2023 11:15 AM SURVEILLANCE TECHNICIAN HEPATITIS C ANTIBODY Routine 08/07/2021 2:55 PM CDT Creatinine elevation from Last 3 Months or Most Recently Relevant to Health Maintenance Results * (ABNORMAL) Albumin Creatinine Ratio, Urine (09/19/2024 7:53 AM CDT) Albumin Ur 106.6 mg/L Comment: Interpretive Data No reference range established. Current interpretive data was last revised 2018. Creatinine Ur 124.7 mg/dL [facility] Comment: Interpretive Data No reference range established. Current interpretive data was last revised 2018. Albumin Creatinine Ratio, Ur 85(H) 1 - 29 mg/g [facility] Urine 09/19/2024 7:53 AM CDT 09/19/2024 8:21 AM CDT us Lynn Bain MD LAB URINE ORDERABLES Final Result [facility] Department [place] [address] * (ABNORMAL) Differential, auto (09/19/2024 7:12 AM CDT) Neutrophil abs 4.30 1.50 - 6.50 K/cumm Comment:Testing performed by : [facility], [address] [place] [phone] Lymphocyte abs 3.31(H) 0.80 - 3.30 K/cumm [facility] Comment:Testing performed by : [facility], [address] [place] [phone] Monocyte abs 1.03(H) 0.20 - 0.80 K/cumm [facility] Comment:Testing performed by : [facility], [address] [place], [place] [id number] Eosinophil abs 0.05 0.00 - 0.50 K/cumm [facility] Comment:Testing performed by : [facility], [address] [place], [place] [id number] Basophil abs 0.02 0.00 - 0.10 K/cumm [facility] Comment:Testing performed by : [facility], [address] [place], [place] [id number] Neutrophil pct 49.4 % [facility] Comment: Interpretive Data Percent cell count reference ranges are not reported, since discordance with absolute values may lead to misinterpretation of CBC data. Current Interpretive Data was last revised on 2017. Testing performed by: [facility], [address] [place], [place] [phone] Lymphocyte pct 38.0 % [facility] Comment: Interpretive Data Percent cell count reference ranges are not reported, since discordance with absolute values may lead to misinterpretation of CBC data. Current Interpretive Data was last revised on 2017. Testing performed by: [facility], [address] [place], [place] [phone] Monocyte pct 11.8 % [facility] Comment: Interpretive Data Percent cell count reference ranges are not reported, since discordance with absolute values may lead to misinterpretation of CBC data. Current Interpretive Data was last revised on 2017. Testing performed by: [facility], [address] [place] [phone] Eosinophil pct 0.6 % [facility] Comment: Interpretive Data Percent cell count reference ranges are not reported, since discordance with absolute values may lead to misinterpretation of CBC data. Current Interpretive Data was last revised on 2017. Testing performed by: [facility], [address] [place] [address] Basophil pct 0.3 % [facility] Comment: Interpretive Data Percent cell count reference ranges are not reported, since discordance with absolute values may lead to misinterpretation of CBC data. Current Interpretive Data was last revised on 2017. Testing performed by: [facility], [address] [place] [address] Blood 09/19/2024 7:12 AM CDT 09/19/2024 7:15 AM CDT us Montrell Wolfe MD PhD LAB BLOOD ORDERABLES Fin al Result [facility] Department [place] [address] * (ABNORMAL) CBC with auto differential (09/19/2024 7:12 AM CDT) WBC 8.71 3.80 - 9.90 K/cumm Comment:Testing performed by : [facility], [address] [place] [address] Hgb 15.0 13.0 - 17.5 g/dL [facility] Comment:Testing performed by : [facility], [address] [place] [address] Hct 44.7 38.9 - 50.3 % [facility] Comment:Testing performed by : [facility], [address] [place] [address] Plt 411(H) 150 - 400 K/cumm [facility] Comment:Testing performed by : [facility], [address] [place] [address] MPV 7.2 6.8 - 10.4 fL [facility] Comment:Testing performed by : [facility], [address] [place] [address] RBC 4.75 4.30 - 5.80 M/cumm [facility] Comment:Testing performed by : [facility], [address] [place], [place] [phone] MCV 94.0 81.3 - 96.4 fL [facility] Comment:Testing performed by : [facility], [address] [place], [place] [phone] MCH 31.5 27.1 - 33.3 pg [facility] Comment:Testing performed by : [facility], [address] [place], [place] [phone] MCHC 33.5 32.3 - 35.7 g/dL [facility] Comment:Testing performed by : [facility], [address] [place] [address] RDW CV 16.0(H) 11.1 - 14.9 % [facility] Comment:Testing performed by : [facility], [address] [place], [place] [phone] NRBC abs 0.00 0.00 - 0.01 K/cumm [facility] Comment:Testing performed by : [facility], [address] [place], [place] [phone] Blood 09/19/2024 7:12 AM CDT 09/19/2024 7:15 AM CDT us Montrell Wolfe MD PhD LAB BLOOD ORDERABLES Fin al Result [facility] Department [place] [address] * (ABNORMAL) eGFR (09/19/2024 7:12 AM CDT) [...] ORDERABLES Fin al Result Performing Organization Address [facility] de Phone Number [facility] Department [place] [address] * (ABNORMAL) Vitamin D 25 hydroxy (09/19/2024 7:12 AM CDT) Vitamin D 25-OH 29(L) 30 - 80 ng/mL Blood 09/19/2024 7:12 AM CDT 09/19/2024 7:16 AM CDT Lynn Bain MD LAB BLOOD ORDERABLES Final Result Performing Organization Address [facility] de Phone Number [facility] Department [place] [address] * Phosphorus (09/19/2024 7:12 AM CDT) Phosphorus, pl 3.1 2.3 - 4.5 mg/dL Blood 09/19/2024 7:12 AM CDT 09/19/2024 7:16 AM CDT Montrell Wolfe MD PhD LAB BLOOD ORDERABLES Fin al Result Performing Organization Address [facility]/ZIP Co de Phone Number [facility] [place] [address] * PTH (09/19/2024 7:12 AM CDT) [facility] PTH 65 15 - 65 pg/mL Blood 09/19/2024 7:12 AM CDT 09/19/2024 8:16 AM CDT us Lynn Bain MD LAB BLOOD ORDERABLES Final Result Performing Organization Address City/[facility]/ZIP Co de Phone Number [facility] [place] [address] * Lactate dehydrogenase (LD) (09/19/2024 7:12 AM CDT) [facility] Lactate dehydrogenase (LDH) 203 100 - 250 Units/L Blood 09/19/2024 7:12 AM CDT 09/19/2024 7:16 AM CDT us Montrell Wolfe MD PhD LAB BLOOD ORDERABLES Fin al Result Performing Organization Address City/[facility] Co de Phone Number [facility] [place] [address] * (ABNORMAL) Comprehensive metabolic panel (09/19/2024 7:12 AM CDT) [facility] Sodium 143 135 - 145 mmol/L Potassium, pl 4.1 3.3 - 4.9 mmol/L [facility] Chloride 106 97 - 110 mmol/L [facility] CO2 28 22 - 32 mmol/L [facility] Anion gap 9 2 - 15 mmol/L [facility] BUN 26(H) 6 - 25 mg/dL [facility] Creatinine 2.09(H) 0.80 - 1.30 mg/dL [facility] Glucose 107 70 - 199 mg/dL [facility] Comment: Interpretive Data Fasting glucose >/= 126 [...] 2022. Calcium 9.4 8.5 - 10.3 mg/dL [facility] Bilirubin, total 0.6 0.1 - 1.2 mg/dL [facility] Protein, pl 7.8 6.5 - 8.5 g/dL [facility] Albumin 4.3 3.5 - 5.0 g/dL [facility] Alk phos 39(L) 40 - 130 Units/L [facility] ALT 34 7 - 55 Units/L [facility] AST 38 10 - 50 Units/L [facility] Blood 09/19/2024 7:12 AM CDT 09/19/2024 7:16 AM CDT us Montrell Wolfe MD PhD LAB BLOOD ORDERABLES Fin al Result [facility] Department [place] [address] * (ABNORMAL) eGFR (09/02/2024 8:40 AM CDT) [...] 8:40 AM CDT 09/02/2024 7:15 PM CDT Mami Alcala MD LAB BLOOD ORDERABL ES Final Result [facility] [address] Department [place] [address] * (ABNORMAL) Differential, auto (09/02/2024 8:40 AM CDT) Neutrophil abs 3.24 1.50 - 6.50 K/cumm Imm gran abs 0.03 0.00 - 0.10 K/cumm [facility] Lymphocyte abs 3.15 0.80 - 3.30 K/cumm [facility] Monocyte abs 0.90(H) 0.20 - 0.80 K/cumm [facility] Eosinophil abs 0.03 0.00 - 0.50 K/cumm [facility] Basophil abs 0.01 0.00 - 0.10 K/cumm [facility] Neutrophil pct 44.1 % [facility] Comment: Interpretive Data Percent cell count reference ranges are not reported, since discordance with absolute values may lead to misinterpretation of CBC data. Current Interpretive Data was last revised on 2017. Imm gran pct 0.4 % [facility] Comment: Interpretive Data Percent cell count reference ranges are not reported, since discordance with absolute values may lead to misinterpretation of CBC data. Current Interpretive Data was last revised on 2017. Lymphocyte pct 42.8 % [facility] Comment: Interpretive Data Percent cell count reference ranges are not reported, since discordance with absolute values may lead to misinterpretation of CBC data. Current Interpretive Data was last revised on 2017. Monocyte pct 12.2 % [facility] Comment: Interpretive Data Percent cell count reference [...] 8:40 AM CDT 09/02/2024 5:54 PM CDT us Mami Alcala MD LAB BLOOD ORDERABL ES Final Result [facility] [address] Department [place] [address] * (ABNORMAL) CBC with auto differential (09/02/2024 8:40 AM CDT) WBC 7.36 3.80 - 9.90 K/cumm Hgb 14.6 13.0 - 17.5 g/dL [facility] Hct 46.8 38.9 - 50.3 % [facility] Plt 431(H) 150 - 400 K/cumm [facility] MPV 9.7 9.1 - 12.3 fL [facility] RBC 4.71 4.30 - 5.80 M/cumm [facility] MCV 99.4(H) 81.3 - 96.4 fL [facility] MCH 31.0 27.1 - 33.3 pg [facility] MCHC 31.2(L) 32.3 - 35.7 g/dL [facility] RDW CV 14.9 11.1 - 14.9 % [facility] RDW SD 55.5(H) 35.7 - 48.1 fL [facility] NRBC abs 0.00 0.00 - 0.01 K/cumm [facility] Blood 09/02/2024 8:40 AM CDT 09/02/2024 5:54 PM CDT Mami Alcala MD LAB BLOOD ORDERABL ES Final Result Performing Organization Address [facility] de Phone Number [facility] M[facility] [address] [address] [facility] [place] [address] * (ABNORMAL) Albumin Creatinine Ratio, Urine (09/02/2024 8:40 AM CDT) Albumin Ur 147.7 mg/L Comment: Interpretive Data No reference range established. Current interpretive data was last revised 2018. Creatinine Ur 110.6 mg/dL [facility] Comment: Interpretive Data No reference range established. Current interpretive data was last revised 2018. Albumin Creatinine Ratio, Ur 134(H) 1 - 29 mg/g K[facility] Urine 09/02/2024 8:40 AM CDT 09/02/2024 5:54 PM CDT Mami Alcala MD LAB URINE ORDERABL ES Final Result Performing Organization Address [facility] de Phone Number [facility] M[facility] [address] [address] [place] [address] * (ABNORMAL) Vitamin D 25 hydroxy (09/02/2024 8:40 AM CDT) Vitamin D 25-OH 28(L) 30 - 80 ng/mL Blood 09/02/2024 8:40 AM CDT 09/05/2024 9:55 PM CDT Mami Alcala MD LAB BLOOD ORDERABL ES Final Result Performing Organization Address [facility] Co de Phone Number MYKELIRASEMA MIGUEL [address] [address] [facility] [place] [address] * (ABNORMAL) PTH (09/02/2024 8:40 AM CDT) PTH 71(H) 15 - 65 pg/mL Blood 09/02/2024 8:40 AM CDT 09/02/2024 5:54 PM CDT Mami Alcala MD LAB BLOOD ORDERABL ES Final Result [facility] [address] [address] [place] [address] * (ABNORMAL) Renal function panel (09/02/2024 8:40 AM CDT) Sodium 138 135 - 145 mmol/L Potassium, pl 4.1 3.3 - 4.9 mmol/L [facility] Chloride 102 97 - 110 mmol/L [facility] CO2 25 22 - 32 mmol/L [facility] Anion gap 11 2 - 15 mmol/L [facility] BUN 25 6 - 25 mg/dL [facility] Creatinine 1.81(H) 0.80 - 1.30 mg/dL [facility] Glucose 86 70 - 199 mg/dL [facility] Comment: Interpretive Data Fasting glucose >/= 126 [...] 2022. Calcium 9.0 8.5 - 10.3 mg/dL [facility] Phosphorus, pl 2.3 2.3 - 4.5 mg/dL [facility] Albumin 4.0 3.5 - 5.0 g/dL [facility] Blood 09/02/2024 8:40 AM CDT 09/02/2024 5:54 PM CDT Mami Alcala MD LAB BLOOD ORDERABL ES Final Result [facility] [address] [address] Department of Laboratories [place] [phone] * Cardiology Document Scan (08/10/2024) Anatomical Region Laterality Modality Other us Provider Scanning CV CARDIAC SERVICES PROCEDURES Final Result * Hemoglobin A1c (06/13/2024 7:24 AM SURVEILLANCE TECHNICIAN) Hgb A1C 5.6 4.0 - 5.6 % Estimated Average Glucose 114 mg/dL [facility] Comment: The ADA recommends reporting an estimated Average Glucose (eAG) with all Hemoglobin A1c results using the equation derived from a study of 507 normal and diabetic adults. Minority populations were underrepresented and children were not included. (Diabetes Care 2020; 43(S1): S66-S76). The eAG is not equivalent to a fasting glucose. Blood 06/13/2024 7:24 AM SURVEILLANCE TECHNICIAN 06/13/2024 7:40 AM SURVEILLANCE TECHNICIAN us Franky Sylvester MD LAB BLOOD ORDERABLES Final Re sult [facility] Department [place] [address] * Colonoscopy (05/19/2024 12:30 PM SURVEILLANCE TECHNICIAN) Anatomical Region Laterality Modality Other Narrative Procedure Note Natalie Gonzalez MD - 05/19/2024 12:30 PM [facility] Patient Name: Bk Pichardo Procedure Date: 05/19/2024 12:30 PM Date of : 1955 Admit Type: Outpatient Age: 68 Gender: Male Attending MD: Natalie Gonzalez M.D. Room: [facility] [facility] ENDOSCOPY ROOM 4 Note Status: [...] The scope was passed under direct vision.The [id number] endoscope was introduced through the anus and [...] Return to referring physician. - please call [phone], 8 am -5 pm if any post procedural concerns/issues, after hours/weekends please call [phone] and ask for GI fellow oncall Attending [...] LAB BLOOD ORDERABLES Final Re sult [facility] [address] Department [place] [address] * (ABNORMAL) Lipid panel (09/04/2023 [...] on 2017. Triglycerides 245(H) <=149 mg/dL [facility] Comment: Interpretive Data Ages < or [...] revised on 2017. HDL 40 >=40 mg/dL [facility] Comment: Interpretive Data Ages < or = [...] on 2017. LDL, calculated 104 <=129 mg/dL [facility] Comment: Interpretive Data Ages < or = [...] revised on 2017. Non-HDL Cholesterol 153 mg/dL [facility] Comment: Interpretive Data Ages < or = [...] last revised on 2017. Chol/HDL ratio 5 [facility] Blood 09/04/2023 10:3 4 AM CDT 09/04/2023 11:01 AM CDT us Corina Rater TILE CLASSIFIER LAB BLOOD ORDERABLES Final Resul t Performing Organization Address City/[facility] Co de Phone Number [facility] [place] [address] * (ABNORMAL) DIABETES EYE EXAM (02/26/2023 11:15 AM SURVEILLANCE TECHNICIAN) Historical Provider HEALTH MAINTENANCE Final Result * Hepatitis C antibody (08/07/2021 2:55 PM CDT) Hep C Ab Nonreactive Nonreactive [facility] Comment:Antibodies to HCV no t detected. Does NOT exclude the possibility of recent exposure to HCV. Blood 08/07/2021 2:55 PM CDT 08/07/2021 3:30 PM CDT Pablo Mcmillan MD LAB MICROBIOLOGY - [facility] ORDERABLES Edited Result - Final Performing Organization Address City/[facility] Co de Phone Number [facility] Department [place] [address] from Last 3 Months or Most Recently Relevant to Health Maintenance Insurance [facility] [place] [address] [facility] Advance Directives For more information, please contact: [phone] * Full Code (Latest Code Status on File) Date Activated Date Inactivated Comments 05/19/2024 12:20 PM 05/19/2024 6:43 PM * Full Code Date Activated Date Inactivated Comments 04/22/2023 8:39 AM 04/22/2023 2:54 PM * Full Code Date Activated Date Inactivated Comments 07/05/2022 6:35 PM 07/08/2022 7:06 PM * Full Code Date Activated Date Inactivated Comments 10/24/2020 6:59 AM 10/24/2020 1:29 PM Care Teams Blueprint Trimmer Relationship Specialty Start Date End Date Franky Sylvester MD PCP - General Family Medicine 12/03/21 Rosa Russell, TILE CLASSIFIER Nurse Practitioner Medical Oncology 06/13/20 Montrell Wolfe MD PhD Medical Oncologist/Career Development Facilitator Medical Oncology 12/03/21 Pablo Mcmillan MD [address] [place] [address] Director External Communications Nephrology 03/21/24
--- OUTSIDE RECORDS SUMMARY | 2024-11-09 19:43 | XMS_ITS | Encounter Summary ---
Author Organization [facility] Healthcare Address [address] [place] [address] Care Team Providers Care Cultured Marble Products Maker Name Role Phone Rosa Russell PACK PULLER Unavailable [phone] Franky Sylvester MD Primary Care Provider [phone] Montrell Wolfe MD PhD Unavailable [phone] Pablo Mcmillan MD Unavailable [phone] Encounter Details Date Type Department Care Team (Late st Contact Info) Description 08/10/2024 Orders Only [facility] Health Information Management [address] [place] [address] Scanning, Provider Social History Tobacco Use Types Packs/Day Years Used Date Smoking Tobacco: Former Cigarettes 0.3 15 1 975 - 1990 Smokeless Tobacco: Never Alcohol Use Standard Drinks/Week Comments No 0 (1 standard drink = 0.6 oz pur e alcohol) [facility] Utilities Answer Date Recorded In the past 12 months has Epoch, gas, oil, or water [employer] threatened to shut off services in your [...] How often do you attend chur or sabianism services? Never 06/26/2023 Do you belong to any clubs o r organizations such as buddhist groups, unions, fraternal or athletic groups, or [...] place to sleep or slept in a long-term (including now)? No 06/26/2023 PHQ-9 Answer Date Recorded PHQ-9 Total Score 10 02/14/2024 Personal Safety Answer Date Recorded Have you ever been in or are you currently in a harmful physical or emotional relationship or is someone making you feel afraid or unsafe? Denies 05/19/2024 Sex and Gender Information Value Date Recorded Sex Assigned at Not on file Legal Sex Male 10:07 AM COMPLIANCE ATTORNEY Gender Identity Not on file Sexual Orientation Not on file documented as of this encounter Plan of Treatment Not on file documented as of this encounter Goals Goal Patient Goal Type Associated Problems Recent Progress Patient-Stated? Author CCM Chronic Pain Care Plan Chronic Care Management No change(06/04 7:38 AM COMPLIANCE ATTORNEY) No Seema Dutton RN Note: Problem: Chronic Pain Goals: 1. Minimize further functional decline 2. Maximize quality of life 3. Control pain Strategies: - Activity/exercise program recommendation - Conservative stepwise pain medicine strategy with multi-disciplinary approach - Recommend healthy lifestyle strategies and compensatory methods as needed documented as of this encounter Procedures Procedure Name Priority Date/Time Associated Diagnosis Comments CARDIOLOGY DOCUMENT SCAN 08/10/2024 documented in this encounter Results * Cardiology Document Scan (08/10/2024) Anatomical Region Laterality Modality Other us Provider Scanning CV CARDIAC SERVICES PROCEDURES Final Result documented in this encounter Visit Diagnoses Not on filedocumented in this encounter Care Teams Cultured Marble Products Maker Relationship Specialty Start Date End Date Franky Sylvester MD PCP - General Family Medicine 12/03/21 Rosa Russell NP Nurse Practitioner Medical Oncology 06/13/20 Montrell Wolfe MD PhD Medical Oncologist/Perforating Machine Operator Medical Oncology 12/03/21 Pablo Mcmillan MD [address] [address] Aoc Operations Intelligence Officer Nephrology 03/21/24 documented as of this encounter
--- OUTSIDE RECORDS SUMMARY | 2024-11-09 19:43 | XMS_ITS | Encounter Summary ---
Author Organization [facility] Address [address] [place] [address] Phone Care Team Providers Care Commodity Trader Name Role Phone Rosa Russell CASKET TRIMMER Unavailable Franky Sylvester MD Primary Care Provider [phone] Montrell Wolfe MD PhD Unavailable Luba Corona RN Unavailable Pablo Mcmillan MD Unavailable [phone] Encounter Details Date Type Department Care Team (Late st Contact Info) Description 12/03/2021 Telephone [facility] Bone Marrow Transplant [address] [facility] 7th Floor, [place] [address] Lisette Rucker V. Social History [...] on file Legal Sex Male 10:07 AM SUGAR SAMPLER Gender Identity Not on file Sexual Orientation Not on file documented as of this encounter Plan of Treatment Not on file documented as of this encounter Goals Goal Patient Goal Type Associated Problems Recent Progress Patient-Stated? Author CCM Chronic Pain Care Plan Chronic Care Management No change(06/04 7:38 AM SUGAR SAMPLER) No Seema Dutton RN Note: Problem: Chronic [...] documented as of this encounter Care Teams Commodity Trader Relationship Specialty Start Date End Date Franky Sylvester MD PCP - General Family Medicine 12/03/21 Rosa Russell NP Nurse Practitioner Medical Oncology 06/13/20 Montrell Wolfe MD PhD Medical Oncologist/Gas Check Pad Maker Medical Oncology 12/03/21 Luba Corona, PANCHO [address] [place] [address] [address] [place] [address] Vice President Industrial Relations 05/19/23 02/07/24 Pablo Mcmillan MD [address] [place] [address] Cut Tobacco Bulker Nephrology 03/21/24 documented as of this encounter
--- OUTSIDE RECORDS SUMMARY | 2024-11-09 19:43 | XMS_ITS | Continuity of Care Document ---
Author Organization [facility] Address [address] [facility] [address] [place] [address] Phone Care Team Providers Care Porcelain Enamel Laborer Name Role Phone Sammy Rico MD Unavailable [...] Copied on Encounter Office/outpa tient Visit, [facility], [address], [place], [place], [id number], [place] [phone] SEC Man HERRERA Professional Cataract evaluation (chief complaint) Nuclear sclerosis of right eyePseudopha donna, left eye Feb- 6 Jacky Christianson. [address] [facility], [facility] A, [place], [place], [address], [place]. tel:[phone] Referring Provider: Montrell Eastman OD, [address] [place], [address]. tel:[phone] [facility], [address], [place], [place], [id number], [place] tel:[phone] SEC Man HERRERA Professional No Information 6 Jacky Christianson. [address] [facility], [facility] [place], [address], [place]. tel:[phone] Office/outpa tient Visit, [facility], [address], [place], [place], [id number], [place] [phone] SEC Man HERRERA Professional Psychophysic al visual disturbances LENS REPLACEMENT NECGRAFT-RAMEZ GILDARDO-HOST NOSSENILE NUCLEAR CATARACT 4 Janine Vital. [address], [address] [place] [address], [facility], [place]. tel:[phone] Referring Provider: Montrell Eastman OD, [address] [place], [address]. tel:[phone] [facility], [address], [place], [place], [id number], [place] tel:[phone] SEC Man HERRERA Professional No Information 3 Janine Vital. [address], [address], [address], [place]. tel:[phone] Referring Provider: Montrell Eastman OD, [address] [place], [address]. tel:[phone] [facility], [address], [place], [place], [id number], [place] tel:[phone] SEC [place] Professional FOLLOW-UP SURGERY NOS Nov-0 8-201 2 Janine Vital. [address], [address] [place] [address], [facility], . tel:[phone] Referring Provider: Montrell Eastman OD, [address] [place], [address]. tel:[phone] [facility], [address] [facility], [place], [place], [address], [place] tel:[phone] SEC [place] Professional FOLLOW-UP SURGERY NOS Oct-2 4-201 2 Janine Vital. [address], [address] [place] [address], [facility], [place]. tel:[phone] Referring Provider: Montrell Eastman OD, [address] [place], [address]. tel:[phone] [facility], [address], [place], [place], [address], [place] tel:[phone] [facility] [place] No Information Oct-2 3-201 2 Janine Vital. [address], [address], [place], [place], [facility], [place]. tel:[phone] Referring Provider: Montrell Eastman OD, [address] [place], [address]. tel:[phone] [facility], [address], [place], [place], [address], [place] tel:[phone] SEC Vanesa Pozo No Information Oct-2 2-201 2 Janine Vital. [address], [address], [place], [facility], [place]. tel:[phone] Referring Provider: Montrell Eastman OD, [address] [place], [address]. tel:[phone] [facility], [address], [place], [place], [address], tel:[phone] SEC Vanesa Pozo No Information 2 Janine Vital. [address] [facility], [address], [address], . tel:[phone] Referring Provider: Montrell Eastman OD, [address] [place], [address]. tel:[phone] [facility], [address], [place], [place], [address], tel:[phone] SEC Man HERRERA Professional No Information 0 2 Janine Vital. [address] [facility], [address], [address], . tel:[phone] Referring Provider: Montrell Eastman OD, [address] [place], [address]. tel:[phone] [facility], [address], [place], [place], [id number], tel:[phone] SEC [place] Professional No Information 2 Tere Ferguson. [address] [facility] [place], [address], . tel:[phone] Family History Family Member Type Diagnosis Age At Onset Problem (finding) Maternal grandfather Problem (finding) stomach cancer Mother Problem (finding) renal stone Father Problem (finding) hypertension Payers Payer name Insurance type Covered democrat ID Emmanuel grace(s) [facility] [id number] Medicare RR MB [id number] Social History Type Description Quantity Date Captured [...] or sooner with problems. Pseudophakia GVHD - [id number] disease Senile nuclear cataract - stable NS, [...] monitor - Continue tapering gtts. Recommends seeing radio disc jockey in about 1 week. No activity restrictions. [...]
[2024-11-09 20:00] LABS: Hematocrit 44.9 % (42.0-52.0); Hemoglobin 14.6 g/dL (14.0-18.0); Immature Granulocyte Percent A 0.4 % (0-0.5); Lymphocytes Absolute Auto 3.11 K/mm3 (0.9-3.2); Mean Corpuscular HGB Conc 32.5 g/dl (32-36); Mean Corpuscular Hemoglobin 31.5 pg (26-34); Mean Corpuscular Volume 97.0 fl (80-100); Nucleated Red Blood Cells Absolute Auto 0.000 K/mm3 (0.0-0.012); Nucleated Red Blood Cells Perc 0.0 % (0.0-0.2); Platelet Count Result 413 k/mm3 (150-375); Red Blood Count 4.63 M/mm3 (4.6-6.20); White Blood Count 9.1 K/mm3 (4.5-10.0)
[2024-11-09 20:07] LABS: Add Urine Microscopic? YES; Appearance Urine Clear (Clear); Glucose Urine UA 3+ mg/dL (Negative); Leukocyte Esterase Ur Negative LEU/UL (Negative); Nitrate Urine Negative (Negative); Non Pathogenic Casts 0-2; Specific Grav Ur 1.019 (1.001-1.035)
[2024-11-09 20:11] LABS: Alanine Aminotransferase 56 U/L (6-50); Albumin Level 4.5 g/dL (3.5-5.1); Alkaline Phosphatase 35 U/L (38-126); Anion Gap 8 mmol/L (4-12); Aspartate Amino Transferase 74 U/L (17-59); Bilirubin,Total 0.6 mg/dL (0.2-1.3); Blood Urea Nitrogen 41 mg/dL (9-20); Calcium 9.9 mg/dL (8.4-10.2); Carbon Dioxide 26 mmol/L (22-30); Chloride 104 mmol/L (98-107); Estimated CRCL calculation 42 ml/min; Estimated Glomerular Filt Rate 32; Glucose 105 mg/dL (65-110); Lipase 148 U/L (23-300); Potassium 4.1 mmol/L (3.4-5.0); Sodium 138 mmol/L (137-145); Total Protein 8.1 g/dL (6.3-8.2)
--- NOTE | 2024-11-09 20:21 | ED_ITS ---
HPI - Abdominal Pain General Chief Complaint: Abdominal Pain Stated Complaint: abd pain Time Seen by Provider: 11/09/24 19:49 Source: patient Mode of arrival: ambulatory Limitations: no limitations History of Present Illness HPI narrative: Patient is a 68-year-old male, with PMH of DM, AML in remission, blood clots on Eliquis, who presents the ED with report of right lower quadrant abdominal pain. Patient reports he had finished eating dinner approximately 2 hours ago and went to sit down to watch TV downstairs when he developed sharp pain throughout his right lower abdomen. Pain was fairly persistent, worse with movement, sitting. He does feel slightly improved with lying flat currently. Denies history of similar pain. Denies nausea, vomiting, diarrhea, constipation, fevers, urinary complaints. Last BM was today and normal. Related Data Home Medications ?Medication ?Instructions ?Recorded ?Confirmed ?Last Taken ?Type apixaban 5 mg tablet (Eliquis) 5 mg PO Q12H 06/28/24 08/10/24 08/09/24 History diltiazem HCl 240 mg 240 mg PO DAILY 06/28/24 08/10/24 08/09/24 History capsule,extended release 24 hr, controlled empagliflozin 10 mg tablet 10 mg PO DAILY 06/28/24 08/10/24 08/09/24 History (Jardiance) magnesium 200 mg tablet 400 mg PO BID 06/28/24 08/10/24 08/09/24 History pravastatin 10 mg tablet 10 mg PO DAILY 06/28/24 08/10/24 08/09/24 History ruxolitinib 10 mg tablet (Jakafi) 10 mg PO BID 06/28/24 08/10/24 08/09/24 History testosterone cypionate 200 mg/mL 100 mg IM Q7D 06/28/24 08/10/24 08/07/24 History intramuscular oil tirzepatide 10 mg/0.5 mL 10 mg subcut WEEKLY 06/28/24 08/10/24 08/07/24 History subcutaneous pen injector (Mounjaro) Allergies Allergy/AdvReac Type Severity Reaction Status Date / Time vancomycin Allergy Mild Redness of Verified 06/28/24 10:10 Skin gabapentin AdvReac Severe Unknown Verified 06/28/24 10:10 Review of Systems 2 Review of Systems: All systems reviewed & are unremarkable except as noted in HPI. 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 Father Cerebrovascular accident Father Alzheimer dementia Social History Social History Smoking packs per day: 0.5 Smoking cigarettes per day: 10.0 Years smoked: 2 Smoking pack-years: 1.00 Smoking status: Former smoker Alcohol intake: current Drinks per week: 4 Substance use: never Do You Feel Safe in your Home?: Yes Lack of Transportation: No Lack of Food: Never True Current Housing: I Have Housing Concerned About Future Housing: No Difficulty Paying Gas/Electric Bills: No Difficulty Paying for Meds: No Currently Unemployed: No Education: Bachelor's Degree Difficulty w/ Childcare or Family Care: No Spiritual care concerns: No Exam 2 Narrative: GENERAL: Well appearing, obese with BMI of 35.1, non-toxic, in no acute distress. HEAD: Normocephalic, atraumatic. RESPIRATORY: Airway patent, respirations nonlabored. Clear to auscultation bilaterally, no rales, rhonchi, wheezing. CARDIOVASCULAR: Regular rate and rhythm without murmurs, rubs, or gallops. ABDOMINAL: Soft, mild focal tenderness in RLQ, no significant rebound. Nondistended. Normoactive BS. MUSCULOSKELETAL: Moves all extremities. No gross deformities. SKIN: Warm, dry, normal color. NEURO: A&O X3. Speech clear. Cranial nerves II-XII grossly intact. Steady gait. No ataxic movements. PSYCHIATRIC: Appropriate mood and affect. Normal interaction. Course Vital Signs Vital signs: Vital Signs Temperature 97.7 F 11/09/24 19:46 Pulse Rate 71 11/09/24 19:46 Respiratory Rate 14 11/09/24 19:46 Blood Pressure 153/72 H 11/09/24 19:46 Pulse Oximetry 96 11/09/24 19:46 Oxygen Delivery Room Air 11/09/24 19:46 Temperature 97.7 F 11/09/24 19:46 Pulse Rate 71 11/09/24 21:31 Respiratory Rate 17 11/09/24 21:31 Blood Pressure 130/63 11/09/24 21:31 Pulse Oximetry 96 11/09/24 21:31 Oxygen Delivery Room Air 11/09/24 19:46 MDM - Abdominal Pain MDM Narrative Medical decision making narrative: Patient presented to ED with 1 hour onset of right lower quadrant abdominal pain. No significant associated symptoms. Vital signs are stable upon arrival. Patient is in no acute distress. Cbc without leukocytosis or anemia. CMP with evidence of CKD. Appears fairly consistent with previous records. Given small amount of fluids in the ED. Mild transaminitis noted. AST 74, ALT 56. Normal bilirubin. Alk-phos normal. Lipase normal. No significant right upper quadrant tenderness on exam. UA without evidence of infection or hematuria, does show evidence of glucosuria. Blood glucose is [address] scan of abdomen/pelvis was obtained and fairly unremarkable. Does show mild bladder wall thickening. Again the urinalysis here is clear. Otherwise CT scan was unremarkable. Normal appendix. Normal bowels. Discussed lab and imaging findings, overall reassuring workup with patient. He reports pain is nearly resolved at this time. He did not require anything for pain in the ED. Discussed possibility of gas pains versus musculoskeletal etiology. Discussed continue management of such. Otherwise safe for discharge home. Given strict return precautions. He agrees with plan. Discharged in stable condition. Medical Records Attestation: I reviewed the patient's medical records. Lab Data Attestation: I reviewed the patient's lab results. 11/09/24 19:52 11/09/24 19:52 Labs: Lab Results 11/09/24 11/09/24 Range/Units 19:52 19:58 WBC 9.1 (4.5-10.0) K/mm3 RBC 4.63 (4.6-6.20) M/mm3 Hgb 14.6 (14.0-18.0) g/dL Hct 44.9 (42.0-52.0) % MCV 97.0 (80-100) fl MCH 31.5 (26-34) pg MCHC 32.5 (32-36) g/dl RDW 14.8 H (11.5-14.5) % Plt Count 413 H (150-375) k/mm3 MPV 9.1 (7.4-10.4) fl Immature Gran % (Auto) 0.4 (0-0.5) % Neut % (Auto) 52.8 (45.5-73.1) % Lymph % (Auto) 34.3 (18.3-44.2) % Milam % (Auto) 12.3 H (2.6-8.5) % Eos % (Auto) 0.1 (0-4.4) % Baso % (Auto) 0.1 L (0.2-1.2) % Lymph # (Auto) 3.11 (0.9-3.2) K/mm3 Milam # (Auto) 1.1 H (0.1-0.6) K/mm3 Eos # (Auto) 0.0 (0-0.3) K/mm3 Baso # (Auto) 0.0 (0.0-0.1) K/mm3 Abs Immat Gran (auto) 0.04 H (0.00-0.031) K/mm3 Absolute Neuts (auto) 4.8 (1.3-6.7) K/mm3 Absolute Nucleated RBC 0.000 (0.0-0.012) K/mm3 Nucleated RBC % 0.0 (0.0-0.2) % Sodium 138 (137-145) mmol/L Potassium 4.1 (3.4-5.0) mmol/L Chloride 104 (98-107) mmol/L Carbon Dioxide 26 (22-30) mmol/L Anion Gap 8 (4-12) mmol/L BUN 41 H D (9-20) mg/dL Creatinine 2.08 H (0.7-1.3) mg/dL Estim Creat Clear Calc 42 ml/min Estimated GFR 32 L (59 - ) Glucose 105 (65-110) mg/dL Calcium 9.9 (8.4-10.2) mg/dL Total Bilirubin 0.6 (0.2-1.3) mg/dL AST 74 H (17-59) U/L ALT 56 H (6-50) U/L Alkaline Phosphatase 35 L (38-126) U/L Total Protein 8.1 (6.3-8.2) g/dL Albumin 4.5 (3.5-5.1) g/dL Lipase 148 (23-300) U/L Urine Color Yellow (Yellow) Urine Appearance Clear (Clear) Urine pH 5.5 (5.0-9.0) Ur Specific Carver 1.019 (1.001-1.035) Urine Protein Trace (Negative) mg/dL Urine Glucose (UA) 3+ H (Negative) mg/dL Urine Ketones Negative (Negative) mg/dL Ur Blood (Man) Negative (Negative) Urine Nitrate Negative (Negative) Urine Bilirubin Negative (Negative) Urine Urobilinogen 0.2 (<2.0) mg/dL Leukocyte Esterase Rfl Negative (Negative) ANGELICA/UL Urine RBC 0-2 (0-2) /hpf Urine WBC 0-5 (0-3) /hpf Ur Squamous Epith Cells None seen (Few) /hpf Urine Bacteria None seen /hpf Urine Casts 0-2 Imaging Data Attestation: I personally reviewed and interpreted this imaging study as follows: Radiologist's impression: ITS Impressions Abdomen/Pelvis CT 11/09/24 21:00 IMPRESSION: Mild bladder wall thickening may be secondary to incomplete distention, chronic obstruction from prostatomegaly, or cystitis. Otherwise, no acute abdominopelvic process detected. Discharge Plan Discharge Clinical Impression: Right lower quadrant abdominal pain Patient Disposition: Home Condition: Stable Instructions: Antibiotic Form, Gas and Bloating (ED), Abdominal Pain (ED) Additional Instructions: You may try Tylenol, Gas-x as needed for further pain. Recommend miralax/stool softener if needed for assistance with constipation. Recommend follow up with your primary care doctor for further evaluation if needed. Return to ED if you experience worsening or severe pain, unable to keep down food or drink, difficulty breathing, persistent fevers, rectal bleeding, dark black stools, difficulty urinating, or any other symptoms of concern. Patient Language: Mongolian Prescriptions: No Action amoxicillin-pot clavulanate 875-125 mg tablet 1 tablet PO Q12H 7 Days Qty: 14 0RF doxycycline hyclate 100 mg tablet 100 mg PO BID 7 Days Qty: 14 0RF testosterone cypionate 200 mg/mL oil 100 mg IM Q7D Patient Comments: takes on Sundays Jakafi 10 mg tablet 10 mg PO BID Mounjaro 10 mg/0.5 mL pen injector 10 mg subcut WEEKLY Patient Comments: takes on Sundays Jardiance 10 mg tablet 10 mg PO DAILY Eliquis 5 mg tablet 5 mg PO Q12H magnesium 200 mg tablet 400 mg PO BID pravastatin 10 mg tablet 10 mg PO DAILY diltiazem HCl 240 mg capsule,ext.rel 24h degradable 240 mg PO DAILY naproxen 500 mg tablet,delayed release (DR/EC) 500 mg PO BID PRN (Reason: pain) Qty: 30 0RF Follow-up/Referrals: Higinio,Franky Sanz MD [Primary Care Provider] - Time of Disposition: 21:25
[2024-11-09] MEDS: SODIUM CHLORIDE 0.9% IV 500 ML 999 ML IV CONT (20:22)
--- OUTSIDE RECORDS SUMMARY | 2024-11-09 20:41 | XMS_ITS | Continuity of Care Document ---
Author Organization [facility] Address [address] [facility] [address] [place] [id number] Phone Care Team Providers Care Mental Health Director Name Role Phone Sammy Rico MD Unavailable [...] Copied on Encounter Office/outpa tient Visit, Est [facility], [address], [place], [place], [id number], [place] [phone] SEC Man [place] Professional Cataract evaluation (chief complaint) Nuclear sclerosis of right eyePseudopha donna, left eye Feb- 6 Jacky Christianson. [address] [facility] [address], [place], [place], [id number], [place]. tel:[phone] Referring Provider: Montrell Eastman OD, [address] [place], [address]. tel:[phone] [facility], [address], [place], [place], [address], [place] tel:[phone] SEC Man HERRER[place] Professional No Information 6 Jacky Christianson. [address] [facility] [place], [id number], [place]. tel:[phone] Office/outpa tient Visit, [facility], [address], [place], [place], [address], [place] [phone] SEC Man [place] Professional Psychophysic al visual disturbances LENS REPLACEMENT NECGRAFT-RAMEZ GILDARDO-HOST NOSSENILE NUCLEAR CATARACT 4 Janine Vital. [address], [address] [place] [address], [facility], [place]. tel:[phone] Referring Provider: Montrell Eastman OD, [address] [place], [address]. tel:[phone] [facility], [address], [place], [place], [address], [place] tel:[phone] SEC Man [place]ERRER[place] Professional No Information 3 Janine Vital. [address], [place], [address], [place]. tel:[phone] Referring Provider: Montrell Eastman OD, [address] [place], [address]. tel:[phone] [facility], [address], [place], [place], [id number], [place] tel:[phone] SEC [place] Professional FOLLOW-UP SURGERY NOS Nov-0 8-201 2 Janine Vital. [address] [place] [address], [facility], . tel:[phone] Referring Provider: Montrell Eastman OD, [address] [place], [address]. tel:[phone] [facility], [address] [facility] [address], [place], [place], [id number], [place] tel:[phone] SEC [place] Professional FOLLOW-UP SURGERY NOS Oct-2 4-201 2 Janine Vital. [address] [place] [address], [facility], [place]. tel:[phone] Referring Provider: Montrell Eastman OD, [address] [place], [address]. tel:[phone] [facility], [address] [facility] [address], [place], [place], [id number], [place] tel:[phone] [facility] [place] No Information Oct-2 3-201 2 Janine Vital. [address], [place], [place], [facility], [place]. tel:[phone] Referring Provider: Montrell Eastman OD, [address] [place], [address]. tel:[phone] [facility], [address] [facility] [address], [place], [place], [address], [place] tel:[phone] SEC Vanesa Pozo No Information Oct-2 2-201 2 Janine Vital. [address], [place], [facility], [place]. tel:[phone] Referring Provider: Montrell Eastman OD, [address] [place], [address]. tel:[phone] [facility], [address] [facility] [address], [place], [place], [address], tel:[phone] SEC [place]anesa Pozo No Information 2 Janine Vital. [address] [facility], [address], [address], . tel:[phone] Referring Provider: Montrell Eastman OD, [address] [place], [address]. tel:[phone] [facility], [address] [facility] [address], [place], [place], [id number], tel:[phone] SEC Man [place] Professional No Information 0 2 Janine Vital. [address] [facility], [address], [address], . tel:[phone] Referring Provider: Montrell Eastman OD, [address] [place], [address]. tel:[phone] [facility], [address] [facility] [address], [place], [place], [id number], tel:[phone] SEC [place] Professional No Information 2 Tere Ferguson. [address] [facility] [place], [address], . tel:[phone] Family History Family Member Type Diagnosis Age At Onset Problem (finding) Maternal grandfather Problem (finding) stomach cancer Mother Problem (finding) renal stone Father Problem (finding) hypertension Payers Payer name Insurance type Covered constitution party ID Emmanuel grace(s) [facility] [id number] Medicare RR MB [id number] Social History Type Description Quantity Date Captured [...] or sooner with problems. Pseudophakia GVHD - Jvbes-nmurna-nbfr disease Senile nuclear cataract - stable NS, [...] monitor - Continue tapering gtts. Recommends seeing construction safety manager in about 1 week. No activity restrictions. [...]
--- OUTSIDE RECORDS SUMMARY | 2024-11-09 20:41 | XMS_ITS | Continuity of Care Document ---
Author Organization [facility] Address [address] [place] [address] [place] [address] Phone Care Team Providers Care Pulp Piler Name Role Phone Ghassan Simmons MD Unavailable [...] Copied on Encounter OFFICE/OUTPAT IENT VISIT, EST [facility], [address] [place], [address], [place] tel:[phone] [facility] cough (chief complaint) AML (chief complaint) GERD (chief complaint) Depression (chief complaint) slow stream (chief complaint) Dietary surveillance and counselingBronchi tis, AcuteMyeloid leukemia, acute, without mention of remissionOther osteoporosisGERD 4 Troy Ferrell. [address] [place], [address] , [place]. tel:[phone] Family History Family Member Type Diagnosis Age At Onset Mother Problem (finding) of surgical compli cation Brother Problem (finding) Coronary artery disease Father Problem (finding) dementia Brother Problem (finding) Alive and well Payers Payer name Insurance type Covered libertarian ID Authoriza tion(s) No Information Social History [...] Mental Status Date Cognitive Assessment Orientation - [place] ed to time, place, person, situation.
--- OUTSIDE RECORDS SUMMARY | 2024-11-09 20:41 | XMS_ITS | Clinical Summary ---
Author Organization [facility] Address [address] [place] [address] Care Team Providers Care Train Brakeman Name Role Phone Rosa Russell Placido REAL ESTATE ACQUISITION ANALYST Unavailable Franky Sylvester MD Primary Care Provider [phone] Montrell Wolfe MD PhD Unavailable [phone] Pablo Mcmillan MD Unavailable [phone] Allergies Active Allergy Reactions Criticality Noted Date [...] needle, disp, 18 G (BD Regular Bevel Cascade) 18 gauge x 1 needle To draw [...] needle, disp, 25 gauge (BD Regular Bevel Cascade) 25 gauge x 5/8 needle To use to inject 12 each 3 08/18/19 25 Active amoxicillin-cla vulanate (AUGMENTIN) 875-125 mg per tablet Take 1 tablet by mouth every 12 (twelve) hours for 7 days 08/13/19 25 Active dilTIAZem XR 240 mg 24 hr capsuleIndicati ons:Atrial fibrillation, unspecified type ([facility]) TAKE 1 CAPSULE BY MOUTH EVERY DAY 90 capsule 2 08/30/19 25 Active olmesartan (Benicar) 20 mg tabletIndicatio ns:CKD stage 3b, GFR 30-44 ml/min ([facility]),Essential hypertension Take 1 tablet (20 mg total) [...] 02/14 Assessment & Plan (02/15/2024 10:43 AM SOCIAL SERVICES SPECIALIST): Discussed with patient current recommendations for [...] 02/12/2024 Assessment & Plan (02/15/2024 10:42 AM SOCIAL SERVICES SPECIALIST): Stable limit nephrotoxins Continue Lasix 20mg BP and glucose control GFR 42 Lab Results Component Value Date CREATININE 1.75 (H) 2023 BUNSER 26 (H) 2023 SODIUM 140 2023 POTASSIUM 4.5 2023 CO2 27 2023 Simple chronic bronchitis 02/12/2024 Assessment & Plan (02/15/2024 10:40 AM SOCIAL SERVICES SPECIALIST): Stable Davon Shannonsandhya Reports has substantially helped [...] S/p LUISA and successful cardioversion 07/07/22 with sabianism of sinus rhythm. PO diltiazem 60 mg [...] 01/02/2022 Assessment & Plan (03/01/2024 9:39 AM SOCIAL SERVICES SPECIALIST): Stable Uses CPAP with relief of [...] 2017 Assessment & Plan (02/15/2024 10:42 AM SOCIAL SERVICES SPECIALIST): Stable Declines pain management Reports magnesium [...] (10/09/2020): Added automatically from request for surgery [id number] Other osteoporosis without c urrent pathological fracture [...] Description 10/25/2024 6:00 PM CDT Office Visit [facility] Convenient Care at [address] [address] Geovany Castle NP Local skin infection (Primary Dx); Contact dermatitis, unspecified contact dermatitis type, unspecified trigger; Itchy scalp 10/17/2024 Orders Only [facility] Bone Marrow Transplant [address] [facility] Floor 6 [place] [address] Ney Padron RN Acute myeloid leukemia in remission (HCC) (Primary Dx) 09/19/2024 8:30 AM CDT Infusion [facility] - Infusion [address] [facility] [address] [place] [address] Acute myeloid leukemia in remission (HCC) 09/19/2024 7:30 AM CDT Clinical Support [facility] - Lab Collection [address] [facility] [address] [place] [address] Acute myeloid leukemia in remission (HCC); CKD stage 3b, GFR 30-44 ml/min (HCC); Albuminuria 09/14/2024 8:30 AM CDT Office Visit [facility] Nephrology [address] [place] [address] 5th [place] [address] [place] [address] CKD stage 3b, GFR 30-44 ml/min (HCC) (Primary Dx); Essential hypertension; Albuminuria; Obesity, Class II, BMI 35-39.9 09/02/2024 8:45 AM CDT Lab [facility] Outpatient Lab at [address] [address] 09/02/2024 8:40 AM CDT - 09/02/2024 11:59 PM CDT Hospital Encounter [address] [address] CKD stage 3b, GFR 30-44 ml/min (HCC); Essential hypertension; Vitamin D deficiency disease; Acute myeloid leukemia in remission (HCC); Vitamin D deficiency, unspecified; Encounter for routine adult health examination with abnormal findings; Medication dose changed Discharge Disposition: Discharge to home or self care 08/26/2024 Orders Only [facility] Nephrology [address] [place] [address] 5th [place] [address] [place] [id number] Mami Alcala MD CKD stage 3b, GFR 30-44 ml/min (HCC) (Primary Dx); Essential hypertension; Vitamin D deficiency disease; Acute myeloid leukemia in remission (HCC); Vitamin D deficiency, unspecified; Encounter for routine adult health examination with abnormal findings; Medication dose changed 08/22/2024 10:45 AM CDT Office Visit [facility] Family Medicine at [address] [place] [address] Franky Sylvester MD Fever in other diseases (Primary Dx); Stage 3b chronic kidney disease (HCC); Polycythemia, secondary; Paroxysmal atrial flutter (HCC); Hypogonadism in male; Stem cells transplant status (HCC) 08/16/2024 JORI IP Outreach [facility] Accountable Care Organization [address] [place] [address] Keysha Marte MA 08/10/2024 Orders Only [facility] Health Information Management [address] [place] [address] Scanning, Provider from Last 3 Months Immunizations [...] drink = 0.6 oz pur e alcohol) Merchant Exchange Utilities Answer Date Recorded In the past 12 months has [employer], gas, oil, or water [employer] threatened to shut off services in your [...] often do you attend chur ch or sabianist services? Never 06/26/2023 Do you belong to any clubs o r organizations such as jewish groups, unions, fraternal or athletic groups, or [...] on file Legal Sex Male 10:07 AM SOCIAL SERVICES SPECIALIST Gender Identity Not on file Sexual [...] Chronic Care Management No change(06/04 7:38 AM SOCIAL SERVICES SPECIALIST) No Seema Dutton, RN Note: Problem: Chronic Pain Goals: 1. Minimize further functional decline 2. Maximize quality of life 3. Control pain Strategies: - Activity/exercise program recommendation - Conservative stepwise pain medicine strategy with multi-disciplinary approach - Recommend healthy lifestyle strategies and compensatory methods as needed Medical Devices Implanted Type Area Staking Technician Device Identifier Shelf Expiration Date Model / [...] 08/10/2024 HEMOGLOBIN A1C Routine 06/13/2024 7:24 AM SOCIAL SERVICES SPECIALIST 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 disease, without long-term current use of insulin (HCC) COLONOSCOPY 05/19/2024 12:30 PM SOCIAL SERVICES SPECIALIST PSA SCREEN Routine 10/27/2023 10:05 AM CDT Screening for prostate cancer LIPID PANEL Routine 09/04/2023 10:34 AM CDT Atrial flutter with rapid ventricular response (HCC) Essential hypertension Paroxysmal atrial flutter (HCC) Pure hypercholesterolemi a Acute myeloid leukemia in remission (HCC) NOVAK (dyspnea on exertion) DIABETES EYE EXAM Routine 02/26/2023 11:15 AM SOCIAL SERVICES SPECIALIST HEPATITIS C ANTIBODY Routine 08/07/2021 2:55 PM CDT Creatinine elevation from Last 3 Months or Most Recently Relevant to Health Maintenance Results * (ABNORMAL) Albumin Creatinine Ratio, Urine (09/19/2024 7:53 AM CDT) Pathologist [facility] Albumin Ur 106.6 mg/L Comment: Interpretive Data No reference range established. Current interpretive data was last revised 2018. Creatinine Ur 124.7 mg/dL [facility] Comment: Interpretive Data No reference range established. Current interpretive data was last revised 2018. Albumin Creatinine Ratio, Ur 85(H) 1 - 29 mg/g [facility] Urine 09/19/2024 7:5 3 AM CDT 09/19/2024 8:21 AM CDT Lynn Bain MD LAB URINE ORDERABLES Final Result [facility] Department [place] [address] * (ABNORMAL) Differential, auto (09/19/2024 7:12 AM CDT) Pathologist [facility] Neutrophil abs 4.30 1.50 - 6.50 K/cumm Comment:Testing performed by : [facility], [address] [place] [phone] Lymphocyte abs 3.31(H) 0.80 - 3.30 K/cumm [facility] Comment:Testing performed by : [facility], [address] [place] [phone] Monocyte abs 1.03(H) 0.20 - 0.80 K/cumm [facility] Comment:Testing performed by : [facility], [address] [place] [phone] Eosinophil abs 0.05 0.00 - 0.50 K/cumm [facility] Comment:Testing performed by : [facility], [address] [place] [phone] Basophil abs 0.02 0.00 - 0.10 K/cumm [facility] Comment:Testing performed by : [facility], [address] [place] [phone] Neutrophil pct 49.4 % [facility] Comment: Interpretive Data Percent cell count reference ranges are not reported, since discordance with absolute values may lead to misinterpretation of CBC data. Current Interpretive Data was last revised on 2017. Testing performed by: [facility], [address] [place] [phone] Lymphocyte pct 38.0 % [facility] Comment: Interpretive Data Percent cell count reference ranges are not reported, since discordance with absolute values may lead to misinterpretation of CBC data. Current Interpretive Data was last revised on 2017. Testing performed by: [facility], [address] [place] [phone] Monocyte pct 11.8 % [facility] Comment: Interpretive Data Percent cell count reference ranges are not reported, since discordance with absolute values may lead to misinterpretation of CBC data. Current Interpretive Data was last revised on 2017. Testing performed by: [facility], [address] [place] [phone] Eosinophil pct 0.6 % [facility] Comment: Interpretive Data Percent cell count reference ranges are not reported, since discordance with absolute values may lead to misinterpretation of CBC data. Current Interpretive Data was last revised on 2017. Testing performed by: [facility], [address] [place] [phone] Basophil pct 0.3 % [facility] Comment: Interpretive Data Percent cell count reference ranges are not reported, since discordance with absolute values may lead to misinterpretation of CBC data. Current Interpretive Data was last revised on 2017. Testing performed by: [facility], [address] [place] [phone] Blood 09/19/2024 7:12 AM CDT 09/19/2024 7:15 AM CDT us Montrell Wolfe MD PhD LAB BLOOD ORDERABLES Fin al Result KANA LEE [facility] [place] [address] * (ABNORMAL) CBC with auto differential (09/19/2024 7:12 AM CDT) WBC 8.71 3.80 - 9.90 K/cumm Comment:Testing performed by : [facility], [address] [place] [address] Hgb 15.0 13.0 - 17.5 g/dL [facility]ER[facility] L[facility] Comment:Testing performed by : [facility], [address] [place] [address] Hct 44.7 38.9 - 50.3 % [facility] Comment:Testing performed by : [facility], [address] [place] [address] Plt 411(H) 150 - 400 K/cumm [facility]ER[facility] Comment:Testing performed by : [facility], [address] [place] [address] MPV 7.2 6.8 - 10.4 fL CERIRASEMA BJ Comment:Testing performed by : [facility], [address] [place] [address] RBC 4.75 4.30 - 5.80 M/cumm [facility]ER[facility] BJ Comment:Testing performed by : [facility], [address] [place] [address] MCV 94.0 81.3 - 96.4 fL [facility]ERIR[facility]J Comment:Testing performed by : [facility], [address] [place] [address] MCH 31.5 27.1 - 33.3 pg CERIRASEMA BJ Comment:Testing performed by : [facility], [address] [place] [address] MCHC 33.5 32.3 - 35.7 g/dL [facility] Comment:Testing performed by : [facility], [address] [place] [phone] RDW CV 16.0(H) 11.1 - 14.9 % [facility] Comment:Testing performed by : [facility], [address] [place] [phone] NRBC abs 0.00 0.00 - 0.01 K/cumm [facility] Comment:Testing performed by : [facility], [address] [place] [phone] Blood 09/19/2024 7:12 AM CDT 09/19/2024 7:15 AM CDT Montrell Wolfe MD PhD LAB BLOOD ORDERABLES Fin al Result [facility] Department [place] [address] * (ABNORMAL) eGFR (09/19/2024 7:12 AM CDT) [...] ORDERABLES Fin al Result Performing Organization Address City/[facility] Co de Phone Number [facility] [place] [address] * (ABNORMAL) Vitamin D 25 hydroxy (09/19/2024 7:12 AM CDT) Vitamin D 25-OH 29(L) 30 - 80 ng/mL Blood 09/19/2024 7:12 AM CDT 09/19/2024 7:16 AM CDT Lynn Bain MD LAB BLOOD ORDERABLES Final Result Performing Organization Address [facility] de Phone Number [facility] [place] [address] * Phosphorus (09/19/2024 7:12 AM CDT) Phosphorus, pl 3.1 2.3 - 4.5 mg/dL Blood 09/19/2024 7:12 AM CDT 09/19/2024 7:16 AM CDT Montrell Wolfe MD PhD LAB BLOOD ORDERABLES Fin al Result Performing Organization Address City/[facility] Co de Phone Number [facility] [place] [address] * PTH (09/19/2024 7:12 AM CDT) PTH 65 15 - 65 pg/mL Blood 09/19/2024 7:12 AM CDT 09/19/2024 8:16 AM CDT Lynn Bain MD LAB BLOOD ORDERABLES Final Result Performing Organization Address City/[facility] Co de Phone Number [facility] Department [place] [address] * Lactate dehydrogenase (LD) (09/19/2024 7:12 AM CDT) [facility] Lactate dehydrogenase (LDH) 203 100 - 250 Units/L Blood 09/19/2024 7:12 AM CDT 09/19/2024 7:16 AM CDT Montrell Wolfe MD PhD LAB BLOOD ORDERABLES Fin al Result [facility] Department [place] [address] * (ABNORMAL) Comprehensive metabolic panel (09/19/2024 7:12 AM CDT) [facility] Sodium 143 135 - 145 mmol/L Potassium, pl 4.1 3.3 - 4.9 mmol/L [facility] Chloride 106 97 - 110 mmol/L [facility] CO2 28 22 - 32 mmol/L [facility] Anion gap 9 2 - 15 mmol/L [facility] BUN 26(H) 6 - 25 mg/dL [facility] Creatinine 2.09(H) 0.80 - 1.30 mg/dL [facility] Glucose 107 70 - 199 mg/dL [facility] Comment: Interpretive Data Fasting glucose >/= 126 [...] 2022. Calcium 9.4 8.5 - 10.3 mg/dL [facility] Bilirubin, total 0.6 0.1 - 1.2 mg/dL [facility] Protein, pl 7.8 6.5 - 8.5 g/dL [facility] Albumin 4.3 3.5 - 5.0 g/dL [facility] Alk phos 39(L) 40 - 130 Units/L [facility] ALT 34 7 - 55 Units/L [facility] AST 38 10 - 50 Units/L [facility] Blood 09/19/2024 7:12 AM CDT 09/19/2024 7:16 AM CDT us Montrell Wolfe MD PhD LAB BLOOD ORDERABLES Fin al Result [facility] Department [place] [address] * (ABNORMAL) eGFR (09/02/2024 8:40 AM CDT) [...] MD LAB BLOOD ORDERABL ES Final Result [facility] [address] Department [place] [address] * (ABNORMAL) Differential, auto (09/02/2024 8:40 AM [...] ORDERABL ES Final Result Performing Organization Address [facility] Co de Phone Number KANA MIGUEL [address] [place], [place] [id number] * (ABNORMAL) CBC with auto differential (09/02/2024 8:40 AM CDT) Pathologist [facility] WBC 7.36 3.80 - 9.90 K/cumm Hgb 14.6 13.0 - 17.5 g/dL [facility] Hct 46.8 38.9 - 50.3 % [facility] Plt 431(H) 150 - 400 K/cumm [facility] MPV 9.7 9.1 - 12.3 fL [facility] RBC 4.71 4.30 - 5.80 M/cumm [facility] MCV 99.4(H) 81.3 - 96.4 fL [facility] MCH 31.0 27.1 - 33.3 pg [facility] MCHC 31.2(L) 32.3 - 35.7 g/dL [facility] RDW CV 14.9 11.1 - 14.9 % [facility] RDW SD 55.5(H) 35.7 - 48.1 fL [facility] NRBC abs 0.00 0.00 - 0.01 K/cumm [facility] Blood 09/02/2024 8:40 AM CDT 09/02/2024 5:54 PM CDT Mami Alcala MD LAB BLOOD ORDERABL ES Final Result Performing Organization Address City/[facility]/ZIP Co de Phone Number KANA MIGUEL [address] [place] [address] * (ABNORMAL) Albumin Creatinine Ratio, Urine (09/02/2024 8:40 AM CDT) Pathologist [facility] Albumin Ur 147.7 mg/L Comment: Interpretive Data No reference range established. Current interpretive data was last revised 2018. Creatinine Ur 110.6 mg/dL [facility] Comment: Interpretive Data No reference range established. Current interpretive data was last revised 2018. Albumin Creatinine Ratio, Ur 134(H) 1 - 29 mg/g KANA Urine 09/02/2024 8:40 AM CDT 09/02/2024 5:54 PM CDT Mami Alcala MD LAB URINE ORDERABL ES Final Result Performing Organization Address [facility] Co de Phone Number MYKELIRASEMA [address] [place] [address] * (ABNORMAL) Vitamin D 25 hydroxy (09/02/2024 8:40 AM CDT) Pathologist [facility] Vitamin D 25-OH 28(L) 30 - 80 ng/mL Blood 09/02/2024 8:40 AM CDT 09/05/2024 9:55 PM CDT Mami Alcala MD LAB BLOOD ORDERABL ES Final Result Performing Organization Address [facility] de Phone Number [facility] [address] [place] [address] * (ABNORMAL) PTH (09/02/2024 8:40 AM CDT) PTH 71(H) 15 - 65 pg/mL Blood 09/02/2024 8:40 AM CDT 09/02/2024 5:54 PM CDT Mami Alcala MD LAB BLOOD ORDERABL ES Final Result Performing Organization Address [facility] de Phone Number [facility] [address] [facility] [place] [address] * (ABNORMAL) Renal function panel (09/02/2024 8:40 AM CDT) Sodium 138 135 - 145 mmol/L Potassium, pl 4.1 3.3 - 4.9 mmol/L [facility] Chloride 102 97 - 110 mmol/L [facility] CO2 25 22 - 32 mmol/L [facility] Anion gap 11 2 - 15 mmol/L [facility] BUN 25 6 - 25 mg/dL [facility] Creatinine 1.81(H) 0.80 - 1.30 mg/dL C[facility] Glucose 86 70 - 199 mg/dL [facility] Comment: Interpretive Data Fasting glucose >/= 126 [...] 2022. Calcium 9.0 8.5 - 10.3 mg/dL [facility] Phosphorus, pl 2.3 2.3 - 4.5 mg/dL [facility] Albumin 4.0 3.5 - 5.0 g/dL [facility] Blood 09/02/2024 8:40 AM CDT 09/02/2024 5:54 PM CDT Mami Alcala MD LAB BLOOD ORDERABL ES Final Result [facility] [address] Department [place] [address] * Cardiology Document Scan (08/10/2024) Anatomical Region Laterality Modality Other us Provider Scanning CV CARDIAC SERVICES PROCEDURES Final Result * Hemoglobin A1c (06/13/2024 7:24 AM SOCIAL SERVICES SPECIALIST) Hgb A1C 5.6 4.0 - 5.6 % Estimated Average Glucose 114 mg/dL [facility] Comment: The ADA recommends reporting an estimated Average Glucose (eAG) with all Hemoglobin A1c results using the equation derived from a study of 507 normal and diabetic adults. Minority populations were underrepresented and children were not included. (Diabetes Care 2020; 43(S1): S66-S76). The eAG is not equivalent to a fasting glucose. Blood 06/13/2024 7:24 AM SOCIAL SERVICES SPECIALIST 06/13/2024 7:40 AM SOCIAL SERVICES SPECIALIST us Franky Sylvester MD LAB BLOOD ORDERABLES Final Re sult KANA [facility] Department [place] [address] * Colonoscopy (05/19/2024 12:30 PM SOCIAL SERVICES SPECIALIST) Anatomical Region Laterality Modality Other Narrative Procedure Note Natalie Gonzalez MD - 05/19/2024 12:30 PM [facility] Patient Name: Bk Ferrera Procedure Date: 05/19/2024 12:30 PM Date of : 1955 Admit Type: Outpatient Age: 68 Gender: Male Attending MD: Natalie Gonzalez M.D. Room: [facility] ENDOSCOPY ROOM 4 Note Status: Finalized [...] scope was passed under direct vision.The CF [id number] endoscope was introduced through the anus [...] Return to referring physician. - please call [phone], 8 am -5 pm if any post procedural concerns/issues, after hours/weekends please call [phone] and ask for GI fellow juan alberto [...] BLOOD ORDERABLES Final Re sult KANA MIGUEL [address] [place] [address] * (ABNORMAL) Lipid panel (09/04/2023 10:34 AM [...] revised on 2017. Triglycerides 245(H) <=149 mg/dL [facility] Comment: Interpretive Data Ages < or = [...] revised on 2017. HDL 40 >=40 mg/dL [facility] Comment: Interpretive Data Ages < or = [...] on 2017. LDL, calculated 104 <=129 mg/dL [facility] Comment: Interpretive Data Ages < or = [...] revised on 2017. Non-HDL Cholesterol 153 mg/dL [facility] Comment: Interpretive Data Ages < or = [...] last revised on 2017. Chol/HDL ratio 5 [facility] Blood 09/04/2023 10:3 4 AM CDT 09/04/2023 11:01 AM CDT Corina Rater REAL ESTATE ACQUISITION ANALYST LAB BLOOD ORDERABLES Final Resul t [facility] [place] [address] * (ABNORMAL) DIABETES EYE EXAM (02/26/2023 11:15 AM SOCIAL SERVICES SPECIALIST) Historical Provider HEALTH MAINTENANCE Final Result * Hepatitis C antibody (08/07/2021 2:55 PM CDT) Hep C Ab Nonreactive Nonreactive [facility] Comment:Antibodies to HCV no t detected. Does NOT exclude the possibility of recent exposure to HCV. Blood 08/07/2021 2:55 PM CDT 08/07/2021 3:30 PM CDT Pablo Mcmillan MD LAB MICROBIOLOGY - GENE RAL ORDERABLES Edited Result - Final [facility] [place] [address] from Last 3 Months or Most Recently Relevant to Health Maintenance Insurance [facility] Advance Directives For more information, please contact: [phone] * Full Code (Latest Code Status on File) Date Activated Date Inactivated Comments 05/19/2024 12:20 PM 05/19/2024 6:43 PM * Full Code Date Activated Date Inactivated Comments 04/22/2023 8:39 AM 04/22/2023 2:54 PM * Full Code Date Activated Date Inactivated Comments 07/05/2022 6:35 PM 07/08/2022 7:06 PM * Full Code Date Activated Date Inactivated Comments 10/24/2020 6:59 AM 10/24/2020 1:29 PM Care Teams Train Brakeman Relationship Specialty Start Date End Date Franky Sylvester MD PCP - General Family Medicine 12/03/21 Rosa Russell NP Nurse Practitioner Medical Oncology 06/13/20 Montrell Wolfe MD PhD Medical Oncologist/Chemical Project Engineer Medical Oncology 12/03/21 [place] [address] [place] [address] Hydroelectric Machinery Mechanic Nephrology 03/21/24
--- OUTSIDE RECORDS SUMMARY | 2024-11-09 20:41 | XMS_ITS ---
Author Organization [facility] Address [address] [place] [address] Care Team Providers Care Independent Living Advisor Name Role Phone Yvonne Rosa Cummins TICKET WORKER Unavailable Franky Sylvester MD Primary Care Provider [phone] Montrell Wolfe MD PhD Unavailable [phone] Pablo Mcmillan MD Unavailable [phone] Active Problems Problem Noted Date Diagnosed Date Controlled type 2 diabetes koby villarreal with stage 3 chronic kidney disease, without long-term current use of insulin 06/15/2024 History of colon polyps 03/23/2024 Medicare annual wellness visit, subsequent 02/14 Assessment & Plan (02/15/2024 10:43 AM CONSULTANT): Discussed with patient current recommendations for routine [...] 02/12/2024 Assessment & Plan (02/15/2024 10:42 AM CONSULTANT): Stable limit nephrotoxins Continue Lasix 20mg BP and glucose control GFR 42 Lab Results Component Value Date CREATININE 1.75 (H) 2023 BUNSER 26 (H) 2023 SODIUM 140 2023 POTASSIUM 4.5 2023 CO2 27 2023 Simple chronic bronchitis 02/12/2024 Assessment & Plan (02/15/2024 10:40 AM CONSULTANT): Stable Continue Jakafi Reports has substantially helped [...] S/p LUISA and successful cardioversion 07/07/22 with spiritism of sinus rhythm. PO diltiazem 60 mg [...] 01/02/2022 Assessment & Plan (03/01/2024 9:39 AM CONSULTANT): Stable Uses CPAP with relief of symptoms [...] 2017 Assessment & Plan (02/15/2024 10:42 AM CONSULTANT): Stable Declines pain management Reports magnesium has [...] (10/09/2020): Added automatically from request for surgery [id number] Other osteoporosis without c urrent pathological fracture [...]
--- OUTSIDE RECORDS SUMMARY | 2024-11-09 20:41 | XMS_ITS | Continuity of Care Document ---
Author Organization [facility] Address [address] [place] [id number] Phone Care Team Providers Care Pre Planning Advisor Name Role Phone No Information Unavailable Unavailable Medications Medication Instructions Dosage Effective Dates (start - stop) Status Comments No Drug Therapy Prescribed Advance Directives Directive Yes / No Effective Date File Name No Information Encounters Encounter Description Practice Location Reason(s) For Visit Diagnoses Date Provider Providers Copied on Encounter [facility], [address] [place] [address], [id number], [place] tel:[phone] No Information No Information Family History Family Member Type Diagnosis Age At Onset No Information Payers Payer name Insurance type Covered green [...]
--- OUTSIDE RECORDS SUMMARY | 2024-11-09 20:41 | XMS_ITS | Referral Summary ---
Author Organization [facility] Address [address] [place] [address] Care Team Providers Care Dress Designer Name Role Phone Yvonne Rosa Placido ALTERATION HAND Unavailable Franky Sylvester MD Primary Care Provider [phone] Montrell Wolfe MD PhD Unavailable [phone] Pablo Mcmillan MD Unavailable [phone] Encounters Date Type Department Care Team Description 10/25/2024 6:00 PM CDT Office Visit [facility] Convenient Care at [address] [address] Geovany Castle NP Local skin infection (Primary Dx); Contact dermatitis, unspecified contact dermatitis type, unspecified trigger; Itchy scalp 10/17/2024 Orders Only [facility] Bone Marrow Transplant [address] [facility] Floor 6 [place] [address] Ney Padron RN Acute myeloid leukemia in remission (HCC) (Primary Dx) 09/19/2024 7:30 AM CDT Clinical Support [facility] - Lab Collection [address] [facility] Floor 6 [place] [address] Acute myeloid leukemia in remission (HCC); CKD stage 3b, GFR 30-44 ml/min (HCC); Albuminuria 09/19/2024 8:30 AM CDT Infusion [facility] - Infusion [address] [facility] Floor 6 [place] [address] Acute myeloid leukemia in remission (HCC) 09/14/2024 8:30 AM CDT Office Visit [facility] Nephrology [address] [facility] 5th [place] [address] [place] [phone] CKD stage 3b, GFR 30-44 ml/min (HCC) (Primary Dx); Essential hypertension; Albuminuria; Obesity, Class II, BMI 35-39.9 09/02/2024 8:40 AM CDT - 09/02/2024 11:59 PM CDT Hospital Encounter [facility] [address] [place] [address] CKD stage 3b, GFR 30-44 ml/min (HCC); Essential hypertension; Vitamin D deficiency disease; Acute myeloid leukemia in remission (HCC); Vitamin D deficiency, unspecified; Encounter for routine adult health examination with abnormal findings; Medication dose changed Discharge Disposition: Discharge to home or self care 09/02/2024 8:45 AM CDT Lab [facility] Outpatient Lab at [address] [address] 08/26/2024 Orders Only [facility] Nephrology [address] [facility] 5th [place] [address] Mami Alcala MD CKD stage 3b, GFR 30-44 ml/min (HCC) (Primary Dx); Essential hypertension; Vitamin D deficiency disease; Acute myeloid leukemia in remission (HCC); Vitamin D deficiency, unspecified; Encounter for routine adult health examination with abnormal findings; Medication dose changed 08/22/2024 10:45 AM CDT Office Visit [facility] Family Medicine at [address] [place] [phone] Franky Sylvester MD Fever in other diseases (Primary Dx); Stage 3b chronic kidney disease (HCC); Polycythemia, secondary; Paroxysmal atrial flutter (HCC); Hypogonadism in male; Stem cells transplant status (HCC) 08/16/2024 JORI IP Outreach [facility] Accountable Care Organization [address] [place] [address] Keysha Marte MA 08/10/2024 Orders Only [facility] Health Information Management [address] [place] [address] Scanning, Provider from Last 3 Months Allergies [...] needle, disp, 18 G (BD Regular Bevel Embarrass) 18 gauge x 1 needle To draw [...] needle, disp, 25 gauge (BD Regular Bevel [place]arrass) 25 gauge x 5/8 needle To use [...] 02/14 Assessment & Plan (02/15/2024 10:43 AM BRAKE ENGINEER): Discussed with patient current recommendations for routine [...] 02/12/2024 Assessment & Plan (02/15/2024 10:42 AM BRAKE ENGINEER): Stable limit nephrotoxins Continue Lasix 20mg BP and glucose control GFR 42 Lab Results Component Value Date CREATININE 1.75 (H) 2023 BUNSER 26 (H) 2023 SODIUM 140 2023 POTASSIUM 4.5 2023 CO2 27 2023 Simple chronic bronchitis 02/12/2024 Assessment & Plan (02/15/2024 10:40 AM BRAKE ENGINEER): Stable Continue Shannoni Reports has substantially helped sx 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 EKG in [facility] 07/05 showed narrow complex tachycardia with HR >150. Given adenosine x2 (6 mg, 12 mg) in [facility] EKG strip after adenosine noted flutter waves. [...] 01/02/2022 Assessment & Plan (03/01/2024 9:39 AM BRAKE ENGINEER): Stable Uses CPAP with relief of symptoms [...] 2017 Assessment & Plan (02/15/2024 10:42 AM BRAKE ENGINEER): Stable Declines pain management Reports magnesium has [...] (10/09/2020): Added automatically from request for surgery [id number] Other osteoporosis without c urrent pathological fracture 05/17/2019 10/16/2022 Prediabetes 05/17/2019 10/16/2022 Acute on chronic renal insufficiency 10/26/2018 10/16/2022 Assessment & Plan (07/08/2022 1:13 PM CDT): Cr 2.32 on admission (BL around 2 ). S/p 1L IVF bolus in [facility] 07/05 -Patient does endorse occasional NSAID use [...] drink = 0.6 oz pur e alcohol) [facility] Utilities Answer Date Recorded In the [...] any clubs o r organizations such as oriental orthodox groups, unions, fraternal or athletic groups, or [...] on file Legal Sex Male 10:07 AM BRAKE ENGINEER Gender Identity Not on file Sexual [...] Chronic Care Management No change(06/04 7:38 AM BRAKE ENGINEER) Seema Sterling, PANCHO Note: Problem: Chronic Pain Goals: 1. Minimize further functional decline 2. Maximize quality of life 3. Control pain Strategies: - Activity/exercise program recommendation - Conservative stepwise pain medicine strategy with multi-disciplinary approach - Recommend healthy lifestyle strategies and compensatory methods as needed Medical Devices Implanted Type Area E Business Specialist Device Identifier Shelf Expiration Date Model / [...] 08/10/2024 HEMOGLOBIN A1C Routine 06/13/2024 7:24 AM BRAKE ENGINEER 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 disease, without long-term current use of insulin (HCC) COLONOSCOPY 05/19/2024 12:30 PM BRAKE ENGINEER PSA SCREEN Routine 10/27/2023 10:05 AM CDT Screening for prostate cancer LIPID PANEL Routine 09/04/2023 10:34 AM CDT Atrial flutter with rapid ventricular response (HCC) Essential hypertension Paroxysmal atrial flutter (HCC) Pure hypercholesterolemi a Acute myeloid leukemia in remission (HCC) NOVAK (dyspnea on exertion) HM DIABETES EYE EXAM Routine 02/26/2023 11:15 AM BRAKE ENGINEER HEPATITIS C ANTIBODY Routine 08/07/2021 2:55 PM CDT Creatinine elevation from Last 3 Months or Most Recently Relevant to Health Maintenance Results * (ABNORMAL) Albumin Creatinine Ratio, Urine (09/19/2024 7:53 AM CDT) Albumin Ur 106.6 mg/L Comment: Interpretive Data No reference range established. Current interpretive data was last revised 2018. Creatinine Ur 124.7 mg/dL [facility] Comment: Interpretive Data No reference range established. Current interpretive data was last revised 2018. Albumin Creatinine Ratio, Ur 85(H) 1 - 29 mg/g [facility] Urine 09/19/2024 7:53 AM CDT 09/19/2024 8:21 AM CDT us Lynn Bain MD LAB URINE ORDERABLES Final Result [facility] Department [place] [address] * (ABNORMAL) Differential, auto (09/19/2024 7:12 AM CDT) Neutrophil abs 4.30 1.50 - 6.50 K/cumm Comment:Testing performed by : [facility], [address] [place] [phone] Lymphocyte abs 3.31(H) 0.80 - 3.30 K/cumm [facility] Comment:Testing performed by : [facility], [address] [place] [phone] Monocyte abs 1.03(H) 0.20 - 0.80 K/cumm [facility] Comment:Testing performed by : [facility], [address] [place], [place] [id number] Eosinophil abs 0.05 0.00 - 0.50 K/cumm [facility] Comment:Testing performed by : [facility], [address] [place], [place] [id number] Basophil abs 0.02 0.00 - 0.10 K/cumm [facility] Comment:Testing performed by : [facility], [address] [place], [place] [id number] Neutrophil pct 49.4 % [facility] Comment: Interpretive Data Percent cell count reference ranges are not reported, since discordance with absolute values may lead to misinterpretation of CBC data. Current Interpretive Data was last revised on 2017. Testing performed by: [facility], [address] [place], [place] [phone] Lymphocyte pct 38.0 % [facility] Comment: Interpretive Data Percent cell count reference ranges are not reported, since discordance with absolute values may lead to misinterpretation of CBC data. Current Interpretive Data was last revised on 2017. Testing performed by: [facility], [address] [place], [place] [phone] Monocyte pct 11.8 % [facility] Comment: Interpretive Data Percent cell count reference ranges are not reported, since discordance with absolute values may lead to misinterpretation of CBC data. Current Interpretive Data was last revised on 2017. Testing performed by: [facility], [address] [place] [phone] Eosinophil pct 0.6 % [facility] Comment: Interpretive Data Percent cell count reference ranges are not reported, since discordance with absolute values may lead to misinterpretation of CBC data. Current Interpretive Data was last revised on 2017. Testing performed by: [facility], [address] [place] [address] Basophil pct 0.3 % [facility] Comment: Interpretive Data Percent cell count reference ranges are not reported, since discordance with absolute values may lead to misinterpretation of CBC data. Current Interpretive Data was last revised on 2017. Testing performed by: [facility], [address] [place] [address] Blood 09/19/2024 7:12 AM CDT 09/19/2024 7:15 AM CDT us Montrell Wolfe MD PhD LAB BLOOD ORDERABLES Fin al Result [facility] [place] [address] * (ABNORMAL) CBC with auto differential (09/19/2024 7:12 AM CDT) WBC 8.71 3.80 - 9.90 K/cumm Comment:Testing performed by : [facility], [address] [place] [address] Hgb 15.0 13.0 - 17.5 g/dL [facility] Comment:Testing performed by : [facility], [address] [place] [address] Hct 44.7 38.9 - 50.3 % [facility] Comment:Testing performed by : [facility], [address] [place] [address] Plt 411(H) 150 - 400 K/cumm [facility] Comment:Testing performed by : [facility], [address] [place] [address] MPV 7.2 6.8 - 10.4 fL [facility] Comment:Testing performed by : [facility], [address] [place] [address] RBC 4.75 4.30 - 5.80 M/cumm [facility] Comment:Testing performed by : [facility], [address] [place], [place] [phone] MCV 94.0 81.3 - 96.4 fL [facility] Comment:Testing performed by : [facility], [address] [place], [place] [phone] MCH 31.5 27.1 - 33.3 pg [facility] Comment:Testing performed by : [facility], [address] [place], [place] [phone] MCHC 33.5 32.3 - 35.7 g/dL [facility] Comment:Testing performed by : [facility], [address] [place] [address] RDW CV 16.0(H) 11.1 - 14.9 % [facility] Comment:Testing performed by : [facility], [address] [place], [place] [phone] NRBC abs 0.00 0.00 - 0.01 K/cumm [facility] Comment:Testing performed by : [facility], [address] [place], [place] [phone] Blood 09/19/2024 7:12 AM CDT 09/19/2024 7:15 AM CDT us Montrell Wolfe MD PhD LAB BLOOD ORDERABLES Fin al Result [facility] [place] [address] * (ABNORMAL) eGFR (09/19/2024 7:12 AM CDT) [...] ORDERABLES Fin al Result Performing Organization Address [facility] de Phone Number [facility] [place] [address] * (ABNORMAL) Vitamin D 25 hydroxy (09/19/2024 7:12 AM CDT) Vitamin D 25-OH 29(L) 30 - 80 ng/mL Blood 09/19/2024 7:12 AM CDT 09/19/2024 7:16 AM CDT Lynn Bain MD LAB BLOOD ORDERABLES Final Result Performing Organization Address [facility] de Phone Number [facility] [place] [address] * Phosphorus (09/19/2024 7:12 AM CDT) Phosphorus, pl 3.1 2.3 - 4.5 mg/dL Blood 09/19/2024 7:12 AM CDT 09/19/2024 7:16 AM CDT Montrell Wolfe MD PhD LAB BLOOD ORDERABLES Fin al Result Performing Organization Address [facility]/ZIP Co de Phone Number [facility] [place] [address] * PTH (09/19/2024 7:12 AM CDT) [facility] PTH 65 15 - 65 pg/mL Blood 09/19/2024 7:12 AM CDT 09/19/2024 8:16 AM CDT us Lynn Bain MD LAB BLOOD ORDERABLES Final Result Performing Organization Address City/[facility]/ZIP Co de Phone Number [facility] [place] [address] * Lactate dehydrogenase (LD) (09/19/2024 7:12 AM CDT) [facility] Lactate dehydrogenase (LDH) 203 100 - 250 Units/L Blood 09/19/2024 7:12 AM CDT 09/19/2024 7:16 AM CDT us Montrell Wolfe MD PhD LAB BLOOD ORDERABLES Fin al Result Performing Organization Address City/[facility] Co de Phone Number [facility] [place] [address] * (ABNORMAL) Comprehensive metabolic panel (09/19/2024 7:12 AM CDT) [facility] Sodium 143 135 - 145 mmol/L Potassium, pl 4.1 3.3 - 4.9 mmol/L [facility] Chloride 106 97 - 110 mmol/L [facility] CO2 28 22 - 32 mmol/L [facility] Anion gap 9 2 - 15 mmol/L [facility] BUN 26(H) 6 - 25 mg/dL [facility] Creatinine 2.09(H) 0.80 - 1.30 mg/dL [facility] Glucose 107 70 - 199 mg/dL [facility] Comment: Interpretive Data Fasting glucose [...] Calcium 9.4 8.5 - 10.3 mg/dL [facility] Bilirubin, total 0.6 0.1 - 1.2 mg/dL [facility] Protein, pl 7.8 6.5 - 8.5 g/dL [facility] Albumin 4.3 3.5 - 5.0 g/dL [facility] Alk phos 39(L) 40 - 130 Units/L [facility] ALT 34 7 - 55 Units/L [facility] AST 38 10 - 50 Units/L [facility] Blood 09/19/2024 7:12 AM CDT 09/19/2024 7:16 AM CDT us Montrell Wolfe MD PhD LAB BLOOD ORDERABLES Fin al Result [facility] [place] [address] * (ABNORMAL) eGFR (09/02/2024 8:40 AM CDT) [...] MD LAB BLOOD ORDERABL ES Final Result [facility] [address] [place] [address] * (ABNORMAL) Differential, auto (09/02/2024 8:40 AM CDT) Neutrophil abs 3.24 1.50 - 6.50 K/cumm Imm gran abs 0.03 0.00 - 0.10 K/cumm [facility] Lymphocyte abs 3.15 0.80 - 3.30 K/cumm [facility] Monocyte abs 0.90(H) 0.20 - 0.80 K/cumm [facility] Eosinophil abs 0.03 0.00 - 0.50 K/cumm [facility] Basophil abs 0.01 0.00 - 0.10 K/cumm [facility] Neutrophil pct 44.1 % [facility] Comment: Interpretive Data Percent cell count reference ranges are not reported, since discordance with absolute values may lead to misinterpretation of CBC data. Current Interpretive Data was last revised on 2017. Imm gran pct 0.4 % [facility] Comment: Interpretive Data Percent cell count reference ranges are not reported, since discordance with absolute values may lead to misinterpretation of CBC data. Current Interpretive Data was last revised on 2017. Lymphocyte pct 42.8 % [facility] Comment: Interpretive Data Percent cell count reference ranges are not reported, since discordance with absolute values may lead to misinterpretation of CBC data. Current Interpretive Data was last revised on 2017. Monocyte pct 12.2 % [facility] Comment: Interpretive Data Percent cell count [...] MD LAB BLOOD ORDERABL ES Final Result [facility] [address] Department [place] [address] * (ABNORMAL) CBC with auto differential (09/02/2024 8:40 AM CDT) WBC 7.36 3.80 - 9.90 K/cumm Hgb 14.6 13.0 - 17.5 g/dL [facility] Hct 46.8 38.9 - 50.3 % [facility] Plt 431(H) 150 - 400 K/cumm [facility] MPV 9.7 9.1 - 12.3 fL [facility] RBC 4.71 4.30 - 5.80 M/cumm [facility] MCV 99.4(H) 81.3 - 96.4 fL [facility] MCH 31.0 27.1 - 33.3 pg [facility] MCHC 31.2(L) 32.3 - 35.7 g/dL [facility] RDW CV 14.9 11.1 - 14.9 % [facility] RDW SD 55.5(H) 35.7 - 48.1 fL [facility] NRBC abs 0.00 0.00 - 0.01 K/cumm [facility] Blood 09/02/2024 8:40 AM CDT 09/02/2024 5:54 PM CDT Mami Alcala MD LAB BLOOD ORDERABL ES Final Result Performing Organization Address [facility] de Phone Number [facility] M[facility] [address] [facility] [place] [address] * (ABNORMAL) Albumin Creatinine Ratio, Urine (09/02/2024 8:40 AM CDT) Albumin Ur 147.7 mg/L Comment: Interpretive Data No reference range established. Current interpretive data was last revised 2018. Creatinine Ur 110.6 mg/dL [facility] Comment: Interpretive Data No reference range established. Current interpretive data was last revised 2018. Albumin Creatinine Ratio, Ur 134(H) 1 - 29 mg/g K[facility] Urine 09/02/2024 8:40 AM CDT 09/02/2024 5:54 PM CDT Mami Alcala MD LAB URINE ORDERABL ES Final Result Performing Organization Address [facility] de Phone Number [facility] MIGUEL [address] [place] [address] * (ABNORMAL) Vitamin D 25 hydroxy (09/02/2024 8:40 AM CDT) Vitamin D 25-OH 28(L) 30 - 80 ng/mL Blood 09/02/2024 8:40 AM CDT 09/05/2024 9:55 PM CDT Mami Alcala MD LAB BLOOD ORDERABL ES Final Result Performing Organization Address [facility] Co de Phone Number MYK[facility]IR[facility] MIGUEL [address] [facility] [place] [address] * (ABNORMAL) PTH (09/02/2024 8:40 AM CDT) PTH 71(H) 15 - 65 pg/mL Blood 09/02/2024 8:40 AM CDT 09/02/2024 5:54 PM CDT Mami Alcala MD LAB BLOOD ORDERABL ES Final Result [facility] MIG[facility]EL [address] [place] [address] * (ABNORMAL) Renal function panel (09/02/2024 8:40 [...] BLOOD ORDERABL ES Final Result [facility] MIGUEL [address] Department of Laboratories [place] [phone] * Cardiology Document Scan (08/10/2024) Anatomical Region Laterality Modality Other us Provider Scanning CV CARDIAC SERVICES PROCEDURES Final Result * Hemoglobin A1c (06/13/2024 7:24 AM BRAKE ENGINEER) Hgb A1C 5.6 4.0 - 5.6 % Estimated Average Glucose 114 mg/dL [facility] Comment: The ADA recommends reporting an estimated Average Glucose (eAG) with all Hemoglobin A1c results using the equation derived from a study of 507 normal and diabetic adults. Minority populations were underrepresented and children were not included. (Diabetes Care 2020; 43(S1): S66-S76). The eAG is not equivalent to a fasting glucose. Blood 06/13/2024 7:24 AM BRAKE ENGINEER 06/13/2024 7:40 AM BRAKE ENGINEER us Franky Sylvester MD LAB BLOOD ORDERABLES Final Re sult [facility] [place] [address] * Colonoscopy (05/19/2024 12:30 PM BRAKE ENGINEER) Anatomical Region Laterality Modality Other Narrative Procedure Note Natalie Gonzalez MD - 05/19/2024 12:30 PM [facility]ST [facility] Patient Name: Bk Pichardo Procedure Date: 05/19/2024 12:30 PM Date of : 1955 Admit Type: Outpatient Age: 68 Gender: Male Attending MD: Natalie Gonzalez M.D. Room: [facility] ENDOSCOPY ROOM 4 Note Status: [...] The scope was passed under direct vision.The [id number] endoscope was introduced through the anus and [...] Return to referring physician. - please call [phone], 8 am -5 pm if any post procedural concerns/issues, after hours/weekends please call [phone] and ask for GI fellow oncall Attending [...] LAB BLOOD ORDERABLES Final Re sult K[facility] [address] Department [place] [address] * (ABNORMAL) Lipid panel (09/04/2023 [...] on 2017. Triglycerides 245(H) <=149 mg/dL [facility] Comment: Interpretive Data Ages < or = [...] revised on 2017. HDL 40 >=40 mg/dL [facility] Comment: Interpretive Data Ages < or [...] 2017. LDL, calculated 104 <=129 mg/dL [facility] Comment: Interpretive Data Ages < or [...] on 2017. Non-HDL Cholesterol 153 mg/dL [facility] Comment: Interpretive Data Ages < or [...] revised on 2017. Chol/HDL ratio 5 [facility] Blood 09/04/2023 10:3 4 AM CDT 09/04/2023 11:01 AM CDT us Corina Rater ALTERATION HAND LAB BLOOD ORDERABLES Final Resul t Performing Organization Address City/[facility] Co de Phone Number [facility] [place] [address] * (ABNORMAL) DIABETES EYE EXAM (02/26/2023 11:15 AM BRAKE ENGINEER) Historical Provider HEALTH MAINTENANCE Final Result * Hepatitis C antibody (08/07/2021 2:55 PM CDT) Hep C Ab Nonreactive Nonreactive [facility] Comment:Antibodies to HCV no t detected. Does NOT exclude the possibility of recent exposure to HCV. Blood 08/07/2021 2:55 PM CDT 08/07/2021 3:30 PM CDT Pablo Mcmillan MD LAB MICROBIOLOGY - G[facility] ORDERABLES Edited Result - Final Performing Organization Address City/[facility] Co de Phone Number [facility] [place] [address] from Last 3 Months or Most Recently Relevant to Health Maintenance Insurance [facility] [address] [facility] Advance Directives For more information, please contact: [phone] * Full Code (Latest Code Status on File) Date Activated Date Inactivated Comments 05/19/2024 12:20 PM 05/19/2024 6:43 PM * Full Code Date Activated Date Inactivated Comments 04/22/2023 8:39 AM 04/22/2023 2:54 PM * Full Code Date Activated Date Inactivated Comments 07/05/2022 6:35 PM 07/08/2022 7:06 PM * Full Code Date Activated Date Inactivated Comments 10/24/2020 6:59 AM 10/24/2020 1:29 PM Care Teams Dress Designer Relationship Specialty Start Date End Date Franky Sylvester MD PCP - General Family Medicine 12/03/21 Rosa Russell, ALTERATION HAND Nurse Practitioner Medical Oncology 06/13/20 Montrell Wolfe MD PhD Medical Oncologist/Member Services Representative Medical Oncology 12/03/21 Pablo Mcmillan MD [address] [place] [id number] Adzing And Boring Machine Feeder Nephrology 03/21/24
--- OUTSIDE RECORDS SUMMARY | 2024-11-09 20:41 | XMS_ITS | Encounter Summary ---
Author Organization [facility] Healthcare Address [address] [place] [address] Care Team Providers Care Company Marker Name Role Phone Rosa Russell PRESSED OR BLOWN GLASS WORKER Unavailable [phone] Franky Sylvester MD Primary Care Provider [phone] Montrell Wolfe MD PhD Unavailable [phone] Pablo Mcmillan MD Unavailable [phone] Encounter Details Date Type Department Care Team (Late st Contact Info) Description 08/10/2024 Orders Only [facility] Information Management [address] [place] [address] Scanning, Provider Social History Tobacco Use Types Packs/Day Years Used Date Smoking Tobacco: Former Cigarettes 0.3 15 1 975 - 1990 Smokeless Tobacco: Never Alcohol Use Standard Drinks/Week Comments No 0 (1 standard drink = 0.6 oz pur e alcohol) [facility] Utilities Answer Date Recorded In the past 12 months has [facility], gas, oil, or water [employer] threatened to shut off services in [...] How often do you attend chur or shinto services? Never 06/26/2023 Do you belong to any clubs o r organizations such as sikhism groups, unions, fraternal or athletic groups, or [...] on file Legal Sex Male 10:07 AM PEOPLESOFT FINANCIALS CONSULTANT Gender Identity Not on file Sexual Orientation Not on file documented as of this encounter Plan of Treatment Not on file documented as of this encounter Goals Goal Patient Goal Type Associated Problems Recent Progress Patient-Stated? Author CCM Chronic Pain Care Plan Chronic Care Management No change(06/04 7:38 AM PEOPLESO[employer] FINANCIALS CONSULTANT) No Seema Dutton RN Note: Problem: [...] on filedocumented in this encounter Care Teams Company Marker Relationship Specialty Start Date End Date Franky Sylvester MD PCP - General Family Medicine 12/03/21 Rosa Russell NP Nurse Practitioner Medical Oncology 06/13/20 Montrell Wolfe MD PhD Medical Oncologist/Knitting Machine Operator Helper Medical Oncology 12/03/21 Pablo Mcmillan MD [address] [address] Environmental Health Aide Nephrology 03/21/24 documented as of this encounter
--- OUTSIDE RECORDS SUMMARY | 2024-11-09 20:41 | XMS_ITS | Encounter Summary ---
Author Organization [facility] Healthcare Address [address] [place] [address] Care Team Providers Care School Traffic Guard Name Role Phone Emily Tovar MD Primary Care Provider Rosa Russell DEICER INSPECTOR PNEUMATIC Unavailable Franky Sylvester MD Primary Care Provider [phone] Montrell Wolfe MD PhD Unavailable [phone] Luba Corona RN Unavailable Pablo Mcmillan MD Unavailable [phone] Reason for Visit * Reason Onset Date Comments Med Refill 08/17/2020 Encounter Details Date Type Department Care Team (Late st Contact Info) Description 08/17/2020 Telephone [facility] [place] [facility] [address] [facility] [address] [place], [place] [id number] Heriberto Salgado MD [address] [facility] [address] [place], [place] [id number] Med Refill Social History Tobacco Use Types [...] on file Legal Sex Male 10:07 AM LINUX SYSTEMS ENGINEER Gender Identity Not on file Sexual Orientation Not on file documented as of this encounter Plan of Treatment Not on file documented as of this encounter Goals Goal Patient Goal Type Associated Problems Recent Progress Patient-Stated? Author CCM Chronic Pain Care Plan Chronic Care Management No change(06/04 7:38 AM LINUX SYSTEMS ENGINEER) No Seema Dutton RN Note: Problem: Chronic [...] documented as of this encounter Care Teams School Traffic Guard Relationship Specialty Start Date End Date Emily Tovar MD PCP - General Internal Medicine 09/22/16 10/09/21 Franky Sylvester MD PCP - General Family Medicine 12/03/21 Rosa Russell NP Nurse Practitioner Medical Oncology 06/13/20 Montrell Wolfe MD PhD Medical Oncologist/Supervisor Roving Medical Oncology 12/03/21 Luba Corona, PANCHO [address] [place] [address] Director Medical Safety 05/19/23 02/07/24 Pablo Mcmillan MD [address] [place] [address] Slash Trimmer Nephrology 03/21/24 documented as of this encounter
--- OUTSIDE RECORDS SUMMARY | 2024-11-09 20:41 | XMS_ITS | Encounter Summary ---
Author Organization [facility] Address [address] [place] [address] Phone Care Team Providers Care Farm Operator Name Role Phone Rosa Russell PRESIDENT AND CEO Unavailable [phone] Franky Sylvester MD Primary Care Provider [phone] Montrell Wolfe MD PhD Unavailable Luba Corona RN Unavailable Pablo Mcmillan MD Unavailable [phone] Encounter Details Date Type Department Care Team (Late st Contact Info) Description 12/03/2021 Telephone [facility]row Transplant [address] [facility] [address], [place] [address] Lisette Rucker V. 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 Author CCM Chronic Pain Care Plan Chronic Care Management No change(06/04 7:38 AM LIFT DRIVER) No Seema Dutton RN Note: Problem: Chronic [...] documented as of this encounter Care Teams Farm Operator Relationship Specialty Start Date End Date Franky Sylvester MD PCP - General Family Medicine 12/03/21 Rosa Russell NP Nurse Practitioner Medical Oncology 06/13/20 Montrell Wolfe MD PhD Medical Oncologist/Eeg Tech Medical Oncology 12/03/21 Luba Corona, PANCHO [address] [place] [address] [address] [place] [address] Upper Lining Cementer 05/19/23 02/07/24 Pablo Mcmillan MD [address] [place] [address] Senior Director Of Strategy Nephrology 03/21/24 documented as of this encounter
== END 2024-11-09 21:50 | disposition home or self-care (01) ==
PROVIDERS: Emergency Medicine; Emergency Provider Physician Assistant; PCP Family Medicine
DX: R10.31 Right lower quadrant pain (principal); I10 Essential (primary) hypertension; E11.9 Type 2 diabetes mellitus without complications; K21.9 Gastro-esophageal reflux disease without esophagitis; C92.01 Acute myeloblastic leukemia, in remission; F32.A Depression, unspecified; Z96.651 Presence of right artificial knee joint; Z94.81 Bone marrow transplant status; Z86.711 Personal history of pulmonary embolism; Z86.718 Personal history of other venous thrombosis and embolism; Z87.01 Personal history of pneumonia (recurrent); Z87.891 Personal history of nicotine dependence; R93.41 Abnormal radiologic findings on diagnostic imaging of renal pelvis, ureter, or bladder; Z79.85 Long-term (current) use of injectable non-insulin antidiabetic drugs; Z79.01 Long term (current) use of anticoagulants; Z79.899 Other long term (current) drug therapy
CPT/HCPCS: 36415; 74177; 80053; 81001; 83690; 85025; 99284; J7040; Q9967